=== PATIENT | female | born 1980 | race Caucasian/White ===

== ENCOUNTER 2020-10-29 09:05 | Emergency (ER) | payer MEDICARE, SELFPAY ==
[2020-10-29 09:16] VITALS: BP 149/83; PULSE 86; RESP 16; TEMP 36.5; O2SAT 99
--- NOTE | 2020-10-29 09:36 | ED.URI ---
HPI - URI/Sore Throat General Chief Complaint: Upper Respiratory Infection Stated Complaint: Coughing Time Seen by Provider: 10/29/20 09:36 Source: patient, RN notes reviewed and old records reviewed Mode of arrival: ambulatory Limitations: no limitations History of Present Illness HPI Narrative: 40 year old female who presents to [facility] care with complaints of 10 day history of productive cough of clear white mucous, and some rhinorrhea which is clear. Patient reports that she just completed a 10 day prescription of Augmentin for bronchitis but cough has lingered. Patient reports that she does have some sinus drainage and she has noted some wheezing at night, lungs are clear to auscultation at this time with no tachypnea or accessory muscle use.Patient is noted to have frequent cough with some clear expectoration of mucous, denies any shortness of breath at rest or with exertion. Patient reports that she has had COVID vaccinations. MD elicited complaint: cough and rhinorrhea Pertinent past history: other (just completed 10 days of Augmentin) Onset (ago): day(s) (10) Consistency: constant Severity: moderate Description of mucous: clear Able to tolerate fluids by mouth: Yes Exacerbating factors: nothing Relieving factors: nothing Associated symptoms: rhinorrhea and cough Treatments prior to arrival: antibiotics Related Data Home Medications Medication Instructions Recorded Confirmed alprazolam 1 mg PO DAILY 10/29/20 10/29/20 aripiprazole [Abilify] 30 mg PO DAILY 10/29/20 10/29/20 ferrous sulfate [Iron (ferrous mg 10/29/20 sulfate)] venlafaxine [Effexor XR] 150 mg PO DAILY 10/29/20 10/29/20 Allergies Allergy/AdvReac Type Severity Reaction Status Date / Time morphine AdvReac Severe Other Verified 08/31/18 15:30 codeine AdvReac Intermediate Other Verified 08/31/18 15:31 Review of Systems Review of Systems: Narrative: CONSTITUTIONAL: Denies fever, chills, or sweats. EYES: Denies visual changes, redness, or discharge. ENT: Clear rhinorrhea,no congestion, sore throat, or otalgia. CARDIOVASCULAR: Denies chest pain, palpitations, or edema. RESPIRATORY: Positive lingering cough denies any dyspnea. GASTROINTESTINAL: Denies abdominal pain, nausea, vomiting, or diarrhea. GENITOURINARY: Denies dysuria or hematuria. SKIN: Denies rash or itching. MUSCULOSKELETAL: Denies back pain, joint pain, or myalgia. NEUROLOGIC: Denies headache, numbness, or weakness. PSYCHIATRIC: Positive history of anxiety or depression. All systems reviewed & are unremarkable except as noted in HPI and below PMFSH Past Medical History Medical History (Updated 10/30/20 @ 16:40 by Indy Caldera NP) Anemia Anxiety and depression Celiac disease Insomnia Surgical History Surgical History (Updated 10/30/20 @ 16:35 by Indy Caldera NP) H/O gastric bypass History of abdominoplasty Hx of cholecystectomy Previous section Status post bilateral breast reduction Family History Family History (Updated 10/30/20 @ 16:36 by Indy Caldera NP) Other No significant family history Social History Social History (Updated 10/30/20 @ 16:36 by Indy Caldera NP) Smoking status: Former smoker Additional smoking assessment comments: quit age 20 Alcohol intake: current Alcohol use details: rare social Substance use: never Living arrangements: with family Gender identity (if verbalized by the patient): Female Comments At time of signature, agree with nursing past medical, surgical, social and family history. There is no relevant family history pertinent to the presenting complaint Exam Narrative: Exam Narrative: GENERAL: Well-appearing, well-nourished, and in no acute distress. HEAD: Normocephalic, atraumatic. EYES: PERRLA and EOMI. ENT: Nares lightly red with clear rhinorrhea no epistaxis. Mucous membranes moist.TM's normal with good light reflex, throat pink with no lesions or exudates or tonsil enlargement, gladys
== END 2020-10-29 10:00 | disposition home or self-care (01) ==
PROVIDERS: Emergency Provider Registered Nurse
DX: R05 Cough (principal); J02.9 Acute pharyngitis, unspecified; J06.9 Acute upper respiratory infection, unspecified; Z87.891 Personal history of nicotine dependence; D64.9 Anemia, unspecified; F41.9 Anxiety disorder, unspecified; F32.9 Major depressive disorder, single episode, unspecified; Z98.84 Bariatric surgery status; K90.0 Celiac disease
CPT/HCPCS: 99213; G0463

== ENCOUNTER 2022-03-16 13:29 | Emergency (ER) | payer MEDICARE, SELFPAY ==
[2022-03-16 13:42] VITALS: BP 142/107; PULSE 109; RESP 20; TEMP 36.9; O2SAT 98
--- NOTE | 2022-03-16 15:22 | ED.URI ---
HPI - URI/Sore Throat General Chief Complaint: Upper Respiratory Infection Stated Complaint: Body Ache/Headache/Congestion Time Seen by Provider: 03/16/22 15:22 Source: patient, RN notes reviewed and old records reviewed Mode of arrival: ambulatory Limitations: no limitations History of Present Illness HPI Narrative: 41 year old female who presents to [facility] care with complaints of body aches, headache, sinus congestion, cough for 1 week duration. Patient denies any fevers or sore throat or any shortness of breath. Pateient reports that she has been taking Tylenol and also Theraflu for her symptoms. Patient rates her body aches as 10/10. MD elicited complaint: cough, rhinorrhea, nasal congestion and other (body aches) Onset (ago): week(s) (1) Pain scale (0-10): 10 Treatments prior to arrival: acetaminophen and other (Theraflu) Related Data Home Medications Medication Instructions Recorded Confirmed alprazolam 1 mg tablet 1 mg PO DAILY 10/29/20 10/29/20 aripiprazole 30 mg tablet (Abilify) 30 mg PO DAILY 10/29/20 10/29/20 ferrous sulfate 325 mg (65 mg mg 10/29/20 iron) tablet (Iron (ferrous sulfate)) venlafaxine 150 mg 150 mg PO DAILY 10/29/20 10/29/20 capsule,extended release 24 hr (Effexor XR) divalproex 250 mg tablet,delayed mg PO 03/16/22 release (Depakote) Allergies Allergy/AdvReac Type Severity Reaction Status Date / Time morphine AdvReac Severe Other Verified 08/31/18 15:30 codeine AdvReac Intermediate Other Verified 08/31/18 15:31 Review of Systems Review of Systems: CONSTITUTIONAL: Reports malaise, no chills, sweats, or fever. EYES: Denies visual changes, redness, or discharge. ENT: Reports rhinorrhea, congestion, sinus pain,no otalgia no sore throat. CARDIOVASCULAR: Denies chest pain, palpitations, or edema. RESPIRATORY: Reports cough.? Denies dyspnea, reports some wheezing GASTROINTESTINAL: Denies abdominal pain, nausea, vomiting, diarrhea SKIN: Denies rash or itching. MUSCULOSKELETAL: Reports myalgia. NEUROLOGIC:Reports headache. All systems reviewed & are unremarkable except as noted in HPI and below PMFSH Past Medical History Medical History (Updated 03/17/22 @ 00:00 by Vanesa Johnson) Anemia Anxiety and depression Celiac disease Insomnia Surgical History Surgical History (Updated 10/30/20 @ 16:35 by Indy Caldera NP) H/O gastric bypass History of abdominoplasty Hx of cholecystectomy Previous section Status post bilateral breast reduction Family History Family History (Updated 10/30/20 @ 16:37 by Indy Caldera NP) Other No significant family history Social History Social History (Updated 10/30/20 @ 16:36 by Indy Caldera NP) Smoking status: Former smoker Additional smoking assessment comments: quit age 20 Alcohol intake: current Alcohol use details: rare social Substance use: never Gender identity (if verbalized by the patient): Female Comments At time of signature, agree with nursing past medical, surgical, social and family history. There is no relevant family history pertinent to the presenting complaint Exam Narrative: GENERAL: Well-appearing, well-nourished, and in no acute distress. HEAD: Normocephalic EYES: PERRLA, conjunctivae clear ENT: Nares clear, turbinates edematous and erythematous, clear discharge. Mucous membranes moist. TM pearly szymanski with dull light reflex bilaterally; no tragal tenderness. Oropharynx erythematous without lesions. Tonsils not enlarged and without exudate, no drooling, no hoarseness, no trismus, uvula midline.post nasal drainage NECK: Supple. No lymphadenopathy CHEST: Clear to auscultation, breath sounds equal. No wheezing, rhonchi, rales, or stridor. No respiratory distress, speaks in full sentences.cough loose and dry frequent, SAO2 98% on room air HEART: Regular rate and rhythm. No murmur heard. SKIN: Warm, dry, no rash. NEURO: Alert and oriented x3.
== END 2022-03-16 16:08 | disposition home or self-care (01) ==
PROVIDERS: Emergency Provider Registered Nurse; PCP Internal Medicine
DX: J06.9 Acute upper respiratory infection, unspecified (principal); R05.9 Cough, unspecified; K90.0 Celiac disease; Z98.84 Bariatric surgery status; F41.9 Anxiety disorder, unspecified; F32.A Depression, unspecified
CPT/HCPCS: 87804; 99213; G0463

== ENCOUNTER 2023-08-23 21:42 | Emergency (ER) | payer SELFPAY ==
[2023-08-23 21:43] VITALS: BP 139/95; PULSE 96; RESP 16; TEMP 36.2; O2SAT 99
--- NOTE | 2023-08-23 22:58 | PC.NURSE ---
1st call for triage - no answer
--- NOTE | 2023-08-23 23:26 | PC.NURSE ---
2nd call for triage, no answer.
== END 2023-08-24 00:19 | disposition left against medical advice (07) ==
LOC: ANHED 23:56
PROVIDERS: PCP Internal Medicine
DX: D64.9 Anemia, unspecified (principal)
CPT/HCPCS: 99199

== ENCOUNTER 2023-10-29 19:46 | Emergency (ER) | payer BC, MEDICARE, SELFPAY ==
[2023-10-29 19:49] VITALS: BP 148/76; PULSE 99; RESP 20; TEMP 36.4; O2SAT 100
--- NOTE | 2023-10-29 20:46 | ED.HA ---
HPI - Headache General Chief Complaint: Headache Stated Complaint: migraine Time Seen by Provider: 10/29/23 20:28 Source: patient Mode of arrival: ambulatory Limitations: no limitations History of Present Illness HPI Narrative: Patient presents with a headache which she states is mine pain. This started today. She has a history of recurrent headaches for which she sees a neurologist. She has been on Ubrelvy and Fioricet and has Devoprolex as a prophylactic agent but these do not seem to be working. Her headache is bilateral in nature primarily at her temples. This feels very similar to her normal headaches any allergy. No trauma or anticoagulation. Associated photophobia and phonophobia. She denies any fevers. No eye pain. No house members with similar symptoms. She is also concerned that her iron might be low as she feels like she is drunk and has felt this way previously she was anemic requiring blood transfusion. She states she has required several blood transfusions in the past. Related Data Home Medications Medication Instructions Recorded Confirmed alprazolam 1 mg tablet 1 mg PO DAILY 10/29/20 10/29/20 aripiprazole 30 mg tablet (Abilify) 30 mg PO DAILY 10/29/20 10/29/20 ferrous sulfate 325 mg (65 mg mg 10/29/20 iron) tablet (Iron (ferrous sulfate)) venlafaxine 150 mg 150 mg PO DAILY 10/29/20 10/29/20 capsule,extended release 24 hr (Effexor XR) divalproex 250 mg tablet,delayed mg PO 03/16/22 release (Depakote) Allergies Allergy/AdvReac Type Severity Reaction Status Date / Time morphine AdvReac Severe Other Verified 10/29/23 22:21 codeine AdvReac Intermediate Other Verified 10/29/23 22:21 [facility] Past Medical History Medical History (Updated 10/31/23 @ 17:46 by Tracey Cramer MD) Anemia Anxiety and depression Celiac disease History of blood transfusion Insomnia Recurrent headache Surgical History Surgical History (Updated 10/30/20 @ 16:35 by Indy Caldera NP) H/O gastric bypass History of abdominoplasty Hx of cholecystectomy Previous section Status post bilateral breast reduction Family History Family History (Updated 10/30/20 @ 16:37 by Indy Caldera NP) Other No significant family history Social History Social History Smoking status: Former smoker Additional smoking assessment comments: quit age 20 Alcohol intake: current Alcohol use details: rare social Substance use: never Living arrangements: with family Additional living arrangements comments: and daughter Gender identity (if verbalized by the patient): Female Exam Narrative: GENERAL: well-nourished, in mild acute distress; appears in pain. HEAD: Normocephalic, atraumatic. EYES: Non injected, non icteric. PERRL. No afferent pupil defect. Photophobia. ENT: Nares clear, no rhinorrhea or epistaxis. NECK: Supple. No meningismus. CHEST: Speaking in full sentences. No respiratory distress. HEART: Regular rate and rhythm. . ABDOMEN: Soft, nondistended. EXTREMITIES: Normal range of motion. No edema. SKIN: Warm, dry, no rash. NEURO: No focal deficits. Alert and oriented x3. Sensation intact to gross touch in bilateral upper and lower extremities, symmetric. Sensation intact across distribution of face x3. Normal facial symmetry with smile, closed eyes, and furrowed brow. Speaks clearly without aphasia or dysarthria. PSYCH: Congruent mood and affect. Course Vital Signs Vital signs: Vital Signs Temperature 97.5 F L 10/29/23 19:49 Pulse Rate 99 10/29/23 19:49 Respiratory Rate 20 10/29/23 19:49 Blood Pressure 148/76 H 10/29/23 19:49 Pulse Oximetry 100 10/29/23 19:49 Oxygen Delivery Room Air 10/29/23 19:49 Temperature 97.5 F L 10/29/23 19:49 Pulse Rate 94 10/29/23 22:54 Respiratory Rate 15 10/29/23 22:54 Blood Pressure 140/78 10/29/23 22:54 Pulse Oximetry
[2023-10-29] MEDS: SODIUM CHLORIDE 0.9% IV 1,000 ML 999 ML IV CONT (21:22)
[2023-10-29] MEDS: KETOROLAC 15 MG/ML VIAL (*BKC) IV PUSH (21:22)
[2023-10-29] MEDS: PROCHLORPERAZINE EDISYLATE 10 MG/2 ML VIAL IV PUSH (21:22)
[2023-10-29] MEDS: diphenhydrAMINE HCl INJ 50 MG/ML VIAL 25 MG IV PUSH (21:22)
[2023-10-29 21:41] LABS: Basophils Absolute Auto 0.1 K/mm3 (0.0-0.1); Basophils Percent Auto 0.9 % (0.2-1.2); Eosinophils Absolute Auto 0.2 K/mm3 (0-0.3); Eosinophils Percent Auto 2.2 % (0-4.4); Hematocrit 26.8 % (37.0-47.0); Hemoglobin 7.2 g/dL (12.0-15.0); Immature Granulocyte Absolute 0.03 K/mm3 (0.00-0.031); Immature Granulocyte Percent A 0.4 % (0-0.5); Immature Platelet Fraction Pct 6.7 % (0.9-11.2); Lymphocytes Absolute Auto 2.82 K/mm3 (0.9-3.2); Lymphocytes Percent Auto 36.3 % (18.3-44.2); Mean Corpuscular HGB Conc 26.9 g/dl (32-36); Mean Corpuscular Hemoglobin 17.9 pg (26-34); Mean Corpuscular Volume 66.7 fl (80-100); Mean Platelet Volume 11.6 fl (7.4-10.4); Monocytes Absolute Auto 0.4 K/mm3 (0.1-0.6); Monocytes Percent Auto 5.7 % (2.6-8.5); Neutrophils Absolute Auto 4.2 K/mm3 (1.3-6.7); Neutrophils Percent Auto 54.5 % (45.5-73.1); Platelet Count Result 449 k/mm3 (150-375); Red Blood Count 4.02 M/mm3 (4.2-5.4); Red Cell Distribution Width 21.7 % (11.5-14.5); White Blood Count 7.8 K/mm3 (4.5-10.0)
[2023-10-29 21:48] LABS: Anisocytosis 1+; Hypochromasia 1+; Microcytosis 2+ (NORMAL); Ovalocytes 1+; Platelet Estimate Increased (Adequate); Schistocytes None Seen
[2023-10-29 21:49] LABS: Alanine Aminotransferase 10 U/L (6-35); Albumin Level 4.4 g/dL (3.5-5.1); Alkaline Phosphatase 98 U/L (38-126); Anion Gap 10 mmol/L (4-12); Aspartate Amino Transferase 21 U/L (14-36); Bilirubin,Total 0.5 mg/dL (0.2-1.3); Blood Urea Nitrogen 10 mg/dL (7-17); Carbon Dioxide 22 mmol/L (22-30); Chloride 105 mmol/L (98-107); Estimated CRCL calculation 109 ml/min; Estimated Glomerular Filt Rate > 60; Glucose 98 mg/dL (65-110); Potassium 4.1 mmol/L (3.4-5.0); Sodium 137 mmol/L (137-145)
[2023-10-29] MEDS: dexAMETHasone SOD PHOS INJ 10 MG/ML 1 ML VIAL IV PUSH (22:45)
[2023-10-29 22:54] VITALS: BP 140/78; PULSE 94; RESP 15; O2SAT 99
== END 2023-10-29 22:56 | disposition home or self-care (01) ==
PROVIDERS: Emergency Provider Student in an Organized Health Care Education/Training Program; PCP Internal Medicine
DX: D50.9 Iron deficiency anemia, unspecified (principal); D75.839 Thrombocytosis, unspecified; R51.9 Headache, unspecified; Z87.891 Personal history of nicotine dependence
CPT/HCPCS: 36415; 80053; 85025; 85055; 86850; 86900; 86901; 96361; 96374; 96375; 99284; J0780; J1100; J1200; J1885; J7030

== ENCOUNTER 2023-11-08 12:26 | Emergency (ER) | payer BC, MEDICARE, SELFPAY ==
[2023-11-08 12:35] VITALS: BP 128/66; PULSE 99; RESP 16; TEMP 36.6; O2SAT 100
--- NOTE | 2023-11-08 13:28 | ED.GENADULT ---
HPI - General Adult General Chief complaint: Skin/Abscess/Foreign Body Stated complaint: Skin Problem/Itching Source: patient Mode of arrival: ambulatory Limitations: no limitations History of Present Illness HPI narrative: Patient presents for evaluation of generalized pruritus without rash since yesterday. She indicates she has the symptoms once per year and it is related to her anxiety. She denies any SI or HI. She states Spotivate has worked in the past. No new lotions, soaps or detergents. Related Data Home Medications Medication Instructions Recorded Confirmed alprazolam 1 mg tablet 1 mg PO DAILY 10/29/20 10/29/20 aripiprazole 30 mg tablet (Abilify) 30 mg PO DAILY 10/29/20 10/29/20 ferrous sulfate 325 mg (65 mg mg 10/29/20 iron) tablet (Iron (ferrous sulfate)) venlafaxine 150 mg 150 mg PO DAILY 10/29/20 10/29/20 capsule,extended release 24 hr (Effexor XR) divalproex 250 mg tablet,delayed mg PO 03/16/22 release (Depakote) atorvastatin 10 mg tablet mg 11/08/23 meloxicam 15 mg tablet mg 11/08/23 mirtazapine 15 mg tablet mg 11/08/23 Allergies Allergy/AdvReac Type Severity Reaction Status Date / Time morphine AdvReac Severe Other Verified 11/08/23 12:31 codeine AdvReac Intermediate Other Verified 11/08/23 12:31 Review of Systems Review of Systems: CONSTITUTIONAL: Denies fever, chills, or sweats. EYES: Denies visual changes, redness, or discharge. ENT: Denies rhinorrhea, congestion, sore throat, or otalgia. CARDIOVASCULAR: Denies chest pain, palpitations, or edema. RESPIRATORY: Denies cough or dyspnea. GASTROINTESTINAL: Denies abdominal pain, nausea, vomiting, or diarrhea. GENITOURINARY: Denies dysuria or hematuria. SKIN: Reports generalized pruritus without rash. MUSCULOSKELETAL: Denies back pain, joint pain, or myalgia. NEUROLOGIC: Denies headache, numbness, dizziness, or weakness. PSYCHIATRIC: Denies anxiety or depression. [facility] Past Medical History Medical History Anemia Anxiety and depression Celiac disease History of blood transfusion Insomnia Recurrent headache Surgical History Surgical History H/O gastric bypass History of abdominoplasty Hx of cholecystectomy Previous section Status post bilateral breast reduction Family History Family History Other No significant family history Social History Social History Smoking status: Former smoker Additional smoking assessment comments: quit age 20 Alcohol intake: current Alcohol use details: rare social Substance use: never Living arrangements: with family Additional living arrangements comments: and daughter Gender identity (if verbalized by the patient): Female Exam Narrative: GENERAL: Well-appearing, well-nourished, and in no acute distress. HEAD: Normocephalic, atraumatic. EYES: PERRLA and EOMI. ENT: Nares clear, no rhinorrhea or epistaxis. Mucous membranes moist. Oropharynx without tonsillar hypertrophy exudate or other lesions. Bilateral TMs pearly szymanski nonbulging NECK: Supple. No adenopathy or masses. No carotid bruits or JVD CHEST: Clear to auscultation. No respiratory distress. No wheezes rales or rhonchi HEART: Regular rate and rhythm. No murmur heard. Normal peripheral pulses. ABDOMEN: Soft, nontender, nondistended, normal active bowel sounds. EXTREMITIES: Normal range of motion. No edema. SKIN: Warm, dry, no rash. NEURO: No focal deficits. Alert and oriented x3. PSYCH: Normal mood and affect. Course Course Emergency Course: This is a 43-year-old female who presented for evaluation of pruritus without rash. Medrol Dosepak as worked in the past will provide her with a prescription for that. Will also give her some
== END 2023-11-08 13:18 | disposition home or self-care (01) ==
PROVIDERS: Emergency Provider Nurse Practitioner; PCP Internal Medicine
DX: L29.9 Pruritus, unspecified (principal); F41.9 Anxiety disorder, unspecified; Z87.891 Personal history of nicotine dependence; K90.0 Celiac disease; F32.A Depression, unspecified
CPT/HCPCS: 99213; G0463

== ENCOUNTER 2024-01-20 08:32 | Emergency (ER) | payer BC, MEDICARE, SELFPAY ==
[2024-01-20 08:37] VITALS: BP 140/75; PULSE 92; RESP 18; TEMP 36.8; O2SAT 100
--- NOTE | 2024-01-20 08:56 | ED.URI ---
HPI - URI/Sore Throat General Stated Complaint: Cough/Runny Nose/Headache Time Seen by Provider: 01/20/24 08:56 Source: patient Mode of arrival: ambulatory Limitations: no limitations History of Present Illness HPI Narrative: 43-year-old female presents with complaint cough, chest congestion, wheezing, fatigue, nasal congestion for 3 days. Afebrile. Taking [id number] cough and cold medication to treat symptoms. Denies shortness of breath. All systems reviewed and negative except as noted above. Related Data Home Medications Medication Instructions Recorded Confirmed alprazolam 1 mg tablet 1 mg PO DAILY 10/29/20 01/20/24 aripiprazole 30 mg tablet (Abilify) 30 mg PO DAILY 10/29/20 01/20/24 ferrous sulfate 325 mg (65 mg mg 10/29/20 iron) tablet (Iron (ferrous sulfate)) venlafaxine 150 mg 150 mg PO DAILY 10/29/20 01/20/24 capsule,extended release 24 hr (Effexor XR) divalproex 250 mg tablet,delayed mg PO 03/16/22 release (Depakote) atorvastatin 10 mg tablet mg 11/08/23 meloxicam 15 mg tablet mg 11/08/23 mirtazapine 15 mg tablet mg 11/08/23 Allergies Allergy/AdvReac Type Severity Reaction Status Date / Time morphine AdvReac Severe Other Verified 11/08/23 12:31 codeine AdvReac Intermediate Other Verified 11/08/23 12:31 Review of Systems Review of Systems: CONSTITUTIONAL: Denies fever, chills, or sweats. reports fatigue. EYES: Denies visual changes, redness, or discharge. ENT: Reports rhinorrhea, congestion. Denies sore throat, or otalgia. CARDIOVASCULAR: Denies chest pain, palpitations, or edema. RESPIRATORY: Reports cough. Denies dyspnea. GASTROINTESTINAL: Denies abdominal pain, nausea, vomiting, or diarrhea. GENITOURINARY: Denies dysuria or hematuria. SKIN: Denies rash or itching. MUSCULOSKELETAL: Denies back pain, joint pain, or myalgia. NEUROLOGIC: Denies headache, numbness, or weakness. PSYCHIATRIC: Denies anxiety or depression. All other systems reviewed are negative, except as documented in HPI. [facility] Past Medical History Medical History Anemia Anxiety and depression Celiac disease History of blood transfusion Insomnia Recurrent headache Surgical History Surgical History H/O gastric bypass History of abdominoplasty Hx of cholecystectomy Previous section Status post bilateral breast reduction Family History Family History Other No significant family history Social History Social History Smoking status: Former smoker Additional smoking assessment comments: quit age 20 Alcohol intake: current Alcohol use details: rare social Substance use: never Living arrangements: with family Additional living arrangements comments: and daughter Gender identity (if verbalized by the patient): Female Comments At time of signature, agree with nursing past medical, surgical, social and family history. There is no relevant family history pertinent to the presenting complaint. Exam Narrative: GENERAL: This is a well-nourished, well-developed patient, ill-appearing but in no acute distress HEAD: normocephalic, atraumatic. EYES: PERRL. Sclera clear/white. Vision is grossly intact. EARS: External ears normal, auditory canals clear and without drainage, TMs normal without perforation. Hearing grossly intact. NOSE: External nose normal with clear nasal drainage, mild congestion THROAT: Mucous membranes moist, posterior pharynx clear. NECK: Neck supple, non-tender without lymphadenopathy, masses or thyromegaly. CARDIOVASCULAR: Regular rate and rhythm without murmurs, gallops, or rubs. RESPIRATORY: Clear to auscultation. Breath sounds equal bilaterally. No wheezes, rales, or rhonchi. SKIN: warm, Dry, in
[2024-01-20 09:27] LABS: EDCOVIDSCREEN Negative (Negative); EDINFLUASCREEN Negative (Negative); EDINFLUBSCREEN Negative (Negative)
== END 2024-01-20 09:20 | disposition home or self-care (01) ==
PROVIDERS: Emergency Provider Nurse Practitioner Family; PCP Internal Medicine
DX: J06.9 Acute upper respiratory infection, unspecified (principal); R05.9 Cough, unspecified; Z20.822 Contact with and (suspected) exposure to COVID-19; Z87.891 Personal history of nicotine dependence; D64.9 Anemia, unspecified; F41.9 Anxiety disorder, unspecified; F32.A Depression, unspecified; K90.0 Celiac disease; Z98.84 Bariatric surgery status
CPT/HCPCS: 87426; 87804; 99212; G0463

== ENCOUNTER 2024-01-21 20:15 | Emergency (ER) | payer BC, MEDICARE, SELFPAY ==
[2024-01-21 20:29] VITALS: BP 133/75; PULSE 98; RESP 17; TEMP 36.4; O2SAT 98
== END 2024-01-21 22:57 | disposition left against medical advice (07) ==
LOC: ANHED 22:41
PROVIDERS: PCP Internal Medicine
DX: R10.33 Periumbilical pain (principal)
CPT/HCPCS: 99199

== ENCOUNTER 2024-02-20 04:27 | Observation (INO) | payer MEDICARE, SELFPAY ==
[2024-02-20] VITALS (7 sets, daily range): BP systolic 127–150; BP diastolic 62–82; PULSE 86–105; RESP 15–26; TEMP 36.1–36.9; O2SAT 98–100; BMI 38.7
[2024-02-20 04:46] LABS: Basophils Percent Auto 0.2 % (0.2-1.2); Eosinophils Percent Auto 0.1 % (0-4.4); Hematocrit 22.8 % (37.0-47.0); Immature Granulocyte Absolute 0.03 K/mm3 (0.00-0.031); Immature Granulocyte Percent A 0.3 % (0-0.5); Immature Platelet Fraction Pct 7.6 % (0.9-11.2); Lymphocytes Absolute Auto 1.94 K/mm3 (0.9-3.2); Lymphocytes Percent Auto 17.9 % (18.3-44.2); Mean Corpuscular HGB Conc 25.9 g/dl (32-36); Mean Corpuscular Volume 65.5 fl (80-100); Mean Platelet Volume 11.3 fl (7.4-10.4); Monocytes Absolute Auto 0.5 K/mm3 (0.1-0.6); Neutrophils Absolute Auto 8.3 K/mm3 (1.3-6.7); Neutrophils Percent Auto 76.5 % (45.5-73.1); Platelet Count Result 435 k/mm3 (150-375); Red Blood Count 3.48 M/mm3 (4.2-5.4); Red Cell Distribution Width 21.8 % (11.5-14.5); White Blood Count 10.9 K/mm3 (4.5-10.0)
[2024-02-20 04:55] LABS: Alanine Aminotransferase 16 U/L (6-35); Albumin Level 4.4 g/dL (3.5-5.1); Alkaline Phosphatase 82 U/L (38-126); Anion Gap 10 mmol/L (4-12); Aspartate Amino Transferase 26 U/L (14-36); Bilirubin,Total 0.5 mg/dL (0.2-1.3); Blood Urea Nitrogen 12 mg/dL (7-17); Calcium 9.1 mg/dL (8.4-10.2); Carbon Dioxide 20 mmol/L (22-30); Chloride 107 mmol/L (98-107); Estimated CRCL calculation 99 ml/min; Estimated Glomerular Filt Rate > 60; Glucose 165 mg/dL (65-110); Potassium 3.5 mmol/L (3.4-5.0); Sodium 137 mmol/L (137-145)
[2024-02-20 05:01] LABS: INR 1.1; Prothrombin Time 14.5 Seconds (11.1-14.7)
[2024-02-20 05:02] LABS: Partial Thromboplastin Time 24.9 Seconds (22.3-36.8)
[2024-02-20 05:10] LABS: Hemoglobin 5.9 g/dL (12.0-15.0)
[2024-02-20 05:11] LABS: Anisocytosis 2+; Hypochromasia 2+; Microcytosis 1+ (NORMAL); Platelet Estimate Increased (Adequate)
[2024-02-20 05:13] LABS: Ovalocytes 1+; Schistocytes None Seen
[2024-02-20] MEDS: BELLADONNA ALK/PHENOB ELIX 10 ML, MAG HYDROX/ALUMINUM HYD/SIMETH 30 ML, LIDOCAINE HCL 2... PO (05:32)
--- NOTE | 2024-02-20 05:57 | ED.GENADULT ---
HPI - General Adult General Chief complaint: Weakness Stated complaint: weakness, dizziness Time Seen by Provider: 02/20/24 05:20 History of Present Illness HPI narrative: patient 43-year-old female who presents emergency department chief complaint of weakness and anemia. Patient was seen in the emergency department yesterday and states that she is still weak and still feeling run down the patient was found have a hemoglobin of 5.5 yesterday plan was to admit the patient in transfuser but the patient had to deal with some family issues and signed out AMA the patient returns today to complete her treatment Related Data Home Medications Medication Instructions Recorded Confirmed alprazolam 1 mg tablet 1 mg PO DAILY 10/29/20 01/20/24 aripiprazole 30 mg tablet (Abilify) 30 mg PO DAILY 10/29/20 01/20/24 ferrous sulfate 325 mg (65 mg mg 10/29/20 iron) tablet (Iron (ferrous sulfate)) venlafaxine 150 mg 150 mg PO DAILY 10/29/20 01/20/24 capsule,extended release 24 hr (Effexor XR) divalproex 250 mg tablet,delayed mg PO 03/16/22 release (Depakote) atorvastatin 10 mg tablet mg 11/08/23 meloxicam 15 mg tablet mg 11/08/23 mirtazapine 15 mg tablet mg 11/08/23 Allergies Allergy/AdvReac Type Severity Reaction Status Date / Time morphine AdvReac Severe Other Verified 11/08/23 12:31 codeine AdvReac Intermediate Other Verified 11/08/23 12:31 Review of Systems Review of Systems: A 10 system review of systems was completed on the patient and is negative except for what is stated in the HPI. Nursing and ancillary documentation was reviewed. FORMERLY [facility], [facility] Past Medical History Medical History Anemia Anxiety and depression Celiac disease History of blood transfusion Insomnia Recurrent headache Surgical History Surgical History H/O gastric bypass History of abdominoplasty Hx of cholecystectomy Previous section Status post bilateral breast reduction Family History Family History Other No significant family history Social History Social History Smoking status: Former smoker Additional smoking assessment comments: quit age 20 Alcohol intake: current Alcohol use details: rare social Substance use: never Living arrangements: with family Additional living arrangements comments: and daughter Gender identity (if verbalized by the patient): Female Exam Narrative: GENERAL: Well-appearing, well-nourished, and in no acute distress. HEAD: Normocephalic, atraumatic. EYES: PERRLA and EOMI. ENT: Nares clear, no rhinorrhea or epistaxis. Mucous membranes moist. NECK: Supple. CHEST: Clear to auscultation. No respiratory distress. HEART: Regular rate and rhythm. No murmur heard. Normal peripheral pulses. ABDOMEN: Soft, nontender, nondistended, normal active bowel sounds. EXTREMITIES: Normal range of motion. No edema. SKIN: Warm, dry, no rash. NEURO: No focal deficits. Alert and oriented x3. PSYCH: Normal mood and affect. Course Vital Signs Vital signs: Vital Signs Temperature 36.9 C 02/20/24 04:36 Pulse Rate 105 H 02/20/24 04:36 Respiratory Rate 26 H 02/20/24 04:36 Blood Pressure 150/79 H 02/20/24 04:36 Pulse Oximetry 100 02/20/24 04:36 Temperature 36.9 C 02/20/24 04:36 Pulse Rate 105 H 02/20/24 04:36 Respiratory Rate 26 H 02/20/24 04:36 Blood Pressure 150/79 H 02/20/24 04:36 Pulse Oximetry 100 02/20/24 04:36 Medical Decision Making [facility] Narrative Medical decision making narrative: differential diagnosis includes anemia, GI bleed patient was guaiac-negative yesterday hemoglobin is 5.9 today was 5.5 yesterday. The case was discussed with the hospitalist plan will be to admit the patient for transfusion and further anemia workup Vital Signs Vital Signs: Vital Signs Temperature 36.9 C 02/20/24 04:36 Pulse Rate 105 H 02/20/24 04:36 Respiratory Rate 26 H 02/20/24 04:36 Blood Pressure 150/79 H 02/20/24 04:36 Pulse Oximetry 100 02/20/24 04:36 Temperature 36.9 C 02/20/24 04:36 Pulse Rate 105 H 02/20/24 04:36 Respiratory Rate 26 H 02/20/24 04:36 Blood Pressure 150/79 H 02/20/24 04:36 Pulse Oximetry 100 02/20/24 04:36 Lab Data 02/20/24 04:38 02/20/24 04:38 Labs: Lab Results 02/20/24 Range/Units 04:38 WBC 10.9 H (4.5-10.0) K/mm3 RBC 3.48 L (4.2-5.4) M/mm3 Hgb 5.9 L* (12.0-15.0) g/dL Hct 22.8 L (37.0-47.0) % MCV 65.5 L (80-100) fl MCH 17.0 L (26-34) pg MCHC 25.9 L (32-36) g/dl RDW 21.8 H (11.5-14.5) % Plt Count 435 H (150-375) k/mm3 MPV 11.3 H (7.4-10.4) fl Immature Gran % (Auto) 0.3 (0-0.5) % Neut % (Auto) 76.5 H (45.5-73.1) % Lymph % (Auto) 17.9 L (18.3-44.2) % [place] % (Auto) 5.0 (2.6-8.5) % Eos % (Auto) 0.1 (0-4.4) % Baso % (Auto) 0.2 (0.2-1.2) % Lymph # (Auto) 1.94 (0.9-3.2) K/mm3 [place] # (Auto) 0.5 (0.1-0.6) K/mm3 Eos # (Auto) 0.0 (0-0.3) K/mm3 Baso # (Auto) 0.0 (0.0-0.1) K/mm3 Abs Immat Gran (auto) 0.03 (0.00-0.031) K/mm3 Absolute Neuts (auto) 8.3 H (1.3-6.7) K/mm3 Absolute Nucleated RBC 0.000 (0.0-0.012) K/mm3 Nucleated RBC % 0.0 (0.0-0.2) % Platelet Estimate Increased (Adequate) % Immature Plt Fraction 7.6 (0.9-11.2) % Hypochromasia 2+ Anisocytosis 2+ Microcytosis 1+ (NORMAL) Ovalocytes 1+ Schistocytes None seen PT 14.5 (11.1-14.7) Seconds INR 1.1 APTT 24.9 (22.3-36.8) Seconds Sodium 137 (137-145) mmol/L Potassium 3.5 (3.4-5.0) mmol/L Chloride 107 (98-107) mmol/L Carbon Dioxide 20 L (22-30) mmol/L Anion Gap 10 (4-12) mmol/L BUN 12 (7-17) mg/dL Creatinine 0.80 (0.7-1.0) mg/dL Estim Creat Clear Calc 99 ml/min Estimated GFR > 60 (59 - ) Glucose 165 H (65-110) mg/dL Calcium 9.1 (8.4-10.2) mg/dL Total Bilirubin 0.5 (0.2-1.3) mg/dL AST 26 (14-36) U/L ALT 16 (6-35) U/L Alkaline Phosphatase 82 (38-126) U/L Total Protein 8.0 (6.3-8.2) g/dL Albumin 4.4 (3.5-5.1) g/dL Blood Type A Positive Antibody Screen Negative Discharge Plan Discharge Clinical Impression: Symptomatic anemia Patient Disposition: Still a Patient Condition: Stable Prescriptions: No Action atorvastatin 10 mg tablet meloxicam 15 mg tablet mirtazapine 15 mg tablet methylprednisolone [Medrol (Jim)] 4 mg tablets,dose pack See Rx Instructions .ROUTE .COMPLEX Qty: 21 0RF Rx Instructions: orally per package directions hydroxyzine pamoate [Vistaril] 25 mg capsule 25 - 50 mg PO Q6-8H Qty: 20 0RF alprazolam 1 mg Tablet 1 mg PO DAILY venlafaxine [Effexor XR] 150 mg Capsule,Extended Release 24hr 150 mg PO DAILY ferrous sulfate [Iron (ferrous sulfate)] 325 mg (65 mg iron) Tablet aripiprazole [Abilify] 30 mg Tablet 30 mg PO DAILY divalproex [Depakote] 250 mg Tablet,Delayed Release (Dr/Ec) PO albuterol sulfate 90 mcg/actuation HFA aerosol inhaler 2 puff inhalation QID PRN (Reason: shortness of breath or wheezing) Qty: 6.7 0RF Rx Instructions: what ever is covered by insurance Follow-up/Referrals: Derrick,Morales Cantu MD [Primary Care Provider] - Time of Disposition: 06:00
[2024-02-20 06:27] LABS: Hematocrit 20.6 % (37.0-47.0); Hemoglobin 5.4 g/dL (12.0-15.0)
[2024-02-20] MEDS: SODIUM CHLORIDE 0.9% IV 250 ML 30 ML IV CONT (07:42)
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
[2024-02-20] MEDS: FERROUS SULFATE 325 MG TABLET DR BY MOUTH (08:19)
[2024-02-20 08:46] LABS: Immature Reticulocyte Fraction 25.2 % (3.0-15.9); Reticulocyte Percent 2.41 % (0.7-4.3); Reticulocytes Absolute 0.08 10^6/uL (0.02-0.10)
[2024-02-20 08:49] LABS: Lactate Dehydrogenase 197 U/L (120-246)
[2024-02-20 09:01] LABS: Iron 17 ug/dL (37-170)
[2024-02-20 09:02] LABS: Transferrin 414 mg/dL (206-381)
[2024-02-20 09:10] LABS: Percent Iron Saturation 3 % (20-50)
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
--- NOTE | 2024-02-20 10:31 | ADMGEN ---
This patient, Linda Keita, was admitted to 2 Medical Room 242-. Patient/family oriented to hospital policies and general routines including ID bracelet, bed and alarms, visiting hours, pain management, procedures, bathroom and other care routines, personal items, smoking policy, room service/diet, and visiting hours. Information on how to activate the Rapid Response Team has been discussed. Patient/Family are encouraged to report perceived risks to care and to ask questions if they do not understand what they are told or what they should do.
[2024-02-22 17:04] LABS: Haptoglobin 223 mg/dL (43-212)
[2024-02-22 22:05] LABS: Thyroid Stimulating Hormone Reflex 0.834 uIU/mL (0.465-4.68)
[2024-02-22 23:36] LABS: Folic Acid 5.6 ng/mL (2.76->20)
[2024-02-23 05:58] LABS: Ferritin 4.09 ng/mL (6.24-137)
== END 2024-02-20 10:05 | disposition left against medical advice (07) ==
LOC: ANHED 06:08 → ANH2MED 06:50
PROVIDERS: Nurse Practitioner Acute Care; Admitting Provider Internal Medicine; Emergency Provider Emergency Medicine; PCP Internal Medicine; Visit Provider Internal Medicine
DX: D50.9 Iron deficiency anemia, unspecified (principal); F41.9 Anxiety disorder, unspecified; F32.A Depression, unspecified; K90.0 Celiac disease; G47.00 Insomnia, unspecified; F17.210 Nicotine dependence, cigarettes, uncomplicated; Z98.84 Bariatric surgery status; Z79.899 Other long term (current) drug therapy
CPT/HCPCS: 36415; 36430; 80053; 82607; 82728; 82746; 83010; 83540; 83550; 83615; 84443; 84466; 85014; 85018; 85025; 85046; 85055; 85610; 85730; 86850; 86900; 86901; 86923; 99285; A9270; G0378; J7050; P9016

== ENCOUNTER 2024-03-16 10:32 | Emergency (ER) | payer MEDICARE, SELFPAY ==
[2024-03-16 10:53] VITALS: BP 149/74; PULSE 100; RESP 16; TEMP 36.5; O2SAT 100
== END 2024-03-16 14:11 | disposition left against medical advice (07) ==
PROVIDERS: PCP Internal Medicine
DX: R53.1 Weakness (principal)
CPT/HCPCS: 99199

== ENCOUNTER 2024-10-14 05:32 | Emergency (ER) | payer MEDICARE, SELFPAY ==
[2024-10-14] VITALS (20 sets, daily range): BP systolic 110–139; BP diastolic 68–86; PULSE 76–104; RESP 16–38; TEMP 36.7; O2SAT 99–100
--- OUTSIDE RECORDS SUMMARY | 2024-10-14 05:34 | XMS_ITS | Encounter Summary ---
Author Organization [facility] Address [address] [place] [address] Phone Care Team Providers Care Supervisor Cell Efficiency Name Role Phone Morales Meza MD Primary Care Provider [phone] Valeria Ulloa ETHANOL QUALITY LEADER, ACCOUNTING FILE CLERK Unavailable [phone] Reason for Visit * Reason Comments Medication Refill Encounter Details Date Type Department Care Team (Late st Contact Info) Description 09/19/2023 Refill [facility] - Family Medicine [facility] [address] [place] [address] Morales Meza MD [address] [address] Medication Refill Social History Tobacco Use Types Packs/Day Years Used Date Smoking Tobacco: Former Cigarettes 2011 Smokeless Tobacco: Never Alcohol Use Standard Drinks/Week Comments Yes 0 (1 standard drink = 0.6 oz pur e alcohol) Very Rare [facility] Utilities Answer Date Recorded In the past 12 months has [employer], gas, oil, or water company threatened to shut off services in your home? No 08/14/2023 Social Connection and Isolation Panel Answer Date Recorded In a typical week, how many times do you talk on the phone with family, friends, or neighbors? Patient declined 08/14/2023 How often do you get togethe r with friends or relatives? Patient declined 08/14/2023 How often do you attend holiness or taoist serv ices? Patient declined 08/14/2023 Do you belong to any clubs o r organizations such as holiness groups, unions, fraternal or athletic groups, or school groups? Patient declined 08/14/2023 How often do you attend meet ings of the clubs or organizations you belong to? Patient declined 08/14/2023 Are you , , di vorced, , never , or living with a partner? Patient declined 08/14/2023 AUDIT-C Answer Date Recorded Q1: How often do you have a drink containing alcohol? Never 08/14/2023 Q2: How many drinks containi ng alcohol do you have on a typical day when you are drinking? Patient does not drink Q3: How often do you have si x or more drinks on one occasion? Never 08/14/2023 Overall Financial Resource Strain (CARDIA) Answe r Date Recorded How hard is it for you to pa y for the very basics like food, housing, medical care, and heating? Patient declined 08/14/2023 PHQ-2 Answer Date Recorded Total Score - Questions 1-9 11 04/2019 [facility] - Occupational Stress Questionnaire Answer Date Recorded Do you feel stress - tense, restless, nervous, or anxious, or unable to sleep at night because your mind is troubled all the time - these days? Rather much 08/14/2023 Exercise Vital Sign Answer Date Recorde d On average, how many days pe r week do you engage in moderate to strenuous exercise (like a brisk walk)? Patient declined On average, how many minutes do you engage in exercise at this level? Patient declined 08/14/2023 Hunger Vital Sign Answer Date Recorded Within the past 12 months, y ou worried that your food would run out before you got the money to buy more. Sometimes true Within the past 12 months, t he food you bought just didn't last and you didn't have money to get more. Sometimes true 01/2024 PRAPARE - Transportation Answer Date Re corded In the past 12 months, has l ack of transportation kept you from medical appointments or from getting medications? No 08/04 In the past 12 months, has l ack of transportation kept you from meetings, work, or from getting things needed for daily living? No 08/14/2023 Housing Stability Vital Sign Answer Ted e Recorded In the last 12 months, was t here a time when you were not able to pay the mortgage or rent on time? Yes 08/14/2023 In the last 12 months, how many places have you lived? 1 08/14/2023 In the last 12 months, was t here a time when you did not have a steady place to sleep or slept in a senior care (including now)? No 08/14/2023 Education Answer Date Recorded What is the highest level of school you have completed or the highest degree you have received? Associate degree: academic program 05/06/2021 Sexually Active Control Partners Comments Yes Comments No Sex and Gender Information Value Date Recorded Sex Assigned at Female 03/19/2024 12:44 AM [employer]ASS BEVELLER Legal Sex Female 3:50 AM CDT Gender Identity Female 03/19/2024 12:44 AM GLASS BEVELLER Sexual Orientation Not on file documented as of this encounter Miscellaneous Notes * Telephone Encounter - Linda Sanders RN - 09/20/2023 10:40 AM CDT Medication failed the protocol, provider to review and approve the medication order if appropriate. Requested Prescriptions Pending Prescriptions Disp Refills meloxicam (MOBIC) 15 MG Tablet [Pharmacy Med Name: MELOXICAM 15MG TABLETS] 30 Tablet 0 Sig: TAKE 1 TABLET BY MOUTH DAILY NSAIDs Protocol Failed - 09/19/2023 5:36 AM Failed - Visit with relevant provider in past 12 months or upcoming 90 days Recent Visits No visits were found meeting these conditions. Showing recent visits within past 365 days and meeting all other requirements Future Appointments Date Type Provider Dept 10/07/23 Appointment Morales Meza MD [facility] Showing future appointments within next 90 days and meeting all other requirements Failed - No matching NSAID med order in past 45 days Matching medication order placed on 08/21/2023 9:22 AM Order [id number]: meloxicam (MOBIC) 15 MG Tablet (For orders placed between 08/06/2023 10:40 AM and 09/20/2023 10:40 AM) Failed - HGB greater than 10 or HCT greater than 30 in past 12 months HEMOGLOBIN (HGB) Date Value Ref Range Status 08/23/2023 6.7 (LL) 12.0 - 15.8 g/dL Final HEMATOCRIT (HCT) Date Value Ref Range Status 08/23/2023 24.8 (L) 36.0 - 47.0 % Final Passed - Normal serum creatinine in past 12 months CREATININE, BLOOD Date Value Ref Range Status 08/23/2023 0.79 0.60 - 1.00 mg/dL Final Passed - No positive test in the past 12 months or most recent test was negative Passed - No active on record Passed - AST less than 55 or ALT less than 90 in past 12 months SGOT (AST) Date Value Ref Range Status 08/23/2023 23 5 - 34 U/L Final SGPT (ALT) Date Value Ref Range Status 08/23/2023 17 0 - 55 U/L Final documented in this encounter Plan of Treatment Upcoming Encounters Date Type Department Care Team (Late st Contact Info) Description 10/18/2024 1:30 PM CDT Clinical Support [facility] [address] [place] [address] Alycia Patel Joanne, [facility] [address] [place] [address] Discharge Disposition: Discharged to home or Selfcare 10/20/2024 1:30 PM CDT Clinical Support [facility] [address] [place] [address] 10/25/2024 1:30 PM CDT Clinical Support [facility] [address] [place] [address] 10/27/2024 1:30 PM CDT Clinical Support [facility] [address] [place] [address] 11/01/2024 1:30 PM CDT Clinical Support [facility] [address] [place] [address] 11/04/2024 4:00 PM CDT Office Visit [facility] [address] [place] [address] Valeria Ulloa APRN, ACCOUNTING FILE CLERK [address] [place] [address] 12/13/2024 1:30 PM CDT Lab [facility] [address] [place] [address] 12/20/2024 1:20 PM CDT Office Visit [facility] [address] [place] [address] Alycia Patel, [facility] [address] [place] [address] documented as of this encounter Visit Diagnoses Not on filedocumented in this encounter Additional Health Concerns Assessment Noted Time PHQ-9 Depression Total Score: 11 020 8:36 AM CDT documented as of this encounter Care Teams Supervisor Cell Efficiency Relationship Specialty Start Date End Date Morales Meza MD [address] [address] PCP - General Family Medicine 01/05/20 Valeria Ulloa APRN, ACCOUNTING FILE CLERK [address] [place] [address] Nurse Practitioner Advanced Practice Nurse 02/26/22 documented as of this encounter
--- OUTSIDE RECORDS SUMMARY | 2024-10-14 05:34 | XMS_ITS | Encounter Summary ---
Author Organization [facility] Address [address] [place] [address] Phone Care Team Providers Care Bacteriology Teacher Name Role Phone Morales Meza MD Primary Care Provider [phone] Valeria Ulloa MASONRY INSTRUCTOR, BOOM CRANE OPERATOR Unavailable [phone] Reason for Visit * Reason Comments Medication Refill Encounter Details Date Type Department Care Team (Late st Contact Info) Description 07/21/2023 Refill [facility] #2 [place] [address] Morales Meza MD #[address] [address] Medication Refill Social History Tobacco Use Types Packs/Day Years Used Date Smoking Tobacco: Former Cigarettes 1 10 2 2011 Smokeless Tobacco: Never Alcohol Use Standard Drinks/Week Comments Yes 0 (1 standard drink = 0.6 oz pur e alcohol) Very Rare PHQ-2 Answer Date Recorded Total Score - Questions 1-9 11 04/2019 Education Answer Date Recorded What is the highest level of school you have completed or the highest degree you have received? Associate degree: academic program 05/06/2021 Comments No Sex and Gender Information Value Date Recorded Sex Assigned at Female 03/19/2024 12:44 AM TAPPER HELPER Legal Sex Female 3:50 AM CDT Gender Identity Female 03/19/2024 12:44 AM TAPPER HELPER Sexual Orientation Not on file documented as of this encounter Miscellaneous Notes * Telephone Encounter - Rosemary Van RMA - 07/23/2023 1:06 PM CDT Lvm to schedule * Telephone Encounter - Lizz Miller RN - 07/21/2023 10:00 AM CDT Needs OV with PCP * Telephone Encounter - Lizz Miller RN - 07/21/2023 10:00 AM CDT Medication failed the protocol, provider to review and approve the medication order if appropriate. Requested Prescriptions Pending Prescriptions Disp Refills meloxicam (MOBIC) 15 MG Tablet [Pharmacy Med Name: MELOXICAM 15MG TABLETS] 30 Tablet 0 Sig: TAKE 1 TABLET BY MOUTH DAILY NSAIDs Protocol Failed - 07/21/2023 5:35 AM Failed - Normal serum creatinine in past 12 months CREATININE, BLOOD Date Value Ref Range Status 06/12/2022 0.74 0.60 - 1.10 mg/dL Final Failed - Visit with relevant provider in past 12 months or upcoming 90 days Recent Visits No visits were found meeting these conditions. Showing recent visits within past 365 days and meeting all other requirements Future Appointments No visits were found meeting these conditions. Showing future appointments within next 90 days and meeting all other requirements Failed - AST less than 55 or ALT less than 90 in past 12 months SGOT (AST) Date Value Ref Range Status 06/12/2022 19 <=32 U/L Final SGPT (ALT) Date Value Ref Range Status 06/12/2022 13 <=41 U/L Final Failed - HGB greater than 10 or HCT greater than 30 in past 12 months HEMOGLOBIN (HGB) Date Value Ref Range Status 06/12/2022 8.4 (L) 12.0 - 15.8 g/dL Final HEMATOCRIT (HCT) Date Value Ref Range Status 06/12/2022 29.9 (L) 36.0 - 47.0 % Final Passed - No positive test in the past 12 months or most recent test was negative Passed - No active on record Passed - No matching NSAID med order in past 45 days No matching medication orders between 06/06/2023 10:00 AM and 07/21/2023 10:00 AM documented in this encounter Plan of Treatment Upcoming Encounters Date Type Department Care Team (Late st Contact Info) Description 10/18/2024 1:30 PM CDT Clinical Support [facility] Oncology Services [address] [place] [address] Alycia Patel, VÍCTOR [address] [place] [address] Discharge Disposition: Discharged to home or Selfcare 10/20/2024 1:30 PM CDT Clinical Support [facility] Oncology Services [address] [place] [address] 10/25/2024 1:30 PM CDT Clinical Support [facility] Oncology Services [address] [place] [address] 10/27/2024 1:30 PM CDT Clinical Support [facility] Oncology Services [address] [place] [phone] 11/01/2024 1:30 PM CDT Clinical Support [facility] Oncology Services [address] [place] [phone] 11/04/2024 4:00 PM CDT Office Visit [facility] - Neurology [facility] #2 [place] [address] Valeria Ulloa, MASONRY INSTRUCTOR, BOOM CRANE OPERATOR [address] [place] [address] 12/13/2024 1:30 PM CDT [facility] [address] [place] [phone] 12/20/2024 1:20 PM CDT [facility] [address] [place] [phone] Alycia Patel Joanne, PAC [address] [place] [address] documented as of this encounter Visit Diagnoses Not on filedocumented in this encounter Additional Health Concerns Infection Onset Date Last Indicated Resolved Time COVID - 19 08/13/2023 08/13/2023 08/14/2023 12:0 4 AM CDT Assessment Noted Time PHQ-9 Depression Total Score: 11 020 8:36 AM CDT documented as of this encounter Care Teams Bacteriology Teacher Relationship Specialty Start Date End Date Morales Meza MD #[address] [address] PCP - General Family Medicine 01/05/20 Valeria Ulloa, MASONRY INSTRUCTOR, BOOM CRANE OPERATOR [address] [place] [address] Nurse Practitioner Advanced Practice Nurse 02/26/22 documented as of this encounter
--- OUTSIDE RECORDS SUMMARY | 2024-10-14 05:34 | XMS_ITS | Encounter Summary ---
Author Organization [facility] Address [address] [place] [address] Phone Care Team Providers Care Director Health Name Role Phone Morales Meza MD Primary Care Provider [phone] Valeria Ulloa AIR ANALYSIS ENGINEERING TECHNICIAN, BASIN TENDER Unavailable [phone] Reason for Visit * Reason Comments Medication Refill Encounter Details Date Type Department Care Team (Late st Contact Info) Description 04/22/2023 Refill [facility] - Family Medicine [facility] #2 [place] [id number] Jayson Mishra MD [address] [place] [address] Medication Refill Social History Tobacco Use Types [...] Sex Assigned at Female 03/19/2024 12:44 AM LUMBER SALES SUPERVISOR Legal Sex Female 3:50 AM CDT Gender Identity Female 03/19/2024 12:44 AM LUMBER SALES SUPERVISOR Sexual Orientation Not on file documented as of this encounter Miscellaneous Notes * Telephone Encounter - Dilma VanricARJUN albarran - 04/22/2023 3:18 PM LUMBER SALES SUPERVISOR Pt states she does not need medication and declined scheduling ER SALES SUPERVISOR * Telephone Encounter - Lizz Miller RN - 04/22/2023 8:32 AM CST Needs OV with PCP ER SALES SUPERVISOR * Telephone Encounter - Lizz Miller RN - 04/22/2023 8:32 AM CST Medication failed the protocol, provider to review and approve the medication order if appropriate. Requested Prescriptions Pending Prescriptions Disp Refills meloxicam (MOBIC) 15 MG Tablet [Pharmacy Med Name: MELOXICAM 15MG TABLETS] 90 Tablet 0 Sig: TAKE 1 TABLET BY MOUTH DAILY NSAIDs Protocol Failed - 04/22/2023 5:41 AM Failed - HGB greater than 10 or [...] 06/12/2022 0.74 0.60 - 1.10 mg/dL Final Passed - No positive test in the past 12 months or most recent test was negative Passed - Visit with relevant provider in past 12 months or upcoming 90 days Recent Visits Date Type Provider Dept 06/24/22 Office Visit Sol Matthews APRN, RADHA Antoine Showing recent visits within past 365 days and meeting all other requirements Future Appointments No visits were found meeting these conditions. Showing future appointments within next 90 days and meeting all other requirements Passed - No active on record Passed - No matching NSAID med order in past 45 days No matching medication orders between 03/08/2023 8:32 AM and 04/22/2023 8:32 AM Passed - AST less than 55 or ALT less than 90 in past 12 months SGOT (AST) Date Value Ref Range Status 06/12/2022 19 <=32 U/L Final SGPT (ALT) Date Value Ref Range Status 06/12/2022 13 <=41 U/L Final ER SALES SUPERVISOR documented in this encounter Plan of Treatment Upcoming Encounters Date Type Department Care Team (Late st Contact Info) Description 10/18/2024 1:30 PM CDT Clinical Support [facility] Oncology Services [address] [place] [address] Alycia Patel Joanne, [facility] [address] [place] [address] Discharge Disposition: Discharged to home or Selfcare 10/20/2024 1:30 PM CDT [facility] [address] [place] [address] 10/25/2024 1:30 PM CDT Clinical Support [facility] Oncology Services [address] [place] [phone] 10/27/2024 1:30 PM CDT Clinical Support [facility] Oncology Services [address] [place] [phone] 11/01/2024 1:30 PM CDT Clinical Support [facility] Oncology Services [address] [place] [phone] 11/04/2024 4:00 PM CDT Office Visit [facility] - Neurology [facility] [address] [place] [address] Valeria Ulloa APRN, BASIN TENDER [address] [place] [address] 12/13/2024 1:30 PM CDT Lab [facility] [address] [place] [address] 12/20/2024 1:20 PM CDT [facility] [address] [place] [address] Alycia Patel Joanne, [facility] [address] [place] [address] documented as of this encounter Visit Diagnoses Not on filedocumented in this encounter Additional Health Concerns Infection Onset Date Last Indicated Resolved Time COVID - 19 08/13/2023 08/13/2023 08/14/2023 12:0 4 AM CDT Assessment Noted Time PHQ-9 Depression Total Score: 11 020 8:36 AM CDT documented as of this encounter Care Teams Director Health Relationship Specialty Start Date End Date Morales Meza MD #[address] [address] PCP - General Family Medicine 01/05/20 Valeria Ulloa APRN, BASIN TENDER [address] [place] [address] Nurse Practitioner Advanced Practice Nurse 02/26/22 documented as of this encounter
--- OUTSIDE RECORDS SUMMARY | 2024-10-14 05:34 | XMS_ITS | Encounter Summary ---
Author Organization [facility] Address [address] [place] [address] Phone Care Team Providers Care Teleservices Representative Name Role Phone Morales Meza MD Primary Care Provider [phone] Valeria Ulloa ANCILLARY SERVICES MANAGER, CONTRACT IMPLEMENTATION ANALYST Unavailable [phone] Reason for Visit * Reason Comments Medication Refill Encounter Details Date Type Department Care Team (Late st Contact Info) Description 05/22/2023 Refill [facility] - Family Medicine [facility] #2 [place] [address] Morales Meza MD #[address] [address] Medication Refill Social History Tobacco Use Types [...] Sex Assigned at Female 03/19/2024 12:44 AM PIPE LINE WALKER Legal Sex Female 3:50 AM CDT Gender Identity Female 03/19/2024 12:44 AM PIPE LINE WALKER Sexual Orientation Not on file documented as of this encounter Miscellaneous Notes * Telephone Encounter - Rosemary Van RMA - 05/28/2023 3:33 PM PIPE LINE WALKER LVM to schedule LINE WALKER * Telephone Encounter - Lizz Miller RN - 05/22/2023 2:30 PM CST Needs OV with PCP LINE WALKER * Telephone Encounter - Lizz Miller RN - 05/22/2023 2:29 PM CST Medication failed the protocol, provider to review and approve the medication order if appropriate. Requested Prescriptions Pending Prescriptions Disp Refills metFORMIN (GLUCOPHAGE) 500 MG Tablet [Pharmacy Med Name: METFORMIN 500MG TABLETS] 60 Tablet 0 Sig: TAKE 1 TABLET BY MOUTH TWICE DAILY WITH MEALS Biguanides Protocol Failed - 05/22/2023 5:47 AM Failed - Visit with relevant provider in past 6 months or upcoming 90 days Recent Visits No visits were found meeting these conditions. Showing recent visits within past 182 days and meeting all other requirements Future Appointments No visits were found meeting these conditions. Showing future appointments within next 90 days and meeting all other requirements Failed - HgA1C on record in past 6 months No results found for: HGBA1C Failed - GFR on record in past 6 months GFR, EST. NONAFRICAN Date Value Ref Range Status 06/12/2022 >60 >=60 Final LINE WALKER documented in this encounter Plan of Treatment Upcoming Encounters Date Type Department Care Team (Late st Contact Info) Description 10/18/2024 1:30 PM CDT Clinical Support [facility] Oncology Services [address] [place] [address] Alycia Patel Joanne, PAC [address] [place] [address] Discharge Disposition: Discharged to home or Selfcare 10/20/2024 1:30 PM CDT Clinical Support [facility] Oncology Services [address] [place] [phone] 10/25/2024 1:30 PM CDT Clinical Support [facility] Oncology Services [address] [place] [phone] 10/27/2024 1:30 PM CDT Clinical Support [facility] Oncology Services [address] [place] [phone] 11/01/2024 1:30 PM CDT Clinical Support [facility] Oncology Services [address] [place] [phone] 11/04/2024 4:00 PM CDT Office Visit [facility] - Neurology [facility] [address] [place] [address] Valeria Ulloa, ANCILLARY SERVICES MANAGER, CONTRACT IMPLEMENTATION ANALYST [address] [place] [address] 12/13/2024 1:30 PM CDT Lab [facility] Oncology Services [address] [place] [address] 12/20/2024 1:20 PM CDT Office Visit [facility] Oncology Services [address] [place] [address] Alycia Patel PAC [address] [place] [address] documented as of this encounter Visit Diagnoses Not on filedocumented in this encounter Additional Health Concerns Infection Onset Date Last Indicated Resolved Time COVID - 19 08/13/2023 08/13/2023 08/14/2023 12:0 4 AM CDT Assessment Noted Time PHQ-9 Depression Total Score: 11 020 8:36 AM CDT documented as of this encounter Care Teams Teleservices Representative Relationship Specialty Start Date End Date Morales Meza MD #[address] [address] PCP - General Family Medicine 01/05/20 Valeria Ulloa APRN, CONTRACT IMPLEMENTATION ANALYST [address] [place] [address] Nurse Practitioner Advanced Practice Nurse 02/26/22 documented as of this encounter
--- OUTSIDE RECORDS SUMMARY | 2024-10-14 05:34 | XMS_ITS | Encounter Summary ---
Author Organization [facility] Address [address] [place] [address] Phone Care Team Providers Care Windows Server Architect Name Role Phone Morales Meza MD Primary Care Provider [phone] Valeria Ulloa DAY CAMP COUNSELOR, DIRECTOR SUPPLIER QUALITY Unavailable [phone] Reason for Visit * Reason Comments Medication Refill Encounter Details Date Type Department Care Team (Late st Contact Info) Description 06/21/2023 Refill [facility] - Family Medicine [facility] #2 [place] [address] Morales Meza MD #[address] [address] Medication Refill Social History Tobacco Use Types [...] Sex Assigned at Female 03/19/2024 12:44 AM CREATIVE STRATEGIST Legal Sex Female 3:50 AM CDT Gender Identity Female 03/19/2024 12:44 AM CREATIVE STRATEGIST Sexual Orientation Not on file documented as of this encounter Miscellaneous Notes * Telephone Encounter - Rosemary Van RMA - 06/24/2023 1:24 PM CDT Lvm to schedule * Telephone Encounter - Rosemary Van RMA - 06/23/2023 2:05 PM CDT LVM to return call * Telephone Encounter - Lizz Miller RN - 06/22/2023 8:59 AM CDT Needs OV with PCP * Telephone Encounter - Lizz Miller RN - 06/22/2023 8:59 AM CDT Medication failed the protocol, provider to review and approve the medication order if appropriate. Requested Prescriptions Pending Prescriptions Disp Refills metFORMIN (GLUCOPHAGE) 500 MG Tablet [Pharmacy Med Name: METFORMIN 500MG TABLETS] 60 Tablet 0 Sig: TAKE 1 TABLET BY MOUTH TWICE DAILY WITH MEALS Biguanides Protocol Failed - 06/21/2023 5:36 AM Failed - Visit with relevant [...] Ref Range Status 06/12/2022 >60 >=60 Final documented in this encounter Plan of Treatment Upcoming Encounters Date Type Department Care Team (Late st Contact Info) Description 10/18/2024 1:30 PM CDT [facility] [address] [place] [address] Alycia Patel September, PAC [address] [place] [address] Discharge Disposition: Discharged to home or Selfcare 10/20/2024 1:30 PM CDT [facility] [address] [place] [phone] 10/25/2024 1:30 PM CDT [facility] [address] [place] [phone] 10/27/2024 1:30 PM CDT Clinical Support [facility] Oncology Services [address] [place] [phone] 11/01/2024 1:30 PM CDT [facility] [address] [place] [phone] 11/04/2024 4:00 PM CDT Office Visit [facility] Neurology [facility] #2 [place] [address] Valeria Ulloa, DAY CAMP COUNSELOR, DIRECTOR SUPPLIER QUALITY [address] [place] [address] 12/13/2024 1:30 PM CDT Lab [facility] [address] [place] [phone] 12/20/2024 1:20 PM CDT [facility] [address] [place] [address] Alycia Patel Joanne, PAC [address] [place] [address] documented as of this encounter Visit Diagnoses Not on filedocumented in this encounter Additional Health Concerns Infection Onset Date Last Indicated Resolved Time COVID - 19 08/13/2023 08/13/2023 08/14/2023 12:0 4 AM CDT Assessment Noted Time PHQ-9 Depression Total Score: 11 020 8:36 AM CDT documented as of this encounter Care Teams Windows Server Architect Relationship Specialty Start Date End Date Morales Meza MD #2 [facility] [address] [place] [address] PCP - General Family Medicine 01/05/20 Valeria Ulloa, DAY CAMP COUNSELOR, DIRECTOR SUPPLIER QUALITY [address] [place] [address] Nurse Practitioner Advanced Practice Nurse 02/26/22 documented as of this encounter
--- OUTSIDE RECORDS SUMMARY | 2024-10-14 05:34 | XMS_ITS | Encounter Summary ---
Author Organization [facility] Address [address] [place] [address] Phone Care Team Providers Care Group Leader Semiconductor Testing Name Role Phone Morales Meza MD Primary Care Provider [phone] Valeria Ulloa MIXER OPERATOR, PAVING CREW FOREMAN Unavailable [phone] Reason for Visit * Reason Comments Medication Refill Encounter Details Date Type Department Care Team (Late st Contact Info) Description 04/22/2023 Refill [facility] Family [facility] #2 [place] [phone] Morales Meza MD #[address] [address] Medication Refill Social History Tobacco Use Types [...] Sex Assigned at Female 03/19/2024 12:44 AM PATHOLOGY SECRETARY/TRANSCRIPTIONIST Legal Sex Female 3:50 AM CDT Gender Identity Female 03/19/2024 12:44 AM PATHOLOGY SECRETARY/TRANSCRIPTIONIST Sexual Orientation Not on file documented as of this encounter Miscellaneous Notes * Telephone Encounter - Lizz Miller RN - 04/22/2023 8:33 AM CST Medication failed the protocol, provider to review and approve the medication order if appropriate. Requested Prescriptions Pending Prescriptions Disp Refills metFORMIN (GLUCOPHAGE) 500 MG Tablet [Pharmacy Med Name: METFORMIN 500MG TABLETS] 60 Tablet 0 Sig: TAKE 1 TABLET BY MOUTH TWICE DAILY WITH MEALS Biguanides Protocol Failed - 04/22/2023 5:41 AM Failed - Visit with relevant provider [...] Ref Range Status 06/12/2022 >60 >=60 Final OLOGY SECRETARY/TRANSCRIPTIONIST documented in this encounter Plan of Treatment Upcoming Encounters Date Type Department Care Team (Late st Contact Info) Description 10/18/2024 1:30 PM CDT Clinical Support [facility] Oncology Services [address] [place] [address] Alycia Patel [facility] [address] [place] [address] Discharge Disposition: Discharged to home or Selfcare 10/20/2024 1:30 PM CDT Clinical Support [facility] Oncology Services [address] [place] [address] 10/25/2024 1:30 PM CDT Clinical Support [facility] Oncology Services [address] [place] [address] 10/27/2024 1:30 PM CDT Clinical Support [facility] Oncology Services [address] [place] [address] 11/01/2024 1:30 PM CDT Clinical Support [facility] Oncology Services [address] [place] [address] 11/04/2024 4:00 PM CDT Office Visit [facility] #2 [place] [address] Valeria Ulloa APRN, PAVING CREW FOREMAN [address] [place] [address] 12/13/2024 1:30 PM CDT Lab [facility] Oncology Services [address] [place] [address] 12/20/2024 1:20 PM CDT Office Visit [facility] Oncology Services [address] [place] [address] Alycia Patel Joanne, [facility] [address] [place] [address] documented as of this encounter Visit Diagnoses Not on filedocumented in this encounter Additional Health Concerns Infection Onset Date Last Indicated Resolved Time COVID - 19 08/13/2023 08/13/2023 08/14/2023 12:0 4 AM CDT Assessment Noted Time PHQ-9 Depression Total Score: 11 020 8:36 AM CDT documented as of this encounter Care Teams Group Leader Semiconductor Testing Relationship Specialty Start Date End Date Morales Meza MD #[address] [address] PCP - General Family Medicine 01/05/20 Valeria Ulloa APRN, PAVING CREW FOREMAN [address] [place] [address] Nurse Practitioner Advanced Practice Nurse 02/26/22 documented as of this encounter
--- OUTSIDE RECORDS SUMMARY | 2024-10-14 05:34 | XMS_ITS | Encounter Summary ---
Author Organization [facility] Address [address] [place] [address] Phone Care Team Providers Care Business Proposal Rep Name Role Phone Morales Meza MD Primary Care Provider Valeria Ulloa APRN, OIL HEAT TECHNICIAN Unavailable [phone] Reason for Visit * Reason Comments Medication Refill Encounter Details Date Type Department Care Team (Late st Contact Info) Description 02/16/2024 Refill [facility] - Neurology - [place] [address] [place] [id number] Valeria Ulloa, ANIMAL HEALTH TECHNICIAN, OIL HEAT TECHNICIAN [address] [place] [address] Medication Refill Social History Tobacco Use Types Packs/Day Years Used Date Smoking Tobacco: Former Cigarettes 2011 Smokeless Tobacco: Never Alcohol Use Standard Drinks/Week Comments Yes 0 (1 standard drink = 0.6 oz pur e alcohol) Very Rare [facility] Utilities Answer Date Recorded In the past 12 months has [employer], gas, oil, or water company threatened to shut off services in your home? No 08/14/2023 Social Connection and Isolation Panel Answer Date Recorded In a typical week, how many times do you talk on the phone with family, friends, or neighbors? Patient declined 08/14/2023 How often do you get togethe r with friends or relatives? Patient declined 08/14/2023 How often do you attend baptism or buddhism serv ices? Patient declined 08/14/2023 Do you belong to any clubs o r organizations such as baptism groups, unions, fraternal or athletic groups, or [...] Total Score - Questions 1-9 11 04/2019 [facility] of Occupat ional Health - Occupational Stress [...] place to sleep or slept in a custodial (including now)? No 08/14/2023 Education Answer Date Recorded What is the highest level of school you have completed or the highest degree you have received? Associate degree: academic program 05/06/2021 Sexually Active Control Partners Comments Yes Comments No Sex and Gender Information Value Date Recorded Sex Assigned at Female 03/19/2024 12:44 AM SALES RECRUITMENT SPECIALIST Legal Sex Female 3:50 AM CDT Gender Identity Female 03/19/2024 12:44 AM SALES RECRUITMENT SPECIALIST Sexual Orientation Not on file documented as of this encounter Plan of Treatment Upcoming Encounters Date Type Department Care Team (Late st Contact Info) Description 10/18/2024 1:30 PM CDT Clinical Support [facility] Oncology Services [address] [place] [address] Alycia Patel Joanne, [facility] [address] [place] [address] Discharge Disposition: Discharged to home or Selfcare 10/20/2024 1:30 PM CDT [facility] [address] [place] [phone] 10/25/2024 1:30 PM CDT Clinical Support [facility] [address] [place] [phone] 10/27/2024 1:30 PM CDT Clinical Support [facility] [address] [place] [phone] 11/01/2024 1:30 PM CDT [facility] [address] [place] [address] 11/04/2024 4:00 PM CDT Office Visit [facility] [address] [place] [address] Valeria Ulloa APRN, OIL HEAT TECHNICIAN [address] [place] [address] 12/13/2024 1:30 PM CDT Lab [facility] [address] [place] [address] 12/20/2024 1:20 PM CDT Office Visit [facility] [address] [place] [address] Alycia Patel [facility] [address] [place] [address] documented as of this encounter Visit Diagnoses Diagnosis TIA (transient ischemic attack) Unspecified transient cerebral ischemia documented in this encounter Additional Health Concerns Assessment Noted Time PHQ-9 Depression Total Score: 11 020 8:36 AM CDT documented as of this encounter Care Teams Business Proposal Rep Relationship Specialty Start Date End Date Morales Meza MD [address] [address] PCP - General Family Medicine 01/05/20 Valeria Ulloa APRN, OIL HEAT TECHNICIAN [address] [place] [address] Nurse Practitioner Advanced Practice Nurse 02/26/22 documented as of this encounter
--- OUTSIDE RECORDS SUMMARY | 2024-10-14 05:34 | XMS_ITS | Encounter Summary ---
Author Organization [facility] Address [address] [place] [address] Phone Care Team Providers Care Supervisor Rod Placing Name Role Phone Morales Meza MD Primary Care Provider [phone] Valeria Ulloa PEDIATRIC CLINICAL NURSE SPECIALIST, ORNAMENTAL METAL WORKER Unavailable [phone] Reason for Visit * Reason Comments Medication Refill Encounter Details Date Type Department Care Team (Late st Contact Info) Description 01/17/2024 [facility]ill [facility] [address] [place] [address] Morales Meza MD #[address] [address] Medication Refill Social History Tobacco Use Types Packs/Day Years Used Date Smoking Tobacco: Former Cigarettes 2011 Smokeless Tobacco: Never Alcohol Use Standard Drinks/Week Comments Yes 0 (1 standard drink = 0.6 oz pur e alcohol) Very Rare [facility] Utilities Answer Date Recorded In the past 12 months has [employer], gas, oil, or water company threatened to shut off services in your home? No 08/14/2023 Social Connection and Isolation Panel Answer Date Recorded In a typical week, how many times do you talk on the phone with family, friends, or neighbors? Patient declined 08/14/2023 How often do you get togethe r with friends or relatives? Patient declined 08/14/2023 How often do you attend muslim or roman catholic serv ices? Patient declined 08/14/2023 Do you belong to any clubs o r organizations such as muslim groups, unions, fraternal or athletic groups, or [...] Total Score - Questions 1-9 11 04/2019 [facility] of Occupat ional Health - Occupational Stress [...] place to sleep or slept in a penitentiary (including now)? No 08/14/2023 Education Answer Date Recorded What is the highest level of school you have completed or the highest degree you have received? Associate degree: academic program 05/06/2021 Sexually Active Control Partners Comments Yes Comments No Sex and Gender Information Value Date Recorded Sex Assigned at Female 03/19/2024 12:44 AM SENIOR ENVIRONMENTAL SCIENTIST Legal Sex Female 3:50 AM CDT Gender Identity Female 03/19/2024 12:44 AM SENIOR ENVIRONMENTAL SCIENTIST Sexual Orientation Not on file documented as of this encounter Miscellaneous Notes * Telephone Encounter - Linda Sanders RN - 01/17/2024 3:09 PM CDT Patient said: Please disregard the refill request. I do not need it anymore nor an appt. documented in this encounter Plan of Treatment Upcoming Encounters Date Type Department Care Team (Late st Contact Info) Description 10/18/2024 1:30 PM CDT Clinical Support [facility] Oncology Services [address] [place] [address] Alycia Patel Joanne, PAC [address] [place] [address] Discharge Disposition: Discharged to home or Selfcare 10/20/2024 1:30 PM CDT Clinical Support [facility] [address] [place] [address] 10/25/2024 1:30 PM CDT Clinical Support [facility] [address] [place] [address] 10/27/2024 1:30 PM CDT Clinical Support [facility] Oncology Services [address] [place] [phone] 11/01/2024 1:30 PM CDT Clinical Support [facility] Oncology [facility] [address] [place] [phone] 11/04/2024 4:00 PM CDT Office Visit [facility] [address] [place] [address] Valeria Ulloa, PEDIATRIC CLINICAL NURSE SPECIALIST, [facility] [address] [place] [address] 12/13/2024 1:30 PM CDT Lab [facility]cology Services [address] [place] [phone] 12/20/2024 1:20 PM CDT Office Visit [facility]cology Services [address] [place] [address] Alycia Patel [facility] [address] [place] [address] documented as of this encounter Visit Diagnoses Not on filedocumented in this encounter Additional Health Concerns Assessment Noted Time PHQ-9 Depression Total Score: 11 020 8:36 AM CDT documented as of this encounter Care Teams Supervisor Rod Placing Relationship Specialty Start Date End Date Morales Meza MD #[address] [address] PCP - General Family Medicine 01/05/20 Valeria Ulloa APRN, ORNAMENTAL METAL WORKER [address] [place] [address] Nurse Practitioner Advanced Practice Nurse 02/26/22 documented as of this encounter
--- OUTSIDE RECORDS SUMMARY | 2024-10-14 05:35 | XMS_ITS | Encounter Summary ---
Author Organization [facility] Address [address] [place] [address] Phone Care Team Providers Care Denture Packer Name Role Phone Morales Meza MD Primary Care Provider [phone] Valeria Ulloa PLASTIC TILE SETTER, PARI MUTUEL CLERK Unavailable [phone] Reason for Visit * Reason Comments Medication Refill Encounter Details Date Type Department Care Team (Late st Contact Info) Description 03/23/2023 Refill [facility] [address] [place] [address] Morales Meza MD #[address] [address] Medication Refill Social History Tobacco Use Types [...] Sex Assigned at Female 03/19/2024 12:44 AM ADAPTIVE PHYSICAL EDUCATION SPECIALIST Legal Sex Female 3:50 AM CDT Gender Identity Female 03/19/2024 12:44 AM ADAPTIVE PHYSICAL EDUCATION SPECIALIST Sexual Orientation Not on file documented as of this encounter Miscellaneous Notes * Telephone Encounter - Rosemary Van RMA - 03/23/2023 3:25 PM ADAPTIVE PHYSICAL EDUCATION SPECIALIST LVM to schedule TIVE PHYSICAL EDUCATION SPECIALIST * Telephone Encounter - Lizz Miller RN - 03/23/2023 10:20 AM CST Needs OV with PCP TIVE PHYSICAL EDUCATION SPECIALIST * Telephone Encounter - Lizz Miller RN - 03/23/2023 10:19 AM CST Medication failed the protocol, provider to review and approve the medication order if appropriate. Requested Prescriptions Pending Prescriptions Disp Refills metFORMIN (GLUCOPHAGE) 500 MG Tablet [Pharmacy Med Name: METFORMIN 500MG TABLETS] 60 Tablet 0 Sig: TAKE 1 TABLET BY MOUTH TWICE DAILY WITH MEALS Biguanides Protocol Failed - 03/23/2023 5:41 AM Failed - Visit with relevant [...] Ref Range Status 06/12/2022 >60 >=60 Final TIVE PHYSICAL EDUCATION SPECIALIST documented in this encounter Plan of Treatment Upcoming Encounters Date Type Department Care Team (Late st Contact Info) Description 10/18/2024 1:30 PM CDT Clinical Support [facility] Oncology Services [address] [place] [address] Alycia Patel Joanne, PAC [address] [place] [address] Discharge Disposition: Discharged to home or Selfcare 10/20/2024 1:30 PM CDT Clinical Support [facility] Oncology Services [address] [place] [phone] 10/25/2024 1:30 PM CDT Clinical Support [facility] [address] [place] [phone] 10/27/2024 1:30 PM CDT Clinical Support [facility] [address] [place] [phone] 11/01/2024 1:30 PM CDT Clinical Support [facility] [address] [place] [phone] 11/04/2024 4:00 PM CDT Office Visit [facility] - Neurology [facility] [address] [place] [address] Valeria Ulloa, PLASTIC TILE SETTER, PARI MUTUEL CLERK [address] [place] [address] 12/13/2024 1:30 PM CDT Lab [facility] Services [address] [place] [address] 12/20/2024 1:20 PM CDT Office Visit [facility]cology Services [address] [place] [address] Alycia Patel PAC [address] [place] [address] documented as of this encounter Visit Diagnoses Not on filedocumented in this encounter Additional Health Concerns Infection Onset Date Last Indicated Resolved Time COVID - 19 08/13/2023 08/13/2023 08/14/2023 12:0 4 AM CDT Assessment Noted Time PHQ-9 Depression Total Score: 11 020 8:36 AM CDT documented as of this encounter Care Teams Denture Packer Relationship Specialty Start Date End Date Morales Meza MD #[address] [address] PCP - General Family Medicine 01/05/20 Valeria Ulloa APRN, PARI MUTUEL CLERK [address] [place] [address] Nurse Practitioner Advanced Practice Nurse 02/26/22 documented as of this encounter
--- OUTSIDE RECORDS SUMMARY | 2024-10-14 05:35 | XMS_ITS | Encounter Summary ---
Author Organization [facility] Address [address] [place] [address] Care Team Providers Care Supervisor Sandblaster Name Role Phone Unavailable Primary Care Provider Unavailabl e Encounter Details Date Type Department Care Team (Late st Contact Info) Description 04/30/2000 Outpatient Historical [facility] Internal Medicine [place] [address] [place] [address] Raf Pfeiffer MD [address] [place] [phone] Social History Tobacco Use Types Packs/Day Years Used Date Smoking Tobacco: Never Assessed Comments Unknown Sex and Gender Information Value Date Recorded Sex Assigned at Not on file Legal Sex Female 3:03 AM FLUID DESIGNER Gender Identity Not on file Sexual Orientation Not on file documented as of this encounter Plan of Treatment Not on file documented as of this encounter Visit Diagnoses Not on filedocumented in this encounter
--- OUTSIDE RECORDS SUMMARY | 2024-10-14 05:35 | XMS_ITS | Encounter Summary ---
Author Organization [facility] Address [address] [place] [address] Phone Care Team Providers Care Director Of Religious Activities Name Role Phone Morales Meza MD Primary Care Provider [phone] Valeria Ulloa MECHANIC SENIOR, ALARM TECHNICIAN Unavailable [phone] Reason for Visit * Reason Comments Follow-up Encounter Details Date Type Department Care Team (Late st Contact Info) Description 10/13/2024 2:00 PM CDT [facility] [address] [place] [phone] Alycia Patel Joanne, PAC [address] [place] [address] 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); B12 deficiency; History of Swetha-en-Y gastric bypass; Folic acid deficiency Discharge Disposition: Discharged to home or Selfcare Social History Tobacco Use Types Packs/Day Years Used Date Smoking Tobacco: Never Cigarettes 2011 Passive Smoke Exposure: Yes Smokeless Tobacco: Never Tobacco Cessation:Counseling Given: Not Answered Alcohol Use Standard Drinks/Week Comments Yes 1 (1 standard drink = 0.6 oz pure alcohol) Drink a wine cooler maybe once a month [facility] Utilities Answer Date Recorded In the past 12 months has [employer], gas, oil, or water company threatened to shut off services in your home? Yes 07/03/2024 Social Connection and Isolation Panel Answer Date Recorded In a typical week, how many times do you talk on the phone with family, friends, or neighbors? Twice a week 07/03/2024 How often do you get together with friends or re latives? Once a week 07/03/2024 How often do you attend jewish or temple serv ices? Never 07/03/2024 Do you belong to any clubs o r organizations such as jewish groups, unions, fraternal or athletic groups, or school groups? No 07/03/2024 How often do you attend meet ings of the clubs or organizations you belong to? Never 07/03/2024 Are you , , di vorced, , never , or living with a partner? 07/03/2024 AUDIT-C Answer Date Recorded Q1: How often do you have a drink containing alcohol? Never 07/03/2024 Q2: How many drinks containi ng alcohol do you have on a typical day when you are drinking? Patient does not drink Q3: How often do you have si x or more drinks on one occasion? Never 07/03/2024 Overall Financial Resource Strain (CARDIA) Answe r Date Recorded How hard is it for you to pa y for the very basics like food, housing, medical care, and heating? Somewhat hard 07/03/2024 PHQ-2 Answer Date Recorded Total Score - Questions 1-9 11 10/0 04/2019 [facility] Occupational Stress Questionnaire Answer Date Recorded Do you feel stress - tense, restless, nervous, or anxious, or unable to sleep at night because your mind is troubled all the time - these days? Very much 07/03/2024 Exercise Vital Sign Answer Date Recorde d On average, how many days pe r week do you engage in moderate to strenuous exercise (like a brisk walk)? 0 days 07/03/2024 On average, how many minutes do you engage in exercise at this level? 0 min 07/03/2024 Hunger Vital Sign Answer Date Recorded Within the past 12 months, y ou worried that your food would run out before you got the money to buy more. Often true Within the past 12 months, t he food you bought just didn't last and you didn't have money to get more. Sometimes true PRAPARE - Transportation Answer Date Re corded In the past 12 months, has l ack of transportation kept you from medical appointments or from getting medications? No 06/06 In the past 12 months, has l ack of transportation kept you from meetings, work, or from getting things needed for daily living? No 07/03/2024 Housing Stability Vital Sign Answer Ted e [...] place to sleep or slept in a prison (including now)? No 08/14/2023 Housing Stability Vital Sign Answer Ted e Recorded In the last 12 months, was t here a time when you were not able to pay the mortgage or rent on time? Yes 07/03/2024 In the past 12 months, how m any times have you moved where you were living? 0 07/03/2024 At any time in the past 12 m [facility], were you homeless or living in a prison (including now)? No 07/03/2024 Education Answer Date Recorded What is the highest level of school you have completed or the highest degree you have received? Associate degree: academic program 05/06/2021 Sexually Active Control Partners Comments Yes Other Male Comments No Sex and Gender Information Value Date Recorded Sex Assigned at Female 03/19/2024 12:44 AM ACCOUNTS PAYABLE ANALYST Legal Sex Female 3:50 AM CDT Gender Identity Female 03/19/2024 12:44 AM ACCOUNTS PAYABLE ANALYST Sexual Orientation Not on file documented as of this encounter Last Filed Vital Signs Vital Sign Reading Time Taken Comments Blood Pressure 108/76 10/13/2024 2:05 PM CDT Pulse 90 10/13/2024 2:05 PM CDT Temperature 36.7 C (98 F) 10/13/2024 2:05 PM CDT Respiratory Rate 18 10/13/2024 2:05 PM CDT Oxygen Saturation 98% 10/13/2024 2:05 PM CDT Inhaled Oxygen Concentration - - Weight 106.4 kg (234 lb 8 oz) 10/13/2024 2:05 PM CDT Height 167.6 cm (5' 6) 10/13/2024 2:05 PM CDT Body Mass Index 37.85 10/13/2024 2:05 PM CDT documented in this encounter Patient Instructions * Patient Instructions* Alycia Patel PAC - 10/13/2024 2:00 PM CDT Will proceed with Venofer, 200 mg x 5 infusions Begin B12 injection, 1000 mcg (1 mL) weekly x 4 weeks then every 2 weeks thereafter. Continue iron and vitamin-C rich diet- May begin vitamin to assist with folic acid supplementation or begin qybb-ajz-evsvxph folic acid, 400 mcg, 1 tablet daily Avoid foods/ beverages that interfere with iron absorption Use cast iron cookware if available Avoid ibuprofen/Aleve/naproxen-may use Tylenol or Tylenol arthritis as needed for pain. Obtain new labs 6 weeks after last infusion Follow-up office visit 1 week after labs are obtained. PLEASE READ: All patients are expected to arrive and check in with registration 15 minutes prior to all appointments. If you are required to have labs/ testing done PRIOR to follow up, please have testing completed nolater than 7 days prior to appointment. If you do not have testing completed prior to your scheduled follow-up appointment you will be asked to reschedule until testing completed Patients who arrive 15 minutes or more after their scheduled appointment time may be required to reschedule. To continue to provide excellent patient care, you may receive a survey regarding your visit today.To help us serve you better, please complete and return. These surveys are completely anonymous. If you have any concerns/ questions regarding today's visit, please call. If you experience any new or worsening symptoms, please call or go to the emergency department. * Attachments The following attachments cannot be sent through Care Everywhere. * Vitamin B12 Deficiency (Israeli) documented in this encounter Progress Notes * Alycia Patel PAC - 10/13/2024 2:00 PM CDT Outpatient Hem/Onc Progress Note Linda M Neela is a 44 y.o. female who presents for 3-month follow-up for iron deficiency anemia, B12 deficiency, history of Swetha-en-Y, review labs. Reports she saw the results of her testing on her MyChart and went to the Internet and is determined her results are consistent with multiple myeloma and is very anxious. Reports she has not been doing B12 injections as she was told she would onlyneed 6 injections to correct her B12. Is currently not taking iron supplement. She did receive Venofer 300 mg x 4 infusions. After the first infusion she reported significant swelling so saline was reduced to 150 mL. Reports did not have any swelling with remaining infusions. ALLERGIES: Allergies[1] MEDICATIONS: Current Medications[2] PMS/H: Past Medical History Positives Diagnosis Date ADHD Anemia Anxiety Arthritis Bipolar 1 disorder (HCC) Borderline personality disorder (HCC) History of Swetha-en-Y gastric bypass 2004 Insomnia Obesity OCD (obsessive compulsive disorder) PCOS (polycystic ovarian syndrome) PE (pre-eclampsia) PTSD (post-traumatic stress disorder) Pulmonary embolus in 2013 and 2014, no longer on anticoagulation Stroke (HCC) Tobacco abuse Past Surgical History[3] SOCIAL: Social History Socioeconomic History Marital status: Spouse name: Not on file Number of children: 8 Years of education: Not on file Highest education level: Associate degree: academic program Occupational History Not on file Tobacco Use Smoking status: Never Passive exposure: Yes Smokeless tobacco: Never Vaping Use Vaping status: Former Substance and Sexual Activity Alcohol use: Yes Alcohol/week: 0.6 oz Types: 1 Drinks containing 0.5 oz of alcohol per week Comment: Drink a wine cooler maybe once a month Drug use: Yes Frequency: 7.0 times per week Types: Benzodiazepines Comment: Prescribed xanax Sexual activity: Yes Partners: Male control/protection: Other Other Topics Concern Service No Blood Transfusions Yes Caffeine Concern No Occupational Exposure No Hobby Hazards No Sleep Concern Yes Stress Concern Yes Weight Concern No Special Diet No Back Care No Exercise No Bike Helmet No Seat Belt Yes Self-Exams Yes Social History Narrative Not on file Social Drivers of Health Financial Resource Needs: Medium Risk (07/03/2024) Overall Financial Resource Strain (CARDIA) Difficulty of Paying Living Expenses: Somewhat hard Food Insecurity Needs: Food Insecurity Present (07/03/2024) Hunger Vital Sign Worried About Running Out of Food in the Last Year: Often true Ran Out of Food in the Last Year: Sometimes true Transportation Needs: No Transportation Needs (07/03/2024) PRAPARE - Transportation Lack of Transportation (Medical): No Lack of Transportation (Non-Medical): No Physical Activity: Inactive (07/03/2024) Exercise Vital Sign Days of Exercise per Week: 0 days Minutes of Exercise per Session: 0 min Stress: Stress Concern Present (07/03/2024) [place] [facility] [employer] - Occupational Stress Questionnaire Feeling of Stress : Very much Social Integration: Moderately Isolated (07/03/2024) Social Connection and Isolation Panel Frequency of Communication with Friends and Family: Twice a week Frequency of Social Gatherings with Friends and Family: Once a week Attends Gnosticism Services: Never Active Member of Clubs or Organizations: No Attends Club or Organization Meetings: Never Marital Status: Personal Safety: Low Risk (10/13/2024) Personal Safety Feels Unsafe at Home or Work/School: no Feels Threatened by Someone: no Does Anyone Try to Keep You From Having Contact with Others or Doing Things Outside Your Home?: no Physical Signs of Abuse Present: no Housing Stability: High Risk (07/03/2024) Housing Stability Vital Sign Unable to Pay for Housing in the Last Year: Yes Number of Times Moved in the Last Year: 0 Homeless in the Last Year: No FAMILY HX: Family History Problem Relation Age of Onset Rheumatoid Arthritis Mother Heart Disease Father Heart Attack Father Heart Surgery Father No Known Problems Brother Chronic Obstructive Pulmonary Disease Maternal Grandmother Cancer Maternal Grandfather Congestive Heart Failure Paternal Grandmother Congestive Heart Failure Paternal Grandfather VITAL SIGNS: Vitals: 10/13/24 1405 BP: 108/76 BP Location: Right Arm BP Position: Sitting BP Cuff Size: Large Pulse: 90 Resp: 18 Temp: 98 ??F (36.7 ??C) TempSrc: Temporal SpO2: 98% Weight: 234 lb 8 oz (106.4 kg) Height: 5' 6 (1.676 m) GENERAL EXAM: GENERAL: Well developed, well nourished, in no acute distress. AAO x3. Cooperative. HEENT: Normocephalic. PERRLA. Nonicteric. NECK: Supple/ non tender/ full ROM LYMPH NODES: No adenopathy. CARDIOVASCULAR: RRR/ S1S2/ No m/g/c/r. PULMONARY: Respirations easy and regular. Breath sounds clear bilaterally. No rhonchi/ rales/ wheezes. MUSCULOSKELETAL: Normal gait and movement of extremities. SKIN: General-warm, pink and dry. No rashes/ lesions. PSYCHIATRIC: Euthymic. Affect congruent with mood. Normal thought process. DATA: Results for orders placed or performed in visit on 10/05/24 FOLIC ACID (FOLATE) Result Value Ref Range FOLATE 6.9 (L) 7.0 - 31.4 ng/mL IS THE PATIENT REQUIRED TO BE FASTING? No FERRITIN Result Value Ref Range FERRITIN 9 5 - 204 ng/mL CMP (COMPREHENSIVE METABOLIC PANEL) Result Value Ref Range SODIUM 139 136 - 145 mmol/L POTASSIUM 3.7 3.5 - 5.1 mmol/L CHLORIDE 108 (H) 98 - 107 mmol/L CO2, VENOUS 24 22 - 30 mmol/L ANION GAP 10.7 <18.0 mmol/L GLUCOSE 94 70 - 99 mg/dL BUN 11 5 - 18 mg/dL CREATININE, BLOOD 0.84 0.60 - 1.00 mg/dL BUN/CREATININE RATIO 13 12 - 20 ratio TOTAL PROTEIN 6.8 6.0 - 8.0 g/dL ALBUMIN 4.1 3.5 - 5.0 g/dL A/G RATIO 1.5 1.0 - 2.2 CALCIUM 8.9 8.7 - 10.5 mg/dL T BILI 0.2 0.2 - 1.2 mg/dL SGOT (AST) 19 <43 U/L SGPT (ALT) 11 <56 U/L ALKALINE PHOSPHATASE 69 40 - 150 U/L IS THE PATIENT REQUIRED TO BE FASTING? No GFR, ESTIMATED >60 >=60 GFR, EST. >60 >=60 GFR, EST. NONAFRICAN >60 >=60 VITAMIN B12 Result Value Ref Range VITAMIN B12 235 213 - 816 pg/mL RETICULOCYTE COUNT (RETIC) Result Value Ref Range RETICULOCYTES 0.9 0.5 - 2.0 % LACTATE DEHYDROGENASE (LD) Result Value Ref Range LDH 175 125 - 220 U/L FREE KAPPA & LAMBDA LIGHT CHAINS SERUM Result Value Ref Range Free Bear Dance Lt Chn 25.19 (H) 3.30 - 19.40 mg/L Free Lambda Lt Chn 15.52 5.71 - 26.30 mg/L free wai tomas ratio 1.62 0.26 - 1.65 IMMUNOFIXATION W/ ELECTROPHORESIS SERUM Result Value Ref Range TOTAL PROTEIN 6.5 6.0 - 8.0 g/dL % ALBUMIN 56.0 55.8 - 66.7 % ALBUMIN SERUM 3.6 2.5 - 5.4 g/dL % ALPHA 1 GLOBULIN 3.4 2.9 - 4.9 % ALPHA 1 0.2 0.2 - 0.4 g/dL % ALPHA 2 GLOBULIN 13.0 (H) 7.1 - 11.8 % ALPHA 2 0.8 0.5 - 1.0 g/dL % BETA 15.2 (H) 8.4 - 13.1 % BETA-GLOBULIN 1.0 0.5 - 1.1 g/dL % GAMMA GLOBULIN 12.4 11.1 - 18.8 % GAMMA 0.8 0.7 - 1.5 g/dL IMMUNOGLOBULIN G 761 552 - 1,631 mg/dL IMMUNOGLOBULIN A 185 65 - 421 mg/dL IMMUNOGLOBULIN M 64 33 - 293 mg/dL INTERPRETATION SERUM No abnormal protein band is detected by serum protein electrophoresis. Serum immunofixation electrophoresis is negative for monoclonal immunoglobulins. Reviewed by Chintan Leon, Ph.D. A/G RATIO, SERUM 1.3 IRON,TRANSFERN,CALC.TIBC,%SAT Result Value Ref Range IRON 20 (L) 25 - 156 mcg/dL TRANSFERRIN 315 180 - 382 mg/dL TIBC, CALCULATED 394 265 - 497 mcg/dL % SATURATION * 5 (L) 15 - 62 % CBC WITH AUTO DIFFERENTIAL Result Value Ref Range WBC 7.73 4.00 - 12.00 10(3)/mcL RBC 4.65 3.80 - 5.30 10(6)/mcL HEMOGLOBIN (HGB) 11.2 (L) 12.0 - 15.8 g/dL HEMATOCRIT (HCT) 36.9 36.0 - 47.0 % MCV 79.4 (L) 82.0 - 96.0 fL MCH 24.1 (L) 26.0 - 34.0 pg MCHC 30.4 (L) 31.0 - 36.0 g/dL PLATELET COUNT 273 140 - 440 10(3)/mcL RDW 21.4 (H) 11.8 - 15.5 % MPV 11.8 9.7 - 12.4 fL NEUTROPHILS 59.0 47.0 - 73.0 % LYMPHOCYTES 30.0 18.0 - 42.0 % MONOCYTES 5.8 4.0 - 12.0 % EOSINOPHILS 4.0 0.0 - 5.0 % BASOPHILS 0.9 0.0 - 1.0 % IMMATURE GRANULOCYTE 0.3 0.0 - 0.4 % ABSOLUTE NEUTROPHILS 4.56 1.60 - 7.70 10(3)/mcL ABSOLUTE LYMPHOCYTES 2.32 1.30 - 3.20 10(3)/mcL ABSOLUTE MONOCYTES 0.45 0.20 - 1.00 10(3)/mcL ABSOLUTE EOSINOPHIL 0.31 0.00 - 0.40 10(3)/mcL ABSOLUTE BASOPHILS 0.07 0.00 - 0.10 10(3)/mcL ABSOLUTE IMMATURE GRANULOCYTE 0.02 0.00 - 0.03 10 (3) mcL. NRBC PER 100 WBC 0 RESULTS ARE CONSISTENT WITH PERIPHERAL SMEAR REVIEW Yes RBC MORPHOLOGY CONSISTENT WITH INDICES Yes POIKILOCYTOSIS 1+ OVALOCYTES Present LARGE PLATELETS 1+ Assessment: Diagnoses and all orders for this visit: Iron 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 dietary iron intake - COMPLETE BLOOD COUNT (CBC) WITH DIFF; Future - FERRITIN; Future - IRON,TRANSFERN,CALC.TIBC,%SAT; Future B12 deficiency - cyanocobalamin (VITAMIN B-12) 1000 MCG/ML Solution; 1 ml weekly x 4 weeks then every 2 weeks Indications: Inadequate Vitamin B12 - Syringe/Needle, Disp, (SYRINGE 3CC/23GX1) 23G X 1 3 ML Misc; USE DIRECTED - VITAMIN B12; Future History of Swetha-en-Y gastric bypass Folic acid deficiency - FOLIC ACID (FOLATE); Future Plan: Reviewed and discussed above results. Advise that her labs are actually consistent more with malabsorption from her gastric bypass surgery resulting in iron and B12 deficiency. Her hemoglobin significantly improved after she received heriron infusions. At this time recommend repeating Venofer but will provide as 200 mL IV push to decrease saline content. Was cautioned that may have more headache with this administration and should maintain adequatehydration with at least 64 ounces of water a day before, day of and day after iron treatment. She was instructed to resume her B12 injection, 1000 mcg (1 mL) weekly x 4 weeks and then every 2 weeks thereafter until her follow-up visit. Was encouraged to begin folic acid, 400 mcg daily. States she will resume her vitamins which she had been taking prior. Avoid foods/ beverages that interfere with iron absorption Use cast iron cookware if available Avoid ibuprofen/Aleve/naproxen-may use Tylenol or Tylenol arthritis as needed for pain. Obtain new labs 6 weeks after last infusion Follow-up office visit 1 week after labs are obtained. Diagnoses and all orders for this visit: Iron 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 dietary iron intake - COMPLETE BLOOD COUNT (CBC) WITH DIFF; Future - FERRITIN; Future - IRON,TRANSFERN,CALC.TIBC,%SAT; Future B12 deficiency - cyanocobalamin (VITAMIN B-12) 1000 MCG/ML Solution; 1 ml weekly x 4 weeks then every 2 weeks Indications: Inadequate Vitamin B12 - Syringe/Needle, Disp, (SYRINGE 3CC/23GX1) 23G X 1 3 ML Misc; USE DIRECTED - VITAMIN B12; Future History of Swetha-en-Y gastric bypass Folic acid deficiency - FOLIC ACID (FOLATE); Future Return in about 2 months (around 12/14/2024) for Anemia, B12 deficiency, Folic acid deficiency, Iron-deficiency. The patient was given an opportunity to ask questions, and all questions answered to patient's satisfaction. Patient verbalizes understanding of the plan as outlined above. Patient Instructions Will proceed with Venofer, 200 mg x 5 infusions Begin B12 injection, 1000 mcg (1 mL) weekly x 4 weeks then every 2 weeks thereafter. Continue iron and vitamin-C rich diet- May begin vitamin to assist with folic acid supplementation or begin [id number]-ktc-efdlpvd folic acid, 400 mcg, 1 tablet daily Avoid foods/ beverages that interfere with iron absorption Use cast iron cookware if available Avoid ibuprofen/Aleve/naproxen-may use Tylenol or Tylenol arthritis as needed for pain. Obtain new labs 6 weeks after last infusion Follow-up office visit 1 week after labs are obtained. PLEASE READ: All patients are expected to arrive and check in with registration 15 minutes prior to all appointments. If you are required to have labs/ testing done PRIOR to follow up, please have testing completed nolater than 7 days prior to appointment. If you do not have testing completed prior to your scheduled follow-up appointment you will be asked to reschedule until testing completed Patients who arrive 15 minutes or more after their scheduled appointment time may be required to reschedule. To continue to provide excellent patient care, you may receive a survey regarding your visit today.To help us serve you better, please complete and return. These surveys are completely anonymous. If you have any concerns/ questions regarding today's visit, please call. If you experience any new or worsening symptoms, please call or go to the emergency department. [1] Allergies Allergen Reactions Codeine Hives, Itching and Other (see Comments) Fainting Morphine Hives, Itching and Other (see Comments) pass out Raspberry Diarrhea Miconazole Itching and Swelling [2] Current Outpatient Medications Medication Sig Dispense Refill albuterol 108 (90 Base) MCG/ACT Aerosol Solution take 2 Puffs by inhalation every 6 hours as neededfor Cough. 6.7 g 0 ALPRAZolam (XANAX) 1 MG Tablet Take 1 mg by mouth 4 times daily as needed. Aripiprazole (ABILIFY) 20 MG Tablet Take 30 mg by mouth. cyanocobalamin (VITAMIN B-12) 1000 MCG/ML Solution 1 ml weekly x 4 weeks then every 2 weeks Indications: Inadequate Vitamin B12 10 mL 1 divalproex (DEPAKOTE) 125 MG Tablet Delayed Response Take 1 Tablet by mouth in the morning and at bedtime. 270 Tablet 3 Syringe/Needle, Disp, (SYRINGE 3CC/23GX1) 23G X 1 3 ML Misc USE DIRECTED 100 Each 0 Venlafaxine HCl (EFFEXOR PO) Take 150 mg by mouth daily. No current facility-administered medications for this visit. [3] Past Surgical History: Procedure Laterality Date ABDOMINOPLASTY 2009 BREAST REDUCTION SURGERY SECTION 2006 SECTION 2008 SECTION 2019 COSMETIC SURGERY EXPLORATORY OF ABDOMEN GASTRIC BYPASS SURGERY 2004 LAP,CHOLECYSTECTOMY 2004 LAP,INGUINAL HERNIA REPR,INITIAL NO PREVIOUS SURGERY documented in this encounter Miscellaneous Notes * Interdisciplinary - Henna Peña MA - 10/13/2024 2:00 PM CDT Patient is here for a follow up visit. Reports she is still feeling fatigued even after iron infusions. Having episodes of dizziness, migraines, confusion, forgetfulness. Patients states she had seizure like activity about 2 days ago. Vitals taken. Medications reviewed. * Interdisciplinary - Henna Peña MA - 10/13/2024 2:00 PM CDT AVS printed. Patient will complete 5 venofer 200 IV P, will complete labs 6 weeks after the fifth infusion and have an office visit 1 week after the lab draw. Patient had no other questions or concerns. documented in this encounter Plan of Treatment Upcoming Encounters Date Type Department Care Team (Late st Contact Info) Description 10/18/2024 1:30 PM CDT Clinical Support [facility] Oncology Services [address] [place] [address] Alycia Patel Joanne, [facility] [address] [place] [address] Discharge Disposition: Discharged to home or Selfcare 10/20/2024 1:30 PM CDT Clinical Support [facility] Oncology Services [address] [place] [address] 10/25/2024 1:30 PM CDT Clinical Support [facility] Oncology Services [address] [place] [phone] 10/27/2024 1:30 PM CDT Clinical Support [facility] Oncology Services [address] [place] [address] 11/01/2024 1:30 PM CDT Clinical Support [facility] Oncology Services [address] [place] [phone] 11/04/2024 4:00 PM CDT Office Visit [facility] - Neurology [facility] [address] [place] [address] Valeria Ulloa APRN, ALARM TECHNICIAN [address] [place] [address] 12/13/2024 1:30 PM CD[facility] [address] [place] [address] 12/20/2024 1:20 PM CDT [facility] [address] [place] [phone] Alycia Patel Joanne, [facility] [address] [place] [address] Scheduled Orders Name Type Priority Associated Diagnoses Orde r Schedule COMPLETE BLOOD COUNT (CBC) WITH DIFF Lab Routine Iron 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 dietary iron intake Expected: 12/07/2024, Expires: 03/07/2025 VITAMIN B12 Lab Routine B12 deficiency Expected: 12/07/2024, Expires: 03/07/2025 FERRITIN Lab Routine Iron 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 dietary iron intake Expected: 12/07/2024, Expires: 03/07/2025 IRON,TRANSFERN,CALC.TIB C,%SAT Lab Routine Iron 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 dietary iron intake Expected: 12/07/2024, Expires: 03/07/2025 FOLIC ACID (FOLATE) Lab Routine Folic acid deficiency Expected: 12/07/2024, Expires: 03/07/2025 documented as of this encounter Visit Diagnoses Diagnosis Iron 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 dietary iron intake- Primary B12 deficiency Other B-complex deficiencies History of Swetha-en-Y gastric bypass Bariatric surgery status Folic acid deficiency Other B-complex deficiencies documented in this encounter Additional Health Concerns Assessment Noted Time PHQ-9 Depression Total Score: 11 020 8:36 AM CDT documented as of this encounter Care Teams Director Of Religious Activities Relationship Specialty Start Date End Date Morales Meza MD [address] [address] PCP - General Family Medicine 01/05/20 Valeria Ulloa APRN, ALARM TECHNICIAN [address] [place] [address] Nurse Practitioner Advanced Practice Nurse 02/26/22 documented as of this encounter
--- OUTSIDE RECORDS SUMMARY | 2024-10-14 05:35 | XMS_ITS | Encounter Summary ---
Author Organization [facility] Address [address] [place] [address] Care Team Providers Care Quoter Name Role Phone Unavailable Primary Care Provider Unavailabl e Encounter Details Date Type Department Care Team (Late st Contact Info) Description 01/07/[address] [facility] Internal Medicine [place] [address] [place] [address] Raf Pfeiffer MD [address] [place] [phone] Social History Tobacco Use Types Packs/Day Years Used Date Smoking Tobacco: Never Assessed Comments Unknown Sex and Gender Information Value Date Recorded Sex Assigned at Not on file Legal Sex Female 3:03 AM EMPLOYMENT SERVICE SPECIALIST Gender Identity Not on file Sexual Orientation Not on file documented as of this encounter Plan of Treatment Not on file documented as of this encounter Visit Diagnoses Not on filedocumented in this encounter
--- OUTSIDE RECORDS SUMMARY | 2024-10-14 05:35 | XMS_ITS | Referral Summary ---
Author Organization [facility] Address [address] [place] [address] Care Team Providers Care Press Helper Name Role Phone Jazmin Saab MD Unavailable [phone] Morales Meza MD Primary Care Provider [phone] Allergies Active Allergy Reactions Criticality Noted Date Comments Codeine Other (See comments),Syncope,Hiv es,Itching High 08/31/2018 Makes pt pass out Fainting Miconazole Itching,Swelling Medium 12/18/2019 Miconazole Kpvxecp-Jvrnep-Cuso Itching,Swelling Medium 12/18/2019 Morphine Other (See comments),Syncope,Hiv es,Itching High 08/31/2018 Makes pt pass out pass out Raspberry Diarrhea High 01/04/2020 Medications sertraline (ZOLOFT) 25 mg tablet Take 25 mg by mouth daily Active ALPRAZolam (XANAX) 1 mg tablet Take 1 mg by mouth 4 (four) times a day as needed for anxiety Active ARIPiprazole (ABILIFY) 20 mg tablet Take 30 mg by mouth 09/21/2019 Active benztropine (COGENTIN) 1 mg tablet TK 1 T PO TID 09/21/2019 Active prazosin (MINIPRESS) 2 mg capsule Take 4 mg by mouth daily Active atomoxetine (STRATTERA) 80 mg capsule Take 80 mg by mouth daily Active venlafaxine XR (EFFEXOR-XR) 150 mg 24 hr capsule Take 300 mg by mouth daily Active Active Problems Problem Noted Date Diagnosed Date Abnormal CT of the head 01/18/2022 Alcohol withdrawal 01/18/2022 Microcytic anemia 01/18/2022 Seizure-like activity 01/17/2022 Seizure 01/11/2022 Delivered by rosaive ry following previous delivery 08/08/2019 Overview (08/08/2019): Added automatically from request for surgery [id number] Hx of preeclampsia, prior pr egnancy, currently , second trimester 06/15/2019 Bariatric surgery status com plicating , third trimester 06/01/2019 Overview (06/07/2019): Patient has been counseled Limit weight gain during 11-20 pounds History of dumping but has tolerated oral GCT in the past, recommend 1 hour JOSE Monitor for nutritional deficiencies: Iron, B12, Folate Vit D, Calcium q trimester Monitor growth. Pulmonary embolism affecting in third trimester 06/01/2019 Overview (06/08/2019): - History of PE X 2 while on RAKESH. - Plan for Therapeutic anticoagulation, Lovenox 100 mg q 12 hr - Antifactor Xa should be check monthly to assure therapeutic levels 06/08/2019 [0.93] - Will discuss continued Lovenox vs transition to Heparin if PTL or if reaches 36 weeks. - Will need to discontinue anticoagulation 24 hours prior to delivery and resume 12 hours after if hemodynamically stable. She will need to continue therapy for at least 6 weeks . - Recommend serial growth ultrasounds, twice weekly testing at 32 weeks, Delivery at 39 weeks. History of 2 sections 06/01/2019 Overview (06/01/2019): After counseling patient desires ERCS with BTL Depression, Anxiety, Panic Attacks. 06/01/2019 Overview (06/01/2019): Patient is counseled and on no meds She was counseled on risk of med exposure and risk of untreated mood disorder. Previously on Lamictal, Effexor and Trazadone. She has been prescribed Xanax for Panic Attacks which she is also avoiding during . Monitor Mood closely. Maternal iron deficiency ane lynette affecting in third trimester, antepartum 06/01/2019 Overview (06/01/2019): Patient is on oral supplementation. If patient is unresponsive Iron transfusion is warranted. Will need ferritin with her Labs secondary to her history of Bariatric surgery and PAT. Attempt to keep hemoglobin at 10 as she desires ERCS. History of bariatric surgery 01/31/2019 Resolved Problems Problem Noted Date Diagnosed Date Resolved Date AMA (advanced maternal age) multigravida 35+, third trimester 06/01/2019 09/20/2019 Overview (06/01/2019): Patient had Low risk Penta screen. ? EIF on outside anatomy US, not noted today on 06/01/19 Increased risk for preeclampsia and GDM. Supervision of high-risk pre gnancy, unspecified trimester 01/31/2019 09/20/2019 Overview (06/08/2019): - Comanagement with Linda Milan. She will continue seeing Dr. Milan at regular intervals appropriate for gestational age. - Follow up: 3 weeks with growth/BPP [x] Co-management vs. [] Full MFM Care; Referring Provider: Linda Milan [phone] [x] Dating Criteria:LMP 11/10/18 DIANA 08/17/19. [x] Labs: Rh [A+], Ab [negative], Rubella [immune], HIV [non-reactive], HepBSAg [non-reactive], RPR [non-reactive], GC/CT [negative/negative] [x] Genetic Screenin04/07/19 Penta Screen: negative for open NTD, Down Syndrome and Trisomy 18. [x] CBC/Hgb 10.3/34.2/plt 298 [] Early 1hr GTT (if indicated) [x] UCx: 01/05/19 no growth [x] Pap: 01/05/19 NILM [] LD ASA (if indicated) starting at 12 weeks: [] EPDS [ ]; PNBHS referral (if indicated) 2nd Tri Labs: [] Anatomy ultrasound: [] CBC/1hr gtt at 24-28wks: [] Flu Shot (Sep-Mar): [] Tdap (27-36wks): [] Rhogam at 28 wks (if Rh neg): 3rd Tri Labs: [] CBC/HIV/RPR/T&S: [] GBS: [] GC/CT (if indicated): Counselling [] MOD: [] Place of delivery: [] MOC: [] Method of feeding: [] Senior Reservoir Engineer: [] PP Depression Discussed: Immunizations Immunization Administration Dates Next Due Tdap 06/15/2019 Social History Tobacco Use Types Packs/Day Years Used Date Smoking Tobacco: Former Cigarettes Q uit: 2007 Smokeless Tobacco: Never Alcohol Use Standard Drinks/Week Comments Not Currently 0 (1 standard drink = 0.6 oz pur e alcohol) PHQ-2 Answer Date Recorded PHQ-2 Total Score (If total score is 3 or more points, staff should administer the PHQ-9) 0 09/20/2019 [place] Depression Scale Answer Date Recorded [place] Depression Scale Total 0 09/20/2019 The thought of harming myself has occurred to me . Never 09/20/2019 Personal Safety Answer Date Recorded Have you ever been in or are you currently in a harmful physical or emotional relationship or is someone making you feel afraid or unsafe? Denies 08/26/2023 Comments Unknown Sex and Gender Information Value Date Recorded Sex Assigned at Not on file Legal Sex Female 4:02 PM CDT Gender Identity Not on file Sexual Orientation Not on file Last Filed Vital Signs Vital Sign Reading Time Taken Comments Blood Pressure 133/70 08/26/2023 10:59 PM CDT Pulse 93 08/26/2023 10:59 PM CDT Temperature 36.3 C (97.4 F) 08/26/2023 10:59 PM CDT Respiratory Rate 18 08/26/2023 10:59 PM CDT Oxygen Saturation 100% 08/26/2023 10:59 PM CDT Inhaled Oxygen Concentration - - Weight 108.9 kg (240 lb) 08/26/2023 10:59 PM CDT Height 167.6 cm (5' 6) 08/26/2023 10:59 PM CDT Body Mass Index 38.74 08/26/2023 10:59 PM CDT Plan of Treatment Not on file Procedures Procedure Name Priority Date/Time Associated Diagnosis Comments HEPATITIS C ANTIBODY Routine 01/05/2019 from Last 3 Months or Most Recently Relevant to Health Maintenance Results * Hepatitis C antibody (01/05/2019) SCRIBED HCV ab non reactive Blood specimen (specimen) Jazmin Saab MD LAB MICROBIOLOGY - GENE RAL ORDERABLES Final Result from Last 3 Months or Most Recently Relevant to Health Maintenance Insurance [facility]IC[facility] PPO Member Subscriber Plan / Payer (Ef fective 2018-Present) Name:NeelaJamieie Michelle Relation to Subscriber:Self Name:Neela Linda Michelle Payer ID:[id number] (NAIC) Type:MEDICARE RISK OTHER Address: [address] [employer] CHOICE MEDICARE PPO IDPA [employer] CHOICE MEDICARE PPO IDPA [facility] MEDICARE ADVANTAGE [facility] MEDICARE Address: [address] [address] Advance Directives For more information, please contact: [phone] * Full Code (Latest Code Status on File) Date Activated Date Inactivated Comments 01/17/2022 10:16 AM 01/18/2022 11:08 AM * Full Code Date Activated Date Inactivated Comments 08/15/2019 2:14 PM 08/17/2019 2:39 PM * Full Code Date Activated Date Inactivated Comments 08/15/2019 10:51 AM 08/15/2019 2:14 PM Full CPR in case of cardiopulmonary arrest * Full Code Date Activated Date Inactivated Comments 07/06/2019 4:13 AM 07/07/2019 7:10 PM Full CPR in ca se of cardiopulmonary arrest * Full Code Date Activated Date Inactivated Comments 06/29/2019 3:20 PM 07/02/2019 1:41 PM Full CPR in case of cardiopulmonary arrest Care Teams Press Helper Relationship Specialty Start Date End Date Morales Meza MD [address] [address] PCP - General Family Medicine 06/17/21 Jazmin Saab MD [address] [place] [address] Referring Physician Obstetrics and Gynecology 01/10/19
--- OUTSIDE RECORDS SUMMARY | 2024-10-14 05:35 | XMS_ITS | Encounter Summary ---
Author Organization [facility] Address [address] [place] [address] Phone Care Team Providers Care Dragline Oiler Name Role Phone Morales Meza MD Primary Care Provider Valeria Ulloa [employer]ILLERY, ENVIRONMENTAL PROGRAMS MANAGER Unavailable [phone] Reason for Visit * Reason Comments Medication Refill Encounter Details Date Type Department Care Team (Late st Contact Info) Description 08/20/2023 Refill [facility] - Family Medicine [facility] [address] [place] [address] Morales Meza MD [address] [address] Medication Refill Social History Tobacco Use Types Packs/Day Years Used Date Smoking Tobacco: Former Cigarettes 2011 Smokeless Tobacco: Never Alcohol Use Standard Drinks/Week Comments Yes 0 (1 standard drink = 0.6 oz pur e alcohol) Very Rare [facility] Utilities Answer Date Recorded In the past 12 months has [employer], gas, oil, or water company threatened to shut off services in your home? No 08/14/2023 Social Connection and Isolation Panel Answer Date Recorded In a typical week, how many times do you talk on the phone with family, friends, or neighbors? Patient declined 08/14/2023 How often do you get togethe r with friends or relatives? Patient declined 08/14/2023 How often do you attend faith or sabianism serv ices? Patient declined 08/14/2023 Do you belong to any clubs o r organizations such as faith groups, unions, fraternal or athletic groups, or [...] Total Score - Questions 1-9 11 04/2019 [facility] of Occupat ional Health - Occupational Stress [...] place to sleep or slept in a retirement (including now)? No 08/14/2023 Education Answer Date Recorded What is the highest level of school you have completed or the highest degree you have received? Associate degree: academic program 05/06/2021 Sexually Active Control Partners Comments Yes Comments No Sex and Gender Information Value Date Recorded Sex Assigned at Female 03/19/2024 12:44 AM ADVERTISING CONSULTANT Legal Sex Female 3:50 AM CDT Gender Identity Female 03/19/2024 12:44 AM ADVERTISING CONSULTANT Sexual Orientation Not on file documented as of this encounter Miscellaneous Notes * Telephone Encounter - Kimberley Rubio MA - 08/24/2023 11:04 AM CDT L MOM to CB * Telephone Encounter - Lizz Miller RN - 08/21/2023 9:17 AM CDT Needs OV with PCP * Telephone Encounter - Lizz Miller RN - 08/21/2023 9:17 AM CDT Medication failed the protocol, provider to review and approve the medication order if appropriate. Requested Prescriptions Pending Prescriptions Disp Refills meloxicam (MOBIC) 15 MG Tablet [Pharmacy Med Name: MELOXICAM 15MG TABLETS] 30 Tablet 0 Sig: TAKE 1 TABLET BY MOUTH DAILY NSAIDs Protocol Failed - 08/20/2023 5:35 AM Failed - Visit with relevant provider [...] 45 days Matching medication order placed on 07/30/2023 10:14 AM Order [id number]: ketorolac (TORADOL) injection 30 mg (For orders placed between 07/07/2023 9:17 AM and 08/21/2023 9:17 AM) Failed - HGB greater than 10 or HCT greater than 30 in past 12 months HEMOGLOBIN (HGB) Date Value Ref Range Status 08/13/2023 5.2 (LL) 12.0 - 15.8 g/dL Final HEMATOCRIT (HCT) Date Value Ref Range Status 08/13/2023 19.7 (L) 36.0 - 47.0 % Final Passed - Normal serum creatinine in past 12 months CREATININE, BLOOD Date Value Ref Range Status 08/13/2023 0.70 0.60 - 1.00 mg/dL Final Passed - No positive test in the past 12 months or most recent test was negative Passed - No active on record Passed - AST less than 55 or ALT less than 90 in past 12 months SGOT (AST) Date Value Ref Range Status 08/13/2023 17 5 - 34 U/L Final SGPT (ALT) Date Value Ref Range Status 08/13/2023 12 0 - 55 U/L Final documented in this encounter Plan of Treatment Upcoming Encounters Date Type Department Care Team (Late st Contact Info) Description 10/18/2024 1:30 PM CDT Clinical Support [facility] [address] [place] [address] Alycia Patel PAC [address] [place] [address] Discharge Disposition: Discharged to home or Selfcare 10/20/2024 1:30 PM CDT Clinical Support [facility] [address] [place] [address] 10/25/2024 1:30 PM CDT Clinical Support [facility] [address] [place] [address] 10/27/2024 1:30 PM CDT Clinical Support [facility] [address] [place] [address] 11/01/2024 1:30 PM CDT Clinical Support [facility] [address] [place] [address] 11/04/2024 4:00 PM CDT Office Visit [facility] [address] [place] [address] Valeria Ulloa APRN, ENVIRONMENTAL PROGRAMS MANAGER [address] [place] [address] 12/13/2024 1:30 PM CDT Lab [facility] [address] [place] [address] 12/20/2024 1:20 PM CDT Office Visit [facility] [address] [place] [address] Alycia Patel, [facility] [address] [place] [address] documented as of this encounter Visit Diagnoses Not on filedocumented in this encounter Additional Health Concerns Assessment Noted Time PHQ-9 Depression Total Score: 11 020 8:36 AM CDT documented as of this encounter Care Teams Dragline Oiler Relationship Specialty Start Date End Date Morales Meza MD [address] [address] PCP - General Family Medicine 01/05/20 Valeria Ulloa APRN, ENVIRONMENTAL PROGRAMS MANAGER [address] [place] [address] Nurse Practitioner Advanced Practice Nurse 02/26/22 documented as of this encounter
--- OUTSIDE RECORDS SUMMARY | 2024-10-14 05:35 | XMS_ITS | Encounter Summary ---
Author Organization [employer] Care Team Providers Care Coding Director Name Role Phone Morales Meza MD Primary Care Provider [phone] Valeria Ulloa APRN, NEGATIVE TURNER Unavailable [phone] Encounter Details Date Type Department Care Team (Latest Contact Info) Description 10/13/2024 Travel Social History Tobacco Use Types Packs/Day Years Used Date Smoking Tobacco: Never Cigarettes 2011 Passive Smoke Exposure: Yes Smokeless Tobacco: Never Alcohol Use Standard Drinks/Week Comments Yes 1 (1 standard drink = 0.6 oz pure alcohol) Drink a wine cooler maybe once a month [facility] Utilities Answer Date Recorded In the past 12 months has [employer], gas, oil, or water [employer] threatened to shut off services in your home? Yes 07/03/2024 Social Connection and Isolation Panel Answer Date Recorded In a typical week, how many times do you talk on the phone with family, friends, or neighbors? Twice a week 07/03/2024 How often do you get together with friends or re latives? Once a week 07/03/2024 How often do you attend zoroastrianism or hindu serv ices? Never 07/03/2024 Do you belong to any clubs o r organizations such as zoroastrianism groups, unions, fraternal or athletic groups, or [...] Total Score - Questions 1-9 11 04/2019 [facility] of Occupat ional Health - Occupational [...] place to sleep or slept in a correction (including now)? No 08/14/2023 Housing Stability Vital Sign Answer Ted e Recorded In the last 12 months, was t here a time when you were not able to pay the mortgage or rent on time? Yes 07/03/2024 In the past 12 months, how m any times have you moved where you were living? 0 07/03/2024 At any time in the past 12 m ont, were you homeless or living in a correction (including now)? No 07/03/2024 Education Answer Date Recorded What is the highest level of school you have completed or the highest degree you have received? Associate degree: academic program 05/06/2021 Sexually Active Control Partners Comments Yes Other Male Comments No Sex and Gender Information Value Date Recorded Sex Assigned at Female 03/19/2024 12:44 AM PHP WORDPRESS DEVELOPER Legal Sex Female 3:50 AM CDT Gender Identity Female 03/19/2024 12:44 AM PHP WORDPRESS DEVELOPER Sexual Orientation Not on file documented as of this encounter Plan of Treatment Upcoming Encounters Date Type Department Care Team (Late st Contact Info) Description 10/18/2024 1:30 PM CDT Clinical [facility] [address] [place] [address] Alycia Patel PAC [address] [place] [address] Discharge Disposition: Discharged to home or Selfcare 10/20/2024 1:30 PM CDT Clinical Support [facility] [address] [place] [address] 10/25/2024 1:30 PM CDT Clinical Support [facility] [address] [place] [address] 10/27/2024 1:30 PM CDT Clinical Support [facility] [address] [place] [address] 11/01/2024 1:30 PM CDT Clinical Support [facility] [address] [place] [address] 11/04/2024 4:00 PM CDT Office Visit [facility] [address] [place] [address] Valeria Ulloa APRN, NEGATIVE TURNER [address] [place] [address] 12/13/2024 1:30 PM CDT Lab [facility] [address] [place] [address] 12/20/2024 1:20 PM CDT Office Visit [facility] [address] [place] [address] Alycia Patel, [facility] [address] [place] [address] documented as of this encounter Visit Diagnoses Not on filedocumented in this encounter Additional Health Concerns Assessment Noted Time PHQ-9 Depression Total Score: 11 020 8:36 AM CDT documented as of this encounter Care Teams Coding Director Relationship Specialty Start Date End Date Morales Meza MD [address] [address] PCP - General Family Medicine 01/05/20 Valeria Ulloa APRN, NEGATIVE TURNER [address] [place] [address] Nurse Practitioner Advanced Practice Nurse 02/26/22 documented as of this encounter
--- OUTSIDE RECORDS SUMMARY | 2024-10-14 05:35 | XMS_ITS | Encounter Summary ---
Author Organization [employer] Address [address] [place] [address] Care Team Providers Care Bail Attacher Name Role Phone Unavailable Primary Care Provider Unavailabl e Encounter Details Date Type Department Care Team (Late st Contact Info) Description 02/26/2000 Outpatient Historical [facility], Authorized P NO ADDRESS ON FILE Unspecified sinusitis (chronic) (Primary Dx) Social History Tobacco Use Types Packs/Day Years Used Date Smoking Tobacco: Never Assessed Comments Unknown Sex and Gender Information Value Date Recorded Sex Assigned at Not on file Legal Sex Female 3:03 AM WARP KNITTER Gender Identity Not on file Sexual Orientation Not on file documented as of this encounter Plan of Treatment Not on file documented as of this encounter Visit Diagnoses Diagnosis Unspecified sinusitis (chronic)- Primary documented in this encounter
--- OUTSIDE RECORDS SUMMARY | 2024-10-14 05:35 | XMS_ITS | Encounter Summary ---
Author Organization [facility] Address [address] [place] [address] Care Team Providers Care Manufacturing Design Engineer Name Role Phone Unavailable Primary Care Provider Unavailabl e Encounter Details Date Type Department Care Team (Late st Contact Info) Description 04/17/2000 Outpatient Historical [facility] Internal Medicine [place] [address] [place] [address] Raf Pfeiffer MD [address] [place] [phone] Social History Tobacco Use Types Packs/Day Years Used Date Smoking Tobacco: Never Assessed Comments Unknown Sex and Gender Information Value Date Recorded Sex Assigned at Not on file Legal Sex Female 3:03 AM HUMAN RESOURCE MANAGER Gender Identity Not on file Sexual Orientation Not on file documented as of this encounter Plan of Treatment Not on file documented as of this encounter Visit Diagnoses Not on filedocumented in this encounter
--- OUTSIDE RECORDS SUMMARY | 2024-10-14 05:35 | XMS_ITS | Encounter Summary ---
Author Organization [facility] Address [address] [place] [address] Care Team Providers Care Collections Director Name Role Phone Unavailable Primary Care Provider Unavailabl e Encounter Details Date Type Department Care Team (Late st Contact Info) Description 05/28/2000 Outpatient Historical [facility] Internal Medicine [place] [address] [place] [address] Raf Pfeiffer MD [address] [place] [phone] Social History Tobacco Use Types Packs/Day Years Used Date Smoking Tobacco: Never Assessed Comments Unknown Sex and Gender Information Value Date Recorded Sex Assigned at Not on file Legal Sex Female 3:03 AM RELATIONS DIRECTOR Gender Identity Not on file Sexual Orientation Not on file documented as of this encounter Plan of Treatment Not on file documented as of this encounter Visit Diagnoses Not on filedocumented in this encounter
--- OUTSIDE RECORDS SUMMARY | 2024-10-14 05:35 | XMS_ITS | Clinical Summary ---
Author Organization [facility] Address [address] [place] [address] Care Team Providers Care Receptionist Telephone Operator Name Role Phone Jazmin Saab MD Unavailable [phone] Morales Meza MD Primary Care Provider [phone] Allergies Active Allergy Reactions Criticality Noted Date Comments Codeine Other (See comments),Syncope,Hiv es,Itching High 08/31/2018 Makes pt pass out Fainting Miconazole Itching,Swelling Medium 12/18/2019 Miconazole Hfiaftm-Hbmehg-Jrdo Itching,Swelling Medium 12/18/2019 Morphine Other (See comments),Syncope,Hiv [...] (08/08/2019): Added automatically from request for surgery [id number] Hx of preeclampsia, prior pr egnancy, currently [...] Full MFM Care; Referring Provider: Linda Milan [phone] [x] Dating Criteria:LMP 11/10/18 DIANA 08/17/19. [x] [...] [] MOC: [] Method of feeding: [] Assistant Golf Professional: [] PP Depression Discussed: Immunizations Immunization Administration Dates Next Due Tdap 06/15/2019 Surgical History Surgery Date Site/Laterality Comments GASTRIC BYPASS 04/06/2004 - 04/05/2005 Swetha en Y REDUCTION MAMMAPLASTY 04/06/2009 - 04/05/2010 CHOLECYSTECTOMY SECTION 2006, 2008 x2 ABDOMINOPLASTY 04/06/2009 - 04/05/2010 Anam Randolph CHOLECYSTECTOMY 04/06/2004 - 04/05/2005 BARIATRIC SURGERY Medical History Medical History Date Comments Anemia Pulmonary emboli (HCC) 2013, 2014 while on RAKESH Mental disorder anxiety and depr ession depression History of transfusion Family History Medical History Relation Name Comments Diabetes Father Hyperlipidemia Father Hypertension Father Diabetes Mother Relation Name Status Comments Father Mother Social History Tobacco Use Types Packs/Day Years Used Date Smoking Tobacco: Former Cigarettes Q uit: 2007 Smokeless Tobacco: Never Alcohol Use Standard Drinks/Week Comments Not Currently 0 (1 standard drink = 0.6 oz pur e alcohol) PHQ-2 Answer Date Recorded PHQ-2 Total Score (If total score is 3 or more points, staff should administer the PHQ-9) 0 09/20/2019 [place] Depression Scale Answer Date Recorded [place] Depression Scale Total 0 09/20/2019 The thought [...] on file Sexual Orientation Not on file Obstetrics History Para Term AB IAB SAB Ectopic Multiple Livin g Live Births 4 3 3 0 3 3 Date Outcome GA Total Labor Labor/2nd/3rd Weight Sex Type Anes PTL Heena A1 A5 Name Clin 7 Term 38w 0d 3.232 kg (7 lb 2 oz) M CS-Un spec Epidur al Y Livin g 9 Term 38w 0d 2.835 kg (6 lb 4 oz) F CS-Un spec Combin ed Spinal /Epidu ral Livin g 2019 Term 38w 5d 0h 01m 0h 01m 2.915 kg (6 lb 6.8 oz) F CS-LT ranv Spinal Y Livin g 8 9 DU VIJI,G IRLST Linda James MD Complications:None Delivery Location:This Facil ity ([facility] L [facility] D PROCEDURE) Last Filed Vital Signs Vital Sign Reading [...] 08/26/2023 10:59 PM CDT Plan of Treatment Health Maintenance Due Date Last Done Comments Cervical Cancer Screening 1980 Hepatitis B Screening 1998 Regular Well Visit/Exam 18-64 1998 Varicella Vaccines (1 of 2 - 13+ 2-dose series) 04/04/2014 Depression Screening 09/19/2020 09/20/2019, 08/08/2019, 07/22/2019 Breast Cancer Screening-Mammogram 09/24/2023 09/23/2022, 09/23/2022 Influenza Vaccine (#1) 2024 1, 01/05/2020, 03/07/2014, Additional history exists DTaP/Tdap/Td Vaccine (2 - Td or Tdap) 06/14/2029 06/15/2019 Hepatitis C Screening Completed 01/05/2019 HPV Vaccines Aged Out No longer eligi ble based on patient's age to complete this topic Pneumococcal vaccine <65 Aged Out No longer eligible based on patient's age to complete this topic Procedures Procedure Name Priority Date/Time Associated Diagnosis Comments HEPATITIS C ANTIBODY Routine 01/05/2019 from Last 3 Months or Most Recently Relevant to Health Maintenance Results * Hepatitis C antibody (01/05/2019) SCRIBED HCV ab non reactive Blood specimen (specimen) Jazmin Saab MD LAB MICROBIOLOGY - GENE RAL ORDERABLES Final Result from Last 3 Months or Most Recently Relevant to Health Maintenance Insurance [email or web address] MEDICARE PPO IDPA [email or web address] MEDICARE PPO IDPA [employer] CHOICE MEDICARE PPO IDPA [facility] MEDICARE ADVANTAGE Advance Directives For more information, please contact: [phone] * Full Code (Latest Code Status on [...] in case of cardiopulmonary arrest Care Teams Receptionist Telephone Operator Relationship Specialty Start Date End Date Morales Meza MD [address] [address] PCP - General Family Medicine 06/17/21 Jazmin Saab MD [address] [place] [address] Referring Physician Obstetrics and Gynecology 01/10/19
--- OUTSIDE RECORDS SUMMARY | 2024-10-14 05:35 | XMS_ITS | Encounter Summary ---
Author Organization [facility] Address [address] [place] [address] Care Team Providers Care Air Intercept Controller Supervisor Name Role Phone No, Physician Primary Care Provider [phone] Jazmin Saab MD Unavailable [phone] Og Sumner MD Primary Care Provider + Morales Meza MD Primary Care Provider [phone] Encounter Details Date Type Department Care Team (Late st Contact Info) Description 09/15/2019 Telephone [facility] [address] [place] [id number] Valeria Ortiz, RT Social History Tobacco Use Types Packs/Day Years Used Date Smoking Tobacco: Former Cigarettes Q uit: 2008 Smokeless Tobacco: Never Alcohol Use Standard Drinks/Week Comments Not Currently 0 (1 standard drink = 0.6 oz pur e alcohol) PHQ-2 Answer Date Recorded PHQ-2 Score 0 09/08/2019 Comments No Sex and Gender Information Value [...] Infection Onset Date Last Indicated Resolved Time COVID: Suspected 10/17/2020 10/17/2020 10/31/2020 3:05 AM CDT Exposure, COVID-19 Comment:Added automatically based on COVID19 lab answers indicating exposure risk 02/06/2021 02/06/2021 02/21/2021 3:[address] COVID: Suspected 02/06/2021 02/06/2021 02/06/2021 6:17 AM CDT documented as of this encounter Care Teams Air Intercept Controller Supervisor Relationship Specialty Start Date End Date No, Physician PCP - General 08/31/18 05/08/20 Og Sumner MD [address] [place] [address] PCP - General 02/21/21 06/16/21 Morales Meza MD [address] [address] PCP - General Family Medicine 06/17/21 Jazmin Saab MD [address] [place] [address] Referring Physician Obstetrics and Gynecology 01/10/19 documented as of this encounter
--- OUTSIDE RECORDS SUMMARY | 2024-10-14 05:35 | XMS_ITS | Encounter Summary ---
Author Organization [facility] Address [address] [place] [address] Phone Care Team Providers Care Field Care Coordinator Name Role Phone Morales Meza MD Primary Care Provider [phone] Valeria Ulloa SIGN LANGUAGE TRANSLATOR, SAP DATA ANALYST Unavailable [phone] Encounter Details Date Type Department Care Team (Late st Contact Info) Description 10/06/2024 Results Follow-Up [facility] On[facility] [address] [place] [phone] Alycia Patel Joanne, PAC [address] [place] [address] FOLIC ACID (FOLATE), FERRITIN, CMP (COMPREHENSIVE METABOLIC PANEL), Additional followed-up results: 7 Social History Tobacco Use Types Packs/Day Years Used Date Smoking Tobacco: Never Cigarettes 2011 Passive Smoke Exposure: Yes Smokeless Tobacco: Never Alcohol Use Standard Drinks/Week Comments Yes 1 (1 standard drink = 0.6 oz pure alcohol) Drink a wine cooler maybe once a month [facility] Utilities Answer Date Recorded In the past 12 months has [employer], gas, oil, or water [employer] threatened to shut off services in your home? Yes 07/03/2024 Social Connection and Isolation Panel Answer Date Recorded In a typical week, how many times do you talk on the phone with family, friends, or neighbors? Twice a week 07/03/2024 How often do you get together with friends or re latives? Once a week 07/03/2024 How often do you attend protestant or hinduism serv ices? Never 07/03/2024 Do you belong to any clubs o r organizations such as protestant groups, unions, fraternal or athletic groups, or [...] 1-9 11 10/0 04/2019 [facility] Occupat ional Health - Occupational Stress [...] place to sleep or slept in a mcfp (including now)? No 08/14/2023 Housing Stability Vital Sign Answer Ted e Recorded In the last 12 months, was t here a time when you were not able to pay the mortgage or rent on time? Yes 07/03/2024 In the past 12 months, how m any times have you moved where you were living? 0 07/03/2024 At any time in the past 12 m [facility], were you homeless or living in a mcfp (including now)? No 07/03/2024 Education Answer Date Recorded What is the highest level of school you have completed or the highest degree you have received? Associate degree: academic program 05/06/2021 Sexually Active Control Partners Comments Yes Other Male Comments No Sex and Gender Information Value Date Recorded Sex Assigned at Female 03/19/2024 12:44 AM PRINT SHOP CHIEF CLERK Legal Sex Female 3:50 AM CDT Gender Identity Female 03/19/2024 12:44 AM PRINT SHOP CHIEF CLERK Sexual Orientation Not on file documented as of this encounter Plan of Treatment Upcoming Encounters Date Type Department Care Team (Late st Contact Info) Description 10/18/2024 1:30 PM CDT Clinical Support [facility] [address] [place] [address] Alycia Patel Joanne, PAC [address] [place] [address] Discharge Disposition: Discharged to home or Selfcare 10/20/2024 1:30 PM CDT Clinical Support [facility] [address] [place] [address] 10/25/2024 1:30 PM CDT Clinical Support [facility] [address] [place] [address] 10/27/2024 1:30 PM CDT Clinical Support [facility] [address] [place] [address] 11/01/2024 1:30 PM CDT [facility] [address] [place] [phone] 11/04/2024 4:00 PM CDT Office Visit [facility] [address] [place] [address] Valeria Ulloa, SIGN LANGUAGE TRANSLATOR, SAP DATA ANALYST [address] [place] [address] 12/13/2024 1:30 PM CDT Lab [facility] [address] [place] [address] 12/20/2024 1:20 PM CDT Office Visit [facility] [address] [place] [address] Alycia Patel, [facility] [address] [place] [address] documented as of this encounter Visit Diagnoses Not on filedocumented in this encounter Additional Health Concerns Assessment Noted Time PHQ-9 Depression Total Score: 11 020 8:36 AM CDT documented as of this encounter Care Teams Field Care Coordinator Relationship Specialty Start Date End Date Morales Meza MD [address] [address] PCP - General Family Medicine 01/05/20 Valeria Ulloa APRN, SAP DATA ANALYST [address] [place] [address] Nurse Practitioner Advanced Practice Nurse 02/26/22 documented as of this encounter
--- OUTSIDE RECORDS SUMMARY | 2024-10-14 05:35 | XMS_ITS | Encounter Summary ---
Author Organization [facility] Address [address] [place] [address] Care Team Providers Care Costume Mistress Name Role Phone Unavailable Primary Care Provider Unavailabl e Encounter Details Date Type Department Care Team (Late st Contact Info) Description 12/20/2002 Outpatient [facility] [address] [place] [address]. [place] [address] Social History Tobacco Use Types Packs/Day Years Used Date Smoking Tobacco: Never Assessed Comments Unknown Sex and Gender Information Value Date Recorded Sex Assigned at Not on file Legal Sex Female 3:03 AM SQL SSIS DEVELOPER Gender Identity Not on file Sexual Orientation Not on file documented as of this encounter Plan of Treatment Not on file documented as of this encounter Visit Diagnoses Not on filedocumented in this encounter
--- OUTSIDE RECORDS SUMMARY | 2024-10-14 05:35 | XMS_ITS | Encounter Summary ---
Author Organization [facility] Address [address] [place] [address] Care Team Providers Care Interviewing Clerk Name Role Phone Unavailable Primary Care Provider Unavailabl e Encounter Details Date Type Department Care Team (Late st Contact Info) Description 12/06/[address] [facility] [address] [place] [address]. [place], [place] [id number] Sea Don MD Social History Tobacco Use Types Packs/Day Years Used Date Smoking Tobacco: Never Assessed Comments Unknown Sex and Gender Information Value Date Recorded Sex Assigned at Not on file Legal Sex Female 3:03 AM RELIGIOUS STUDIES PROFESSOR Gender Identity Not on file Sexual Orientation Not on file documented as of this encounter Plan of Treatment Not on file documented as of this encounter Visit Diagnoses Not on filedocumented in this encounter
--- OUTSIDE RECORDS SUMMARY | 2024-10-14 05:35 | XMS_ITS | Clinical Summary ---
Author Organization [facility] Address [address] [place] [address] Phone Care Team Providers Care Curtain Feller Blindstitch Name Role Phone Morales Meza MD Primary Care Provider [phone] Valeria Ulloa APRN, POSTAL MAIL CARRIER Unavailable [phone] Allergies Active Allergy Reactions Criticality Noted Date Comments Codeine Hives,Itching,Other (see Comments) High 0 09/30/2018 Fainting Miconazole Itching,Swelling Medium 12/18/2019 Morphine Hives,Itching,Other (see Comments) High 0 09/30/2018 pass out Raspberry Diarrhea High 01/04/2020 Medications ALPRAZolam (XANAX) 1 MG Tablet Take 1 mg by mouth 4 times daily as needed. Active Venlafaxine HCl (EFFEXOR PO) Take 150 mg by mouth daily. Active divalproex (DEPAKOTE) 125 MG Tablet Delayed ResponseIndica tions:Episodic migraine Take 1 Tablet by mouth in the morning and at bedtime. 270 Tablet 3 2 Active albuterol 108 (90 Base) MCG/ACT Aerosol Solution take 2 Puffs by inhalation every 6 hours as needed for Cough. 6.7 g 3 Active Aripiprazole (ABILIFY) 20 MG Tablet Take 30 mg by mouth. 0 Active cyanocobalamin (VITAMIN B-12) 1000 MCG/ML SolutionIndica tions:Vitamin B12 Deficiency 1 ml weekly x 4 weeks then every 2 weeks Indications: Inadequate Vitamin B12 10 mL 1 5 Active Syringe/Needle , Disp, (SYRINGE 3CC/23GX1) 23G X 1 3 ML MiscIndication s:B12 deficiency USE DIRECTED 100 Each 5 Active ergocalciferol (VITAMIN D) 75828 UNIT Capsule Take 1 Capsule by mouth every 7 days for 12 doses. 4 Capsule 2 5 09/22/19 25 Syringe/Needle , Disp, (SYRINGE 3CC/23GX1) 23G X 1 3 ML MiscIndication s:B12 deficiency USE DIRECTED 100 Each 5 10/14/19 25 Discontinu ed(Reorder ) cyanocobalamin (VITAMIN B-12) 1000 MCG/ML Solution 1,000 mcg once. 5 10/14/19 25 Discontinu ed(Reorder ) Active Problems Problem Noted Date Diagnosed Date Folic acid deficiency 10/13/2024 Iron deficiency anemia secon enoch to inadequate dietary iron intake 07/15/2024 B12 deficiency 07/15/2024 Anemia 08/14/2023 PCOS (polycystic ovarian syndrome) 08/14/2023 OCD (obsessive compulsive disorder) 08/14/2023 PTSD (post-traumatic stress disorder) 08/14/2023 Insomnia 08/14/2023 Borderline personality disorder 08/14/2023 Anxiety 08/14/2023 ADHD 08/14/2023 PE (pre-eclampsia) 08/14/2023 Pulmonary embolus 08/14/2023 Overview (08/14/2023): in 2013 and 2014, no longer on anticoagulation Tobacco abuse 08/14/2023 Obesity 08/14/2023 Bipolar 1 disorder 05/06/2021 History of Swetha-en-Y gastric bypass 04/06/2004 Encounters Date Type Department Care Team Description 10/13/2024 2:00 PM CDT Office Visit [facility] On[facility] Services [address] [place] [address] Alycia Patel September, 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); B12 deficiency; History of Swetha-en-Y gastric bypass; Folic acid deficiency Discharge Disposition: Discharged to home or Selfcare 10/13/2024 Travel 10/06/2024 Results Follow-Up [facility] Oncology Services [address] [place] [address] Alycia Patel, PAC FOLIC ACID (FOLATE), FERRITIN, CMP (COMPREHENSIVE METABOLIC PANEL), Additional followed-up results: 7 10/05/2024 2:30 PM CDT Lab [facility] [address] [place] [address] Song Craft MD Norris, Arlene June, PAC Iron 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 dietary iron intake; B12 deficiency Discharge Disposition: Discharged to home or Selfcare 10/05/2024 Travel 09/14/2024 Telephone [facility] Neurology [facility] [address] [place] [address] Valeria Ulloa, CARPENTRY FOREMAN, POSTAL MAIL CARRIER 08/04/2024 1:30 PM CDT Clinical Support [facility] Oncology Services [address] [place] [address] Alycia Patel, PAC 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) Discharge Disposition: Discharged to home or Selfcare 08/04/2024 Travel 08/02/2024 Travel 08/01/2024 1:30 PM CDT Clinical Support [facility] Oncology Services [address] [place] [address] Alycia Patel, PAC 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) Discharge Disposition: Discharged to home or Selfcare 08/01/2024 Travel 07/30/2024 Travel 07/29/2024 1:30 PM CDT Clinical Support [facility] Oncology Services [address] [place] [address] Alycia Patel, PAC 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) Discharge Disposition: Discharged to home or Selfcare 07/29/2024 Travel 07/28/2024 Travel 07/28/2024 Telephone [facility] [address] [place] [address] PatelTerryAlycia Joanne, PAC 07/25/2024 1:30 PM CDT Clinical Support [facility] Oncology Services [address] [place] [address] PatelTerryAlycia September, PAC 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) Discharge Disposition: Discharged to home or Selfcare 07/25/2024 Travel 07/24/2024 Travel 07/15/2024 1:40 PM CDT Initial Consult [facility] Oncology Services [address] [place] [address] Patel, Alycia Joanne, PAC 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); B12 deficiency; History of Swetha-en-Y gastric bypass Discharge Disposition: Discharged to home or Selfcare 07/15/2024 Travel from Last 3 Months Immunizations Immunization Administration Dates Next Due Influenza Vaccine, Quadrivalent, PF 01/24/2021,1 TDAP Vaccine 06/15/2019 Family History Medical History Relation Name Comments No Known Problems Brother Heart Attack Father Alec Heart Disease Father Alec Heart Surgery Father Alec Cancer Maternal Grandfather Stephen Chronic Obstructive Pulmonary Disease Maternal Grandmo ther Rheumatoid Arthritis Mother Jazz Congestive Heart Failure Paternal Grandfather Kaiser Congestive Heart Failure Paternal Grandmother Elizabet Relation Name Status Comments Brother Alive Father Alec Maternal Grandfather Stephen Maternal Grandmother Mother Jazz Alive Paternal Grandfather Kaiser Alive Paternal Grandmother Elizabet Social History Tobacco Use Types Packs/Day Years Used Date Smoking Tobacco: Never Cigarettes 2011 Passive Smoke Exposure: Yes Smokeless Tobacco: Never Tobacco Cessation:Counseling Given: Not Answered Alcohol Use Standard Drinks/Week Comments Yes 1 (1 standard drink = 0.6 oz pure alcohol) Drink a wine cooler maybe once a month [facility] Utilities Answer Date Recorded In the past 12 months has th e [employer], gas, oil, or water [employer] threatened to shut off services in your home? Yes 07/03/2024 Social Connection and Isolation Panel Answer Date Recorded In a typical week, how many times do you talk on the phone with family, friends, or neighbors? Twice a week 07/03/2024 How often do you get together with friends or re latives? Once a week 07/03/2024 How often do you attend christian or islam serv ices? Never 07/03/2024 Do you belong to any clubs o r organizations such as christian groups, unions, fraternal or athletic groups, or [...] Score - Questions 1-9 11 10/0 04/2019 [facility] - Occupational [...] place to sleep or slept in a jail (including now)? No 08/14/2023 Housing Stability Vital Sign Answer Ted e Recorded In the last 12 months, was t here a time when you were not able to pay the mortgage or rent on time? Yes 07/03/2024 In the past 12 months, how m any times have you moved where you were living? 0 07/03/2024 At any time in the past 12 m onths, were you homeless or living in a jail (including now)? No 07/03/2024 Education Answer Date Recorded What is the highest level of school you have completed or the highest degree you have received? Associate degree: academic program 05/06/2021 Sexually Active Control Partners Comments Yes Other Male Comments No Sex and Gender Information Value Date Recorded Sex Assigned at Female 03/19/2024 12:44 AM JOURNEYMAN OPERATOR ASSISTANT Legal Sex Female 3:50 AM CDT Gender Identity Female 03/19/2024 12:44 AM JOURNEYMAN OPERATOR ASSISTANT Sexual Orientation Not on file Last Filed [...] Mass Index 37.85 10/13/2024 2:05 PM CDT Plan of Treatment Upcoming Encounters Date Type Department Care Team (Late st Contact Info) Description 10/18/2024 1:30 PM CDT [facility] [address] [place] [address] Alycia Patel, [facility] [address] [place] [address] Discharge Disposition: Discharged to home or Selfcare 10/20/2024 1:30 PM CDT [facility] [address] [place] [phone] 10/25/2024 1:30 PM CDT Clinical Support [facility] Oncology Services [address] [place] [phone] 10/27/2024 1:30 PM CDT Clinical Support [facility] Oncology Services [address] [place] [phone] 11/01/2024 1:30 PM CDT Clinical Support [facility] Oncology Services [address] [place] [phone] 11/04/2024 4:00 PM CDT Office Visit [facility] - Neurology [facility] [address] [place] [address] Valeria Ulloa, CARPENTRY FOREMAN, POSTAL MAIL CARRIER [address] [place] [address] 12/13/2024 1:30 PM CDT [facility] [address] [place] [phone] 12/20/2024 1:20 PM CDT [facility] [address] [place] [phone] Patel Alycia Joanne, PAC [address] [place] [address] Health Maintenance Due Date Last Done Comments Hepatitis C Virus (HCV) Screening 1980 Human Papillomavirus (HPV) Immunization (1 - 3-dose series) 1995 Hepatitis B Immunization (1 of 3 - 19+ 3-dose series) 1999 Pap Smear 2001 Cervical Cancer Screening (CCS) 2010 HPV/Cotest 2010 Mammogram 09/24/2023 09/23/2022 SARS-COV-2 Immunization ( season) 2023 02/11/2021, 07/26/2020, 07/03/2020 Influenza Immunization (#1) 12/05/202401/05, 01/05/2020 Td Immunization Every 10 Yea rs (Adults With 1 Tdap) 06/14/2029 06/15/2019 Respiratory Syncytial Virus (RSV) Immunization (Adult) (1 - 1-dose 75+ series) 2055 DTaP/Tdap/Td Immunization Discontinued 06/15/2019 Discussion re Starting/Frequency of Mammograms Completed 09/23/2022 Meningococcal Immunization (ACWY) Aged Out No longer eligible based on patient's age to complete this topic Pneumococcal Immunization Combined Aged Out No longer eligible based on patient's age to complete this topic Rotavirus Immunization Aged Out No lo nger eligible based on patient's age to complete this topic Procedures Procedure Name Priority Date/Time Associated Diagnosis Comments CBC WITH AUTO DIFFERENTIAL Routine 10/05/2024 2:22 PM CDT Iron 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 dietary iron intake IRON,TRANSFERN,CALC.TIB C,%SAT Routine 10/05/2024 2:22 PM CDT Iron 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 dietary iron intake IMMUNOFIXATION W/ ELECTROPHORESIS SERUM Routine 10/05/2024 2:22 PM CDT Iron 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 dietary iron intake FREE KAPPA & LAMBDA LIGHT CHAINS SERUM Routine 10/05/2024 2:22 PM CDT Iron 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 dietary iron intake LACTATE DEHYDROGENASE (LD) Routine 10/05/2024 2:22 PM CDT Iron 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 dietary iron intake RETICULOCYTE COUNT (RETIC) Routine 10/05/2024 2:22 PM CDT Iron 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 dietary iron intake VITAMIN B12 Routine 10/05/2024 2:22 PM CDT Iron 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 dietary iron intake B12 deficiency COMPLETE BLOOD COUNT (CBC) WITH DIFF Routine 10/05/2024 2:22 PM CDT Iron 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 dietary iron intake CMP (COMPREHENSIVE METABOLIC PANEL) Routine 10/05/2024 2:22 PM CDT Iron 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 dietary iron intake FERRITIN Routine 10/05/2024 2:22 PM CDT Iron 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 dietary iron intake FOLIC ACID (FOLATE) Routine 10/05/2024 2 :22 PM CDT Iron 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 dietary iron intake SUSHIL SCREENING BILATERAL DIGITAL W CAD W TIANA Routine 09/23/2022 12:59 PM CDT Screening mammogram for breast cancer from Last 3 Months or Most Recently Relevant to Health Maintenance Results * (ABNORMAL) IRON,TRANSFERN,CALC.TIBC,%SAT (10/05/2024 2:22 PM CDT) IRON 20(L) 25 - 156 mcg/dL 10/05/2024 3:03 PM CDT [facility] TRANSFERRIN 315 180 - 382 mg/dL 10/05/2024 3:03 PM CDT [facility] TIBC, CALCULATED 394 265 - 497 mcg/dL 10/05/2024 3:03 PM CDT [facility] % SATURATION * 5(L) 15 - 62 % 10/05/2024 3:03 PM CDT [facility] Blood Venipuncture / Unknown 10/05/2024 2:22 PM CDT 10/05/2024 2:22 PM CDT Alycia Patel PAC CHEMISTRY ORDERABLES Anais blanco Result [facility] [address] [place] [address] * (ABNORMAL) CBC WITH AUTO DIFFERENTIAL (10/05/2024 2:22 PM CDT) WBC 7.73 4.00 - 12.00 10(3)/mcL 10/05/2024 3:55 PM CDT [facility] RBC 4.65 3.80 - 5.30 10(6)/mcL 10/05/2024 3:55 PM CDT [facility] HEMOGLOBIN (HGB) 11.2(L) 12.0 - 15.8 g/dL 10/05/2024 3:55 PM CDT [facility] HEMATOCRIT (HCT) 36.9 36.0 - 47.0 % 10/05/2024 3:55 PM CDT [facility] MCV 79.4(L) 82.0 - 96.0 fL 10/05/2024 3:55 PM CDT [facility] MCH 24.1(L) 26.0 - 34.0 pg 10/05/2024 3:55 PM CDT [facility] MCHC 30.4(L) 31.0 - 36.0 g/dL 10/05/2024 3:55 PM CDT [facility] PLATELET COUNT 273 140 - 440 10(3)/[facility] 10/05/2024 3:55 PM CDT [facility] RDW 21.4(H) 11.8 - 15.5 % 10/05/2024 3:55 PM CDT [facility] MPV 11.8 9.7 - 12.4 fL 10/05/2024 3:55 PM CDT [facility] NEUTROPHILS 59.0 47.0 - 73.0 % 10/05/2024 3:55 PM CDT [facility] LYMPHOCYTES 30.0 18.0 - 42.0 % 10/05/2024 3:55 PM CDT [facility] MONOCYTES 5.8 4.0 - 12.0 % 10/05/2024 3:55 PM CDT [facility] EOSINOPHILS 4.0 0.0 - 5.0 % 10/05/2024 3:55 PM CDT [facility] BASOPHILS 0.9 0.0 - 1.0 % 10/05/2024 3:55 PM CDT [facility] IMMATURE GRANULOCYTE 0.3 0.0 - 0.4 % 10/05/2024 3:55 PM CDT [facility] Comment:Immature Granulocyte s includes Metamyelocytes, Myelocytes, and Promyelocytes. ABSOLUTE NEUTROPHILS 4.56 1.60 - 7.70 10(3)/[facility] 10/05/2024 3:55 PM CDT [facility] ABSOLUTE LYMPHOCYTES 2.32 1.30 - 3.20 10(3)/[facility] 10/05/2024 3:55 PM CDT [facility] ABSOLUTE MONOCYTES 0.45 0.20 - 1.00 10(3)/[facility] 10/05/2024 3:55 PM CDT [facility] ABSOLUTE EOSINOPHIL 0.31 0.00 - 0.40 10(3)/[facility] 10/05/2024 3:55 PM CDT [facility] ABSOLUTE BASOPHILS 0.07 0.00 - 0.10 10(3)/[facility] 10/05/2024 3:55 PM CDT [facility] ABSOLUTE IMMATURE GRANULOCYTE 0.02 0.00 - 0.03 10 (3) mcL. 10/05/2024 3:55 PM CDT [facility] NRBC PER 100 WBC 0 10/06/19 3:55 PM CDT [facility] RESULTS ARE CONSISTENT WITH PERIPHERAL SMEAR REVIEW Yes 10/05/2024 3:55 PM CDT [facility] RBC MORPHOLOGY CONSISTENT WITH INDICES Yes 10/05/2024 3:55 PM CDT [facility] POIKILOCYTOSIS 1+ 10/05/2024 3:55 PM CDT [facility] OVALOCYTES Present 10/05/2024 3:55 PM CDT [facility] LARGE PLATELETS 1+ 3:55 PM CDT [facility] Blood Venipuncture / Unknown 10/05/2024 2:22 PM CDT 10/05/2024 2:22 PM CDT Narrative [facility] - 10/05/2024 3:55 PM CDT Anisocytosis Microcytosis Hypochromia us Alycia Patel PAC HEMATOLOGY ORDERABLES Fin al Result [facility] [address] [place] [address] * (ABNORMAL) FREE KAPPA & LAMBDA LIGHT CHAINS SERUM (10/05/2024 2:22 PM CDT) Free [place] Lt Chn 25.19(H) 3.30 - 19.40 mg/L 10/06/2024 10:05 AM CDT [facility] Free Lambda Lt Chn 15.52 5.71 - 26.30 mg/L 10/06/2024 10:05 AM CDT [facility] free wai tomas ratio 1.62 0.26 - 1.65 10/06/2024 10:05 AM CDT [facility] Blood Venipuncture / Unknown 10/05/2024 2:22 PM CDT 10/05/2024 2:22 PM CDT [facility] PAC CHEMISTRY ORDERABLES Anais l Result [facility] [address] [place] [address], [place] * VITAMIN B12 (10/05/2024 2:22 PM CDT) VITAMIN B12 235 213 - 816 pg/mL 10/05/2024 3:33 PM CDT [facility] Blood Venipuncture / Unknown 10/05/2024 2:22 PM CDT 10/05/2024 2:22 PM CDT [facility] PAC CHEMISTRY ORDERABLES Anais l Result Performing Organization Address City/[facility]/ZIP Co de Phone Number [facility] [address] [place] [address] * RETICULOCYTE COUNT (RETIC) (10/05/2024 2:22 PM CDT) RETICULOCYTES 0.9 0.5 - 2.0 % 10/05/2024 2:43 PM CDT [facility] Blood Venipuncture / Unknown 10/05/2024 2:22 PM CDT 10/05/2024 2:22 PM CDT [facility] PAC HEMATOLOGY ORDERABLES Fin al Result [facility] [address] [place] [address] * LACTATE DEHYDROGENASE (LD) (10/05/2024 2:22 PM CDT) LDH 175 125 - 220 U/L 10/05/2024 3:03 PM CDT [facility] Blood Venipuncture / Unknown 10/05/2024 2:22 PM CDT 10/05/2024 2:22 PM CDT Alycia Patel PAC CHEMISTRY ORDERABLES Anais l Result [facility] [address] [facility] [place] [address] * (ABNORMAL) IMMUNOFIXATION W/ ELECTROPHORESIS SERUM (10/05/2024 2:22 PM CDT) TOTAL PROTEIN 6.5 6.0 - 8.0 g/dL 10/10/2024 1:05 PM CDT [facility] % ALBUMIN 56.0 55.8 - 66.7 % 10/10/2024 1:05 PM CDT [facility] ALBUMIN SERUM 3.6 2.5 - 5.4 g/dL 10/10/2024 1:05 PM CDT [facility] % ALPHA 1 GLOBULIN 3.4 2.9 - 4.9 % 10/10/2024 1:05 PM CDT [facility] ALPHA 1 0.2 0.2 - 0.4 g/dL 10/10/2024 1:05 PM CDT [facility] % ALPHA 2 GLOBULIN 13.0(H) 7.1 - 11.8 % 10/10/2024 1:05 PM CDT [facility] ALPHA 2 0.8 0.5 - 1.0 g/dL 10/10/2024 1:05 PM CDT [facility] % BETA 15.2(H) 8.4 - 13.1 % 10/10/2024 1:05 PM CDT [facility] BETA-GLOBULIN 1.0 0.5 - 1.1 g/dL 10/10/2024 1:05 PM CDT [facility] % GAMMA GLOBULIN 12.4 11.1 - 18.8 % 10/10/2024 1:05 PM CDT [facility] GAMMA 0.8 0.7 - 1.5 g/dL 10/10/2024 1:05 PM CDT [facility] IMMUNOGLOBULIN G 761 552 - 1,631 mg/dL 10/10/2024 1:05 PM CDT [facility] IMMUNOGLOBULIN A 185 65 - 421 mg/dL 10/10/2024 1:05 PM CDT [facility] IMMUNOGLOBULIN M 64 33 - 293 mg/dL 10/10/2024 1:05 PM CDT [facility] INTERPRETATION SERUM No abnormal protein band is detected by serum protein electrophoresis. Serum immunofixation electrophoresis is negative for monoclonal immunoglobulins. Reviewed by Cihntan Leon, Ph.D. 10/10/2024 1:05 PM CDT [facility] A/G RATIO, SERUM 1.3 10/11/19 1:05 PM CDT [facility] Blood Venipuncture / Unknown 10/05/2024 2:22 PM CDT 10/05/2024 2:22 PM CDT Narrative [facility] - 10/10/2024 1:05 PM CDT Reviewed by Alfa Milan M.D. [facility] PAC CHEMISTRY ORDERABLES Anais l Result Performing Organization Address City/[facility]/ZIP Co de Phone Number [facility] [address] [place] [address], * (ABNORMAL) FOLIC ACID (FOLATE) (10/05/2024 2:22 PM CDT) FOLATE 6.9(L) 7.0 - 31.4 ng/mL 10/05/2024 3:33 PM CDT [facility] IS THE PATIENT REQUIRED TO BE FASTING? No 10/05/2024 3:33 PM CDT [facility] Blood Venipuncture / Unknown 10/05/2024 2:22 PM CDT 10/05/2024 2:22 PM CDT [facility] Patel PAC CHEMISTRY ORDERABLES Anais l Result [facility] [address] [place] [address] * FERRITIN (10/05/2024 2:22 PM CDT) Pathologist [facility] FERRITIN 9 5 - 204 ng/mL 10/05/2024 3:20 PM CDT [facility] Blood Venipuncture / Unknown 10/05/2024 2:22 PM CDT 10/05/2024 2:22 PM CDT Alycia Patel PAC CHEMISTRY ORDERABLES Anais l Result [facility] [address] [place] [address] * (ABNORMAL) CMP (COMPREHENSIVE METABOLIC PANEL) (10/05/2024 2:22 PM CDT) Pathologist [facility] SODIUM 139 136 - 145 mmol/L 10/05/2024 3:03 PM CDT [facility] POTASSIUM 3.7 3.5 - 5.1 mmol/L 10/05/2024 3:03 PM CDT [facility] CHLORIDE 108(H) 98 - 107 mmol/L 10/05/2024 3:03 PM CDT [facility] CO2, VENOUS 24 22 - 30 mmol/L 10/05/2024 3:03 PM CDT [facility] ANION GAP 10.7 <18.0 mmol/L 10/05/2024 3:03 PM CDT [facility] GLUCOSE 94 70 - 99 mg/dL 10/05/2024 3:03 PM CDT [facility] BUN 11 5 - 18 mg/dL 10/05/2024 3:03 PM CDT [facility] CREATININE, BLOOD 0.84 0.60 - 1.00 mg/dL 10/05/2024 3:03 PM CDT [facility] BUN/CREATININE RATIO 13 12 - 20 ratio 10/05/2024 3:03 PM CDT [facility] TOTAL PROTEIN 6.8 6.0 - 8.0 g/dL 10/05/2024 3:03 PM CDT [facility] ALBUMIN 4.1 3.5 - 5.0 g/dL 10/05/2024 3:03 PM CDT [facility] A/G RATIO 1.5 1.0 - 2.2 10/05/2024 3:03 PM CDT [facility] CALCIUM 8.9 8.7 - 10.5 mg/dL 10/05/2024 3:03 PM CDT [facility] T BILI 0.2 0.2 - 1.2 mg/dL 10/05/2024 3:03 PM CDT [facility] SGOT (AST) 19 <43 U/L 10/05/2024 3:03 PM CDT [facility] SGPT (ALT) 11 <56 U/L 10/05/2024 3:03 PM CDT [facility] ALKALINE PHOSPHATASE 69 40 - 150 U/L 10/05/2024 3:03 PM CDT [facility] IS THE PATIENT REQUIRED TO BE FASTING? No 10/05/2024 3:03 PM CDT [facility] GFR, ESTIMATED >60 >=60 10/05/2024 3:03 PM CDT [facility] Comment: Creatinine Clearance is the preferred criteria for selecting drug dose adjustments in renally impaired patients. The GFR is provided as additional pertinent clinical information. GFR is reported in mL/min/1.73 sq m. Calculation based on the Chronic Kidney Disease Epidemiology Collaboration (CKD- EPI) equation refit without adjustment for race. GFR, EST. >60 >=60 025 3:03 PM CDT [facility] GFR, EST. NONAFRICAN >60 >=60 10/05/2024 3:03 PM CDT [facility] Blood Venipuncture / Unknown 10/05/2024 2:22 PM CDT 10/05/2024 2:22 PM CDT Alycia Patel PAC CHEMISTRY ORDERABLES Anais l Result [facility] [address] [place] [address] * SUSHIL SCREENING BILATERAL DIGITAL W CAD W TIANA (09/23/2022 12:59 PM CDT) Anatomical Region Laterality Modality breast Bilateral Mammography 09/23/2022 12:5 6 PM CDT Narrative 09/24/2022 12:21 PM CDT - SUSHIL SCREENING BILATERAL DIGITAL W CAD W TIANA BILATERAL DIGITAL SCREENING MAMMOGRAM 3D/2D WITH CAD WITH MEDIOLATERAL OBLIQUE CRANIOCAUDAL: 09/23/2022 The study was acquired using digital technology and interpreted from soft copy. Current study was also evaluated with ICAD version 7.2. 2D digital mammographic views, as well as 3D digital tomosynthesis were performed in the CC and MLO projections. CLINICAL: New baseline. Patient has no complaints. History bilateral breast reduction. No personal history of cancer. No family history of breast cancer. COMPARISONS: No prior exams were available for comparison. BREAST TISSUE:The tissue of both breasts is predominantly fatty. FINDINGS: No significant masses, calcifications, or other findings are seen in either breast. IMPRESSION: BI-RAD 1 NEGATIVE There is no mammographic evidence of malignancy. A 1 year screening mammogram is recommended. A letter will be sent to the patient with these results. The patient will be entered into a reminder system with a target due date of 1 year for her next screening exam. Electronically signed by: Shy bah/dayan:09/23/2022 23:06:31 Credit Collections Analyst(s): RT Jessica(R)(M), [facility] sent: Normal Exam Reading location: [facility] BI-RADS: 1 Negative Procedure Note Shy Smalls MD - 09/24/2022 - SUSHIL SCREENING BILATERAL DIGITAL W CAD W TIANA BILATERAL DIGITAL SCREENING MAMMOGRAM 3D/2D WITH CAD WITH MEDIOLATERAL OBLIQUE CRANIOCAUDAL: 09/23/2022 The study was acquired using digital technology and interpreted from soft copy. Current study was also evaluated with ICAD version 7.2. 2D digital mammographic views, as well as 3D digital tomosynthesis were performed in the CC and MLO projections. CLINICAL: New baseline. Patient has no complaints. History bilateral breast reduction. No personal history of cancer. No family history of breast cancer. COMPARISONS: No prior exams were available for comparison. BREAST TISSUE:The tissue of both breasts is predominantly fatty. FINDINGS: No significant masses, calcifications, or other findings are seen in either breast. IMPRESSION: BI-RAD 1 NEGATIVE There is no mammographic evidence of malignancy. A 1 year screening mammogram is recommended. A letter will be sent to the patient with these results. The patient will be entered into a reminder system with a target due date of 1 year for her next screening exam. Electronically signed by: Shy bah/dayan:09/23/2022 23:06:31 Credit Collections Analyst(s): RT Jessica(Airam)(M), [facility] letter sent: Normal Exam Reading location: [facility] BI-RADS: 1 Negative Sol Matthews APRN, RADHA IMG MAMMO ORDERABLES Final Result from Last 3 Months or Most Recently Relevant to Health Maintenance Insurance MEDICARE [facility] Advance Directives * Full Code (Latest Code Status on File) Date Activated Date Inactivated Comments 08/14/2023 1:39 AM 08/14/2023 7:22 AM CPR-Full Ty atment: FULL ARREST: Attempt Resuscitation/CPR wit intubation and mechanical ventilation. PRE-ARREST: Use entire range of life support measures to stabilize the patient. Care Teams Curtain Feller Blindstitch Relationship Specialty Start Date End Date Morales Meza MD [address] [address] PCP - General Family Medicine 01/05/20 Valeria Ulloa APRN, POSTAL MAIL CARRIER [address] [place] [address] Nurse Practitioner Advanced Practice Nurse 02/26/22
--- OUTSIDE RECORDS SUMMARY | 2024-10-14 05:35 | XMS_ITS | Encounter Summary ---
Author Organization [facility] Address [address] [place] [address] Phone Care Team Providers Care Room Service Attendant Name Role Phone Morales Meza MD Primary Care Provider [phone] Valeria Ulloa ASSET SPECIALIST, [employer] Unavailable [phone] Reason for Visit * Reason Onset Date Comments Fatigue 06/12/2022 Rapid Heart Rate 06/12/2022 Chest Pain 06/12/2022 Dizziness 06/12/2022 Encounter Details Date Type Department Care Team (Late st Contact Info) Description 06/12/2022 Nurse Triage [facility] [address] [place] [address] Morales Meza MD [address] [address] Fatigue; Rapid Heart Rate; Chest Pain; Dizziness Social History Tobacco Use Types Packs/Day Years Used Date Smoking Tobacco: Former Cigarettes 1 10 2 - 2011 Smokeless Tobacco: Never Alcohol Use Standard Drinks/Week Comments Yes 0 (1 standard drink = 0.6 oz pur e alcohol) Very Rare PHQ-2 Answer Date Recorded Total Score - Questions 1-9 11 1004/2019 Education Answer Date Recorded What is the highest level of school you have completed or the highest degree you have received? Associate degree: academic program 05/06/2021 Comments No Sex and Gender Information Value Date Recorded Sex Assigned at Female 03/19/2024 12:44 AM SDET Legal Sex Female 3:50 AM CDT Gender Identity Female 03/19/2024 12:44 AM SDET Sexual Orientation Not on file COVID-19 Exposure Response Date Recorded In the last 10 days, have yo u been in contact with someone who was confirmed or suspected to have Coronavirus/COVID-19? No / Unsure 06/12/2022 3:13 PM SDET documented as of this encounter Miscellaneous Notes * Telephone Encounter - Tali Mendoza RN - 06/12/2022 2:23 PM CST EMS dispatched as of 1422. * Telephone Encounter - Gail Burris RN - 06/12/2022 2:02 PM CST SITUATION: Fatigue with dizziness, palpitations, and chest pain. BACKGROUND: Patient calling reports she has AfIB Since 12/2021. Patient Active Problem List Diagnosis ??? Bipolar 1 disorder (HCC) ASSESSMENT: Symptom Description / Location: Patient reports following symptoms started in 12/2021 :Fatigue, dizziness, heart racing with chores and at rest, intermittent short of breath, palpitations. Reports Feel like something sitting on chest since 12/2021 and similar to muscle spasms. Reports occasional short of breath but not right now. Reports she just want to sleep all the time. Reports heart palpatation feels like a flutter and has to lightly hit chest to stop the flutter. Reports last ate at 1330- ham sandwich Reports she drinks two cups of coffee everyday and doesn't effect her. Pain (0-10): 5/10 - chest pain Temp: denies Treatment / Response: aspirin everyday. Reports all morning medication taken. LMP / / : 05/22/22 RECOMMENDATION: See care advice and disposition for Guideline First positive answer recorded, all responses to prior questions were negative. If symptoms increase, change or if new symptoms develop, call your HCP or call back. Recommendations were based on caller information and is not a diagnosis. Verified and reviewed all triage information with caller. Reason for Disposition ??? Shock suspected (e.g., cold/pale/clammy skin, too weak to stand, low BP, rapid pulse) Protocols used: CHEST PAIN-A-OH Patient is agreeable to calling 911 NOW. [facility] dispatched at 1423. EMS arrived at 1429. documented in this encounter Plan of Treatment Upcoming Encounters Date Type Department Care Team (Late st Contact Info) Description 10/18/2024 1:30 PM CDT Clinical Support [facility] Oncology Services [address] [place] [address] Alycia Patel Joanne, [facility] [address] [place] [address] Discharge Disposition: Discharged to home or Selfcare 10/20/2024 1:30 PM CDT Clinical Support [facility] [address] [place] [address] 10/25/2024 1:30 PM CDT Clinical Support [facility] [address] [place] [address] 10/27/2024 1:30 PM CDT Clinical Support [facility] [address] [place] [address] 11/01/2024 1:30 PM CDT Clinical Support [facility] [address] [place] [address] 11/04/2024 4:00 PM CDT Office Visit [facility] - Neurology [facility] #[address] [place] [address] Valeria Ulloa APRN, [employer] [address] [place] [address] 12/13/2024 1:30 PM CDT [facility] [address] [place] [phone] 12/20/2024 1:20 PM CDT [facility] [address] [place] [phone] Alycia Patel Joanne, PAC [address] [place] [address] documented as of this encounter Visit Diagnoses Not on filedocumented in this encounter Additional Health Concerns Infection Onset Date Last Indicated Resolved Time COVID - 19 01/09/2023 01/09/2023 01/19/2023 12:1 6 AM CDT COVID - 19 02/10/2023 02/10/2023 02/20/2023 12:1 6 AM SDET COVID - 08/13/2023 08/13/2023 08/14/2023 12:0 4 AM CDT Assessment Noted Time PHQ-9 Depression Total Score: 11 020 8:36 AM CDT documented as of this encounter Care Teams Room Service Attendant Relationship Specialty Start Date End Date Morales Meza MD [address] [address] PCP - General Family Medicine 01/05/20 Valeria Ulloa APRN, [employer] [facility] [address] [place] [address] Nurse Practitioner Advanced Practice Nurse 02/26/22 documented as of this encounter
--- OUTSIDE RECORDS SUMMARY | 2024-10-14 05:35 | XMS_ITS | Clinical Summary ---
Author Organization [facility] Address [address] [place] [address] Care Team Providers Care Coal Cutting Machine Operator Name Role Phone Unavailable Primary Care Provider Unavailabl e Allergies Active Allergy Reactions Criticality Noted Date Comments Codeine Hives,Itching,Other (See Comments),Syncope High 08/31/2018 Fainting Makes pt pass out Fainting Miconazole Itching,Swelling Medium 12/18/2019 Morphine Hives,Itching,Other (See Comments),Syncope High 08/31/2018 pass out Makes pt pass out pass out Raspberry Diarrhea High 01/04/2020 Medications ALPRAZolam (XANAX) 1 mg tablet TAKE 1 TABLET BY MOUTH TWICE DAILY NEEDED AND 2 TABLETS AT BEDTIME Active ARIPiprazole (ABILIFY) 30 mg tablet Take 30 mg by mouth daily. Active atorvastatin (LIPITOR) 10 mg tablet Take 10 mg by mouth daily. Active divalproex (DEPAKOTE) 125 mg Tablet, Delayed Release (E.C.) TAKE 1 TABLET BY MOUTH IN THE MORNING AND 1 TABLET AT BEDTIME Active Caplyta 10.5 mg Capsule 10/15/2022 Active metFORMIN (GLUCOPHAGE) 500 mg tablet Take 500 mg by mouth 2 times daily with meals. Active sertraline (ZOLOFT) 25 mg tablet Take 25 mg by mouth daily. Active venlafaxine (EFFEXOR XR) 150 mg Extended Release 24 hour capsule Take 300 mg by mouth daily. Active Active Problems No known active problems Social History Tobacco Use Types Packs/Day Years Used Date Smoking Tobacco: Former Cigarettes Comments No Sex and Gender Information Value Date Recorded Sex Assigned at Not on file Legal Sex Female 3:03 AM PLOW SHAKER Gender Identity Not on file Sexual Orientation Not on file Last Filed Vital Signs Vital Sign Reading Time Taken Comments Blood Pressure 138/86 10/27/2022 10:05 AM CDT Pulse 101 10/27/2022 10:05 AM CDT Temperature - - Respiratory Rate - - Oxygen Saturation 99% 10/27/2022 10: 05 AM CDT Inhaled Oxygen Concentration - - Weight 109.7 kg (241 lb 12.8 oz) 2022 10:05 AM CDT Height 167.6 cm (5' 6) 10/27/2022 10:0 5 AM CDT Body Mass Index 39.03 10/27/2022 10:05 AM CDT Plan of Treatment Health Maintenance Due Date Last Done Comments HEPATITIS B VACCINES (1 of 3 - 19+ 3-dose series) 1999 HPV/Cotest (21-29) 2001 CERVICAL CANCER SCREENING 2010 HPV/Cotest (30-65) 2010 PAP SMEAR 2010 BREAST CANCER SCREENING 09/24/2023 09/24/19 23, 09/23/2022 INFLUENZA VACCINE (#1) 2024 1, 01/05/2020 DTAP/TDAP/TD VACCINES (2 - Td or Tdap) 06/14/2029 06/15/2019 HPV VACCINES Aged Out No longer eligi ble based on patient's age to complete this topic Insurance [id number] [id number]
--- NOTE | 2024-10-14 06:16 | ECG_ITS ---
Test Date: 2024-10-14 07:11:51 Measurements Intervals [place] Rate: 79 P: 43 ND: 185 QRS: 2 QRSD: 109 T: 31 QT: 376 QTc: 432 Interpretive Statements SINUS RHYTHM LOW QRS VOLTAGE IN PRECORDIAL LEADS [QRS DEFLECTION < 1.0 mV IN CHEST LEADS] POSSIBLE RIGHT VENTRICULAR CONDUCTION DELAY [RSR (QR) IN V1/V2] No previous ECG available for comparison Electronically Signed On 10-14-2024 07:14:09 CDT by Adia Ortega M.D.
[2024-10-14 06:44] LABS: Hematocrit 35.3 % (37.0-47.0); Hemoglobin 10.5 g/dL (12.0-15.0); Immature Granulocyte Percent A 0.4 % (0-0.5); Immature Platelet Fraction Pct 9.9 % (0.9-11.2); Lymphocytes Absolute Auto 3.13 K/mm3 (0.9-3.2); Mean Corpuscular HGB Conc 29.7 g/dl (32-36); Mean Corpuscular Hemoglobin 23.8 pg (26-34); Mean Corpuscular Volume 80.0 fl (80-100); Nucleated Red Blood Cells Absolute Auto 0.000 K/mm3 (0.0-0.012); Nucleated Red Blood Cells Perc 0.0 % (0.0-0.2); Platelet Count Result 234 k/mm3 (150-375); Red Blood Count 4.41 M/mm3 (4.2-5.4); White Blood Count 8.0 K/mm3 (4.5-10.0)
[2024-10-14 07:01] LABS: SPREG INTERNAL CONTROL Positive; Serum Qual hCG Negative
[2024-10-14 07:02] LABS: Alanine Aminotransferase 12 U/L (6-35); Albumin Level 3.8 g/dL (3.5-5.1); Alkaline Phosphatase 62 U/L (38-126); Anion Gap 7 mmol/L (4-12); Aspartate Amino Transferase 22 U/L (14-36); Bilirubin,Total 0.2 mg/dL (0.2-1.3); Blood Urea Nitrogen 14 mg/dL (7-17); Calcium 8.7 mg/dL (8.4-10.2); Carbon Dioxide 23 mmol/L (22-30); Chloride 107 mmol/L (98-107); Creatine Kinase 93 U/L (30-135); Estimated CRCL calculation 97 ml/min; Estimated Glomerular Filt Rate > 60; Glucose 93 mg/dL (65-110); Lipase 89 U/L (23-300); Magnesium 2.2 mg/dL (1.6-2.3); Potassium 3.7 mmol/L (3.4-5.0); Sodium 137 mmol/L (137-145); Total Protein 6.5 g/dL (6.3-8.2)
[2024-10-14 07:08] LABS: Anisocytosis 1+; Hypochromasia 1+
[2024-10-14 07:09] LABS: Schistocytes None Seen; Target Cells 1+
--- OUTSIDE RECORDS SUMMARY | 2024-10-14 07:20 | XMS_ITS | Encounter Summary ---
Author Organization [employer] Address [address] [place] [address] Care Team Providers Care Biodiesel Product Development Manager Name Role Phone Unavailable Primary Care Provider Unavailabl e Encounter Details Date Type Department Care Team (Late st Contact Info) Description 12/06/2002 Outpatient [facility] [address] [place] [address]. [place], [place] [id number] Sea Don MD Social History Tobacco Use Types Packs/Day Years Used Date Smoking Tobacco: Never Assessed Comments Unknown Sex and Gender Information Value Date Recorded Sex Assigned at Not on file Legal Sex Female 3:03 AM TOBACCO STRIPPING MACHINE OPERATOR Gender Identity Not on file Sexual Orientation Not on file documented as of this encounter Plan of Treatment Not on file documented as of this encounter Visit Diagnoses Not on filedocumented in this encounter
--- OUTSIDE RECORDS SUMMARY | 2024-10-14 07:20 | XMS_ITS | Encounter Summary ---
Author Organization [facility] Address [address] [place] [address] Phone Care Team Providers Care Hog Counter Name Role Phone Morales Meza MD Primary Care Provider [phone] Valeria Ulloa BOOM MAN, NEUROLOGY SPECIALIST Unavailable [phone] Reason for Visit * Reason Comments Medication Refill Encounter Details Date Type Department Care Team (Late st Contact Info) Description 08/20/2023 Refill [facility] - Family [facility] [address] [place] [address] Morales Meza MD [address] [address] Medication Refill Social History Tobacco Use Types Packs/Day Years Used Date Smoking Tobacco: Former Cigarettes 2011 Smokeless Tobacco: Never Alcohol Use Standard Drinks/Week Comments Yes 0 (1 standard drink = 0.6 oz pur e alcohol) Very Rare [facility] Utilities Answer Date Recorded In the past 12 months has [employer], gas, oil, or water company threatened to shut off services in your home? No 08/14/2023 Social Connection and Isolation Panel Answer Date Recorded In a typical week, how many times do you talk on the phone with family, friends, or neighbors? Patient declined 08/14/2023 How often do you get togethe r with friends or relatives? Patient declined 08/14/2023 How often do you attend scientologist or methodist serv ices? Patient declined 08/14/2023 Do you belong to any clubs o r organizations such as scientologist groups, unions, fraternal or athletic groups, or [...] Total Score - Questions 1-9 11 04/2019 [facility] - Occupational Stress [...] Sex Assigned at Female 03/19/2024 12:44 AM DEPUTY INSURANCE COMMISSIONER Legal Sex Female 3:50 AM CDT Gender Identity Female 03/19/2024 12:44 AM DEPUTY INSURANCE COMMISSIONER Sexual Orientation Not on file documented as [...] order placed on 07/30/2023 10:14 AM Order [id number]: ketorolac (TORADOL) injection 30 mg (For orders [...] Description 10/18/2024 1:30 PM CDT Clinical Support [facility] Oncology Services [address] [place] [address] Alycia Patel PAC [address] [place] [address] Discharge Disposition: Discharged to home or Selfcare 10/20/2024 1:30 PM CDT Clinical Support [facility] [address] [place] [address] 10/25/2024 1:30 PM CDT Clinical Support [facility] [address] [place] [address] 10/27/2024 1:30 PM CDT Clinical Support [facility] [address] [place] [phone] 11/01/2024 1:30 PM CDT Clinical Support [facility] On[facility] [address] [place] [address] 11/04/2024 4:00 PM CDT Office Visit [facility] [address] [place] [address] Valeria Ulloa APRN, NEUROLOGY SPECIALIST [address] [place] [address] 12/13/2024 1:30 PM CDT Lab [facility] [address] [place] [address] 12/20/2024 1:20 PM CDT Office Visit [facility] [address] [place] [address] Alycia Patel, [facility] [address] [place] [address] documented as of this encounter Visit Diagnoses Not on filedocumented in this encounter Additional Health Concerns Assessment Noted Time PHQ-9 Depression Total Score: 11 020 8:36 AM CDT documented as of this encounter Care Teams Hog Counter Relationship Specialty Start Date End Date Morales Meza MD #[address] [address] PCP - General Family Medicine 01/05/20 Valeria Ulloa APRN, NEUROLOGY SPECIALIST [address] [place] [address] Nurse Practitioner Advanced Practice Nurse 02/26/22 documented as of this encounter
--- OUTSIDE RECORDS SUMMARY | 2024-10-14 07:20 | XMS_ITS | Referral Summary ---
Author Organization [facility] Address [address] [place] [address] Care Team Providers Care Network Security Administrator Name Role Phone Jazmin Saab MD Unavailable Morales Meza MD Primary Care Provider [phone] Allergies Active Allergy Reactions Criticality Noted Date Comments Codeine Other (See comments),Syncope,Hiv es,Itching High 08/31/2018 Makes pt pass out Fainting Miconazole Itching,Swelling Medium 12/18/2019 Miconazole Fkzhzrc-Mxigvf-Mtbv Itching,Swelling Medium 12/18/2019 Morphine Other (See comments),Syncope,Hiv [...] (08/08/2019): Added automatically from request for surgery [id number] Hx of preeclampsia, prior pr egnancy, currently [...] Full MFM Care; Referring Provider: Linda Milan [phone] [x] Dating Criteria:LMP 11/10/18 DIANA 08/17/19. [x] [...] [] MOC: [] Method of feeding: [] Fur Cutting Machine Operator: [] PP Depression Discussed: Immunizations Immunization Administration [...] staff should administer the PHQ-9) 0 09/20/2019 [place] Depression Scale Answer Date Recorded [place] Depression Scale Total 0 09/20/2019 The thought [...] Most Recently Relevant to Health Maintenance Insurance [facility] MEDIC[facility] PPO Member Subscriber Plan / Payer (Ef fective 2018-Present) Name:NeelaJamieie Michelle Relation to Subscriber:Self Name:Neela Linda Michelle Payer ID:[id number] (NAIC) Type:MEDICARE RISK OTHER Address: [address] [employer] MEDICARE PPO IDPA [employer] MEDICARE PPO IDPA [facility] MEDICARE [facility] Address: [address] [address] Advance Directives For more information, please contact: [phone] * Full Code (Latest Code Status on [...] in case of cardiopulmonary arrest Care Teams Network Security Administrator Relationship Specialty Start Date End Date Morales Meza MD [address] [address] PCP - General Family Medicine 06/17/21 Jazmin Saab MD [address] [place] [address] Referring Physician Obstetrics and Gynecology 01/10/19
--- OUTSIDE RECORDS SUMMARY | 2024-10-14 07:20 | XMS_ITS | Encounter Summary ---
Author Organization [facility] Address [address] [place] [address] Phone Care Team Providers Care Independent Agent Music Education Name Role Phone Morales Meza MD Primary Care Provider [phone] Valeria Ulloa BRUSH STAINER, ZIPPER TRIMMER Unavailable [phone] Reason for Visit * Reason Comments Medication Refill Encounter Details Date Type Department Care Team (Late st Contact Info) Description 09/19/2023 Refill [facility] - Family Medicine [facility] [address] [place] [address] Morales Meza MD #[address] [address] Medication Refill Social History Tobacco Use Types Packs/Day Years Used Date Smoking Tobacco: Former Cigarettes 2011 Smokeless Tobacco: Never Alcohol Use Standard Drinks/Week Comments Yes 0 (1 standard drink = 0.6 oz pur e alcohol) Very Rare [facility] Utilities Answer Date Recorded In the past 12 months has [employer], gas, oil, or water company threatened to shut off services in your home? No 08/14/2023 Social Connection and Isolation Panel Answer Date Recorded In a typical week, how many times do you talk on the phone with family, friends, or neighbors? Patient declined 08/14/2023 How often do you get togethe r with friends or relatives? Patient declined 08/14/2023 How often do you attend anabaptism or jain serv ices? Patient declined 08/14/2023 Do you belong to any clubs o r organizations such as anabaptism groups, unions, fraternal or athletic groups, or [...] Total Score - Questions 1-9 11 04/2019 [facility] Health - Occupational [...] Sex Assigned at Female 03/19/2024 12:44 AM STUCCO APPLICATOR Legal Sex Female 3:50 AM CDT Gender Identity Female 03/19/2024 12:44 AM STUCCO APPLICATOR Sexual Orientation Not on file documented as [...] Provider Dept 10/07/23 Appointment Morales Meza MD [facility] Showing future appointments within next 90 days and meeting all other requirements Failed - No matching NSAID med order in past 45 days Matching medication order placed on 08/21/2023 9:22 AM Order [id number]: meloxicam (MOBIC) 15 MG Tablet (For orders [...] 1:30 PM CDT Clinical Support [facility] Oncology Services [address] [place] [address] Alycia Patel Joanne, [facility] [address] [place] [address] Discharge Disposition: Discharged to home or Selfcare 10/20/2024 1:30 PM CDT Clinical Support [facility] [address] [place] [address] 10/25/2024 1:30 PM CDT Clinical Support [facility] [address] [place] [address] 10/27/2024 1:30 PM CDT Clinical Support [facility] [address] [place] [address] 11/01/2024 1:30 PM CDT [facility] [address] [place] [address] 11/04/2024 4:00 PM CDT Office Visit [facility] Neurology [facility] [address] [place] [address] Valeria Ulloa APRN, ZIPPER TRIMMER [address] [place] [address] 12/13/2024 1:30 PM CDT Lab [facility] Oncology Services [address] [place] [address] 12/20/2024 1:20 PM CDT Office Visit [facility] Oncology [facility] [address] [place] [address] Alycia Patel, [facility] [address] [place] [address] documented as of this encounter Visit Diagnoses Not on filedocumented in this encounter Additional Health Concerns Assessment Noted Time PHQ-9 Depression Total Score: 11 020 8:36 AM CDT documented as of this encounter Care Teams Independent Agent Music Education Relationship Specialty Start Date End Date Morales Meza MD #[address] [address] PCP - General Family Medicine 01/05/20 Valeria Ulloa APRN, ZIPPER TRIMMER [address] [place] [address] Nurse Practitioner Advanced Practice Nurse 02/26/22 documented as of this encounter
--- OUTSIDE RECORDS SUMMARY | 2024-10-14 07:20 | XMS_ITS | Clinical Summary ---
Author Organization [facility] Address [address] [place] [address] Phone Care Team Providers Care Mail Rider Name Role Phone Morales Meza MD Primary Care Provider [phone] Valeria Ulloa APRN, SR. 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); B12 deficiency; History of Swetha-en-Y gastric bypass; Folic acid deficiency Discharge Disposition: Discharged to home or Selfcare 10/13/2024 Travel 10/06/2024 Results Follow-Up [facility] Oncology Services [address] [place] [address] Alycia Patel, PAC FOLIC ACID (FOLATE), FERRITIN, CMP (COMPREHENSIVE METABOLIC PANEL), Additional followed-up results: 7 10/05/2024 2:30 PM CDT Lab [facility] [address] [place] [address] Song Craft MD Norris, Arlene June, PAC Iron 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 dietary iron intake; B12 deficiency Discharge Disposition: Discharged to home or Selfcare 10/05/2024 Travel 09/14/2024 Telephone [facility] Neurology [facility] [address] [place] [address] Valeria Ulloa, FIELD CASHIER, SR. SOCIAL MEDIA & MOBILE MANAGER 08/04/2024 1:30 PM CDT Clinical Support [facility] Oncology Services [address] [place] [address] Alycia Patel, PAC 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) Discharge Disposition: Discharged to home or Selfcare 08/04/2024 Travel 08/02/2024 Travel 08/01/2024 1:30 PM CDT Clinical Support [facility] Oncology Services [address] [place] [address] Alycia Patel, PAC 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) Discharge Disposition: Discharged to home or Selfcare 08/01/2024 Travel 07/30/2024 Travel 07/29/2024 1:30 PM CDT Clinical Support [facility] On[facility] Services [address] [place] [address] Alycia Patel, PAC 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) Discharge Disposition: Discharged to home or Selfcare 07/29/2024 Travel 07/28/2024 Travel 07/28/2024 Telephone [facility] [address] [place] [address] PatelTerryAlycia Joanne, PAC 07/25/2024 1:30 PM CDT Clinical Support [facility] Oncology Services [address] [place] [address] PatelTerryAlycia September, PAC 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) Discharge Disposition: Discharged to home or Selfcare 07/25/2024 Travel 07/24/2024 Travel 07/15/2024 1:40 PM CDT Initial Consult [facility] Oncology Services [address] [place] [address] Patel, Alycia Joanne, PAC Iron deficiency anemia [...] wine cooler maybe once a month [facility] Utilities Answer Date Recorded In the past 12 months has th e [employer], gas, oil, or water [employer] threatened to shut off services in your home? Yes 07/03/2024 Social Connection and Isolation Panel Answer Date Recorded In a typical week, how many times do you talk on the phone with family, friends, or neighbors? Twice a week 07/03/2024 How often do you get together with friends or re latives? Once a week 07/03/2024 How often do you attend rastafarian or congregational serv ices? Never 07/03/2024 Do you belong to any clubs o r organizations such as rastafarian groups, unions, fraternal or athletic groups, or [...] Score - Questions 1-9 11 10/0 04/2019 [facility] - [...] place to sleep or slept in a mcc (including now)? No 08/14/2023 Housing Stability Vital [...] were you homeless or living in a mcc (including now)? No 07/03/2024 Education Answer Date Recorded What is the highest level of school you have completed or the highest degree you have received? Associate degree: academic program 05/06/2021 Sexually Active Control Partners Comments Yes Other Male Comments No Sex and Gender Information Value Date Recorded Sex Assigned at Female 03/19/2024 12:44 AM PUMP TECHNICIAN Legal Sex Female 3:50 AM CDT Gender Identity Female 03/19/2024 12:44 AM PUMP TECHNICIAN Sexual Orientation Not on file Last Filed [...] Description 10/18/2024 1:30 PM CDT Clinical Support [facility] [address] [place] [address] Alycia Patel, [facility] [address] [place] [address] Discharge Disposition: Discharged to home or Selfcare 10/20/2024 1:30 PM CDT Clinical Support [facility] [address] [place] [phone] 10/25/2024 1:30 PM CDT Clinical Support [facility] Oncology Services [address] [place] [phone] 10/27/2024 1:30 PM CDT Clinical Support [facility] Oncology Services [address] [place] [phone] 11/01/2024 1:30 PM CDT Clinical Support [facility] Oncology Services [address] [place] [phone] 11/04/2024 4:00 PM CDT Office Visit [facility] - Neurology [facility] [address] [place] [address] Valeria Ulloa, FIELD CASHIER, SR. SOCIAL MEDIA & MOBILE MANAGER [address] [place] [address] 12/13/2024 1:30 PM CDT Lab [facility] [address] [place] [phone] 12/20/2024 1:20 PM CDT [facility] [address] [place] [phone] Patel Alycia Joanne, PAC [address] [place] [address] Health Maintenance Due Date Last Done Comments [...] - 156 mcg/dL 10/05/2024 3:03 PM CDT [facility] TRANSFERRIN 315 180 - 382 mg/dL 10/05/2024 3:03 PM CDT [facility] TIBC, CALCULATED 394 265 - 497 mcg/dL 10/05/2024 3:03 PM CDT [facility] % SATURATION * 5(L) 15 - 62 % 10/05/2024 3:03 PM CDT [facility] Blood Venipuncture / Unknown 10/05/2024 2:22 PM CDT 10/05/2024 2:22 PM CDT Alycia Patel PAC CHEMISTRY ORDERABLES Anais blanco Result [facility] [address] [place] [address] * (ABNORMAL) CBC WITH AUTO DIFFERENTIAL (10/05/2024 2:22 PM CDT) WBC 7.73 4.00 - 12.00 10(3)/mcL 10/05/2024 3:55 PM CDT [facility] RBC 4.65 3.80 - 5.30 10(6)/mcL 10/05/2024 3:55 PM CDT [facility] HEMOGLOBIN (HGB) 11.2(L) 12.0 - 15.8 g/dL 10/05/2024 3:55 PM CDT [facility] HEMATOCRIT (HCT) 36.9 36.0 - 47.0 % 10/05/2024 3:55 PM CDT [facility] MCV 79.4(L) 82.0 - 96.0 fL 10/05/2024 3:55 PM CDT [facility] MCH 24.1(L) 26.0 - 34.0 pg 10/05/2024 3:55 PM CDT [facility] MCHC 30.4(L) 31.0 - 36.0 g/dL 10/05/2024 3:55 PM CDT [facility] PLATELET COUNT 273 140 - 440 10(3)/[facility] 10/05/2024 3:55 PM CDT [facility] RDW 21.4(H) 11.8 - 15.5 % 10/05/2024 3:55 PM CDT [facility] MPV 11.8 9.7 - 12.4 fL 10/05/2024 3:55 PM CDT [facility] NEUTROPHILS 59.0 47.0 - 73.0 % 10/05/2024 3:55 PM CDT [facility] LYMPHOCYTES 30.0 18.0 - 42.0 % 10/05/2024 3:55 PM CDT [facility] MONOCYTES 5.8 4.0 - 12.0 % 10/05/2024 3:55 PM CDT [facility] EOSINOPHILS 4.0 0.0 - 5.0 % 10/05/2024 3:55 PM CDT [facility] BASOPHILS 0.9 0.0 - 1.0 % 10/05/2024 3:55 PM CDT [facility] IMMATURE GRANULOCYTE 0.3 0.0 - 0.4 % 10/05/2024 3:55 PM CDT [facility] Comment:Immature Granulocyte s includes Metamyelocytes, Myelocytes, and Promyelocytes. ABSOLUTE NEUTROPHILS 4.56 1.60 - 7.70 10(3)/[facility] 10/05/2024 3:55 PM CDT [facility] ABSOLUTE LYMPHOCYTES 2.32 1.30 - 3.20 10(3)/[facility] 10/05/2024 3:55 PM CDT [facility] ABSOLUTE MONOCYTES 0.45 0.20 - 1.00 10(3)/[facility] 10/05/2024 3:55 PM CDT [facility] ABSOLUTE EOSINOPHIL 0.31 0.00 - 0.40 10(3)/[facility] 10/05/2024 3:55 PM CDT [facility] ABSOLUTE BASOPHILS 0.07 0.00 - 0.10 10(3)/[facility] 10/05/2024 3:[address] [facility] ABSOLUTE IMMATURE GRANULOCYTE 0.02 0.00 - 0.03 10 (3) mcL. 10/05/2024 3:[address] [facility] NRBC PER 100 WBC 0 10/06/19 3:[address] [facility] RESULTS ARE CONSISTENT WITH PERIPHERAL SMEAR REVIEW Yes 10/05/2024 3:55 PM [address] [facility] RBC MORPHOLOGY CONSISTENT WITH INDICES Yes 10/05/2024 3:55 PM [address] [facility] POIKILOCYTOSIS 1+ 10/05/2024 3:55 PM [address] [facility] OVALOCYTES Present 10/05/2024 3:55 PM [address] [facility] LARGE PLATELETS 1+ 3:55 PM CDT [facility] Blood Venipuncture / Unknown 10/05/2024 2:22 PM CDT 10/05/2024 2:22 PM CDT Narrative [facility] - 10/05/2024 3:55 PM CDT Anisocytosis Microcytosis Hypochromia us Alycia Patel PAC HEMATOLOGY ORDERABLES Fin al Result [facility] [address] [place] [address] * (ABNORMAL) FREE KAPPA & LAMBDA LIGHT CHAINS SERUM (10/05/2024 2:22 PM CDT) Free [place] Lt Chn 25.19(H) 3.30 - 19.40 mg/L 10/06/2024 10:05 AM CDT [facility] Free Lambda Lt Chn 15.52 5.71 - 26.30 mg/L 10/06/2024 10:05 AM CDT [facility] free wai tomas ratio 1.62 0.26 - 1.65 10/06/2024 10:05 AM CDT [facility] Blood Venipuncture / Unknown 10/05/2024 2:22 PM CDT 10/05/2024 2:22 PM CDT [facility] PAC CHEMISTRY ORDERABLES Anais l Result [facility] [address] [place] [address], [place] * VITAMIN B12 (10/05/2024 2:22 PM CDT) VITAMIN B12 235 213 - 816 pg/mL 10/05/2024 3:33 PM CDT [facility] Blood Venipuncture / Unknown 10/05/2024 2:22 PM CDT 10/05/2024 2:22 PM CDT [facility] PAC CHEMISTRY ORDERABLES Anais l Result Performing Organization Address City/[facility]/ZIP Co de Phone Number [facility] [address] [place] [address] * RETICULOCYTE COUNT (RETIC) (10/05/2024 2:22 PM CDT) RETICULOCYTES 0.9 0.5 - 2.0 % 10/05/2024 2:43 PM CDT [facility] Blood Venipuncture / Unknown 10/05/2024 2:22 PM CDT 10/05/2024 2:22 PM CDT [facility] PAC HEMATOLOGY ORDERABLES Fin al Result [facility] [address] [place] [address] * LACTATE DEHYDROGENASE (LD) (10/05/2024 2:22 PM CDT) LDH 175 125 - 220 U/L 10/05/2024 3:03 PM CDT [facility] Blood Venipuncture / Unknown 10/05/2024 2:22 PM CDT 10/05/2024 2:22 PM CDT Alycia Patel PAC CHEMISTRY ORDERABLES Anais l Result [facility] [address] [facility] [place] [address] * (ABNORMAL) IMMUNOFIXATION W/ ELECTROPHORESIS SERUM (10/05/2024 2:22 PM CDT) TOTAL PROTEIN 6.5 6.0 - 8.0 g/dL 10/10/2024 1:05 PM CDT [facility] % ALBUMIN 56.0 55.8 - 66.7 % 10/10/2024 1:05 PM CDT [facility] ALBUMIN SERUM 3.6 2.5 - 5.4 g/dL 10/10/2024 1:05 PM CDT [facility] % ALPHA 1 GLOBULIN 3.4 2.9 - 4.9 % 10/10/2024 1:05 PM CDT [facility] ALPHA 1 0.2 0.2 - 0.4 g/dL 10/10/2024 1:05 PM CDT [facility] % ALPHA 2 GLOBULIN 13.0(H) 7.1 - 11.8 % 10/10/2024 1:05 PM CDT [facility] ALPHA 2 0.8 0.5 - 1.0 g/dL 10/10/2024 1:05 PM CDT [facility] % BETA 15.2(H) 8.4 - 13.1 % 10/10/2024 1:05 PM CDT [facility] BETA-GLOBULIN 1.0 0.5 - 1.1 g/dL 10/10/2024 1:05 PM CDT [facility] % GAMMA GLOBULIN 12.4 11.1 - 18.8 % 10/10/2024 1:05 PM CDT [facility] GAMMA 0.8 0.7 - 1.5 g/dL 10/10/2024 1:05 PM CDT [facility] IMMUNOGLOBULIN G 761 552 - 1,631 mg/dL 10/10/2024 1:05 PM CDT [facility] IMMUNOGLOBULIN A 185 65 - 421 mg/dL 10/10/2024 1:05 PM CDT [facility] IMMUNOGLOBULIN M 64 33 - 293 mg/dL 10/10/2024 1:05 PM CDT [facility] INTERPRETATION SERUM No abnormal protein band is detected by serum protein electrophoresis. Serum immunofixation electrophoresis is negative for monoclonal immunoglobulins. Reviewed by Chintan Leon, Ph.D. 10/10/2024 1:05 PM CDT [facility] A/G RATIO, SERUM 1.3 10/11/19 1:05 PM CDT [facility] Blood Venipuncture / Unknown 10/05/2024 2:22 PM CDT 10/05/2024 2:22 PM CDT Narrative [facility] - 10/10/2024 1:05 PM CDT Reviewed by Alfa Milan M.D. [facility] PAC CHEMISTRY ORDERABLES Anais l Result Performing Organization Address City/[facility]/ZIP Co de Phone Number [facility] [address] [place] [address], * (ABNORMAL) FOLIC ACID (FOLATE) (10/05/2024 2:22 PM CDT) FOLATE 6.9(L) 7.0 - 31.4 ng/mL 10/05/2024 3:33 PM CDT [facility] IS THE PATIENT REQUIRED TO BE FASTING? No 10/05/2024 3:33 PM CDT [facility] Blood Venipuncture / Unknown 10/05/2024 2:22 PM CDT 10/05/2024 2:22 PM CDT [facility] Patel PAC CHEMISTRY ORDERABLES Anais l Result [facility] [address] [place] [address] * FERRITIN (10/05/2024 2:22 PM CDT) Pathologist [facility] FERRITIN 9 5 - 204 ng/mL 10/05/2024 3:20 PM CDT [facility] Blood Venipuncture / Unknown 10/05/2024 2:22 PM CDT 10/05/2024 2:22 PM CDT Alycia Patel PAC CHEMISTRY ORDERABLES Anais l Result [facility] [address] [place] [address] * (ABNORMAL) CMP (COMPREHENSIVE METABOLIC PANEL) (10/05/2024 2:22 PM CDT) Pathologist [facility] SODIUM 139 136 - 145 mmol/L 10/05/2024 3:03 PM CDT [facility] POTASSIUM 3.7 3.5 - 5.1 mmol/L 10/05/2024 3:03 PM CDT [facility] CHLORIDE 108(H) 98 - 107 mmol/L 10/05/2024 3:03 PM CDT [facility] CO2, VENOUS 24 22 - 30 mmol/L 10/05/2024 3:03 PM CDT [facility] ANION GAP 10.7 <18.0 mmol/L 10/05/2024 3:03 PM CDT [facility] GLUCOSE 94 70 - 99 mg/dL 10/05/2024 3:03 PM CDT [facility] BUN 11 5 - 18 mg/dL 10/05/2024 3:03 PM CDT [facility] CREATININE, BLOOD 0.84 0.60 - 1.00 mg/dL 10/05/2024 3:03 PM CDT [facility] BUN/CREATININE RATIO 13 12 - 20 ratio 10/05/2024 3:03 PM CDT [facility] TOTAL PROTEIN 6.8 6.0 - 8.0 g/dL 10/05/2024 3:03 PM CDT [facility] ALBUMIN 4.1 3.5 - 5.0 g/dL 10/05/2024 3:03 PM CDT [facility] A/G RATIO 1.5 1.0 - 2.2 10/05/2024 3:03 PM CDT [facility] CALCIUM 8.9 8.7 - 10.5 mg/dL 10/05/2024 3:03 PM CDT [facility] T BILI 0.2 0.2 - 1.2 mg/dL 10/05/2024 3:03 PM CDT [facility] SGOT (AST) 19 <43 U/L 10/05/2024 3:03 PM CDT [facility] SGPT (ALT) 11 <56 U/L 10/05/2024 3:03 PM CDT [facility] ALKALINE PHOSPHATASE 69 40 - 150 U/L 10/05/2024 3:03 PM CDT [facility] IS THE PATIENT REQUIRED TO BE FASTING? No 10/05/2024 3:03 PM CDT [facility] GFR, ESTIMATED >60 >=60 10/05/2024 3:03 PM CDT [facility] Comment: Creatinine Clearance is the preferred criteria for selecting drug dose adjustments in renally impaired patients. The GFR is provided as additional pertinent clinical information. GFR is reported in mL/min/1.73 sq m. Calculation based on the Chronic Kidney Disease Epidemiology Collaboration (CKD- EPI) equation refit without adjustment for race. GFR, EST. >60 >=60 025 3:03 PM CDT [facility] GFR, EST. NONAFRICAN >60 >=60 10/05/2024 3:03 PM CDT [facility] Blood Venipuncture / Unknown 10/05/2024 2:22 PM CDT 10/05/2024 2:22 PM CDT Alycia Patel PAC CHEMISTRY ORDERABLES Anais l Result [facility] [address] [place] [address] * SUSHIL SCREENING BILATERAL DIGITAL W CAD [...] exam. Electronically signed by: Shy bah/dayan:09/23/2022 23:06:31 Archives Specialist(s): RT Jessica(R)(M), [facility] letter sent: Normal Exam Reading location: [facility] [...] exam. Electronically signed by: Shy bah/dayan:09/23/2022 23:06:31 Archives Specialist(s): RT Jessica(Airam)(M), [facility] letter sent: Normal Exam Reading location: [facility] BI-RADS: 1 Negative Sol Matthews APRN, RADHA IMG MAMMO ORDERABLES Final Result from Last 3 Months or Most Recently Relevant to Health Maintenance Insurance MEDICARE C [facility] Advance Directives * Full Code (Latest Code Status on File) Date Activated Date Inactivated Comments 08/14/2023 1:39 AM 08/14/2023 7:22 AM CPR-Full Ty atment: FULL ARREST: Attempt Resuscitation/CPR wit intubation and mechanical ventilation. PRE-ARREST: Use entire range of life support measures to stabilize the patient. Care Teams Mail Rider Relationship Specialty Start Date End Date Morales Meza MD [address] [address] PCP - General Family Medicine 01/05/20 Valeria Ulloa APRN, SR. SOCIAL MEDIA & MOBILE MANAGER [address] [place] [address] Nurse Practitioner Advanced Practice Nurse 02/26/22
--- OUTSIDE RECORDS SUMMARY | 2024-10-14 07:20 | XMS_ITS | Encounter Summary ---
Author Organization [facility] Address [address] [place] [address] Care Team Providers Care Tallier Name Role Phone Unavailable Primary Care Provider Unavailabl e Encounter Details Date Type Department Care Team (Late st Contact Info) Description 04/30/2000 Outpatient Historical [facility] Internal Medicine [place] [address] [place] [address] Raf Pfeiffer MD [address] [place] [phone] Social History Tobacco Use Types Packs/Day Years Used Date Smoking Tobacco: Never Assessed Comments Unknown Sex and Gender Information Value Date Recorded Sex Assigned at Not on file Legal Sex Female 3:03 AM BLUEPRINT PROCESSOR Gender Identity Not on file Sexual Orientation Not on file documented as of this encounter Plan of Treatment Not on file documented as of this encounter Visit Diagnoses Not on filedocumented in this encounter
--- OUTSIDE RECORDS SUMMARY | 2024-10-14 07:20 | XMS_ITS | Encounter Summary ---
Author Organization [facility] Address [address] [place] [address] Phone Care Team Providers Care Neighborhood Coordinator Name Role Phone Morales Meza MD Primary Care Provider [phone] Valeria Ulloa AREA CAPTAIN, LABORATORY SPECIALIST Unavailable [phone] Reason for Visit * Reason Onset Date Comments Fatigue 06/12/2022 Rapid Heart Rate 06/12/2022 Chest Pain 06/12/2022 Dizziness 06/12/2022 Encounter Details Date Type Department Care Team (Late st Contact Info) Description 06/12/2022 Nurse Triage [facility] [address] [place] [address] Morales Meza MD [address] [address] Fatigue; Rapid Heart Rate; Chest [...] Sex Assigned at Female 03/19/2024 12:44 AM CUT OFF SAWYER Legal Sex Female 3:50 AM CDT Gender Identity Female 03/19/2024 12:44 AM CUT OFF SAWYER Sexual Orientation Not on file COVID-19 Exposure Response Date Recorded In the last 10 days, have yo u been in contact with someone who was confirmed or suspected to have Coronavirus/COVID-19? No / Unsure 06/12/2022 3:13 PM CUT OFF SAWYER documented as of this encounter Miscellaneous Notes * Telephone Encounter - Tali Mendoza RN - 06/12/2022 2:23 PM CST EMS dispatched as of 1422. OFF SAWYER * Telephone Encounter - Gail Burris RN [...] dispatched at 1423. EMS arrived at 1429. OFF SAWYER documented in this encounter Plan of Treatment Upcoming Encounters Date Type Department Care Team (Late st Contact Info) Description 10/18/2024 1:30 PM CDT Clinical Support [facility] Oncology Services [address] [place] [address] Alycia Patel Joanne, [facility] [address] [place] [address] Discharge Disposition: Discharged to home or Selfcare 10/20/2024 1:30 PM CDT Clinical Support [facility] Oncology Services [address] [place] [address] 10/25/2024 1:30 PM CDT Clinical Support [facility] Oncology Services [address] [place] [address] 10/27/2024 1:30 PM CDT Clinical Support [facility] Oncology Services [address] [place] [phone] 11/01/2024 1:30 PM CDT Clinical Support [facility] Oncology Services [address] [place] [phone] 11/04/2024 4:00 PM CDT Office Visit [facility] - Neurology [facility] [address] [place] [address] Valeria Ulloa APRN, LABORATORY SPECIALIST [address] [place] [address] 12/13/2024 1:30 PM CDT [facility] [place] [facility] [address] [place] [phone] 12/20/2024 1:20 PM CDT [facility] [address] [place] [phone] Alycia Patel Joanne, PAC [address] [place] [address] documented as of this encounter Visit Diagnoses Not on filedocumented in this encounter Additional Health Concerns Infection Onset Date Last Indicated Resolved Time COVID - 19 01/09/2023 01/09/2023 01/19/2023 12:1 6 AM CDT COVID - 19 02/10/2023 02/10/2023 02/20/2023 12:1 6 AM CUT OFF SAWYER COVID - 08/13/2023 08/13/2023 08/14/2023 12:0 4 AM CDT Assessment Noted Time PHQ-9 Depression Total Score: 11 020 8:36 AM CDT documented as of this encounter Care Teams Neighborhood Coordinator Relationship Specialty Start Date End Date Morales Meza MD [address] [address] PCP - General Family Medicine 01/05/20 Valeria Ulloa APRN, LABORATORY SPECIALIST [address] [place] [address] Nurse Practitioner Advanced Practice Nurse 02/26/22 documented as of this encounter
--- OUTSIDE RECORDS SUMMARY | 2024-10-14 07:20 | XMS_ITS | Encounter Summary ---
Author Organization [employer] Address [address] [place] [address] Care Team Providers Care Remediation Project Engineer Name Role Phone Unavailable Primary Care Provider Unavailabl e Encounter Details Date Type Department Care Team (Late st Contact Info) Description 12/20/2002 Outpatient [facility] [address] [place] [address]. [place] [address] Social History Tobacco Use Types Packs/Day Years Used Date Smoking Tobacco: Never Assessed Comments Unknown Sex and Gender Information Value Date Recorded Sex Assigned at Not on file Legal Sex Female 3:03 AM BRIM STRETCHER Gender Identity Not on file Sexual Orientation Not on file documented as of this encounter Plan of Treatment Not on file documented as of this encounter Visit Diagnoses Not on filedocumented in this encounter
--- OUTSIDE RECORDS SUMMARY | 2024-10-14 07:20 | XMS_ITS | Encounter Summary ---
Author Organization [facility] Address [address] [place] [address] Phone Care Team Providers Care Furniture Duster Name Role Phone Morales Meza MD Primary Care Provider [phone] Valeria Ulloa APRN, ESCALATOR ATTENDANT Unavailable [phone] Reason for Visit * Reason Comments Medication Refill Encounter Details Date Type Department Care Team (Late st Contact Info) Description 02/16/2024 Refill [facility] - Neurology - [place] #2 [place] [id number] Valeria Ulloa, ACTION FINISHER, ESCALATOR ATTENDANT #2 [place] [address] Medication Refill Social History Tobacco Use Types Packs/Day Years Used Date Smoking Tobacco: Former Cigarettes 2011 Smokeless Tobacco: Never Alcohol Use Standard Drinks/Week Comments Yes 0 (1 standard drink = 0.6 oz pur e alcohol) Very Rare [facility] Utilities Answer Date Recorded In the past 12 months has [employer], gas, oil, or water company threatened to shut off services in your home? No 08/14/2023 Social Connection and Isolation Panel Answer Date Recorded In a typical week, how many times do you talk on the phone with family, friends, or neighbors? Patient declined 08/14/2023 How often do you get togethe r with friends or relatives? Patient declined 08/14/2023 How often do you attend jehovah's witness or zoroastrianism serv ices? Patient declined 08/14/2023 Do you belong to any clubs o r organizations such as jehovah's witness groups, unions, fraternal or athletic groups, or [...] Total Score - Questions 1-9 11 04/2019 [facility] - Occupational [...] place to sleep or slept in a care home (including now)? No 08/14/2023 Education Answer Date Recorded What is the highest level of school you have completed or the highest degree you have received? Associate degree: academic program 05/06/2021 Sexually Active Control Partners Comments Yes Comments No Sex and Gender Information Value Date Recorded Sex Assigned at Female 03/19/2024 12:44 AM MEDICAL OFFICE TECHNOLOGIST Legal Sex Female 3:50 AM CDT Gender Identity Female 03/19/2024 12:44 AM MEDICAL OFFICE TECHNOLOGIST Sexual Orientation Not on file documented as of this encounter Plan of Treatment Upcoming Encounters Date Type Department Care Team (Late st Contact Info) Description 10/18/2024 1:30 PM CDT Clinical Support [facility] Oncology Services [address] [place] [address] Alycia Patel Joanne, [facility] [address] [place] [address] Discharge Disposition: Discharged to home or Selfcare 10/20/2024 1:30 PM CDT Clinical Support [facility] [address] [place] [phone] 10/25/2024 1:30 PM CDT Clinical Support [facility] Oncology Services [address] [place] [address] 10/27/2024 1:30 PM CDT Clinical Support [facility] Oncology Services [address] [place] [address] 11/01/2024 1:30 PM CDT Clinical Support [facility] [address] [place] [address] 11/04/2024 4:00 PM CDT Office Visit [facility] #2 [place] [address] Valeria Ulloa APRN, ESCALATOR ATTENDANT #2 [place] [address] 12/13/2024 1:30 PM CDT Lab [facility] Oncology Services [address] [place] [address] 12/20/2024 1:20 PM CDT Office Visit [facility] Oncology Services [address] [place] [address] Alycia Patel [facility] [address] [place] [address] documented as of this encounter Visit Diagnoses Diagnosis TIA (transient ischemic attack) Unspecified transient cerebral ischemia documented in this encounter Additional Health Concerns Assessment Noted Time PHQ-9 Depression Total Score: 11 020 8:36 AM CDT documented as of this encounter Care Teams Furniture Duster Relationship Specialty Start Date End Date Morales Meza MD #[address] [address] PCP - General Family Medicine 01/05/20 Valeria Ulloa APRN, ESCALATOR ATTENDANT #2 [place] [address] Nurse Practitioner Advanced Practice Nurse 02/26/22 documented as of this encounter
--- OUTSIDE RECORDS SUMMARY | 2024-10-14 07:20 | XMS_ITS | Encounter Summary ---
Author Organization [facility] Address [address] [place] [address] Phone Care Team Providers Care Safety Manager Name Role Phone Morales Meza MD Primary Care Provider [phone] Valeria Ulloa TEACHER PUBLIC HEALTH, FOILING MACHINE OPERATOR Unavailable [phone] Reason for Visit * Reason Comments Medication Refill Encounter Details Date Type Department Care Team (Late st Contact Info) Description 04/22/2023 Refill [facility] #2 [place] [id number] Morales Meza MD #[address] [address] Medication Refill Social History Tobacco Use Types [...] Sex Assigned at Female 03/19/2024 12:44 AM WOOL SCOURER Legal Sex Female 3:50 AM CDT Gender Identity Female 03/19/2024 12:44 AM WOOL SCOURER Sexual Orientation Not on file documented as [...] Ref Range Status 06/12/2022 >60 >=60 Final SCOURER documented in this encounter Plan of Treatment Upcoming Encounters Date Type Department Care Team (Late st Contact Info) Description 10/18/2024 1:30 PM CDT Clinical Support [facility] Oncology Services [address] [place] [address] Alycia Patel [facility] [address] [place] [address] Discharge Disposition: Discharged to home or Selfcare 10/20/2024 1:30 PM CDT Clinical Support [facility] Oncology Services 0 [place] [address] 10/25/2024 1:30 PM CDT Clinical Support [facility] Oncology Services [address] [place] [address] 10/27/2024 1:30 PM CDT Clinical Support [facility] Oncology Services [address] [place] [address] 11/01/2024 1:30 PM CDT Clinical Support [facility] Oncology Services [address] [place] [address] 11/04/2024 4:00 PM CDT Office Visit [facility] #2 [place] [address] Valeria Ulloa APRN, FOILING MACHINE OPERATOR #2 [place] [address] 12/13/2024 1:30 PM CDT Lab [facility] Oncology Services [address] [place] [address] 12/20/2024 1:20 PM CDT Office Visit [facility] Oncology Services [address] [place] [address] Alycia Patel Joanne, [facility] [address] [place] [address] documented as of this encounter Visit Diagnoses Not on filedocumented in this encounter Additional Health Concerns Infection Onset Date Last Indicated Resolved Time COVID - 19 08/13/2023 08/13/2023 08/14/2023 12:0 4 AM CDT Assessment Noted Time PHQ-9 Depression Total Score: 11 020 8:36 AM CDT documented as of this encounter Care Teams Safety Manager Relationship Specialty Start Date End Date Morales Meza MD #[address] [address] PCP - General Family Medicine 01/05/20 Valeria Ulloa APRN, FOILING MACHINE OPERATOR #2 [place] [address] Nurse Practitioner Advanced Practice Nurse 02/26/22 documented as of this encounter
--- OUTSIDE RECORDS SUMMARY | 2024-10-14 07:20 | XMS_ITS | Encounter Summary ---
Author Organization [facility] Address [address] [place] [address] Care Team Providers Care Flue Cleaner Name Role Phone Unavailable Primary Care Provider Unavailabl e Encounter Details Date Type Department Care Team (Late st Contact Info) Description 05/28/2000 Outpatient Historical [facility] Internal Medicine [place] [address] [place] [address] Raf Pfeiffer MD [address] [place] [phone] Social History Tobacco Use Types Packs/Day Years Used Date Smoking Tobacco: Never Assessed Comments Unknown Sex and Gender Information Value Date Recorded Sex Assigned at Not on file Legal Sex Female 3:03 AM TAX STAFF ACCOUNTANT Gender Identity Not on file Sexual Orientation Not on file documented as of this encounter Plan of Treatment Not on file documented as of this encounter Visit Diagnoses Not on filedocumented in this encounter
--- OUTSIDE RECORDS SUMMARY | 2024-10-14 07:20 | XMS_ITS | Encounter Summary ---
Author Organization [employer] Address [address] [place] [address] Care Team Providers Care Movie Projectionist Name Role Phone Unavailable Primary Care Provider [...] on file Legal Sex Female 3:03 AM STITCHING MACHINE SETTER Gender Identity Not on file Sexual Orientation Not on file documented as of this encounter Plan of Treatment Not on file documented as of this encounter Visit Diagnoses Diagnosis Unspecified sinusitis (chronic)- Primary documented in this encounter
--- OUTSIDE RECORDS SUMMARY | 2024-10-14 07:20 | XMS_ITS | Encounter Summary ---
Author Organization [facility] Address [address] [place] [address] Phone Care Team Providers Care Vice President Business & Corporate Development Name Role Phone Morales Meza MD Primary Care Provider [phone] Valeria Ulloa BACTERIOLOGY PROFESSOR, COLLABORATIVE PHYSICIAN Unavailable [phone] Reason for Visit * Reason Comments Medication Refill Encounter Details Date Type Department Care Team (Late st Contact Info) Description 06/21/2023 Refill [facility] [address] [place] [address] Morales Meza MD #[address] [address] Medication Refill Social History Tobacco Use Types [...] Sex Assigned at Female 03/19/2024 12:44 AM HYDRAULIC GOVERNOR ASSEMBLER Legal Sex Female 3:50 AM CDT Gender Identity Female 03/19/2024 12:44 AM HYDRAULIC GOVERNOR ASSEMBLER Sexual Orientation Not on file documented as [...] Description 10/18/2024 1:30 PM CDT [facility] [address] [place] [address] Alycia Patel September, PAC [address] [place] [address] Discharge Disposition: Discharged to home or Selfcare 10/20/2024 1:30 PM CDT Clinical [facility] [address] [place] [address] 10/25/2024 1:30 PM CDT Clinical [facility] [address] [place] [address] 10/27/2024 1:30 PM CDT Clinical Support [facility] Oncology Services [address] [place] [address] 11/01/2024 1:30 PM CDT Clinical [facility] [address] [place] [address] 11/04/2024 4:00 PM CDT Office Visit [facility] [address] [place] [address] Valeria Ulloa, BACTERIOLOGY PROFESSOR, COLLABORATIVE PHYSICIAN #[address] [place] [address] 12/13/2024 1:30 PM CDT Lab [facility] [address] [place] [address] 12/20/2024 1:20 PM CDT [facility] 0 [place] [address] Alycia Patel Joanne, PAC [address] [place] [address] documented as of this encounter Visit Diagnoses Not on filedocumented in this encounter Additional Health Concerns Infection Onset Date Last Indicated Resolved Time COVID - 19 08/13/2023 08/13/2023 08/14/2023 12:0 4 AM CDT Assessment Noted Time PHQ-9 Depression Total Score: 11 020 8:36 AM CDT documented as of this encounter Care Teams Vice President Business & Corporate Development Relationship Specialty Start Date End Date Morales Meza MD #2 [facility] [address] [place] [address] PCP - General Family Medicine 01/05/20 Valeria Ulloa, BACTERIOLOGY PROFESSOR, COLLABORATIVE PHYSICIAN #[address] [place] [address] Nurse Practitioner Advanced Practice Nurse 02/26/22 documented as of this encounter
--- OUTSIDE RECORDS SUMMARY | 2024-10-14 07:20 | XMS_ITS | Encounter Summary ---
Author Organization [facility] Address [address] [place] [address] Phone Care Team Providers Care Access Registrar Name Role Phone Morales Meza MD Primary Care Provider [phone] Valeria Ulloa TEACHER PHYSICALLY IMPAIRED, STAFFING OPERATIONS MANAGER Unavailable [phone] Reason for Visit * Reason Comments Medication Refill Encounter Details Date Type Department Care Team (Late st Contact Info) Description 07/21/2023 Refill [facility] Medicine [facility] #2 [place] [address] Morales Meza MD #[address] [address] Medication Refill Social History Tobacco Use Types [...] Sex Assigned at Female 03/19/2024 12:44 AM PRESS DEPARTMENT MANAGER Legal Sex Female 3:50 AM CDT Gender Identity Female 03/19/2024 12:44 AM PRESS DEPARTMENT MANAGER Sexual Orientation Not on file documented as [...] Description 10/18/2024 1:30 PM CDT Clinical Support [facility] Oncology Services [address] [place] [address] Alycia Patel, VÍCTOR [address] [place] [address] Discharge Disposition: Discharged to home or Selfcare 10/20/2024 1:30 PM CDT Clinical Support [facility] Oncology Services [address] [place] [address] 10/25/2024 1:30 PM CDT Clinical Support [facility] Oncology Services [address] [place] [address] 10/27/2024 1:30 PM CDT Clinical Support [facility] Oncology Services [address] [place] [address] 11/01/2024 1:30 PM CDT Clinical Support [facility] Oncology Services [address] [place] [address] 11/04/2024 4:00 PM CDT Office Visit [facility] - Neurology [facility] #2 [place] [address] Valeria Ulloa, TEACHER PHYSICALLY IMPAIRED, STAFFING OPERATIONS MANAGER #2 [place] [address] 12/13/2024 1:30 PM CDT Lab [facility] [address] [place] [phone] 12/20/2024 1:20 PM CDT [facility] [address] [place] [address] Alycia Patel Joanne, PAC [address] [place] [address] documented as of this encounter Visit Diagnoses Not on filedocumented in this encounter Additional Health Concerns Infection Onset Date Last Indicated Resolved Time COVID - 19 08/13/2023 08/13/2023 08/14/2023 12:0 4 AM CDT Assessment Noted Time PHQ-9 Depression Total Score: 11 020 8:36 AM CDT documented as of this encounter Care Teams Access Registrar Relationship Specialty Start Date End Date Morales Meza MD #[address] [address] PCP - General Family Medicine 01/05/20 Valeria Ulloa, TEACHER PHYSICALLY IMPAIRED, STAFFING OPERATIONS MANAGER #[address] [place] [address] Nurse Practitioner Advanced Practice Nurse 02/26/22 documented as of this encounter
--- OUTSIDE RECORDS SUMMARY | 2024-10-14 07:20 | XMS_ITS | Clinical Summary ---
Author Organization [facility] Address [address] [place] [address] Care Team Providers Care Shop Laborer Name Role Phone Unavailable Primary Care Provider [...] on file Legal Sex Female 3:03 AM DOGGY DAYCARE ACTIVITIES DIRECTOR Gender Identity Not on file Sexual [...] patient's age to complete this topic Insurance [id number] CHOICE [id number]
--- OUTSIDE RECORDS SUMMARY | 2024-10-14 07:20 | XMS_ITS | Encounter Summary ---
Author Organization [facility] Address [address] [place] [address] Phone Care Team Providers Care Manufacturing Finance Manager Name Role Phone Morales Meza MD Primary Care Provider [phone] Valeria Ulloa SUPERVISOR LABORATORY ANIMAL FACILITY, TEST CARRIER Unavailable [phone] Reason for Visit * Reason Comments Medication Refill Encounter Details Date Type Department Care Team (Late st Contact Info) Description 05/22/2023 Refill [facility] #2 [place] [address] Morales Meza MD #[address] [address] Medication Refill Social History Tobacco Use Types [...] Sex Assigned at Female 03/19/2024 12:44 AM CREW MEMBER Legal Sex Female 3:50 AM CDT Gender Identity Female 03/19/2024 12:44 AM CREW MEMBER Sexual Orientation Not on file documented as of this encounter Miscellaneous Notes * Telephone Encounter - Rosemary Van RMA - 05/28/2023 3:33 PM CREW MEMBER LVM to schedule MEMBER * Telephone Encounter - Lizz Miller RN - 05/22/2023 2:30 PM CST Needs OV with PCP MEMBER * Telephone Encounter - Lizz Miller RN [...] Ref Range Status 06/12/2022 >60 >=60 Final MEMBER documented in this encounter Plan of Treatment Upcoming Encounters Date Type Department Care Team (Late st Contact Info) Description 10/18/2024 1:30 PM CDT Clinical Support [facility] Oncology Services [address] [place] [address] Alycia Patel Joanne, PAC [address] [place] [address] Discharge Disposition: Discharged to home or Selfcare 10/20/2024 1:30 PM CDT Clinical Support [facility] Oncology Services [address] [place] [address] 10/25/2024 1:30 PM CDT Clinical Support [facility] Oncology Services [address] [place] [address] 10/27/2024 1:30 PM CDT Clinical Support [facility] Oncology Services [address] [place] [address] 11/01/2024 1:30 PM CDT Clinical Support [facility] Oncology Services [address] [place] [address] 11/04/2024 4:00 PM CDT Office Visit [facility] - Neurology [facility] #2 [place] [address] Valeria Ulloa, SUPERVISOR LABORATORY ANIMAL FACILITY, TEST CARRIER #2 [place] [address] 12/13/2024 1:30 PM CDT Lab [facility] Oncology Services [address] [place] [address] 12/20/2024 1:20 PM CDT Office Visit [facility] Oncology Services [address] [place] [address] Alycia Patel PAC [address] [place] [address] documented as of this encounter Visit Diagnoses Not on filedocumented in this encounter Additional Health Concerns Infection Onset Date Last Indicated Resolved Time COVID - 19 08/13/2023 08/13/2023 08/14/2023 12:0 4 AM CDT Assessment Noted Time PHQ-9 Depression Total Score: 11 020 8:36 AM CDT documented as of this encounter Care Teams Manufacturing Finance Manager Relationship Specialty Start Date End Date Morales Meza MD #[address] [address] PCP - General Family Medicine 01/05/20 Valeria Ulloa APRN, TEST CARRIER #2 [place] [address] Nurse Practitioner Advanced Practice Nurse 02/26/22 documented as of this encounter
--- OUTSIDE RECORDS SUMMARY | 2024-10-14 07:20 | XMS_ITS | Encounter Summary ---
Author Organization [facility] Address [address] [place] [address] Phone Care Team Providers Care Quality Assurance Lead Name Role Phone Morales Meza MD Primary Care Provider [phone] Valeria Ulloa SENIOR STEREO COMPILER TEAM LEAD, FILM LABORATORY TECHNICIAN Unavailable [phone] Reason for Visit * Reason Comments Medication Refill Encounter Details Date Type Department Care Team (Late st Contact Info) Description 01/17/2024 Refill [facility] #2 [place] [address] Morales Meza MD #[address] [address] Medication Refill Social History Tobacco Use Types Packs/Day Years Used Date Smoking Tobacco: Former Cigarettes 2011 Smokeless Tobacco: Never Alcohol Use Standard Drinks/Week Comments Yes 0 (1 standard drink = 0.6 oz pur e alcohol) Very Rare [facility] Utilities Answer Date Recorded In the past 12 months has [employer], gas, oil, or water company threatened to shut off services in your home? No 08/14/2023 Social Connection and Isolation Panel Answer Date Recorded In a typical week, how many times do you talk on the phone with family, friends, or neighbors? Patient declined 08/14/2023 How often do you get togethe r with friends or relatives? Patient declined 08/14/2023 How often do you attend bahai or rastafari serv ices? Patient declined 08/14/2023 Do you belong to any clubs o r organizations such as bahai groups, unions, fraternal or athletic groups, or [...] Total Score - Questions 1-9 11 04/2019 [facility] - [...] in a mcfp (including now)? No 08/14/2023 Education Answer Date Recorded What is the highest level of school you have completed or the highest degree you have received? Associate degree: academic program 05/06/2021 Sexually Active Control Partners Comments Yes Comments No Sex and Gender Information Value Date Recorded Sex Assigned at Female 03/19/2024 12:44 AM FOOT PRESS OPERATOR Legal Sex Female 3:50 AM CDT Gender Identity Female 03/19/2024 12:44 AM FOOT PRESS OPERATOR Sexual Orientation Not on file documented as [...] Description 10/18/2024 1:30 PM CDT Clinical Support [facility] Oncology Services [address] [place] [address] Alycia Patel Joanne, PAC [address] [place] [address] Discharge Disposition: Discharged to home or Selfcare 10/20/2024 1:30 PM CDT Clinical Support [facility] Oncology Services [address] [place] [address] 10/25/2024 1:30 PM CDT Clinical Support [facility] Oncology Services [address] [place] [address] 10/27/2024 1:30 PM CDT Clinical Support [facility] Oncology Services [address] [place] [address] 11/01/2024 1:30 PM CDT Clinical Support [facility] Oncology Services [address] [place] [phone] 11/04/2024 4:00 PM CDT Office Visit [facility] #2 [place] [address] Valeria Ulloa, SENIOR STEREO COMPILER TEAM LEAD, [facility] #2 [place] [address] 12/13/2024 1:30 PM CDT Lab [facility] Oncology Services [address] [place] [address] 12/20/2024 1:20 PM CDT Office Visit [facility] Oncology Services [address] [place] [address] Alycia Patel [facility] [address] [place] [address] documented as of this encounter Visit Diagnoses Not on filedocumented in this encounter Additional Health Concerns Assessment Noted Time PHQ-9 Depression Total Score: 11 020 8:36 AM CDT documented as of this encounter Care Teams Quality Assurance Lead Relationship Specialty Start Date End Date Morales Meza MD #[address] [address] PCP - General Family Medicine 01/05/20 Valeria Ulloa APRN, FILM LABORATORY TECHNICIAN #2 [place] [address] Nurse Practitioner Advanced Practice Nurse 02/26/22 documented as of this encounter
--- OUTSIDE RECORDS SUMMARY | 2024-10-14 07:20 | XMS_ITS | Encounter Summary ---
Author Organization [facility] Address [address] [facility] [place] [address] Phone Care Team Providers Care Electrical Checkout Mechanic Name Role Phone Morales Meza MD Primary Care Provider [phone] Valeria Ulloa DISTILLATION OPERATOR HELPER, SENIOR TECHNICAL SUPPORT ENGINEER Unavailable [phone] Encounter Details Date Type Department Care Team (Late st Contact Info) Description 10/06/2024 Results Follow-Up [facility] Oncology Services [address] [place] [phone] Alycia Patel Joanne, PAC [address] [place] [address] FOLIC ACID (FOLATE), FERRITIN, CMP (COMPREHENSIVE METABOLIC PANEL), Additional followed-up results: 7 Social History Tobacco Use Types Packs/Day Years Used Date Smoking Tobacco: Never Cigarettes 2011 Passive Smoke Exposure: Yes Smokeless Tobacco: Never Alcohol Use Standard Drinks/Week Comments Yes 1 (1 standard drink = 0.6 oz pure alcohol) Drink a wine cooler maybe once a month [facility] Utilities Answer Date Recorded In the past 12 months has [employer], gas, oil, or water [employer] threatened to shut off services in your home? Yes 07/03/2024 Social Connection and Isolation Panel Answer Date Recorded In a typical week, how many times do you talk on the phone with family, friends, or neighbors? Twice a week 07/03/2024 How often do you get together with friends or re latives? Once a week 07/03/2024 How often do you attend faith or spiritism serv ices? Never 07/03/2024 Do you belong [...] Score - Questions 1-9 11 10/0 04/2019 [facility] Occupat ional Health - [...] place to sleep or slept in a assisted (including now)? No 08/14/2023 Housing Stability Vital Sign Answer Ted e Recorded In the last 12 months, was t here a time when you were not able to pay the mortgage or rent on time? Yes 07/03/2024 In the past 12 months, how m any times have you moved where you were living? 0 07/03/2024 At any time in the past 12 m [facility], were you homeless or living in a assisted (including now)? No 07/03/2024 Education Answer Date Recorded What is the highest level of school you have completed or the highest degree you have received? Associate degree: academic program 05/06/2021 Sexually Active Control Partners Comments Yes Other Male Comments No Sex and Gender Information Value Date Recorded Sex Assigned at Female 03/19/2024 12:44 AM TORPEDO SHOOTER Legal Sex Female 3:50 AM CDT Gender Identity Female 03/19/2024 12:44 AM TORPEDO SHOOTER Sexual Orientation Not on file documented as of this encounter Plan of Treatment Upcoming Encounters Date Type Department Care Team (Late st Contact Info) Description 10/18/2024 1:30 PM CDT Clinical Support [facility] Oncology Services [address] [place] [address] Alycia Patel Joanne, PAC [address] [place] [address] Discharge Disposition: Discharged to home or Selfcare 10/20/2024 1:30 PM CDT Clinical Support [facility] Oncology Services [address] [place] [address] 10/25/2024 1:30 PM CDT Clinical Support [facility] Oncology Services [address] [place] [address] 10/27/2024 1:30 PM CDT Clinical Support [facility] Oncology Services [address] [place] [address] 11/01/2024 1:30 PM CDT Clinical Support [facility] Services [address] [place] [address] 11/04/2024 4:00 PM CDT Office Visit [facility] Neurology [facility] [address] [place] [address] Valeria Ulloa, DISTILLATION OPERATOR HELPER, SENIOR TECHNICAL SUPPORT ENGINEER [address] [place] [address] 12/13/2024 1:30 PM CDT Lab [facility] Oncology Services [address] [place] [address] 12/20/2024 1:20 PM CDT Office Visit [facility] Oncology Services [address] [place] [address] Alycia Patel, [facility] [address] [place] [address] documented as of this encounter Visit Diagnoses Not on filedocumented in this encounter Additional Health Concerns Assessment Noted Time PHQ-9 Depression Total Score: 11 020 8:36 AM CDT documented as of this encounter Care Teams Electrical Checkout Mechanic Relationship Specialty Start Date End Date Morales Meza MD #[address] [address] PCP - General Family Medicine 01/05/20 Valeria Ulloa APRN, SENIOR TECHNICAL SUPPORT ENGINEER [address] [place] [address] Nurse Practitioner Advanced Practice Nurse 02/26/22 documented as of this encounter
--- OUTSIDE RECORDS SUMMARY | 2024-10-14 07:20 | XMS_ITS | Encounter Summary ---
Author Organization [facility] Address [address] [place] [address] Care Team Providers Care Screw Remover Name Role Phone Unavailable Primary Care Provider Unavailabl e Encounter Details Date Type Department Care Team (Late st Contact Info) Description 01/07/2000 Outpatient Historical [facility] Internal Medicine [place] [address] [place] [address] Raf Pfeiffer MD [address] [place] [phone] Social History Tobacco Use Types Packs/Day Years Used Date Smoking Tobacco: Never Assessed Comments Unknown Sex and Gender Information Value Date Recorded Sex Assigned at Not on file Legal Sex Female 3:03 AM MEDIA TRAFFIC MANAGER Gender Identity Not on file Sexual Orientation Not on file documented as of this encounter Plan of Treatment Not on file documented as of this encounter Visit Diagnoses Not on filedocumented in this encounter
--- OUTSIDE RECORDS SUMMARY | 2024-10-14 07:20 | XMS_ITS | Encounter Summary ---
Author Organization [facility] Address [address] [place] [address] Care Team Providers Care Sidewalk Inspector Name Role Phone Unavailable Primary Care Provider Unavailabl e Encounter Details Date Type Department Care Team (Late st Contact Info) Description 04/17/2000 Outpatient Historical [facility] Internal Medicine [address] [address] [place] [address] Raf Pfeiffer MD [address] [place] [phone] Social History Tobacco Use Types Packs/Day Years Used Date Smoking Tobacco: Never Assessed Comments Unknown Sex and Gender Information Value Date Recorded Sex Assigned at Not on file Legal Sex Female 3:03 AM SERVICE RESTORER EMERGENCY Gender Identity Not on file Sexual Orientation Not on file documented as of this encounter Plan of Treatment Not on file documented as of this encounter Visit Diagnoses Not on filedocumented in this encounter
--- OUTSIDE RECORDS SUMMARY | 2024-10-14 07:20 | XMS_ITS | Encounter Summary ---
Author Organization [facility] Address [address] [place] [address] Phone Care Team Providers Care Laundry Machine Mechanic Name Role Phone Morales Meza MD Primary Care Provider [phone] Valeria Ulloa ENGINEERING SCIENTIST, PASSPORT SUPPORT ASSOCIATE Unavailable [phone] Reason for Visit * Reason Comments Medication Refill Encounter Details Date Type Department Care Team (Late st Contact Info) Description 03/23/2023 Refill [facility] [address] [place] [address] Morales Meza MD [address] [address] Medication Refill Social History Tobacco Use Types [...] Sex Assigned at Female 03/19/2024 12:44 AM SLABBING MACHINE OPERATOR Legal Sex Female 3:50 AM CDT Gender Identity Female 03/19/2024 12:44 AM SLABBING MACHINE OPERATOR Sexual Orientation Not on file documented as of this encounter Miscellaneous Notes * Telephone Encounter - Rosemary Van RMA - 03/23/2023 3:25 PM SLABBING MACHINE OPERATOR LVM to schedule BING MACHINE OPERATOR * Telephone Encounter - Lizz Miller RN - 03/23/2023 10:20 AM CST Needs OV with PCP BING MACHINE OPERATOR * Telephone Encounter - Lizz Miller RN [...] Ref Range Status 06/12/2022 >60 >=60 Final BING MACHINE OPERATOR documented in this encounter Plan of Treatment Upcoming Encounters Date Type Department Care Team (Late st Contact Info) Description 10/18/2024 1:30 PM CDT Clinical Support [facility] Oncology Services [address] [place] [address] Alycia Patel Joanne, PAC [address] [place] [address] Discharge Disposition: Discharged to home or Selfcare 10/20/2024 1:30 PM CDT Clinical Support [facility] Oncology Services [address] [place] [address] 10/25/2024 1:30 PM CDT Clinical Support [facility] Oncology Services [address] [place] [address] 10/27/2024 1:30 PM CDT Clinical Support [facility] Oncology Services [address] [place] [address] 11/01/2024 1:30 PM CDT Clinical Support [facility] Oncology Services [address] [place] [address] 11/04/2024 4:00 PM CDT Office Visit [facility] Medical [facility] - Neurology [facility] [address] [place] [address] Valeria Ulloa, ENGINEERING SCIENTIST, PASSPORT SUPPORT ASSOCIATE [address] [place] [address] 12/13/2024 1:30 PM CDT Lab [facility] Oncology Services [address] [place] [address] 12/20/2024 1:20 PM CDT Office Visit [facility] Oncology Services [address] [place] [address] Alycia Patel PAC [address] [place] [address] documented as of this encounter Visit Diagnoses Not on filedocumented in this encounter Additional Health Concerns Infection Onset Date Last Indicated Resolved Time COVID - 19 08/13/2023 08/13/2023 08/14/2023 12:0 4 AM CDT Assessment Noted Time PHQ-9 Depression Total Score: 11 020 8:36 AM CDT documented as of this encounter Care Teams Laundry Machine Mechanic Relationship Specialty Start Date End Date Morales Meza MD #[address] [address] PCP - General Family Medicine 01/05/20 Valeria Ulloa APRN, PASSPORT SUPPORT ASSOCIATE [address] [place] [address] Nurse Practitioner Advanced Practice Nurse 02/26/22 documented as of this encounter
--- OUTSIDE RECORDS SUMMARY | 2024-10-14 07:20 | XMS_ITS | Encounter Summary ---
Author Organization [facility] Address [address] [place] [address] Care Team Providers Care Plow Mechanic Name Role Phone No, Physician Primary Care Provider [phone] Jazmin Saab MD Unavailable [phone] Og Sumner MD Primary Care Provider + Morales Meza MD Primary Care Provider [phone] Encounter Details Date Type Department Care Team (Late st Contact Info) Description 09/15/2019 Telephone [facility] [address] [place] [address] Valeria Ortiz, RT Social History Tobacco Use [...] documented as of this encounter Care Teams Plow Mechanic Relationship Specialty Start Date End Date No, Physician PCP - General 08/31/18 05/08/20 Og Sumner MD [address] [place] [address] PCP - General 02/21/21 06/16/21 Morales Meza MD [address] [address] PCP - General Family Medicine 06/17/21 Jazmin Saab MD [address] [place] [address] Referring Physician Obstetrics and Gynecology 01/10/19 documented as of this encounter
--- OUTSIDE RECORDS SUMMARY | 2024-10-14 07:20 | XMS_ITS | Encounter Summary ---
Author Organization [employer] Care Team Providers Care Digester Cook Name Role Phone Morales Meza MD Primary Care Provider [phone] Valeria Ulloa APRN, IDENTIFICATION AND RECORDS COMMANDER Unavailable [phone] Encounter Details Date Type Department Care Team (Latest Contact Info) Description 10/13/2024 Travel Social History Tobacco Use Types Packs/Day Years Used Date Smoking Tobacco: Never Cigarettes 2011 Passive Smoke Exposure: Yes Smokeless Tobacco: Never Alcohol Use Standard Drinks/Week Comments Yes 1 (1 standard drink = 0.6 oz pure alcohol) Drink a wine cooler maybe once a month [facility] Utilities Answer Date Recorded In the past 12 months has [employer], gas, oil, or water [employer] threatened to shut off services in your home? Yes 07/03/2024 Social Connection and Isolation Panel Answer Date Recorded In a typical week, how many times do you talk on the phone with family, friends, or neighbors? Twice a week 07/03/2024 How often do you get together with friends or re latives? Once a week 07/03/2024 How often do you attend christian or buddhism serv ices? Never 07/03/2024 Do you belong [...] Total Score - Questions 1-9 11 04/2019 [facility] of Occupat ional Health - Occupational [...] Sex Assigned at Female 03/19/2024 12:44 AM HOSPITAL CHIEF FINANCIAL OFFICER Legal Sex Female 3:50 AM CDT Gender Identity Female 03/19/2024 12:44 AM HOSPITAL CHIEF FINANCIAL OFFICER Sexual Orientation Not on file documented as of this encounter Plan of Treatment Upcoming Encounters Date Type Department Care Team (Late st Contact Info) Description 10/18/2024 1:30 PM CDT [facility] [address] [place] [address] Alycia Patel PAC [address] [place] [address] Discharge Disposition: Discharged to home or Selfcare 10/20/2024 1:30 PM CDT [facility] Services [address] [place] [address] 10/25/2024 1:30 PM CDT Clinical Support [facility] Oncology Services [address] [place] [address] 10/27/2024 1:30 PM CDT Clinical Support [facility] Oncology Services [address] [place] [address] 11/01/2024 1:30 PM CDT [facility] [address] [place] [address] 11/04/2024 4:00 PM CDT Office Visit [facility] [address] [place] [address] Valeria Ulloa APRN, IDENTIFICATION AND RECORDS COMMANDER [address] [place] [address] 12/13/2024 1:30 PM CDT Lab [facility] Oncology Services [address] [place] [address] 12/20/2024 1:20 PM CDT Office Visit [facility] Oncology Services [address] [place] [address] Alycia Patel, [facility] [address] [place] [address] documented as of this encounter Visit Diagnoses Not on filedocumented in this encounter Additional Health Concerns Assessment Noted Time PHQ-9 Depression Total Score: 11 020 8:36 AM CDT documented as of this encounter Care Teams Digester Cook Relationship Specialty Start Date End Date Morales Meza MD #[address] [address] PCP - General Family Medicine 01/05/20 Valeria Ulloa APRN, IDENTIFICATION AND RECORDS COMMANDER [address] [place] [address] Nurse Practitioner Advanced Practice Nurse 02/26/22 documented as of this encounter
--- OUTSIDE RECORDS SUMMARY | 2024-10-14 07:20 | XMS_ITS | Encounter Summary ---
Author Organization [facility] Address [address] [place] [address] Phone Care Team Providers Care French Drawer Name Role Phone Morales Meza MD Primary Care Provider [phone] Valeria Ulloa DIRECTOR OF CHANNEL MARKETING, MECHANICAL SPECIALIST Unavailable [phone] Reason for Visit * Reason Comments Medication Refill Encounter Details Date Type Department Care Team (Late st Contact Info) Description 04/22/2023 Refill [facility] Family [facility] #[address] [place] [id number] Jayson Mishra MD [address] [place] [address] Medication Refill Social History Tobacco Use Types [...] Sex Assigned at Female 03/19/2024 12:44 AM RECYCLER Legal Sex Female 3:50 AM CDT Gender Identity Female 03/19/2024 12:44 AM RECYCLER Sexual Orientation Not on file documented as of this encounter Miscellaneous Notes * Telephone Encounter - Dilma VanricARJUN albarran - 04/22/2023 3:18 PM RECYCLER Pt states she does not need medication and declined scheduling CLER * Telephone Encounter - Lizz Miller RN - 04/22/2023 8:32 AM CST Needs OV with PCP CLER * Telephone Encounter - Lizz Miller RN [...] Range Status 06/12/2022 13 <=41 U/L Final CLER documented in this encounter Plan of Treatment Upcoming Encounters Date Type Department Care Team (Late st Contact Info) Description 10/18/2024 1:30 PM CDT Clinical Support [facility] Oncology Services [address] [place] [address] Alycia Patel Joanne, [facility] [address] [place] [address] Discharge Disposition: Discharged to home or Selfcare 10/20/2024 1:30 PM CDT [facility] [address] [place] [address] 10/25/2024 1:30 PM CDT Clinical Support [facility] Oncology Services [address] [place] [address] 10/27/2024 1:30 PM CDT Clinical Support [facility] Oncology Services [address] [place] [address] 11/01/2024 1:30 PM CDT Clinical Support [facility] Oncology Services [address] [place] [address] 11/04/2024 4:00 PM CDT Office Visit [facility] - Neurology [facility] [address] [place] [address] Valeria Ulloa APRN, MECHANICAL SPECIALIST [address] [place] [address] 12/13/2024 1:30 PM CDT [facility] [address] [place] [address] 12/20/2024 1:20 PM CDT [facility] [address] [place] [address] Alycia Patel Joanne, [facility] [address] [place] [address] documented as of this encounter Visit Diagnoses Not on filedocumented in this encounter Additional Health Concerns Infection Onset Date Last Indicated Resolved Time COVID - 19 08/13/2023 08/13/2023 08/14/2023 12:0 4 AM CDT Assessment Noted Time PHQ-9 Depression Total Score: 11 020 8:36 AM CDT documented as of this encounter Care Teams French Drawer Relationship Specialty Start Date End Date Morales Meza MD #[address] [address] PCP - General Family Medicine 01/05/20 Valeria Ulloa APRN, MECHANICAL SPECIALIST [address] [place] [address] Nurse Practitioner Advanced Practice Nurse 02/26/22 documented as of this encounter
--- OUTSIDE RECORDS SUMMARY | 2024-10-14 07:20 | XMS_ITS | Encounter Summary ---
Author Organization [facility] Address [address] [facility] [place] [address] Phone Care Team Providers Care Account Strategist Name Role Phone Morales Meza MD Primary Care Provider [phone] Valeria Ulloa INSPECTOR HAIRSPRING TRUING, SINGLE PASS SOIL STABILIZER OPERATOR Unavailable [phone] Reason for Visit * Reason Comments Follow-up Encounter Details Date Type Department Care Team (Late st Contact Info) Description 10/13/2024 2:00 PM CDT [facility] [address] [place] [phone] Alycia Patel Joanne, PAC [address] [place] [address] Iron 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 dietary [...] a wine cooler maybe once a month [facility] Utilities Answer Date Recorded In the past 12 months has [employer], gas, oil, or water company threatened to [...] week 07/03/2024 How often do you attend sabianism or restorationism serv ices? Never 07/03/2024 Do you belong to any clubs o r organizations such as sabianism groups, unions, fraternal or athletic groups, or [...] Score - Questions 1-9 11 10/0 04/2019 [facility]ational Stress Questionnaire Answer Date [...] in a retirement (including now)? No 08/14/2023 Housing Stability Vital Sign Answer Ted e Recorded In the last 12 months, was t here a time when you were not able to pay the mortgage or rent on time? Yes 07/03/2024 In the past 12 months, how m any times have you moved where you were living? 0 07/03/2024 At any time in the past [address] [facility], were you homeless or living in a retirement (including now)? No 07/03/2024 Education Answer Date Recorded What is the highest level of school you have completed or the highest degree you have received? Associate degree: academic program 05/06/2021 Sexually Active Control Partners Comments Yes Other Male Comments No Sex and Gender Information Value Date Recorded Sex Assigned at Female 03/19/2024 12:44 AM BUILDING ANALYST/SUPERVISOR Legal Sex Female 3:50 AM CDT Gender Identity Female 03/19/2024 12:44 AM BUILDING ANALYST/SUPERVISOR Sexual Orientation Not on file documented as [...] assist with folic acid supplementation or begin zzxx-jud-jvehlub folic acid, 400 mcg, 1 tablet daily [...] through Care Everywhere. * Vitamin B12 Deficiency (Eritrean) documented in this encounter Progress Notes * [...] 0 min Stress: Stress Concern Present (07/03/2024) [facility] - Occupational Stress Questionnaire Feeling of Stress : Very much Social Integration: Moderately Isolated (07/03/2024) Social Connection and Isolation Panel Frequency of Communication with Friends and Family: Twice a week Frequency of Social Gatherings with Friends and Family: Once a week Attends Christianity Services: Never Active Member of Clubs or [...] CHAINS SERUM Result Value Ref Range Free [employer] 25.19 (H) 3.30 - 19.40 [...] assist with folic acid supplementation or begin axja-moi-zlyphhk folic acid, 400 mcg, 1 tablet daily [...] Description 10/18/2024 1:30 PM CDT Clinical Support [facility] Oncology Services [address] [place] [address] Alycia Patel Joanne, [facility] [address] [place] [address] Discharge Disposition: Discharged to home or Selfcare 10/20/2024 1:30 PM CDT Clinical Support [facility] Oncology Services [address] [place] [address] 10/25/2024 1:30 PM CDT Clinical Support [facility] Oncology Services [address] [place] [phone] 10/27/2024 1:30 PM CDT Clinical Support [facility] Oncology Services [address] [place] [address] 11/01/2024 1:30 PM CDT Clinical Support [facility] Oncology Services [address] [place] [phone] 11/04/2024 4:00 PM CDT Office Visit [facility] Medical [facility] - Neurology [facility] [address] [place] [address] Valeria Ulloa APRN, SINGLE PASS SOIL STABILIZER OPERATOR [address] [place] [address] 12/13/2024 1:30 PM CD[facility] [address] [place] [address] 12/20/2024 1:20 PM CDT [facility] [address] [place] [address] Alycia Patel Joanne, [facility] [address] [place] [address] Scheduled Orders Name Type Priority Associated Diagnoses [...] documented as of this encounter Care Teams Account Strategist Relationship Specialty Start Date End Date Morales Meza MD #[address] [address] PCP - General Family Medicine 01/05/20 Valeria Ulloa APRN, SINGLE PASS SOIL STABILIZER OPERATOR [address] [place] [address] Nurse Practitioner Advanced Practice Nurse 02/26/22 documented as of this encounter
--- OUTSIDE RECORDS SUMMARY | 2024-10-14 07:20 | XMS_ITS | Clinical Summary ---
Author Organization [facility] Address [address] [place] [address] Care Team Providers Care Manager Biologics Name Role Phone Jazmin Saab MD Unavailable [phone] Morales Meza MD Primary Care Provider [phone] Allergies Active Allergy Reactions Criticality Noted Date Comments Codeine Other (See comments),Syncope,Hiv es,Itching High 08/31/2018 Makes pt pass out Fainting Miconazole Itching,Swelling Medium 12/18/2019 Miconazole Lefglck-Pachpv-Lold Itching,Swelling Medium 12/18/2019 Morphine Other (See comments),Syncope,Hiv [...] (08/08/2019): Added automatically from request for surgery [id number] Hx of preeclampsia, prior pr egnancy, currently [...] Full MFM Care; Referring Provider: Linda Milan [phone] [x] Dating Criteria:LMP 11/10/18 DIANA 08/17/19. [x] [...] [] MOC: [] Method of feeding: [] Systems Integration Manager: [] PP Depression Discussed: Immunizations Immunization Administration [...] staff should administer the PHQ-9) 0 09/20/2019 [place] Depression Scale Answer Date Recorded [place] Depression Scale Total 0 09/20/2019 The thought [...] Most Recently Relevant to Health Maintenance Insurance Utility Funding MEDICARE PPO IDPA Utility Funding MEDICARE PPO IDPA HUMANA CHOICE MEDICARE PPO IDPA [facility] ADVANTAGE Advance Directives For more information, please contact: [phone] * Full Code (Latest Code Status on [...] in case of cardiopulmonary arrest Care Teams Manager Biologics Relationship Specialty Start Date End Date Morales Meza MD [address] [address] PCP - General Family Medicine 06/17/21 Jazmin Saab MD [address] [place] [address] Referring Physician Obstetrics and Gynecology 01/10/19
[2024-10-14 07:30] LABS: Add Urine Microscopic? YES; Appearance Urine Clear (Clear); Glucose Urine UA Negative (Negative); Leukocyte Esterase Ur 2+ LEU/UL (Negative); Need Manual Microscopic Reviewed; Nitrate Urine Negative (Negative); Non Pathogenic Casts 0-2; Specific Grav Ur 1.016 (1.001-1.035)
[2024-10-14 07:33] LABS: Cannabinoid Screen Urine Positive (Negative)
[2024-10-14] MEDS: levETIRAcetam 1000MG/NACL100ML 1,000 MG/100 ML BAG 400 MG IVPB (07:57)
--- NOTE | 2024-10-14 08:24 | ED.SEIZURE ---
HPI - Seizure General Chief Complaint: Seizure Stated Complaint: seziure Time Seen by Provider: 10/14/24 07:03 History of Present Illness HPI Narrative: Patient is a 44-year-old female who presents to the ER with reports of seizure. She reports she has been having them intermittently for 4 years. She recently told her PCP and is scheduled to follow-up with a neurologist in [place] on November 04. Patient does not know the name of the physician. Reports she came in today because she had 2 episodes which is atypical. She reports she begins to have loss of hearing and then loses consciousness. She always urinates on herself. No provoking factors that she can identify. Related Data Home Medications ?Medication ?Instructions ?Recorded ?Confirmed ?Last Taken ?Type alprazolam 1 mg tablet 1 mg PO DAILY 10/29/20 02/20/24 02/20/24 History aripiprazole 30 mg tablet (Abilify) 30 mg PO DAILY 10/29/20 02/20/24 02/20/24 History ferrous sulfate 325 mg (65 mg 325 mg PO DAILY 10/29/20 02/20/24 02/20/24 History iron) tablet (Iron (ferrous sulfate)) venlafaxine 150 mg 150 mg PO DAILY 10/29/20 02/20/24 02/20/24 History capsule,extended release 24 hr (Effexor XR) divalproex 250 mg tablet,delayed 250 mg PO DAILY 03/16/22 02/20/24 02/20/24 History release (Depakote) atorvastatin 10 mg tablet 10 mg PO DAILY 11/08/23 02/20/24 02/20/24 History Aspir-81 81 mg PO DAILY 02/20/24 02/20/24 02/20/24 History Quviviq 25 mg PO DAILY 02/20/24 02/20/24 02/19/24 History Allergies Allergy/AdvReac Type Severity Reaction Status Date / Time miconazole (From Monistat 3) AdvReac Severe Swelling Verified 10/14/24 05:42 morphine AdvReac Severe Other Verified 10/14/24 05:42 skin cleanser combination AdvReac Severe Swelling Verified 10/14/24 05:42 no.17 (From Monistat 3) codeine AdvReac Intermediate Other Verified 10/14/24 05:42 Review of Systems Constitutional: Constitutional: Reports no additional constitutional complaints ENT: Reports system reviewed and no additional complaints, except as documented Cardiovascular: Cardiovascular: Reports no additional cardiovascular complaints Gastrointestinal: Gastrointestinal: Reports no additional gastrointestinal complaints Genitourinary: Genitourinary: Reports no additional female genitourinary complaints Neurologic: Reports system reviewed and no additional complaints, except as documented PMFSH Past Medical History Medical History Anemia Anxiety and depression Celiac disease History of blood transfusion Insomnia Recurrent headache Surgical History Surgical History H/O gastric bypass History of abdominoplasty Hx of cholecystectomy Previous section Status post bilateral breast reduction Family History Family History Other No significant family history Social History Social History Smoking packs per day: 0.25 Smoking cigarettes per day: 5.0 Years smoked: 5 Smoking pack-years: 1.25 Smoking status: Current every day smoker Tobacco type: cigarettes Second hand tobacco smoke exposure: No Additional smoking assessment comments: quit age 20 Alcohol intake: current Drinks per week: 1 Alcohol use details: rare social Substance use: never Substance use type: does not use Do You Feel Safe in your Home?: Yes Lack of Transportation: No Lack of Food: Never True Current Housing: I Have Housing Concerned About Future Housing: No Difficulty Paying Gas/Electric Bills: No Difficulty Paying for Meds: No Currently Unemployed: No Education: Associate Degree Difficulty w/ Childcare or Family Care: No Living arrangements: with family Additional living arrangements comments: and daughter Gender identity (if verbalized by the patient): Female Spiritual care concerns: No Exam Narrative: GENERAL: Well-appearing, well-nourished, and in no acute distress. HEAD: Normocephalic, atraumatic. EYES: PERRL and EOMI. ENT: Mucous membranes moist. No evidence of tongue biting CHEST: Clear to auscultation. No respiratory distress. HEART: Regular rate and rhythm. Normal peripheral pulses. ABDOMEN: Soft, nontender, nondistended. EXTREMITIES: Normal range of motion. No edema. SKIN: Warm, dry, no rash. NEURO: Alert and oriented x3. PSYCH: Normal mood and affect. Course Course Emergency Course: Given the recurrent nature patient seizures she has been given Keppra 1 g. She will be started on 500 mg twice a day outpatient. She can follow up with her neurologist in 3 weeks as previously scheduled. Patient does not think her seizures are associated with withdrawal from benzodiazepines. Vital Signs Vital signs: Vital Signs Temperature 98.1 F 10/14/24 05:37 Pulse Rate 85 10/14/24 05:37 Respiratory Rate 17 10/14/24 05:37 Blood Pressure 134/73 10/14/24 05:37 Pulse Oximetry 100 10/14/24 05:37 Oxygen Delivery Room Air 10/14/24 05:37 Temperature 98.1 F 10/14/24 05:37 Pulse Rate 76 10/14/24 09:30 Respiratory Rate 23 H 10/14/24 09:30 Blood Pressure 121/80 10/14/24 09:17 Pulse Oximetry 100 10/14/24 09:30 Oxygen Delivery Room Air 10/14/24 05:41 MDM - Seizure Lab Data 10/14/24 06:35 10/14/24 06:35 Labs: Lab Results 10/14/24 10/14/24 Range/Units 06:35 06:59 WBC 8.0 (4.5-10.0) K/mm3 RBC 4.41 (4.2-5.4) M/mm3 Hgb 10.5 L D (12.0-15.0) g/dL Hct 35.3 L (37.0-47.0) % MCV 80.0 (80-100) fl MCH 23.8 L (26-34) pg MCHC 29.7 L (32-36) g/dl RDW 20.1 H (11.5-14.5) % Plt Count 234 (150-375) k/mm3 MPV TNP Immature Gran % (Auto) 0.4 (0-0.5) % Neut % (Auto) 46.8 (45.5-73.1) % Lymph % (Auto) 39.3 (18.3-44.2) % Montgomery % (Auto) 7.0 (2.6-8.5) % Eos % (Auto) 5.5 H (0-4.4) % Baso % (Auto) 1.0 (0.2-1.2) % Lymph # (Auto) 3.13 (0.9-3.2) K/mm3 Montgomery # (Auto) 0.6 (0.1-0.6) K/mm3 Eos # (Auto) 0.4 H (0-0.3) K/mm3 Baso # (Auto) 0.1 (0.0-0.1) K/mm3 Abs Immat Gran (auto) 0.03 (0.00-0.031) K/mm3 Absolute Neuts (auto) 3.7 (1.3-6.7) K/mm3 Absolute Nucleated RBC 0.000 (0.0-0.012) K/mm3 Band Neutrophils % Not Reportable Nucleated RBC % 0.0 (0.0-0.2) % Platelet Estimate Adequate (Adequate) % Immature Plt Fraction 9.9 (0.9-11.2) % Hypochromasia 1+ Anisocytosis 1+ Target Cells 1+ Schistocytes None seen Sodium 137 (137-145) mmol/L Potassium 3.7 (3.4-5.0) mmol/L Chloride 107 (98-107) mmol/L Carbon Dioxide 23 (22-30) mmol/L Anion Gap 7 (4-12) mmol/L BUN 14 (7-17) mg/dL Creatinine 0.79 (0.7-1.0) mg/dL Estim Creat Clear Calc 97 ml/min Estimated GFR > 60 (59 - ) Glucose 93 (65-110) mg/dL Calcium 8.7 (8.4-10.2) mg/dL Magnesium 2.2 (1.6-2.3) mg/dL Total Bilirubin 0.2 (0.2-1.3) mg/dL AST 22 (14-36) U/L ALT 12 (6-35) U/L Alkaline Phosphatase 62 (38-126) U/L Total Creatine Kinase 93 (30-135) U/L Total Protein 6.5 (6.3-8.2) g/dL Albumin 3.8 (3.5-5.1) g/dL Lipase 89 (23-300) U/L Serum HCG, Qual Negative Urine Color Yellow (Yellow) Urine Appearance Clear (Clear) Urine pH 7.0 (5.0-9.0) Ur Specific Gardner 1.016 (1.001-1.035) Urine Protein Negative (Negative) mg/dL Urine Glucose (UA) Negative (Negative) mg/dL Urine Ketones Negative (Negative) mg/dL Ur Blood (Man) Negative (Negative) Urine Nitrate Negative (Negative) Urine Bilirubin Negative (Negative) Urine Urobilinogen 1.0 (<2.0) mg/dL Add Ur Microanalysis Reviewed Leukocyte Esterase Rfl 2+ H (Negative) NIURKA/UL Urine RBC 0-2 (0-2) /hpf Urine WBC 0-5 (0-3) /hpf Ur Squamous Epith Cells Occasional (Few) /hpf Urine Bacteria 1+ H /hpf Urine Casts 0-2 Urine Opiates Screen Negative (Negative) Urine Methadone Screen Negative (Negative) Ur Barbiturates Screen Negative (Negative) Ur Phencyclidine Scrn Negative (Negative) Ur Amphetamine Screen Negative (Negative) U Benzodiazepines Scrn Positive A (Negative) Urine Cocaine Screen Negative (Negative) U Cannabinoids Screen Positive A (Negative) ECG Data EKG #1: ECG completion date: 10/14/24 ECG completion time: 07:11 EKG Interpretation: normal rate (79), sinus rhythm, normal QRS, normal QT and NL axis Discharge Plan Discharge Clinical Impression: Seizure Patient Disposition: Home Condition: Stable Instructions: New-Onset Seizure in Adults (ED) Additional Instructions: Follow-up with your neurologist. Take the Keppra that was prescribed twice a day. You are not to operate a motor vehicle or any heavy machinery until your 6 months seizure-free and cleared by a neurologist. Patient Language: Wallisian Prescriptions: New levetiracetam [Keppra] 500 mg tablet 500 mg PO BID Qty: 60 0RF No Action atorvastatin 10 mg tablet 10 mg PO DAILY alprazolam 1 mg Tablet 1 mg PO DAILY venlafaxine [Effexor XR] 150 mg Capsule,Extended Release 24hr 150 mg PO DAILY ferrous sulfate [Iron (ferrous sulfate)] 325 mg (65 mg iron) Tablet 325 mg PO DAILY aripiprazole [Abilify] 30 mg Tablet 30 mg PO DAILY divalproex [Depakote] 250 mg Tablet,Delayed Release (Dr/Ec) 250 mg PO DAILY albuterol sulfate 90 mcg/actuation HFA aerosol inhaler 2 puff inhalation QID PRN (Reason: shortness of breath or wheezing) Qty: 6.7 0RF Rx Instructions: what ever is covered by insurance Quviviq 25 mg PO DAILY Aspir-81 81 mg PO DAILY Follow-up/Referrals: Derrick,Morales Cantu MD [Primary Care Provider] - 1 Week
== END 2024-10-14 11:19 | disposition home or self-care (01) ==
PROVIDERS: Emergency Medicine; Emergency Provider Emergency Medicine; PCP Internal Medicine
DX: G40.909 Epilepsy, unspecified, not intractable, without status epilepticus (principal); K90.0 Celiac disease; F32.A Depression, unspecified; F41.9 Anxiety disorder, unspecified; Z98.84 Bariatric surgery status; Z87.891 Personal history of nicotine dependence; Z86.2 Personal history of diseases of the blood and blood-forming organs and certain disorders involving the immune mechanism; Z90.49 Acquired absence of other specified parts of digestive tract; Z79.899 Other long term (current) drug therapy; Z79.82 Long term (current) use of aspirin; R94.31 Abnormal electrocardiogram [ECG] [EKG]
CPT/HCPCS: 36415; 80053; 80307; 81001; 82550; 83690; 83735; 84703; 85025; 85055; 93005; 96365; 99284; J1953

== ENCOUNTER 2024-11-12 03:57 | Emergency (ER) | payer MEDICARE, SELFPAY ==
[2024-11-12] VITALS (24 sets, daily range): BP systolic 104–125; BP diastolic 64–73; PULSE 68–95; RESP 17–31; TEMP 36.4; O2SAT 96–100
--- NOTE | ~2024-11-12 | CT_ITS ---
EXAMINATION: CT brain wo con DATE: 11/12/2024 04:52 INDICATION: Seizure TECHNIQUE: Computed tomography (CT) of the head was performed without intravenous contrast. Sagittal and coronal reconstructions were performed. The mA was adjusted according to patient size. Iterative reconstruction technique was employed. The dose-length product was 605.33 mGy-cm. COMPARISON: None FINDINGS: No acute intracranial hemorrhage, acute infarction or abnormal extra axial fluid collection. Ventricl es are normal and symmetric. No mass/mass effect. The orbits, paranasal sinuses and mastoid air cells are normal. IMPRESSION: 1. Normal head CT. Reviewed, dictated and finalized at location A. IMPRESSION: 1. Normal head CT.
--- OUTSIDE RECORDS SUMMARY | 2024-11-12 03:58 | XMS_ITS | Encounter Summary ---
Author Organization [facility] Address [address] [place] [address] Phone Care Team Providers Care Set Up Mechanic Stamping Machines Name Role Phone Morales Meza MD Primary Care Provider [phone] Valeria Ulloa INTERNET DEVELOPER, CLIENT SERVICE ASSOCIATE Unavailable [phone] Reason for Visit * Reason Comments Medication Refill Encounter Details Date Type Department Care Team (Late st Contact Info) Description 04/22/2023 Refill [facility] - Family Medicine [facility] [address] [place] [id number] Morales Meza MD #[address] [address] Medication Refill Social History Tobacco Use Types [...] Sex Assigned at Female 03/19/2024 12:44 AM SUPERVISOR FINE GRADING Legal Sex Female 3:50 AM CDT Gender Identity Female 03/19/2024 12:44 AM SUPERVISOR FINE GRADING Sexual Orientation Not on file documented as [...] Ref Range Status 06/12/2022 >60 >=60 Final RVISOR FINE GRADING documented in this encounter Plan of Treatment Upcoming Encounters Date Type Department Care Team (Late st Contact Info) Description 11/15/2024 2:00 PM CDT Clinical Support [facility] Oncology Services [address] [place] [address] Alycia Patel Joanne, PAC [address] [place] [address] Discharge Disposition: Discharged to home or Selfcare 11/17/2024 2:00 PM CDT Clinical Support [facility] Oncology Services [address] [place] [address] Alycia Patel Joanne, PAC [address] [place] [address] Discharge Disposition: Discharged to home or Selfcare 11/22/2024 2:00 PM CDT Clinical Support [facility] Oncology Services [address] [place] [address] PatelTerryAlyciaseptember, PAC [address] [place] [address] Discharge Disposition: Discharged to home or Selfcare 11/24/2024 2:00 PM CDT Clinical Support [facility] [address] [place] [address] PatelTerryAlycia June, PAC [address] [place] [address] Discharge Disposition: Discharged to home or Selfcare 12/13/2024 3:00 PM CDT Office Visit [facility] - Neurology [facility] [address] [place] [address] Valeria Ulloa APRN, CLIENT SERVICE ASSOCIATE [address] [place] [address] 01/10/2025 2:20 PM CDT Lab [facility] [address] [place] [address] PatelTerryAlycia June, PAC [address] [place] [address] Discharge Disposition: Discharged to home or Selfcare 01/17/2025 2:00 PM CDT Office Visit [facility] Oncology Services [address] [place] [address] PatelRboynseptember, PAC [address] [place] [address] Discharge Disposition: Discharged to home or Selfcare documented as of this encounter Visit Diagnoses Not on filedocumented in this encounter Additional Health Concerns Infection Onset Date Last Indicated Resolved Time COVID - 19 08/13/2023 08/13/2023 08/14/2023 12:0 4 AM CDT Assessment Noted Time PHQ-9 Depression Total Score: 11 020 8:36 AM CDT documented as of this encounter Care Teams Set Up Mechanic Stamping Machines Relationship Specialty Start Date End Date Morales Meza MD [facility] [facility] [facility] [address] [address] PCP - General Family Medicine 01/05/20 Valeria Ulloa APRN, CLIENT SERVICE ASSOCIATE [address] [facility] [place] [address] Nurse Practitioner Advanced Practice Nurse 02/26/22 documented as of this encounter
--- OUTSIDE RECORDS SUMMARY | 2024-11-12 03:58 | XMS_ITS | Encounter Summary ---
Author Organization [facility] Address [address] [place] [address] Phone Care Team Providers Care Grey Roll Man Name Role Phone Morales Meza MD Primary Care Provider [phone] Valeria Ulloa APRN, EMPLOYEE RELATIONS ASSISTANT Unavailable [phone] Reason for Visit * Reason Comments Medication Refill Encounter Details Date Type Department Care Team (Late st Contact Info) Description 02/16/2024 Refill [facility] - [facility]rology - [place] [address] [place] [id number] Valeria Ulloa, NURSE MANAGER, EMPLOYEE RELATIONS ASSISTANT [address] [place] [address] Medication Refill Social History Tobacco Use Types Packs/Day Years Used Date Smoking Tobacco: Former Cigarettes 2011 Smokeless Tobacco: Never Alcohol Use Standard Drinks/Week Comments Yes 0 (1 standard drink = 0.6 oz pur e alcohol) Very Rare [facility] Utilities Answer Date Recorded In the past 12 months has [employer], gas, oil, or water company threatened to shut off services in your home? No 08/14/2023 Social Connection and Isolation Panel Answer Date Recorded In a typical week, how many times do you talk on the phone with family, friends, or neighbors? Patient declined 08/14/2023 How often do you get togethe r with friends or relatives? Patient declined 08/14/2023 How often do you attend latter day or anglican serv ices? Patient declined 08/14/2023 Do you belong to any clubs o r organizations such as latter day groups, unions, fraternal or athletic groups, or [...] Total Score - Questions 1-9 11 04/2019 [facility] - [...] place to sleep or slept in a halfway (including now)? No 08/14/2023 Education Answer Date Recorded What is the highest level of school you have completed or the highest degree you have received? Associate degree: academic program 05/06/2021 Sexually Active [employer] Comments Yes Comments No Sex and Gender Information Value Date Recorded Sex Assigned at Female 03/19/2024 12:44 AM RN RESIDENTIAL Legal Sex Female 3:50 AM CDT Gender Identity Female 03/19/2024 12:44 AM RN RESIDENTIAL Sexual Orientation Not on file documented as of this encounter Plan of Treatment Upcoming Encounters Date Type Department Care Team (Late st Contact Info) Description 11/15/2024 2:00 PM CDT Clinical Support [facility] Oncology Services [address] [place] [address] Alycia Patel September, PAC [address] [place] [address] Discharge Disposition: Discharged to home or Selfcare 11/17/2024 2:00 PM CDT Clinical Support [facility] Oncology Services [address] [place] [address] Alycia Patel September, PAC [address] [place] [address] Discharge Disposition: Discharged to home or Selfcare 11/22/2024 2:00 PM CDT Clinical Support [facility] Oncology Services [address] [place] [address] September, PAC [address] [place] [address] Discharge Disposition: Discharged to home or Selfcare 11/24/2024 2:00 PM CDT Clinical Support [facility] Oncology Services [address] [place] [address] Patelseptember, PAC [address] [place] [address] Discharge Disposition: Discharged to home or Selfcare 12/13/2024 3:00 PM CDT Office Visit [facility] - Neurology [facility] [address] [place] [address] Valeria Ulloa APRN, EMPLOYEE RELATIONS ASSISTANT [address] [place] [address] 01/10/2025 2:[address] [facility] Oncology Services [address] [place] [address] PatelTerryAlyciaseptember, PAC [address] [place] [address] Discharge Disposition: Discharged to home or Selfcare 01/17/2025 2:00 PM CDT Office Visit [facility] Oncology Services [address] [place] [address] PatelTerryAlyciaseptember, PAC [address] [place] [address] Discharge Disposition: Discharged to home or Selfcare documented as of this encounter Visit Diagnoses Diagnosis TIA (transient ischemic attack) Unspecified transient cerebral ischemia documented in this encounter Additional Health Concerns Assessment Noted Time PHQ-9 Depression Total Score: 11 020 8:36 AM CDT documented as of this encounter Care Teams Grey Roll Man Relationship Specialty Start Date End Date Morales Meza MD [address] [address] PCP - General Family Medicine 01/05/20 Valeria Ulloa APRN, EMPLOYEE RELATIONS ASSISTANT #[address] [facility] [place] [address] Nurse Practitioner Advanced Practice Nurse 02/26/22 documented as of this encounter
--- OUTSIDE RECORDS SUMMARY | 2024-11-12 03:58 | XMS_ITS | Encounter Summary ---
Author Organization [facility] Address [address] [place] [address] Phone Care Team Providers Care Visual Basic Developer Name Role Phone Morales Meza MD Primary Care Provider [phone] Valeria Ulloa EMULSION COATER, SHANK PAPERER Unavailable [phone] Reason for Visit * Reason Comments Medication Refill Encounter Details Date Type Department Care Team (Late st Contact Info) Description 05/22/2023 Refill [facility] - Family Medicine [facility] [address] [place] [id number] Morales Meza MD #[address] [address] Medication Refill Social History Tobacco Use Types [...] Sex Assigned at Female 03/19/2024 12:44 AM DIRECTOR OF BILLING Legal Sex Female 3:50 AM CDT Gender Identity Female 03/19/2024 12:44 AM DIRECTOR OF BILLING Sexual Orientation Not on file documented as of this encounter Miscellaneous Notes * Telephone Encounter - Rosemary Van RMA - 05/28/2023 3:33 PM DIRECTOR OF BILLING LVM to schedule CTOR OF BILLING * Telephone Encounter - Lizz Miller RN - 05/22/2023 2:30 PM CST Needs OV with PCP CTOR OF BILLING * Telephone Encounter - Lizz Miller RN [...] Ref Range Status 06/12/2022 >60 >=60 Final CTOR OF BILLING documented in this encounter Plan of Treatment Upcoming Encounters Date Type Department Care Team (Late st Contact Info) Description 11/15/2024 2:00 PM CDT Clinical Support [facility] Oncology Services [address] [place] [address] Alycia Patel Joanne, PAC [address] [place] [address] Discharge Disposition: Discharged to home or Selfcare 11/17/2024 2:00 PM CDT Clinical Support [facility] Oncology Services [address] [place] [address] PatelRobynseptember, PAC [address] [place] [address] Discharge Disposition: Discharged to home or Selfcare 11/22/2024 2:00 PM CDT Clinical Support [facility] Oncology Services [address] [place] [address] PatelAlycia June, PAC [address] [place] [address] Discharge Disposition: Discharged to home or Selfcare 11/24/2024 2:00 PM CDT Clinical Support [facility] Oncology Services [address] [place] [address] [facility] Alycia June, PAC [address] [place] [address] Discharge Disposition: Discharged to home or Selfcare 12/13/2024 3:00 PM CDT Office Visit [facility] - Neurology [facility] [address] [place] [address] Valeria Ulloa, EMULSION COATER, SHANK PAPERER [address] [place] [address] 01/10/2025 2:20 PM CD[address] Lab [facility] Oncology Services [address] [place] [address] Patel Alycia June, PAC [address] [place] [address] Discharge Disposition: Discharged to home or Selfcare 01/17/2025 2:00 PM CDT Office Visit [facility] On[facility] Services [address] [place] [address] Alycia Patel Joanne, PAC [address] [place] [address] Discharge Disposition: Discharged to home or Selfcare documented as of this encounter Visit Diagnoses Not on filedocumented in this encounter Additional Health Concerns Infection Onset Date Last Indicated Resolved Time COVID - 19 08/13/2023 08/13/2023 08/14/2023 12:0 4 AM CDT Assessment Noted Time PHQ-9 Depression Total Score: 11 020 8:36 AM CDT documented as of this encounter Care Teams Visual Basic Developer Relationship Specialty Start Date End Date Morales Meza MD #[address] [address] PCP - General Family Medicine 01/05/20 Valeria Ulloa, EMULSION COATER, SHANK PAPERER [address] [place] [address] Nurse Practitioner Advanced Practice Nurse 02/26/22 documented as of this encounter
--- OUTSIDE RECORDS SUMMARY | 2024-11-12 03:58 | XMS_ITS | Encounter Summary ---
Author Organization [facility] Address [address] [place] [address] Phone Care Team Providers Care Public Health Director Name Role Phone Morales Meza MD Primary Care Provider Valeria Ulloa PROCESS SPECIALIST, NUTRITION PROGRAM INSTRUCTOR Unavailable [phone] Reason for Visit * Reason Comments Medication Refill Encounter Details Date Type Department Care Team (Late st Contact Info) Description 04/22/2023 Refill [facility] #2 [place] [id number] Jayson Mishra MD #1 [place] [address] Medication Refill Social History Tobacco Use Types [...] Sex Assigned at Female 03/19/2024 12:44 AM LABORER VEGETABLE FARM Legal Sex Female 3:50 AM CDT Gender Identity Female 03/19/2024 12:44 AM LABORER VEGETABLE FARM Sexual Orientation Not on file documented as of this encounter Miscellaneous Notes * Telephone Encounter - Dilma VanricARJUN albarran - 04/22/2023 3:18 PM LABORER VEGETABLE FARM Pt states she does not need medication and declined scheduling RER VEGETABLE FARM * Telephone Encounter - Lizz Miller RN - 04/22/2023 8:32 AM CST Needs OV with PCP RER VEGETABLE FARM * Telephone Encounter - Lizz Miller RN [...] Range Status 06/12/2022 13 <=41 U/L Final RER VEGETABLE [employer]ARM documented in this encounter Plan of Treatment Upcoming Encounters Date Type Department Care Team (Late st Contact Info) Description 11/15/2024 2:00 PM CDT Clinical Support [facility] Oncology Services [address] [facility] [place] [address] Alycia Patel September, PAC [address] [facility] [place] [address] Discharge Disposition: Discharged to home or Selfcare 11/17/2024 2:00 PM CDT Clinical Support [facility] [address] [facility] [place] [address] Alycia Patel September, PAC [address] [facility] [place] [place] [address] Discharge Disposition: Discharged to home or Selfcare 11/22/2024 2:00 PM CDT Clinical Support [facility] [address] [facility] [place] [address] Alycia Patel September, PAC [address] [facility] [place] [address] Discharge Disposition: Discharged to home or Selfcare 11/24/2024 2:00 PM CDT Clinical Support [facility] [address] [facility] [place] [address] Alycia Patel September, PAC [address] [facility] [place] [address] Discharge Disposition: Discharged to home or Selfcare 12/13/2024 3:00 PM CDT Office Visit [facility] #2 [place] [address] Valeria Ulloa APRN, NUTRITION PROGRAM INSTRUCTOR [address] [place] [address] 01/10/2025 2:20 PM CDT Lab [facility] [address] [place] [address] Alycia Patel September, PAC [address] [place] [address] Discharge Disposition: Discharged to home or Selfcare 01/17/2025 2:00 PM CDT Office [facility] [address] [place] [address] PatelAlycia September, PAC [address] [place] [address] Discharge Disposition: Discharged to home or Selfcare documented as of this encounter Visit Diagnoses Not on filedocumented in this encounter Additional Health Concerns Infection Onset Date Last Indicated Resolved Time COVID - 19 08/13/2023 08/13/2023 08/14/2023 12:0 4 AM CDT Assessment Noted Time PHQ-9 Depression Total Score: 11 020 8:36 AM CDT documented as of this encounter Care Teams Public Health Director Relationship Specialty Start Date End Date Morales Meza MD #[address] [address] PCP - General Family Medicine 01/05/20 Valeria Ulloa PROCESS SPECIALIST, NUTRITION PROGRAM INSTRUCTOR [address] [place] [address] Nurse Practitioner Advanced Practice Nurse 02/26/22 documented as of this encounter
--- OUTSIDE RECORDS SUMMARY | 2024-11-12 03:58 | XMS_ITS | Encounter Summary ---
Author Organization [facility] Address [address] [place] [address] Phone Care Team Providers Care Trust Evaluation Supervisor Name Role Phone Morales Meza MD Primary Care Provider [phone] Valeria Ulloa ORGAN ASSEMBLER, PIPELINE OPERATOR Unavailable [phone] Reason for Visit * Reason Comments Medication Refill Encounter Details Date Type Department Care Team (Late st Contact Info) Description 07/21/2023 Refill [facility] #2 [place] [id number] Morales Meza MD #[address] [address] Medication Refill Social History Tobacco Use Types [...] Sex Assigned at Female 03/19/2024 12:44 AM UNION CARPENTER Legal Sex Female 3:50 AM CDT Gender Identity Female 03/19/2024 12:44 AM UNION CARPENTER Sexual Orientation Not on file documented as [...] PM CDT Clinical Support [facility] Oncology Services [address] [place] [address] Alycia Patel September, PAC [address] [place] [address] Discharge Disposition: Discharged to home or Selfcare 11/17/2024 2:00 PM CDT Clinical Support [facility] Oncology Services [address] [place] [address] Alycia Patel September, PAC [address] [place] [address] Discharge Disposition: Discharged to home or Selfcare 11/22/2024 2:00 PM CDT Clinical Support [facility]cology [facility] [address] [place] [address] Alycia Patel September, PAC [address] [place] [address] Discharge Disposition: Discharged to home or Selfcare 11/24/2024 2:00 PM CDT Clinical Support [facility] Oncology Services [address] [place] [address] Alycia Patel Joanne, PAC 0 [place] [address] Discharge Disposition: Discharged to home or Selfcare 12/13/2024 3:00 PM CDT Office Visit [facility] - Neurology [facility] #2 [place] [address] Valeria Ulloa, TATI, PIPELINE OPERATOR [address] [place] [address] 01/10/2025 2:20 PM CDT Lab [facility] [address] [place] [address] Alycia Patel September, PAC 0 [place] [address] Discharge Disposition: Discharged to home or Selfcare 01/17/2025 2:00 PM CDT Office Visit [facility]cology Services [address] [place] [address] PatelAlycia Joanne, PAC 0 [place] [address] Discharge Disposition: Discharged to home or Selfcare documented as of this encounter Visit Diagnoses Not on filedocumented in this encounter Additional Health Concerns Infection Onset Date Last Indicated Resolved Time COVID - 19 08/13/2023 08/13/2023 08/14/2023 12:0 4 AM CDT Assessment Noted Time PHQ-9 Depression Total Score: 11 020 8:36 AM CDT documented as of this encounter Care Teams Trust Evaluation Supervisor Relationship Specialty Start Date End Date Morales Meza MD #[address] [address] PCP - General Family Medicine 01/05/20 Valeria Ulloa, TATI, PIPELINE OPERATOR [address] [place] [address] Nurse Practitioner Advanced Practice Nurse 02/26/22 documented as of this encounter
--- OUTSIDE RECORDS SUMMARY | 2024-11-12 03:58 | XMS_ITS | Encounter Summary ---
Author Organization [facility] Address [address] [place] [address] Phone Care Team Providers Care Cooking Chef Name Role Phone Morales Meza MD Primary Care Provider [phone] Valeria Ulloa DIRECTOR NURSES' REGISTRY, PLANT NURSERY WORKER Unavailable [phone] Reason for Visit * Reason Comments Medication Refill Encounter Details Date Type Department Care Team (Late st Contact Info) Description 06/21/2023 Refill [facility] #2 [place] [address] Morales Meza MD #[address] [address] Medication Refill Social History Tobacco Use Types [...] Sex Assigned at Female 03/19/2024 12:44 AM MARKETING INSTRUCTOR Legal Sex Female 3:50 AM CDT Gender Identity Female 03/19/2024 12:44 AM MARKETING INSTRUCTOR Sexual Orientation Not on file documented as [...] Description 11/15/2024 2:00 PM CDT Clinical Support [facility] Oncology Services [address] [place] [address] Patel, Alycia September, PAC [address] [place] [address] Discharge Disposition: Discharged to home or Selfcare 11/17/2024 2:00 PM CDT Clinical Support [facility] Oncology Services [address] [place] [address] PatelAlycia June, PAC [address] [place] [address] Discharge Disposition: Discharged to home or Selfcare 11/22/2024 2:00 PM CDT Clinical Support [facility] Oncology Services 0 [place] [address] PatelRobynseptember, PAC [address] [place] [address] Discharge Disposition: Discharged to home or Selfcare 11/24/2024 2:00 PM CDT Clinical Support [facility] Oncology Services 0 [place] [address] Patel Alycia June, PAC [address] [place] [address] Discharge Disposition: Discharged to home or Selfcare 12/13/2024 3:00 PM CDT Office Visit [facility] - Neurology - [place] [address] [place] [address] Valeria Ulloa APRN, PLANT NURSERY WORKER #2 [place] [address] 01/10/2025 2:20 PM CDT Lab [facility] [address] [place] [address] Alycia Patel September, PAC [address] [place] [address] Discharge Disposition: Discharged to home or Selfcare 01/17/2025 2:00 PM CDT Office Visit [facility] Oncology Services [address] [place] [address] PatelAlycia September, PAC [address] [place] [address] Discharge Disposition: Discharged to home or Selfcare documented as of this encounter Visit Diagnoses Not on filedocumented in this encounter Additional Health Concerns Infection Onset Date Last Indicated Resolved Time COVID - 19 08/13/2023 08/13/2023 08/14/2023 12:0 4 AM CDT Assessment Noted Time PHQ-9 Depression Total Score: 11 020 8:36 AM CDT documented as of this encounter Care Teams Cooking Chef Relationship Specialty Start Date End Date Morales Meza MD [facility] [address] [address] PCP - General Family Medicine 01/05/20 Valeria Ulloa APRN, PLANT NURSERY WORKER [address] [place] [address] Nurse Practitioner Advanced Practice Nurse 02/26/22 documented as of this encounter
--- OUTSIDE RECORDS SUMMARY | 2024-11-12 03:59 | XMS_ITS | Encounter Summary ---
Author Organization [facility] Address [address] [place] [address] Care Team Providers Care Vocational Auto Body Instructor Name Role Phone Unavailable Primary Care Provider Unavailabl e Encounter Details Date Type Department Care Team (Late st Contact Info) Description 04/30/2000 Outpatient Historical [facility] Internal Medicine [place] [address] [place] [address] Raf Pfeiffer MD [address] [place] [phone] Social History Tobacco Use Types Packs/Day Years Used Date Smoking Tobacco: Never Assessed Comments Unknown Sex and Gender Information Value Date Recorded Sex Assigned at Not on file Legal Sex Female 3:03 AM CAMP DIRECTOR Gender Identity Not on file Sexual Orientation Not on file documented as of this encounter Plan of Treatment Not on file documented as of this encounter Visit Diagnoses Not on filedocumented in this encounter
--- OUTSIDE RECORDS SUMMARY | 2024-11-12 03:59 | XMS_ITS | Encounter Summary ---
Author Organization [facility] Address [address] [place] [address] Phone Care Team Providers Care School Services Officer Name Role Phone Morales Meza MD Primary Care Provider [phone] Valeria Ulloa MULTIMEDIA PRODUCTION ASSISTANT, OPERATING SYSTEMS SPECIALIST Unavailable [phone] Reason for Visit * Reason Comments Medication Refill Encounter Details Date Type Department Care Team (Late st Contact Info) Description 08/20/2023 Refill [facility] #2 [place] [address] Morales Meza MD #[address] [address] Medication Refill Social History Tobacco Use Types Packs/Day Years Used Date Smoking Tobacco: Former Cigarettes 2011 Smokeless Tobacco: Never Alcohol Use Standard Drinks/Week Comments Yes 0 (1 standard drink = 0.6 oz pur e alcohol) Very Rare [facility] Utilities Answer Date Recorded In the past 12 months has [employer], gas, oil, or water company threatened to shut off services in your home? No 08/14/2023 Social Connection and Isolation Panel Answer Date Recorded In a typical week, how many times do you talk on the phone with family, friends, or neighbors? Patient declined 08/14/2023 How often do you get togethe r with friends or relatives? Patient declined 08/14/2023 How often do you attend samaritan or worship serv ices? Patient declined 08/14/2023 Do you belong to any clubs o r organizations such as samaritan groups, unions, fraternal or athletic groups, or [...] Total Score - Questions 1-9 11 04/2019 [facility] - [...] place to sleep or slept in a skilled nursing (including now)? No 08/14/2023 Education Answer Date Recorded What is the highest level of school you have completed or the highest degree you have received? Associate degree: academic program 05/06/2021 Sexually Active Control Partners Comments Yes Comments No Sex and Gender Information Value Date Recorded Sex Assigned at Female 03/19/2024 12:44 AM DATA CONTROL CLERK SUPERVISOR Legal Sex Female 3:50 AM CDT Gender Identity Female 03/19/2024 12:44 AM DATA CONTROL CLERK SUPERVISOR Sexual Orientation Not on file documented [...] order placed on 07/30/2023 10:14 AM Order [id number]: ketorolac (TORADOL) injection 30 mg (For orders [...] Description 11/15/2024 2:00 PM CDT Clinical Support [facility] Oncology Services [address] [place] [address] Alycia Patel PAC [address] [place] [address] Discharge Disposition: Discharged to home or Selfcare 11/17/2024 2:00 PM CDT Clinical Support [facility] Oncology Services [address] [place] [address] PatelAlycia ramirez September, PAC [address] [place] [address] Discharge Disposition: Discharged to home or Selfcare 11/22/2024 2:00 PM CDT [facility] [address] [place] [address] PatelRobynseptember, PAC [address] [place] [address] Discharge Disposition: Discharged to home or Selfcare 11/24/2024 2:00 PM CDT Clinical Support [facility] Oncology Services [address] [place] [address] PatelAlycia September, PAC [address] [place] [address] Discharge Disposition: Discharged to home or Selfcare 12/13/2024 3:00 PM CDT Office Visit [facility] - Neurology [facility] #2 [place] [address] Valeria Ulloa APRN, OPERATING SYSTEMS SPECIALIST [address] [place] [address] 01/10/2025 2:20 PM CDT [facility] 0 [place] [address] Patel Alycia June, PAC [address] [place] [address] Discharge Disposition: Discharged to home or Selfcare 01/17/2025 2:00 PM CDT [facility] [address] [place] [address] Robyn Patele Joanne, PAC [address] [place] [address] Discharge Disposition: Discharged to home or Selfcare documented as of this encounter Visit Diagnoses Not on filedocumented in this encounter Additional Health Concerns Assessment Noted Time PHQ-9 Depression Total Score: 11 020 8:36 AM CDT documented as of this encounter Care Teams School Services Officer Relationship Specialty Start Date End Date Morales Meza MD #[address] [address] PCP - General Family Medicine 01/05/20 Valeria Ulloa APRN, OPERATING SYSTEMS SPECIALIST [address] [place] [address] Nurse Practitioner Advanced Practice Nurse 02/26/22 documented as of this encounter
--- OUTSIDE RECORDS SUMMARY | 2024-11-12 03:59 | XMS_ITS | Encounter Summary ---
Author Organization [facility] Address [address] [place] [address] Care Team Providers Care Urology Nurse Name Role Phone Unavailable Primary Care Provider Unavailabl e Encounter Details Date Type Department Care Team (Late st Contact Info) Description 04/17/2000 Outpatient Historical [facility] Internal Medicine [place] [address] [place] [address] Raf Pfeiffer MD [address] [place] [phone] Social History Tobacco Use Types Packs/Day Years Used Date Smoking Tobacco: Never Assessed Comments Unknown Sex and Gender Information Value Date Recorded Sex Assigned at Not on file Legal Sex Female 3:03 AM FREIGHT LOADER Gender Identity Not on file Sexual Orientation Not on file documented as of this encounter Plan of Treatment Not on file documented as of this encounter Visit Diagnoses Not on filedocumented in this encounter
--- OUTSIDE RECORDS SUMMARY | 2024-11-12 03:59 | XMS_ITS | Clinical Summary ---
Author Organization [facility] Address [address] [place] [address] Care Team Providers Care Research Quality Assurance Analyst Name Role Phone Jazmin Saab MD Unavailable [phone] Morales Meza MD Primary Care Provider [phone] Allergies Active Allergy Reactions Criticality Noted Date Comments Codeine Other (See comments),Syncope,Hiv es,Itching High 08/31/2018 Makes pt pass out Fainting Miconazole Itching,Swelling Medium 12/18/2019 Miconazole Jggvxqz-Lxpcuk-Phcj Itching,Swelling Medium 12/18/2019 Morphine Other (See comments),Syncope,Hiv [...] (08/08/2019): Added automatically from request for surgery [id number] Hx of preeclampsia, prior pr egnancy, currently [...] Full MFM Care; Referring Provider: Linda Milan [phone] [x] Dating Criteria:LMP 11/10/18 DIANA 08/17/19. [x] [...] [] MOC: [] Method of feeding: [] Dumping Machine Operator: [] PP Depression Discussed: Immunizations [...] staff should administer the PHQ-9) 0 09/20/2019 Geismar Depression Scale Answer Date Recorded Geismar Depression Scale Total 0 09/20/2019 The thought [...] Screening 1998 Regular Well Visit/Exam 18-64 1998 HPV Vaccines (1 - 3-dose SCDM series) 2007 Varicella Vaccines (1 of 2 - 13+ 2-dose series) 04/04/2014 Depression Screening 09/19/2020 09/20/2019, 08/08/2019, 07/22/2019 Breast Cancer Screening-Mammogram 09/24/2023 09/23/2022, 09/23/2022 Influenza Vaccine (#1) 2024 1, 01/05/2020, 03/07/2014, Additional history exists DTaP/Tdap/Td Vaccine (2 - Td or Tdap) 06/14/2029 06/15/2019 Hepatitis C Screening Completed 01/05/2019 Pneumococcal vaccine <65 Aged Out No longer [...] Most Recently Relevant to Health Maintenance Insurance Offer[employer] MEDICARE PPO IDDE Offer[employer] MEDICARE PPO [address] IDPA HUMANA CHOICE MEDICARE PPO IDPA [facility] MEDICARE ADVANTAGE [facility] MEDICARE Address: [address] [address] [place] [address] Advance Directives For more information, please contact: [phone] * Full Code (Latest Code Status on [...] in case of cardiopulmonary arrest Care Teams Research Quality Assurance Analyst Relationship Specialty Start Date End Date Morales Meza MD [address] [address] PCP - General Family Medicine 06/17/21 Jazmin Saab MD [address] [place] [address] Referring Physician Obstetrics and Gynecology 01/10/19
--- OUTSIDE RECORDS SUMMARY | 2024-11-12 03:59 | XMS_ITS | Clinical Summary ---
Author Organization [facility] Address [address] [place] [address] Phone Care Team Providers Care Winterizer Name Role Phone Morales Meza MD Primary Care Provider [phone] Valeria Ulloa APRN, OPTICAL ELEMENT COATER Unavailable [phone] Allergies Active Allergy Reactions Criticality Noted Date [...] Active divalproex (DEPAKOTE) 125 MG Tablet Delayed ResponseIndicat ions:Episodic migraine Take 1 Tablet by mouth in the morning and at bedtime. 270 Tablet 3 2 Active albuterol 108 (90 Base) MCG/ACT Aerosol Solution take 2 Puffs by inhalation every 6 hours as needed for Cough. 6.7 g 3 Active Aripiprazole (ABILIFY) 20 MG Tablet Take 30 mg by mouth. 0 Active cyanocobalamin (VITAMIN B-12) 1000 MCG/ML SolutionIndicat ions:Vitamin B12 Deficiency 1 ml weekly x 4 weeks then every 2 weeks Indications: Inadequate Vitamin B12 10 mL 1 5 Active Syringe/Needle, Disp, (SYRINGE 3CC/23GX1) 23G X 1 3 ML MiscIndications :B12 deficiency USE DIRECTED 100 Each 5 Active Active Problems Problem Noted Date Diagnosed Date Folic acid deficiency 10/13/2024 Iron deficiency anemia ivana tarangoy to inadequate dietary iron intake 07/15/2024 B12 [...] Encounters Date Type Department Care Team Description 10/21/2024 Telephone [facility] [address] [place] [address] Valeria Ulloa APRN, OPTICAL ELEMENT COATER 10/19/2024 Telephone [facility] Neu[facility] [address] [place] [address] Valeria Ulloa ELECTRIC MOTOR ASSEMBLER AND TESTER, OPTICAL ELEMENT COATER 10/18/2024 1:30 PM CDT Clinical Support [facility] Oncology Services [address] [place] [address] Alycia Patel September, 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) Discharge Disposition: Discharged to home or Selfcare 10/18/2024 Travel 10/13/2024 2:00 PM CDT Office Visit [facility] [place] [address] [place] [phone] Alycia Patel Joanne, PAC 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); B12 deficiency; History of Swetha-en-Y gastric bypass; Folic acid deficiency Discharge Disposition: Discharged to home or Selfcare 10/13/2024 Travel 10/06/2024 Results Follow-Up [facility] [address] [place] [phone] Alycia Patel Joanne, PAC FOLIC ACID (FOLATE), FERRITIN, CMP (COMPREHENSIVE METABOLIC PANEL), Additional followed-up results: 7 10/05/2024 2:30 PM CDT Lab [facility] [address] [place] [phone] Song Craft MD Norris, Arlene Joanne, PAC Iron 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 dietary iron intake; B12 deficiency Discharge Disposition: Discharged to home or Selfcare 10/05/2024 Travel 09/14/[address] [facility] - Neurology [facility] [address] [place] [address] Valeria Ulloa APRN, OPTICAL ELEMENT COATER from Last 3 Months Immunizations Immunization Administration [...] a wine cooler maybe once a month [facility] Utilities Answer Date Recorded In the past 12 months has th e electric, gas, oil, or water company threatened to [...] week 07/03/2024 How often do you attend latter-day or amish serv ices? Never 07/03/2024 Do you belong to any clubs o r organizations such as latter-day groups, unions, fraternal or athletic groups, or [...] Score - Questions 1-9 11 10/0 04/2019 [facility] [place] of Occupat ional Health - Occupational Stress [...] place to sleep or slept in a fpc (including now)? No 08/14/2023 Housing Stability Vital [...] were you homeless or living in a fpc (including now)? No 07/03/2024 Education Answer Date Recorded What is the highest level of school you have completed or the highest degree you have received? Associate degree: academic program 05/06/2021 Sexually Active Control Partners Comments Yes Other Male Comments No Sex and Gender Information Value Date Recorded Sex Assigned at Female 03/19/2024 12:44 AM VARNISHER APPRENTICE Legal Sex Female 3:50 AM CDT Gender Identity Female 03/19/2024 12:44 AM VARNISHER APPRENTICE Sexual Orientation Not on file Last Filed Vital Signs Vital Sign Reading Time Taken Comments Blood Pressure 115/75 10/18/2024 1:22 PM CDT Pulse 101 10/18/2024 1:22 PM CDT Temperature 36.4 C (97.5 F) 10/18/2024 1:22 PM CDT Respiratory Rate 16 10/18/2024 1:22 PM CDT Oxygen Saturation 98% 10/18/2024 1:22 PM CDT Inhaled Oxygen Concentration - - Weight 106.4 kg (234 lb 8 oz) 10/13/2024 2:05 PM CDT Height 167.6 cm (5' 6) 10/13/2024 2:05 PM CDT Body Mass Index 37.85 10/13/2024 2:05 PM CDT Plan of Treatment Upcoming Encounters Date Type Department Care Team (Late st Contact Info) Description 11/15/2024 2:00 PM CDT Clinical Support [facility] Oncology Services [address] [place] [address] Alycia Patel September, PAC [address] [place] [address] Discharge Disposition: Discharged to home or Selfcare 11/17/2024 2:00 PM CDT Clinical Support [facility] [address] [place] [address] Alycia Patel September, PAC [address] [place] [address] Discharge Disposition: Discharged to home or Selfcare 11/22/2024 2:00 PM CDT Clinical Support [facility] On[facility] [address] [place] [address] Alycia Patel September, PAC [address] [place] [address] Discharge Disposition: Discharged to home or Selfcare 11/24/2024 2:00 PM CDT Clinical Support [facility] Services [address] [place] [address] Alycia Patel September, PAC [address] [place] [address] Discharge Disposition: Discharged to home or Selfcare 12/13/2024 3:00 PM CDT [facility] - [facility] [address] [place] [address] Valeria Ulloa APRN, OPTICAL ELEMENT COATER [address] [place] [address] 01/10/2025 2:20 PM CDT Lab [facility] [address] [place] [address] Alycia Patel Joanne, PAC [address] [place] [address] Discharge Disposition: Discharged to home or Selfcare 01/17/2025 2:00 PM CDT [facility] [address] [place] [address] Alycia Patel Joanne, PAC [address] [place] [address] Discharge Disposition: Discharged to home or Selfcare Health Maintenance Due Date Last Done Comments Hepatitis C Virus (HCV) Screening 1980 Hepatitis B Immunization (1 of 3 - 19+ 3-dose series) 1999 Pap Smear 2001 Human Papillomavirus (HPV) Immunization (1 - 3-dose SCDM series) 2007 Cervical Cancer Screening (CCS) 2010 HPV/Cotest 2010 [...] * (ABNORMAL) IRON,TRANSFERN,CALC.TIBC,%SAT (10/05/2024 2:22 PM CDT) Pathologist [facility] IRON 20(L) 25 - 156 mcg/dL 10/05/2024 3:03 PM CDT [facility] TRANSFERRIN 315 180 - 382 mg/dL 10/05/2024 3:03 PM CDT [facility] TIBC, CALCULATED 394 265 - 497 mcg/dL 10/05/2024 3:03 PM CDT [facility] % SATURATION * 5(L) 15 - 62 % 10/05/2024 3:03 PM CDT [facility] Blood Venipuncture / Unknown 10/05/2024 2:22 PM CDT 10/05/2024 2:22 PM CDT Alycia Patel PAC CHEMISTRY ORDERABLES Anais l Result [facility] [address] [place] [address] * (ABNORMAL) CBC WITH AUTO DIFFERENTIAL (10/05/2024 2:22 PM CDT) Pathologist [facility] WBC 7.73 4.00 - 12.00 10(3)/mcL 10/05/2024 3:55 PM CDT [facility] RBC 4.65 3.80 - 5.30 10(6)/mcL 10/05/2024 3:55 PM CDT [facility] HEMOGLOBIN (HGB) 11.2(L) 12.0 - 15.8 g/dL 10/05/2024 3:55 PM CDT [facility] HEMATOCRIT (HCT) 36.9 36.0 - 47.0 % 10/05/2024 3:55 PM CDT [facility] MCV 79.4(L) 82.0 - 96.0 fL 10/05/2024 3:55 PM CDT [facility] MCH 24.1(L) 26.0 - 34.0 pg 10/05/2024 3:55 PM CDT [facility] MCHC 30.4(L) 31.0 - 36.0 g/dL 10/05/2024 3:55 PM CDT [facility] PLATELET COUNT 273 140 - 440 10(3)/mcL 10/05/2024 3:55 PM CDT [facility] RDW 21.4(H) 11.8 - 15.5 % 10/05/2024 3:55 PM CDT [facility] MPV 11.8 9.7 - 12.4 fL 10/05/2024 3:55 PM CDT [facility] NEUTROPHILS 59.0 47.0 - 73.0 % 10/05/2024 3:55 PM CDT [facility] LYMPHOCYTES 30.0 18.0 - 42.0 % 10/05/2024 3:55 PM CDT [facility] MONOCYTES 5.8 4.0 - 12.0 % 10/05/2024 3:55 PM CDT [facility] EOSINOPHILS 4.0 0.0 - 5.0 % 10/05/2024 3:55 PM CDT [facility] BASOPHILS 0.9 0.0 - 1.0 % 10/05/2024 3:55 PM CDT [facility] IMMATURE GRANULOCYTE 0.3 0.0 - 0.4 % 10/05/2024 3:55 PM CDT [facility] Comment:Immature Granulocyte s includes Metamyelocytes, Myelocytes, and Promyelocytes. ABSOLUTE NEUTROPHILS 4.56 1.60 - 7.70 10(3)/[facility] 10/05/2024 3:55 PM CDT [facility] ABSOLUTE LYMPHOCYTES 2.32 1.30 - 3.20 10(3)/[facility] 10/05/2024 3:55 PM CDT [facility] ABSOLUTE MONOCYTES 0.45 0.20 - 1.00 10(3)/[facility] 10/05/2024 3:55 PM CDT [facility] ABSOLUTE EOSINOPHIL 0.31 0.00 - 0.40 10(3)/[facility] 10/05/2024 3:55 PM CDT [facility] ABSOLUTE BASOPHILS 0.07 0.00 - 0.10 10(3)/[facility] 10/05/2024 3:55 PM CDT [facility] ABSOLUTE IMMATURE GRANULOCYTE 0.02 0.00 - 0.03 10 (3) [facility]. 10/05/2024 3:55 PM CDT [facility] NRBC PER 100 WBC 0 10/06/19 3:55 PM CDT [facility] RESULTS ARE CONSISTENT WITH PERIPHERAL SMEAR REVIEW Yes 10/05/2024 3:55 PM CDT [facility] RBC MORPHOLOGY CONSISTENT WITH INDICES Yes 10/05/2024 3:55 PM CDT [facility] POIKILOCYTOSIS 1+ 10/05/2024 3:55 PM CDT [facility] OVALOCYTES Present 10/05/2024 3:55 PM CDT [facility] LARGE PLATELETS 1+ 3:55 PM CDT [facility] Blood Venipuncture / Unknown 10/05/2024 2:22 PM CDT 10/05/2024 2:22 PM CDT Narrative [facility] - 10/05/2024 3:55 PM CDT Anisocytosis Microcytosis Hypochromia us Alycia Patel PAC HEMATOLOGY ORDERABLES Fin al Result [facility] [address] [place] [address] * (ABNORMAL) FREE KAPPA & LAMBDA LIGHT CHAINS SERUM (10/05/2024 2:22 PM CDT) Free Stoddard Lt Chn 25.19(H) 3.30 - 19.40 mg/L 10/06/2024 10:05 AM CDT [facility] Free Lambda Lt Chn 15.52 5.71 - 26.30 mg/L 10/06/2024 10:05 AM CDT [facility] free wai tomas ratio 1.62 0.26 - 1.65 10/06/2024 10:05 AM CDT [facility] Blood Venipuncture / Unknown 10/05/2024 2:22 PM CDT 10/05/2024 2:22 PM CDT [facility] PAC CHEMISTRY ORDERABLES Anais l Result [facility] [address] [place] [address], [place] * VITAMIN B12 (10/05/2024 2:22 PM CDT) Pathologist [facility] VITAMIN B12 235 213 - 816 pg/mL 10/05/2024 3:33 PM CDT [facility] Blood Venipuncture / Unknown 10/05/2024 2:22 PM CDT 10/05/2024 2:22 PM CDT Alycia Joanne Kihon PAC CHEMISTRY ORDERABLES Anais l Result [facility] [address] [place] [address] * RETICULOCYTE COUNT (RETIC) (10/05/2024 2:22 PM CDT) RETICULOCYTES 0.9 0.5 - 2.0 % 10/05/2024 2:43 PM CDT [facility] Blood Venipuncture / Unknown 10/05/2024 2:22 PM CDT 10/05/2024 2:22 PM CDT [facility] HEMATOLOGY ORDERABLES Fin al Result [facility] [address] [place] [address] * LACTATE DEHYDROGENASE (LD) (10/05/2024 2:22 PM CDT) Pathologist [facility] LDH 175 125 - 220 U/L 10/05/2024 3:03 PM CDT [facility] Blood Venipuncture / Unknown 10/05/2024 2:22 PM CDT 10/05/2024 2:22 PM CDT [facility] CHEMISTRY ORDERABLES Anais l Result Performing Organization Address City/[facility]/ZIP Co de Phone Number [facility] [address] [place] [address] * (ABNORMAL) IMMUNOFIXATION W/ ELECTROPHORESIS SERUM (10/05/2024 2:22 PM CDT) Pathologist [facility] TOTAL PROTEIN 6.5 6.0 - 8.0 g/dL 10/10/2024 1:05 PM CDT [facility] % ALBUMIN 56.0 55.8 - 66.7 % 10/10/2024 1:05 PM CDT [facility] ALBUMIN SERUM 3.6 2.5 - 5.4 g/dL 10/10/2024 1:05 PM CDT [facility] % ALPHA 1 GLOBULIN 3.4 2.9 - 4.9 % 10/10/2024 1:05 PM CDT [facility] ALPHA 1 0.2 0.2 - 0.4 g/dL 10/10/2024 1:05 PM CDT [facility] % ALPHA 2 GLOBULIN 13.0(H) 7.1 - 11.8 % 10/10/2024 1:05 PM CDT [facility] ALPHA 2 0.8 0.5 - 1.0 g/dL 10/10/2024 1:05 PM CDT [facility] % BETA 15.2(H) 8.4 - 13.1 % 10/10/2024 1:05 PM CDT [facility] BETA-GLOBULIN 1.0 0.5 - 1.1 g/dL 10/10/2024 1:05 PM CDT [facility] % GAMMA GLOBULIN 12.4 11.1 - 18.8 % 10/10/2024 1:05 PM CDT [facility] GAMMA 0.8 0.7 - 1.5 g/dL 10/10/2024 1:05 PM CDT [facility] IMMUNOGLOBULIN G 761 552 - 1,631 mg/dL 10/10/2024 1:05 PM CDT [facility] IMMUNOGLOBULIN A 185 65 - 421 mg/dL 10/10/2024 1:05 PM CDT [facility] IMMUNOGLOBULIN M 64 33 - 293 mg/dL 10/10/2024 1:05 PM CDT [facility] INTERPRETATION SERUM No abnormal protein band is detected by serum protein electrophoresis. Serum immunofixation electrophoresis is negative for monoclonal immunoglobulins. Reviewed by Chintan Leon, Ph.D. 10/10/2024 1:05 PM CDT [facility] A/G RATIO, SERUM 1.3 10/11/19 25 1:05 PM CDT [facility] Blood Venipuncture / Unknown 10/05/2024 2:22 PM CDT 10/05/2024 2:22 PM CDT Narrative [facility] - 10/10/2024 1:05 PM CDT Reviewed by Alfa Milan M.D. us Alycia Joanne Patel PAC CHEMISTRY ORDERABLES Anais l Result [facility] [address] [place] [address] [address], [place] * (ABNORMAL) FOLIC ACID (FOLATE) (10/05/2024 2:22 PM CDT) Pathologist [facility] FOLATE 6.9(L) 7.0 - 31.4 ng/mL 10/05/2024 3:33 PM CDT [facility] IS THE PATIENT REQUIRED TO BE FASTING? No 10/05/2024 3:33 PM CDT [facility] Blood Venipuncture / Unknown 10/05/2024 2:22 PM CDT 10/05/2024 2:22 PM CDT [facility] PAC CHEMISTRY ORDERABLES Anais l Result Performing Organization Address City/[facility]/ZIP Co de Phone Number [facility] [address] [place] [address] * FERRITIN (10/05/2024 2:22 PM CDT) Pathologist [facility] FERRITIN 9 5 - 204 ng/mL 10/05/2024 3:20 PM CDT [facility] Blood Venipuncture / Unknown 10/05/2024 2:22 PM CDT 10/05/2024 2:22 PM CDT [facility] PAC CHEMISTRY ORDERABLES Anais l Result [facility] [address] [place] [address] * (ABNORMAL) CMP (COMPREHENSIVE METABOLIC PANEL) (10/05/2024 2:22 PM CDT) Pathologist [facility] SODIUM 139 136 - 145 mmol/L 10/05/2024 3:03 PM CDT [facility] POTASSIUM 3.7 3.5 - 5.1 mmol/L 10/05/2024 3:03 PM CDT [facility] CHLORIDE 108(H) 98 - 107 mmol/L 10/05/2024 3:03 PM CDT [facility] CO2, VENOUS 24 22 - 30 mmol/L 10/05/2024 3:03 PM CDT [facility] ANION GAP 10.7 <18.0 mmol/L 10/05/2024 3:03 PM CDT [facility] GLUCOSE 94 70 - 99 mg/dL 10/05/2024 3:03 PM CDT [facility] BUN 11 5 - 18 mg/dL 10/05/2024 3:03 PM CDT [facility] CREATININE, BLOOD 0.84 0.60 - 1.00 mg/dL 10/05/2024 3:03 PM CDT [facility] BUN/CREATININE RATIO 13 12 - 20 ratio 10/05/2024 3:03 PM CDT [facility] TOTAL PROTEIN 6.8 6.0 - 8.0 g/dL 10/05/2024 3:03 PM CDT [facility] ALBUMIN 4.1 3.5 - 5.0 g/dL 10/05/2024 3:03 PM CDT [facility] A/G RATIO 1.5 1.0 - 2.2 10/05/2024 3:03 PM CDT [facility] CALCIUM 8.9 8.7 - 10.5 mg/dL 10/05/2024 3:03 PM CDT [facility] T BILI 0.2 0.2 - 1.2 mg/dL 10/05/2024 3:03 PM CDT [facility] SGOT (AST) 19 <43 U/L 10/05/2024 3:03 PM CDT [facility] SGPT (ALT) 11 <56 U/L 10/05/2024 3:03 PM CDT [facility] ALKALINE PHOSPHATASE 69 40 - 150 U/L 10/05/2024 3:03 PM CDT [facility] IS THE PATIENT REQUIRED TO BE FASTING? No 10/05/2024 3:03 PM CDT [facility] GFR, ESTIMATED >60 >=60 10/05/2024 3:03 PM CDT [facility] Comment: Creatinine Clearance is the preferred criteria for selecting drug dose adjustments in renally impaired patients. The GFR is provided as additional pertinent clinical information. GFR is reported in mL/min/1.73 sq m. Calculation based on the Chronic Kidney Disease Epidemiology Collaboration (CKD- EPI) equation refit without adjustment for race. GFR, EST. >60 >=60 025 3:03 PM CDT [facility] GFR, EST. NONAFRICAN >60 >=60 10/05/2024 3:03 PM CDT [facility] Blood Venipuncture / Unknown 10/05/2024 2:22 PM CDT 10/05/2024 2:22 PM CDT us Alycia Patel PAC CHEMISTRY ORDERABLES Anais l Result [facility] [address] [place] [address] * SUSHIL SCREENING BILATERAL DIGITAL W CAD [...] exam. Electronically signed by: Shy bah/dayan:09/23/2022 23:06:31 Cryolite Recovery Operator(s): RT Jessica(R)(M), [facility] letter sent: Normal Exam Reading location: [facility] BI-RADS: 1 Negative Procedure Note Shy Smalls MD - 09/24/2022 - SUSHIL SCREENING BILATERAL DIGITAL W CAD W TIANA BILATERAL DIGITAL SCREENING MAMMOGRAM 3D/2D WITH CAD WITH MEDIOLATERAL OBLIQUE CRANIOCAUDAL: 09/23/2022 The study was acquired using digital technology and interpreted from soft copy. Current study was also evaluated with OrangeSoda[employer] version 7.2. 2D digital mammographic views, as [...] exam. Electronically signed by: Shy bah/dayan:09/23/2022 23:06:31 Cryolite Recovery Operator(s): RT Jessica(R)(M), [facility] letter sent: Normal Exam Reading location: [facility] BI-RADS: 1 Negative Sol Matthews APRN, [facility] IMG MAMMO ORDERABLES Final Result from Last 3 Months or Most Recently Relevant to Health Maintenance Insurance MEDICARE C [facility] Advance Directives * Full Code (Latest Code Status on File) Date Activated Date Inactivated Comments 08/14/2023 1:39 AM 08/14/2023 7:22 AM CPR-Full Ty atment: FULL ARREST: Attempt Resuscitation/CPR wit intubation and mechanical ventilation. PRE-ARREST: Use entire range of life support measures to stabilize the patient. Care Teams Winterizer Relationship Specialty Start Date End Date Morales Meza MD [address] [address] PCP - General Family Medicine 01/05/20 Valeria Ulloa, ELECTRIC MOTOR ASSEMBLER AND TESTER, OPTICAL ELEMENT COATER [address] [place] [address] Nurse Practitioner Advanced Practice Nurse 02/26/22
--- OUTSIDE RECORDS SUMMARY | 2024-11-12 03:59 | XMS_ITS | Clinical Summary ---
Author Organization [facility] Address [address] [place] [address] Care Team Providers Care Internal Combustion Engine Assembler Name Role Phone Unavailable Primary Care Provider [...] on file Legal Sex Female 3:03 AM PERSONNEL ASSISTANT Gender Identity Not on file Sexual Orientation [...] Health Maintenance Due Date Last Done Comments HPV VACCINES (1 - 3-dose series) 1995 HEPATITIS B VACCINES (1 of 3 - 19+ 3-dose series) 1999 HPV/Cotest (21-29) 2001 CERVICAL CANCER SCREENING 2010 HPV/Cotest (30-65) 2010 PAP SMEAR 2010 BREAST CANCER SCREENING 09/24/2023 09/23/2022, 09/23 INFLUENZA VACCINE (#1) 2024 01/24/2021, 2019 DTAP/TDAP/TD VACCINES (2 - Td or Tdap) 06/14/2029 Insurance [facility] CHOICE [id number]
--- OUTSIDE RECORDS SUMMARY | 2024-11-12 03:59 | XMS_ITS | Encounter Summary ---
Author Organization [facility] Address [address] [place] [address] Phone Care Team Providers Care Honey Blender Name Role Phone Morales eMza MD Primary Care Provider [phone] Valeria Ulloa SYSTEM TECHNOLOGIST, PEOPLESOFT BUSINESS ANALYST Unavailable [phone] Encounter Details Date Type Department Care Team (Late st Contact Info) Description 10/06/2024 Results Follow-Up [facility] Oncology Services [address] [place] [phone] Alycia Patel Joanne, PAC [address] [place] [address] FOLIC ACID (FOLATE), FERRITIN, CMP (COMPREHENSIVE METABOLIC PANEL), Additional followed-up results: 7 Social History Tobacco Use Types Packs/Day Years Used Date Smoking Tobacco: Never Cigarettes 2011 Passive Smoke Exposure: Yes Smokeless Tobacco: Never Alcohol Use Standard Drinks/Week Comments Yes 1 (1 standard drink = 0.6 oz pure alcohol) Drink a wine cooler maybe once a month [facility] Utilities Answer Date Recorded In the past 12 months has [employer], gas, oil, or water [employer] threatened to shut off services in your home? Yes 07/03/2024 Social Connection and Isolation Panel Answer Date Recorded In a typical week, how many times do you talk on the phone with family, friends, or neighbors? Twice a week 07/03/2024 How often do you get together with friends or re latives? Once a week 07/03/2024 How often do you attend rastafarian or buddhist serv ices? Never 07/03/2024 Do you belong [...] Score - Questions 1-9 11 10/0 04/2019 [facility] of Occupat ional Health - Occupational [...] any time in the past 12 [facility], were you homeless or living in a fpc (including now)? No 07/03/2024 Education Answer Date Recorded What is the highest level of school you have completed or the highest degree you have received? Associate degree: academic program 05/06/2021 Sexually Active Control Partners Comments Yes Other Male Comments No Sex and Gender Information Value Date Recorded Sex Assigned at Female 03/19/2024 12:44 AM SECURITIES SETTLEMENT PROCESSOR Legal Sex Female 3:50 AM CDT Gender Identity Female 03/19/2024 12:44 AM SECURITIES SETTLEMENT PROCESSOR Sexual Orientation Not on file documented as of this encounter Plan of Treatment Upcoming Encounters Date Type Department Care Team (Late st Contact Info) Description 11/15/2024 2:00 PM CDT Clinical Support [facility] Oncology Services [address] [place] [address] Alycia Patel Joanne, PAC [address] [place] [address] Discharge Disposition: Discharged to home or Selfcare 11/17/2024 2:00 PM CDT Clinical Support [facility] Oncology Services [address] [place] [address] Alycia Patel September, PAC [address] [place] [address] Discharge Disposition: Discharged to home or Selfcare 11/22/2024 2:00 PM CDT [facility] [address] [place] [address] Alycia Patel September, PAC [address] [place] [address] Discharge Disposition: Discharged to home or Selfcare 11/24/2024 2:00 PM CDT Clinical Support [facility] Oncology Services [address] [place] [address] Alycia Patel September, PAC [address] [place] [address] Discharge Disposition: Discharged to home or Selfcare 12/13/2024 3:00 PM CDT Office Visit [facility] Neurology [facility] [address] [place] [address] Valeria Ulloa, SYSTEM TECHNOLOGIST, PEOPLESOFT BUSINESS ANALYST [address] [place] [address] 01/10/2025 2:20 PM CDT Lab [facility] [address] [place] [address] Alycia Patel September, PAC [address] [place] [address] Discharge Disposition: Discharged to home or Selfcare 01/17/2025 2:00 PM CDT [facility] [address] [place] [address] Alycia Patel Joanne, PAC [address] [place] [address] Discharge Disposition: Discharged to home or Selfcare documented as of this encounter Visit Diagnoses Not on filedocumented in this encounter Additional Health Concerns Assessment Noted Time PHQ-9 Depression Total Score: 11 020 8:36 AM CDT documented as of this encounter Care Teams Honey Blender Relationship Specialty Start Date End Date Morales Meza MD [address] [address] PCP - General Family Medicine 01/05/20 Valreia Ulloa, SYSTEM TECHNOLOGIST, PEOPLESOFT BUSINESS ANALYST [address] [place] [address] Nurse Practitioner Advanced Practice Nurse 02/26/22 documented as of this encounter
--- OUTSIDE RECORDS SUMMARY | 2024-11-12 03:59 | XMS_ITS | Encounter Summary ---
Author Organization [facility] Address [address] [place] [place] [address] Phone Care Team Providers Care Quality Assurance Assistant Name Role Phone Morales Meza MD Primary Care Provider [phone] Valeria Ulloa REGIONAL TRAINER, GAME OPERATOR Unavailable [phone] Reason for Visit * Reason Onset Date Comments Fatigue 06/12/2022 Rapid Heart Rate 06/12/2022 Chest Pain 06/12/2022 Dizziness 06/12/2022 Encounter Details Date Type Department Care Team (Late st Contact Info) Description 06/12/2022 Nurse Triage [facility] [address] [place] [address] Morales Meza MD [address] [address] Fatigue; Rapid Heart Rate; Chest Pain; Dizziness Social History Tobacco Use Types Packs/Day Years Used Date Smoking Tobacco: Former Cigarettes 1 10 2 - 2011 Smokeless Tobacco: Never Alcohol Use Standard Drinks/Week Comments Yes 0 (1 standard drink = 0.6 oz pur e alcohol) Very Rare PHQ-2 Answer Date Recorded Total Score - Questions 1-9 11 10/0 04/2019 Education Answer Date Recorded What is the highest level of school you have completed or the highest degree you have received? Associate degree: academic program 05/06/2021 Comments No Sex and Gender Information Value Date Recorded Sex Assigned at Female 03/19/2024 12:44 AM FABRIC WORKER LEADER Legal Sex Female 3:50 AM CDT Gender Identity Female 03/19/2024 12:44 AM FABRIC WORKER LEADER Sexual Orientation Not on file COVID-19 Exposure Response Date Recorded In the last 10 days, have yo u been in contact with someone who was confirmed or suspected to have Coronavirus/COVID-19? No / Unsure 06/12/2022 3:13 PM FABRIC WORKER LEADER documented as of this encounter Miscellaneous Notes * Telephone Encounter - Tali Mendoza RN - 06/12/2022 2:23 PM CST EMS dispatched as of 1422. IC WORKER LEADER * Telephone Encounter - Gail Burris RN [...] dispatched at 1423. EMS arrived at 1429. IC WORKER LEADER documented in this encounter Plan of Treatment Upcoming Encounters Date Type Department Care Team (Late st Contact Info) Description 11/15/2024 2:00 PM CDT Clinical Support [facility] Oncology Services [address] [facility] [place] [address] Alycia Patel September, PAC [address] [facility] [place] [address] Discharge Disposition: Discharged to home or Selfcare 11/17/2024 2:00 PM CDT Clinical Support [facility] Oncology Services [address] [facility] [place] [address] Alycia Patel September, PAC [address] [facility] [place] [address] Discharge Disposition: Discharged to home or Selfcare 11/22/2024 2:00 PM CDT Clinical Support [facility] Oncology Services [address] [facility] [place] [address] Alycia Patel September, PAC [address] [facility] [place] [address] Discharge Disposition: Discharged to home or Selfcare 11/24/2024 2:00 PM CDT Clinical Support [facility] Oncology Services [address] [facility] [place] [address] Alycia Patel September, PAC [address] [facility] [place] [address] Discharge Disposition: Discharged to home or Selfcare 12/13/2024 3:00 PM CDT Office Visit [facility] Medical [facility] - Neurology [facility] [address] [place] [address] Valeria Ulloa, REGIONAL TRAINER, GAME OPERATOR [address] [place] [address] 01/10/2025 2:20 PM CDT [facility] [address] [place] [address] Alycia Patel Joanne, PAC [address] [place] [address] Discharge Disposition: Discharged to home or Selfcare 01/17/2025 2:00 PM CDT Office Visit [facility] Oncology Services [address] [place] [address] PatelAlycia ramirez Joanne, PAC [address] [place] [address] Discharge Disposition: Discharged to home or Selfcare documented as of this encounter Visit Diagnoses Not on filedocumented in this encounter Additional Health Concerns Infection Onset Date Last Indicated Resolved Time COVID - 19 01/09/2023 01/09/2023 01/19/2023 12:1 6 AM CDT COVID - 19 02/10/2023 02/10/2023 02/20/2023 12:1 6 AM FABRIC WORKER LEADER COVID - 19 08/13/2023 08/13/2023 08/14/2023 12:0 4 AM CDT Assessment Noted Time PHQ-9 Depression Total Score: 11 020 8:36 AM CDT documented as of this encounter Care Teams Quality Assurance Assistant Relationship Specialty Start Date End Date Morales Meza MD [address] [address] PCP - General Family Medicine 01/05/20 Valeria Ulloa APRN, GAME OPERATOR [address] [place] [address] Nurse Practitioner Advanced Practice Nurse 02/26/22 documented as of this encounter
--- OUTSIDE RECORDS SUMMARY | 2024-11-12 03:59 | XMS_ITS | Encounter Summary ---
Author Organization [facility] Address [address] [place] [address] Phone Care Team Providers Care Managed Care Specialist Name Role Phone Morales Meza MD Primary Care Provider Valeria Ulloa CARE COORDINATION MANAGER, LAST MODEL MAKER Unavailable [phone] Reason for Visit * Reason Comments Medication Refill Encounter Details Date Type Department Care Team (Late st Contact Info) Description 03/23/2023 Refill [facility] [address]2 [place] [address] Morales Meza MD #[address] [address] Medication Refill Social History Tobacco Use Types [...] Sex Assigned at Female 03/19/2024 12:44 AM FINANCIAL AGENT Legal Sex Female 3:50 AM CDT Gender Identity Female 03/19/2024 12:44 AM FINANCIAL AGENT Sexual Orientation Not on file documented as of this encounter Miscellaneous Notes * Telephone Encounter - Rosemary Van RMA - 03/23/2023 3:25 PM FINANCIAL AGENT LVM to schedule NCIAL AGENT * Telephone Encounter - Lizz Miller RN - 03/23/2023 10:20 AM CST Needs OV with PCP NCIAL AGENT * Telephone Encounter - Lizz Miller RN [...] Ref Range Status 06/12/2022 >60 >=60 Final NCIAL AGENT documented in this encounter Plan of Treatment Upcoming Encounters Date Type Department Care Team (Late st Contact Info) Description 11/15/2024 2:00 PM CDT Clinical Support [facility] Oncology Services [address] [place] [address] Alycia Patel Joanne, PAC [address] [place] [address] Discharge Disposition: Discharged to home or Selfcare 11/17/2024 2:00 PM CDT Clinical Support [facility] Oncology Services [address] [place] [address] PatelRobynseptember, PAC [address] [place] [address] Discharge Disposition: Discharged to home or Selfcare 11/22/2024 2:00 PM CDT Clinical Support [facility] Oncology Services [address] [place] [address] PatelAlycia June, PAC [address] [place] [address] Discharge Disposition: Discharged to home or Selfcare 11/24/2024 2:00 PM CDT Clinical Support [facility] Oncology Services [address] [place] [address] [facility] Alycia June, PAC [address] [place] [address] Discharge Disposition: Discharged to home or Selfcare 12/13/2024 3:00 PM CDT Office Visit [facility] Medical [facility] - Neurology [facility] [address] [place] [address] Valeria Ulloa, CARE COORDINATION MANAGER, LAST MODEL MAKER [address] [place] [address] 01/10/2025 2:20 PM CDT Lab [facility] Oncology Services [address] [place] [address] Patel Alycia June, PAC [address] [place] [address] Discharge Disposition: Discharged to home or Selfcare 01/17/2025 2:00 PM CDT [facility] [address] [place] [address] Alycia Patel Joanne, PAC [address] [place] [address] Discharge Disposition: Discharged to home or Selfcare documented as of this encounter Visit Diagnoses Not on filedocumented in this encounter Additional Health Concerns Infection Onset Date Last Indicated Resolved Time COVID - 19 08/13/2023 08/13/2023 08/14/2023 12:0 4 AM CDT Assessment Noted Time PHQ-9 Depression Total Score: 11 020 8:36 AM CDT documented as of this encounter Care Teams Managed Care Specialist Relationship Specialty Start Date End Date Morales Meza MD #[address] [address] PCP - General Family Medicine 01/05/20 Valeria Ulloa, CARE COORDINATION MANAGER, LAST MODEL MAKER [address] [place] [address] Nurse Practitioner Advanced Practice Nurse 02/26/22 documented as of this encounter
--- OUTSIDE RECORDS SUMMARY | 2024-11-12 03:59 | XMS_ITS | Encounter Summary ---
Author Organization [employer] Address [address] [place] [address] Care Team Providers Care Electronic Integrated Systems Mechanic Name Role Phone Unavailable Primary Care Provider Unavailabl e Encounter Details Date Type Department Care Team (Late st Contact Info) Description 12/06/2002 Outpatient [facility] [address] [place] [address]. [place], [place] [id number] Sea Don MD Social History Tobacco Use Types Packs/Day Years Used Date Smoking Tobacco: Never Assessed Comments Unknown Sex and Gender Information Value Date Recorded Sex Assigned at Not on file Legal Sex Female 3:03 AM PULPWOOD CONTRACTOR Gender Identity Not on file Sexual Orientation Not on file documented as of this encounter Plan of Treatment Not on file documented as of this encounter Visit Diagnoses Not on filedocumented in this encounter
--- OUTSIDE RECORDS SUMMARY | 2024-11-12 03:59 | XMS_ITS | Encounter Summary ---
Author Organization [facility] Address [address] [place] [address] Phone Care Team Providers Care Waste Picker Name Role Phone Morales Meza MD Primary Care Provider [phone] Valeria Ulloa INTERNET SECURITY SPECIALIST, WRAPPING CHECKER Unavailable [phone] Reason for Visit * Reason Comments Medication Refill Encounter Details Date Type Department Care Team (Late st Contact Info) Description 09/19/2023 Refill [facility] #[address] [place] [address] Morales Meza MD #[address] [address] Medication Refill Social History Tobacco Use Types Packs/Day Years Used Date Smoking Tobacco: Former Cigarettes 2011 Smokeless Tobacco: Never Alcohol Use Standard Drinks/Week Comments Yes 0 (1 standard drink = 0.6 oz pur e alcohol) Very Rare [facility] Utilities Answer Date Recorded In the past 12 months has [employer], gas, oil, or water company threatened [...] declined 08/14/2023 How often do you attend moravian or gnosticist serv ices? Patient declined 08/14/2023 Do you belong to any clubs o r organizations such as moravian groups, unions, fraternal or athletic groups, or [...] Total Score - Questions 1-9 11 04/2019 [facility] [...] Sex Assigned at Female 03/19/2024 12:44 AM AUDITOR APPRAISER Legal Sex Female 3:50 AM CDT Gender Identity Female 03/19/2024 12:44 AM AUDITOR APPRAISER Sexual Orientation Not on file documented as [...] Provider Dept 10/07/23 Appointment Morales Meza MD [facility] Arash Showing future appointments within next 90 days and meeting all other requirements Failed - No matching NSAID med order in past 45 days Matching medication order placed on 08/21/2023 9:22 AM Order [id number]: meloxicam (MOBIC) 15 MG Tablet (For orders [...] Description 11/15/2024 2:00 PM CDT Clinical Support [facility] Oncology Services [address] [place] [address] Alycia Patel September, PAC [address] [place] [address] Discharge Disposition: Discharged to home or Selfcare 11/17/2024 2:00 PM CDT Clinical Support [facility] Oncology Services [address] [facility] [place] [address] Alycia Patel September, PAC [address] [place] [address] Discharge Disposition: Discharged to home or Selfcare 11/22/2024 2:00 PM CDT Clinical Support [facility] Oncology Services [address] [facility] [place] [address] Alycia Patel September, PAC [address] [place] [address] Discharge Disposition: Discharged to home or Selfcare 11/24/2024 2:00 PM CDT Clinical Support [facility] Oncology Services [address] [place] [address] PatelRobyn ramirezseptember, PAC [address] [place] [address] Discharge Disposition: Discharged to home or Selfcare 12/13/2024 3:00 PM CDT Office Visit [facility] Medical [facility] - Neurology [facility] #[address] [place] [address] Valeria Ulloa APRN, WRAPPING CHECKER [address] [place] [address] 01/10/2025 2:20 PM CDT [facility] [address] [place] [address] PatelAlycia September, PAC [address] [place] [address] Discharge Disposition: Discharged to home or Selfcare 01/17/2025 2:00 PM CDT Office Visit [facility] Oncology Services [address] [place] [address] PatelAlycia September, PAC [address] [place] [address] Discharge Disposition: Discharged to home or Selfcare documented as of this encounter Visit Diagnoses Not on filedocumented in this encounter Additional Health Concerns Assessment Noted Time PHQ-9 Depression Total Score: 11 020 8:36 AM CDT documented as of this encounter Care Teams Waste Picker Relationship Specialty Start Date End Date Morales Meza MD #[address] [address] PCP - General Family Medicine 01/05/20 Valeria Ulloa, INTERNET SECURITY SPECIALIST, WRAPPING CHECKER [address] [place] [address] Nurse Practitioner Advanced Practice Nurse 02/26/22 documented as of this encounter
--- OUTSIDE RECORDS SUMMARY | 2024-11-12 03:59 | XMS_ITS | Encounter Summary ---
Author Organization [facility] Address [address] [place] [address] Phone Care Team Providers Care Frame Straightener Name Role Phone Moralse Meza MD Primary Care Provider [phone] Valeria Ulloa STAFF TOXICOLOGIST, DONKEY DOCTOR Unavailable [phone] Reason for Visit * Reason Comments Medication Refill Encounter Details Date Type Department Care Team (Late st Contact Info) Description 01/17/2024 Refill [facility] #2 [place] [address] Morales Meza MD #[address] [address] Medication Refill Social History Tobacco Use Types Packs/Day Years Used Date Smoking Tobacco: Former Cigarettes 2011 Smokeless Tobacco: Never Alcohol Use Standard Drinks/Week Comments Yes 0 (1 standard drink = 0.6 oz pur e alcohol) Very Rare [facility] Utilities Answer Date Recorded In the past 12 months has [employer], gas, oil, or water company threatened to [...] How often do you attend anabaptism or quaker serv ices? Patient declined 08/14/2023 Do you [...] Assigned at Female 03/19/2024 12:44 AM RN STAFFING Legal Sex Female 3:50 AM CDT Gender Identity Female 03/19/2024 12:44 AM RN STAFFING Sexual Orientation Not on file documented as [...] Description 11/15/2024 2:00 PM CDT Clinical Support [facility] Oncology Services [address] [place] [address] Alycia Patel Joanne, PAC [address] [place] [address] Discharge Disposition: Discharged to home or Selfcare 11/17/2024 2:00 PM CDT Clinical Support [facility] Oncology Services [address] [place] [address] Alycia Patel Joanne, PAC [address] [place] [address] Discharge Disposition: Discharged to home or Selfcare 11/22/2024 2:00 PM CDT [facility] [address] [facility] [place] [address] Patel Alycia June, PAC [address] [place] [address] Discharge Disposition: Discharged to home or Selfcare 11/24/2024 2:00 PM CDT Clinical Support [facility] Oncology Services [address] [facility] [place] [address] PatelAlycia September, PAC [address] [place] [address] Discharge Disposition: Discharged to home or Selfcare 12/13/2024 3:00 PM CDT Office Visit [facility] - Neurology [facility] #2 [place] [address] Valeria Ulloa APRN, DONKEY DOCTOR [address] [place] [address] 01/10/2025 2:20 PM CDT Lab [facility] [address] [facility] [place] [place] [address] Patel Alycia June, PAC [address] [place] [address] Discharge Disposition: Discharged to home or Selfcare 01/17/2025 2:00 PM CDT [facility] [address] [facility] [place] [place] [address] PatelRobynseptember, PAC [address] [place] [address] Discharge Disposition: Discharged to home or Selfcare documented as of this encounter Visit Diagnoses Not on filedocumented in this encounter Additional Health Concerns Assessment Noted Time PHQ-9 Depression Total Score: 11 020 8:36 AM CDT documented as of this encounter Care Teams Frame Straightener Relationship Specialty Start Date End Date Morales Meza MD #[address] [address] PCP - General Family Medicine 01/05/20 Valeria Ulloa APRN, DONKEY DOCTOR [address] [place] [address] Nurse Practitioner Advanced Practice Nurse 02/26/22 documented as of this encounter
--- OUTSIDE RECORDS SUMMARY | 2024-11-12 03:59 | XMS_ITS | Encounter Summary ---
Author Organization [facility] Address [address] [place] [address] Care Team Providers Care Sprinkler Truck Driver Name Role Phone Unavailable Primary Care Provider Unavailabl e Encounter Details Date Type Department Care Team (Late st Contact Info) Description 05/28/2000 Outpatient Historical [facility] Internal Medicine [place] [address] [place] [address] Raf Pfeiffer MD [address] [place] [phone] Social History Tobacco Use Types Packs/Day Years Used Date Smoking Tobacco: Never Assessed Comments Unknown Sex and Gender Information Value Date Recorded Sex Assigned at Not on file Legal Sex Female 3:03 AM PLATE WORKER HELPER Gender Identity Not on file Sexual Orientation Not on file documented as of this encounter Plan of Treatment Not on file documented as of this encounter Visit Diagnoses Not on filedocumented in this encounter
--- OUTSIDE RECORDS SUMMARY | 2024-11-12 03:59 | XMS_ITS | Encounter Summary ---
Author Organization [facility] Address [address] [place] [address] Care Team Providers Care It Investment/Portfolio Manager Name Role Phone No, Physician Primary Care Provider [phone] Jazmin Saab MD Unavailable [phone] Og Sumner MD Primary Care Provider + Morales Meza MD Primary Care Provider [phone] Encounter Details Date Type Department Care Team (Late st Contact Info) Description 09/15/2019 Telephone [facility] [address] [place] [address] Valeria Ortiz, RT Social History Tobacco Use [...] documented as of this encounter Care Teams It Investment/Portfolio Manager Relationship Specialty Start Date End Date No, Physician PCP - General 08/31/18 05/08/20 Og Sumner MD [address] [place] [address] PCP - General 02/21/21 06/16/21 Morales Meza MD [address] [address] PCP - General Family Medicine 06/17/21 Jazmin Saab MD [address] [place] [address] Referring Physician Obstetrics and Gynecology 01/10/19 documented as of this encounter
--- OUTSIDE RECORDS SUMMARY | 2024-11-12 03:59 | XMS_ITS | Encounter Summary ---
Author Organization [facility] Address [address] [place] [address] Care Team Providers Care Pyridine Recovery Operator Name Role Phone Unavailable Primary Care Provider Unavailabl e Encounter Details Date Type Department Care Team (Late st Contact Info) Description 01/07/2000 Outpatient Historical [facility] Internal Medicine [place] [address] [place] [address] Raf Pfeiffer MD [address] [place] [phone] Social History Tobacco Use Types Packs/Day Years Used Date Smoking Tobacco: Never Assessed Comments Unknown Sex and Gender Information Value Date Recorded Sex Assigned at Not on file Legal Sex Female 3:03 AM PULL OVER MACHINE OPERATOR Gender Identity Not on file Sexual Orientation Not on file documented as of this encounter Plan of Treatment Not on file documented as of this encounter Visit Diagnoses Not on filedocumented in this encounter
--- OUTSIDE RECORDS SUMMARY | 2024-11-12 03:59 | XMS_ITS | Encounter Summary ---
Author Organization [employer] Address [address] [place] [address] Care Team Providers Care Obstetrics Gynecology Md Name Role Phone Unavailable Primary Care Provider Unavailabl e Encounter Details Date Type Department Care Team (Late st Contact Info) Description 12/20/2002 Outpatient [facility] [address] [place] [address]. [place] [address] Social History Tobacco Use Types Packs/Day Years Used Date Smoking Tobacco: Never Assessed Comments Unknown Sex and Gender Information Value Date Recorded Sex Assigned at Not on file Legal Sex Female 3:03 AM RN ELIGIBILITY Gender Identity Not on file Sexual Orientation Not on file documented as of this encounter Plan of Treatment Not on file documented as of this encounter Visit Diagnoses Not on filedocumented in this encounter
--- OUTSIDE RECORDS SUMMARY | 2024-11-12 03:59 | XMS_ITS | Encounter Summary ---
Author Organization [employer] Address [address] [place] [address] Care Team Providers Care Clinical Trial Assistant Name Role Phone Unavailable Primary Care Provider Unavailabl e Encounter Details Date Type Department Care Team (Late st Contact Info) Description 02/26/2000 Emergency [facility] [place], Authorized P NO ADDRESS ON FILE Unspecified sinusitis (chronic) (Primary Dx) Social History Tobacco Use Types Packs/Day Years Used Date Smoking Tobacco: Never Assessed Comments Unknown Sex and Gender Information Value Date Recorded Sex Assigned at Not on file Legal Sex Female 3:03 AM SPINNING FRAME TENDER Gender Identity Not on file Sexual Orientation Not on file documented as of this encounter Plan of Treatment Not on file documented as of this encounter Visit Diagnoses Diagnosis Unspecified sinusitis (chronic)- Primary documented in this encounter
--- NOTE | 2024-11-12 04:14 | ECG_ITS ---
Test Date: 2024-11-12 04:19:01 Measurements Intervals Tripp Rate: 90 P: 0 LA: 178 QRS: -2 QRSD: 100 T: 41 QT: 359 QTc: 441 Interpretive Statements SINUS RHYTHM INCOMPLETE RIGHT BUNDLE BRANCH BLOCK BORDERLINE R WAVE PROGRESSION, ANTERIOR LEADS BORDERLINE ECG BASELINE ARTIFACT- I, II, AVR, AVL, AVF Compared to ECG 10/14/2024 07:11:51 No significant changes Electronically Signed On 11-12-2024 07:41:42 CDT by Rodrigo Blanchard D.O.
--- NOTE | 2024-11-12 04:17 | PC.NURSE ---
Seizure pads placed on bed.
--- NOTE | 2024-11-12 04:40 | ED_ITS ---
HPI - Seizure General Chief Complaint: Seizure Stated Complaint: seizure Time Seen by Provider: 11/12/24 04:01 History of Present Illness HPI Narrative: 44-year-old female presenting to the emergency department after potential seizure activity at home. Patient is currently on Keppra 500 mg b.i.d. for seizures but has not been able to establish with a neurologist as of yet. According to last physicians documentation in October she has an upcoming appointment and early November but states that this is now in early December. Patient states that while she was walking to the bathroom she felt an aura where she had some ringing in her years so she laid on the ground so she did not fall or injury herself and then proceeded to potentially have a seizure. She states she did not lose consciousness and was aware of the convulsions but states that is how her seizures have normally presented. Denies any traumatic injuries or headache. No tongue biting or bleeding. Abdominal pain, chest pain, shortness a breath or neurological issues such as weakness or fatigue, sensory deficits or facial asymmetry. She is otherwise in her normal state of health and has been controlled on her Keppra. No recent health concerns otherwise and she has not had any illness or sick symptoms recently. Related Data Home Medications ?Medication ?Instructions ?Recorded ?Confirmed ?Last Taken ?Type alprazolam 1 mg tablet 1 mg PO DAILY 10/29/20 02/20/24 02/20/24 History aripiprazole 30 mg tablet (Abilify) 30 mg PO DAILY 10/29/20 02/20/24 02/20/24 History ferrous sulfate 325 mg (65 mg 325 mg PO DAILY 10/29/20 02/20/24 02/20/24 History iron) tablet (Iron (ferrous sulfate)) venlafaxine 150 mg 150 mg PO DAILY 10/29/20 02/20/24 02/20/24 History capsule,extended release 24 hr (Effexor XR) divalproex 250 mg tablet,delayed 250 mg PO DAILY 03/16/22 02/20/24 02/20/24 History release (Depakote) alprazolam 1 mg tablet See Rx Instructions .Route 05/29/22 05/29/22 Unknown History .COMPLEX PRN Anxiety aripiprazole 30 mg tablet 30 mg PO DAILY 05/29/22 05/29/22 Unknown History atomoxetine 80 mg capsule 80 mg PO DAILY 05/29/22 05/29/22 Unknown History atorvastatin 10 mg tablet 10 mg PO DAILY 05/29/22 05/29/22 Unknown History divalproex 125 mg tablet,delayed See Rx Instructions .Route 05/29/22 05/29/22 Unknown History release .COMPLEX PRN Headache meloxicam 15 mg tablet 15 mg PO DAILY 05/29/22 05/29/22 Unknown History prazosin 2 mg capsule 4 mg PO DAILY 05/29/22 05/29/22 Unknown History propranolol 10 mg tablet 10 mg PO TID 05/29/22 05/29/22 Unknown History trazodone 150 mg tablet See Rx Instructions .Route .COMPLEX 05/29/22 05/29/22 Unknown History ubrogepant 50 mg tablet (Ubrelvy) See Rx Instructions .Route 05/29/22 05/29/22 Unknown History .COMPLEX PRN Headache venlafaxine 150 mg 300 mg PO DAILY 05/29/22 05/29/22 Unknown History capsule,extended release 24 hr atorvastatin 10 mg tablet 10 mg PO DAILY 11/08/23 02/20/24 02/20/24 History Aspir-81 81 mg PO DAILY 02/20/24 02/20/24 02/20/24 History Quviviq 25 mg PO DAILY 02/20/24 02/20/24 02/19/24 History Allergies Allergy/AdvReac Type Severity Reaction Status Date / Time miconazole (From Monistat 3) AdvReac Severe Swelling Verified 10/24/24 13:10 morphine AdvReac Severe Other Verified 10/24/24 13:10 skin cleanser combination AdvReac Severe Swelling Verified 10/24/24 13:10 no.17 (From Monistat 3) codeine AdvReac Intermediate Other Verified 10/24/24 13:10 Review of Systems 2 Review of Systems: As reviewed above [facility] Past Medical History Medical History Recurrent headache History of blood transfusion Insomnia Anxiety and depression Anemia Celiac disease Surgical History Surgical History Previous section Hx of cholecystectomy Status post bilateral breast reduction History of abdominoplasty H/O gastric bypass Family History Family History Other No significant family history Social History Social History Smoking packs per day: 0.25 Smoking cigarettes per day: 5.0 Years smoked: 5 Smoking pack-years: 1.25 Smoking status: Current every day smoker Tobacco type: cigarettes Second hand tobacco smoke exposure: No Additional smoking assessment comments: quit age 20 Alcohol intake: current Drinks per week: 1 Alcohol use details: rare social Substance use: never Substance use type: does not use Do You Feel Safe in your Home?: Yes Lack of Transportation: No Lack of Food: Never True Current Housing: I Have Housing Concerned About Future Housing: No Difficulty Paying Gas/Electric Bills: No Difficulty Paying for Meds: No Currently Unemployed: No Education: Associate Degree Difficulty w/ Childcare or Family Care: No Living arrangements: with family Additional living arrangements comments: and daughter Gender identity (if verbalized by the patient): Female Spiritual care concerns: No Exam 2 Narrative: GENERAL: [Well-appearing, well-nourished, and in no acute distress.] HEAD: [Normocephalic, atraumatic.] EYES: [PERRLA and EOMI.] ENT: Nares clear, no rhinorrhea or epistaxis. Mucous membranes moist. NECK: Supple. CHEST: [Clear to auscultation. No respiratory distress.] HEART: [Regular rate and rhythm]. No murmur heard. [Normal peripheral pulses.] ABDOMEN: [Soft, nondistended], [nontender], [No rigidity or guarding] EXTREMITIES: Normal range of motion. [No edema.] SKIN: Warm, dry, no rash. NEURO: [No focal deficits]. Alert and oriented [x3.] PSYCH: [Normal mood and affect.] Course Vital Signs Vital signs: Vital Signs Oxygen Delivery Room Air 11/12/24 04:00 Temperature 36.4 C L 11/12/24 04:10 Pulse Rate 70 11/12/24 06:31 Respiratory Rate 20 11/12/24 06:31 Blood Pressure 121/67 11/12/24 06:31 Pulse Oximetry 99 11/12/24 06:31 Oxygen Delivery Room Air 11/12/24 04:00 MDM - Seizure MDM Narrative Medical decision making narrative: 44-year-old female presenting to the emergency department after potential seizure activity at home. Patient is currently on Keppra 500 mg b.i.d. for seizures but has not been able to establish with a neurologist as of yet. According to last physicians documentation in October she has an upcoming appointment and early November but states that this is now in early December. Patient states that while she was walking to the bathroom she felt an aura where she had some ringing in her years so she laid on the ground so she did not fall or injury herself and then proceeded to potentially have a seizure. She states she did not lose consciousness and was aware of the convulsions but states that is how her seizures have normally presented. Denies any traumatic injuries or headache. No tongue biting or bleeding. Abdominal pain, chest pain, shortness a breath or neurological issues such as weakness or fatigue, sensory deficits or facial asymmetry. She is otherwise in her normal state of health and has been controlled on her Keppra. No recent health concerns otherwise and she has not had any illness or sick symptoms recently. Patient has unremarkable vital signs here with no tachycardia, fever, hypoxia or blood pressure concerns. She has an unremarkable neurological assessment and does not appear postictal. She states her drove her to the hospital after the event happened at home. Her description of the episode does not quite sound like epilepsy or a seizure she did not lose consciousness and states she was aware that she was convulsing. Potentially psychogenic nonepileptic seizures versus epilepsy versus presyncope and postural dizziness given the event happened in the middle night while she went and got up to go to the bathroom. A broad workup was initiated including electrolyte panel, CT of the head to rule out intracranial pathology such as hemorrhage or less likely stroke/masses. Urinalysis and test obtain. Drug screen alcohol level ordered. She was given fluids and placed on venue coordinator, seizure precautions placed and she was re-evaluated. Laboratory studies are reassuring without any leukocytosis or anemia. Normal platelet count. Coagulation panel is normal. Electrolytes normal. Kidney function and hepatic function is normal. Normal glucose. Urine shows signs of urinary tract infection. Negative test. Drug screen positive for cannabinoids and benzos, negative alcohol level. CT is normal without any acute findings. Discussed patient's workup and results here in the emergency department. She was been observed for several hours without any recurrence of seizure or seizure-like activity and is comfortable with the plan for discharge home with maintaining her Keppra dose and starting her on Keflex for the UTI. She will follow-up with Neurology on outpatient basis and given return precautions. Medical Records Attestation: I reviewed the patient's medical records. Lab Data Attestation: I reviewed the patient's lab results. 11/12/24 04:31 11/12/24 04:31 Labs: Lab Results 11/12/24 11/12/24 11/12/24 Range/Units 04:31 04:51 04:58 WBC 8.3 (4.5-10.0) K/mm3 RBC 4.45 (4.2-5.4) M/mm3 Hgb 11.0 L (12.0-15.0) g/dL Hct 35.6 L (37.0-47.0) % MCV 80.0 (80-100) fl MCH 24.7 L (26-34) pg MCHC 30.9 L (32-36) g/dl RDW 17.4 H (11.5-14.5) % Plt Count 208 (150-375) k/mm3 MPV 11.6 H (7.4-10.4) fl Immature Gran % (Auto) 0.4 (0-0.5) % Neut % (Auto) 55.1 (45.5-73.1) % Lymph % (Auto) 30.0 (18.3-44.2) % [place] % (Auto) 9.0 H (2.6-8.5) % Eos % (Auto) 4.7 H (0-4.4) % Baso % (Auto) 0.8 (0.2-1.2) % Lymph # (Auto) 2.48 (0.9-3.2) K/mm3 [place] # (Auto) 0.7 H (0.1-0.6) K/mm3 Eos # (Auto) 0.4 H (0-0.3) K/mm3 Baso # (Auto) 0.1 (0.0-0.1) K/mm3 Abs Immat Gran (auto) 0.03 (0.00-0.031) K/mm3 Absolute Neuts (auto) 4.6 (1.3-6.7) K/mm3 Absolute Nucleated RBC 0.000 (0.0-0.012) K/mm3 Nucleated RBC % 0.0 (0.0-0.2) % % Immature Plt Fraction 10.1 (0.9-11.2) % PT 13.1 (11.1-14.7) Seconds INR 1.0 APTT 27.4 (22.3-36.8) Seconds Sodium 134 L (137-145) mmol/L Potassium 3.7 (3.4-5.0) mmol/L Chloride 107 (98-107) mmol/L Carbon Dioxide 22 (22-30) mmol/L Anion Gap 5 (4-12) mmol/L BUN 15 (7-17) mg/dL Creatinine 0.77 (0.7-1.0) mg/dL Estim Creat Clear Calc 98 ml/min Estimated GFR > 60 (59 - ) Glucose 82 (65-110) mg/dL Calcium 8.7 (8.4-10.2) mg/dL Total Bilirubin 0.2 (0.2-1.3) mg/dL AST 19 (14-36) U/L ALT 11 (6-35) U/L Alkaline Phosphatase 59 (38-126) U/L Total Protein 6.3 (6.3-8.2) g/dL Albumin 3.8 (3.5-5.1) g/dL Urine Color Yellow (Yellow) Urine Appearance Cloudy H (Clear) Urine pH 5.5 (5.0-9.0) Ur Specific [place] 1.015 (1.001-1.035) Urine Protein Negative (Negative) mg/dL Urine Glucose (UA) Trace H (Negative) mg/dL Urine Ketones Negative (Negative) mg/dL Ur Blood (Man) Negative (Negative) Urine Nitrate Negative (Negative) Urine Bilirubin Negative (Negative) Urine Urobilinogen 1.0 (<2.0) mg/dL Leukocyte Esterase Rfl 2+ H (Negative) NIURKA/UL Urine RBC 0-2 (0-2) /hpf Urine WBC 21-50 H (0-3) /hpf Ur Squamous Epith Cells Moderate (Few) /hpf Urine Bacteria Rare /hpf Urine Casts 0-2 POC Urine HCG, Qual Negative (Negative) Urine Opiates Screen Negative (Negative) Urine Methadone Screen Negative (Negative) Ur Barbiturates Screen Negative (Negative) Ur Phencyclidine Scrn Negative (Negative) Ur Amphetamine Screen Negative (Negative) U Benzodiazepines Scrn Positive A (Negative) Urine Cocaine Screen Negative (Negative) U Cannabinoids Screen Positive A (Negative) Ethyl Alcohol < 10 (<10) mg/dL Imaging Data Attestation: I personally reviewed and interpreted this imaging study as follows: My impression: Impressions Head CT 11/12/24 06:32 IMPRESSION: 1. Normal head CT. Discharge Plan Discharge Clinical Impression: Seizure-like activity, Urinary tract infection Patient Disposition: Home Condition: Stable Instructions: Antibiotic Form, Urinary Tract Infection in Women (DC) Additional Instructions: You do have evidence of urinary tract infection which your body is currently dealing with and can lower threshold for convulsions and seizure-like activity. Maintain your current Keppra dose and see your neurologist. We will prescribe you Keflex for the next several days to treat the infection. Return with any emergent concerns. Refrain from driving or operating a motor vehicle until cleared by Neurology or 6 months seizure-free. Patient Language: Cameroonian Prescriptions: New cephalexin 500 mg capsule 500 mg PO Q12H 5 Days Qty: 10 0RF No Action atorvastatin 10 mg tablet 10 mg PO DAILY alprazolam 1 mg tablet See Rx Instructions .ROUTE .COMPLEX PRN (Reason: Anxiety) Rx Instructions: as prescribed meloxicam 15 mg tablet 15 mg PO DAILY venlafaxine 150 mg capsule,extended release 24hr 300 mg PO DAILY propranolol 10 mg tablet 10 mg PO TID trazodone 150 mg tablet See Rx Instructions .ROUTE .COMPLEX Rx Instructions: as prescribed at bedtime divalproex 125 mg tablet,delayed release (DR/EC) See Rx Instructions .ROUTE .COMPLEX PRN (Reason: Headache) Rx Instructions: as prescribed prazosin 2 mg capsule 4 mg PO DAILY aripiprazole 30 mg tablet 30 mg PO DAILY atomoxetine 80 mg capsule 80 mg PO DAILY Ubrelvy 50 mg tablet See Rx Instructions .ROUTE .COMPLEX PRN (Reason: Headache) Rx Instructions: as prescribed hydroxyzine HCl 25 mg tablet 25 mg PO QID PRN (Reason: itching) Qty: 20 0RF atorvastatin 10 mg tablet 10 mg PO DAILY alprazolam 1 mg Tablet 1 mg PO DAILY venlafaxine [Effexor XR] 150 mg Capsule,Extended Release 24hr 150 mg PO DAILY ferrous sulfate [Iron (ferrous sulfate)] 325 mg (65 mg iron) Tablet 325 mg PO DAILY aripiprazole [Abilify] 30 mg Tablet 30 mg PO DAILY divalproex [Depakote] 250 mg Tablet,Delayed Release (Dr/Ec) 250 mg PO DAILY albuterol sulfate 90 mcg/actuation HFA aerosol inhaler 2 puff inhalation QID PRN (Reason: shortness of breath or wheezing) Qty: 6.7 0RF Rx Instructions: what ever is covered by insurance Quviviq 25 mg PO DAILY Aspir-81 81 mg PO DAILY levetiracetam [Keppra] 500 mg tablet 500 mg PO BID Qty: 60 0RF Follow-up/Referrals: Derrick,Morales Cantu MD [Primary Care Provider] - Time of Disposition: 06:40
[2024-11-12 04:41] LABS: Hematocrit 35.6 % (37.0-47.0); Hemoglobin 11.0 g/dL (12.0-15.0); Immature Granulocyte Percent A 0.4 % (0-0.5); Immature Platelet Fraction Pct 10.1 % (0.9-11.2); Lymphocytes Absolute Auto 2.48 K/mm3 (0.9-3.2); Mean Corpuscular HGB Conc 30.9 g/dl (32-36); Mean Corpuscular Hemoglobin 24.7 pg (26-34); Mean Corpuscular Volume 80.0 fl (80-100); Nucleated Red Blood Cells Absolute Auto 0.000 K/mm3 (0.0-0.012); Nucleated Red Blood Cells Perc 0.0 % (0.0-0.2); Platelet Count Result 208 k/mm3 (150-375); Red Blood Count 4.45 M/mm3 (4.2-5.4); White Blood Count 8.3 K/mm3 (4.5-10.0)
[2024-11-12 04:54] LABS: Alanine Aminotransferase 11 U/L (6-35); Albumin Level 3.8 g/dL (3.5-5.1); Alkaline Phosphatase 59 U/L (38-126); Anion Gap 5 mmol/L (4-12); Aspartate Amino Transferase 19 U/L (14-36); Bilirubin,Total 0.2 mg/dL (0.2-1.3); Blood Urea Nitrogen 15 mg/dL (7-17); Calcium 8.7 mg/dL (8.4-10.2); Carbon Dioxide 22 mmol/L (22-30); Chloride 107 mmol/L (98-107); Estimated CRCL calculation 98 ml/min; Estimated Glomerular Filt Rate > 60; Glucose 82 mg/dL (65-110); INR 1.0; Potassium 3.7 mmol/L (3.4-5.0); Prothrombin Time 13.1 Seconds (11.1-14.7); Sodium 134 mmol/L (137-145); Total Protein 6.3 g/dL (6.3-8.2)
[2024-11-12 04:55] LABS: Partial Thromboplastin Time 27.4 Seconds (22.3-36.8)
[2024-11-12 04:59] LABS: BEDSIDEPREGUCG Negative (Negative)
[2024-11-12 05:04] LABS: Add Urine Microscopic? YES; Appearance Urine Cloudy (Clear); Glucose Urine UA Trace mg/dL (Negative); Leukocyte Esterase Ur 2+ LEU/UL (Negative); Nitrate Urine Negative (Negative); Non Pathogenic Casts 0-2; Specific Grav Ur 1.015 (1.001-1.035)
[2024-11-12] MEDS: LACTATED RINGERS 1,000 ML 999 ML IV CONT (05:05)
[2024-11-12 05:42] LABS: Cannabinoid Screen Urine Positive (Negative)
[2024-11-12] MEDS: CEPHALEXIN 500 MG CAPSULE PO (06:40)
== END 2024-11-12 06:49 | disposition home or self-care (01) ==
PROVIDERS: Emergency Provider Student in an Organized Health Care Education/Training Program; PCP Internal Medicine
DX: R56.9 Unspecified convulsions (principal); N39.0 Urinary tract infection, site not specified; F17.210 Nicotine dependence, cigarettes, uncomplicated; Z79.899 Other long term (current) drug therapy
CPT/HCPCS: 36415; 70450; 80053; 80307; 81001; 81025; 82077; 85025; 85055; 85610; 85730; 93005; 96360; 99284; A9270; J7120

== ENCOUNTER 2024-11-16 22:38 | Emergency (ER) | payer MEDICARE, SELFPAY ==
[2024-11-16 22:39] VITALS: BP 145/73; PULSE 98; RESP 17; TEMP 36.3; O2SAT 100
--- OUTSIDE RECORDS SUMMARY | 2024-11-16 22:39 | XMS_ITS | Encounter Summary ---
Author Organization [facility] Address [address] [place] [address] Phone Care Team Providers Care Hot Metal Car Operator Name Role Phone Morales Meza MD Primary Care Provider [phone] Valeria Ulloa COMMISSARY OFFICER, METAL MODEL MAKER Unavailable [phone] Reason for Visit * Reason Comments Medication Refill Encounter Details Date Type Department Care Team (Late st Contact Info) Description 09/19/2023 Refill [facility] - [facility] [address] [place] [address] Morales Meza MD [address] [address] Medication Refill Social History Tobacco Use Types Packs/Day Years Used Date Smoking Tobacco: Former Cigarettes 2011 Smokeless Tobacco: Never Alcohol Use Standard Drinks/Week Comments Yes 0 (1 standard drink = 0.6 oz pur e alcohol) Very Rare [facility] Utilities Answer Date Recorded In the past 12 months has [employer], gas, oil, or water company threatened to shut off services in your home? No 08/14/2023 Social Connection and Isolation Panel Answer Date Recorded In a typical week, how many times do you talk on the phone with family, friends, or neighbors? Patient declined 08/14/2023 How often do you get togethe r with friends or relatives? Patient declined 08/14/2023 How often do you attend sikhism or holiness serv ices? Patient declined 08/14/2023 Do you belong to any clubs o r organizations such as sikhism groups, unions, fraternal or athletic groups, or [...] Total Score - Questions 1-9 11 04/2019 [facility] - Occupational [...] Sex Assigned at Female 03/19/2024 12:44 AM CAD DRAFTER Legal Sex Female 3:50 AM CDT Gender Identity Female 03/19/2024 12:44 AM CAD DRAFTER Sexual Orientation Not on file documented as [...] Provider Dept 10/07/23 Appointment Morales Meza MD [facility] Arash Showing future appointments within next 90 days and meeting all other requirements Failed - No matching NSAID med order in past 45 days Matching medication order placed on 08/21/2023 9:22 AM Order [id number]: meloxicam (MOBIC) 15 MG Tablet (For orders [...] Care Team (Late st Contact Info) Description 11/17/2024 2:00 PM CDT Clinical Support [facility] [address] [place] [address] Alycia Patel September, PAC [address] [place] [address] Discharge Disposition: Discharged to home or Selfcare 11/22/2024 2:00 PM CDT Clinical Support [facility] [address] [place] [address] Alycia Patel September, PAC [address] [place] [address] Discharge Disposition: Discharged to home or Selfcare 11/24/2024 2:00 PM CDT Clinical Support [facility] [address] [place] [address] Alycia Patel September, PAC [address] [place] [address] Discharge Disposition: Discharged to home or Selfcare 12/13/2024 3:00 PM CDT [facility] [place] [address] Valeria Ulloa APRN, METAL MODEL MAKER [address] [place] [address] 01/10/2025 2:20 PM CDT Lab [facility] [address] [place] [address] PatelAlycia ramirez Joanne, PAC [address] [place] [address] Discharge Disposition: Discharged to home or Selfcare 01/17/2025 2:00 PM CDT [facility] [address] [place] [address] PatelAlycia Joanne, PAC [address] [place] [address] Discharge Disposition: Discharged to home or Selfcare documented as of this encounter Visit Diagnoses Not on filedocumented in this encounter Additional Health Concerns Assessment Noted Time PHQ-9 Depression Total Score: 11 020 8:36 AM CDT documented as of this encounter Care Teams Hot Metal Car Operator Relationship Specialty Start Date End Date Morales Meza MD [address] [address] PCP - General Family Medicine 01/05/20 Valeria Ulloa COMMISSARY OFFICER, METAL MODEL MAKER [address] [place] [address] Nurse Practitioner Advanced Practice Nurse 02/26/22 documented as of this encounter
--- OUTSIDE RECORDS SUMMARY | 2024-11-16 22:39 | XMS_ITS | Encounter Summary ---
Author Organization [facility] Address [address] [place] [address] Phone Care Team Providers Care Prosthetic Technician Name Role Phone Morales Meza MD Primary Care Provider [phone] Valeria Ulloa COLLECTION OFFICER, GALVANIZER ZINC Unavailable [phone] Encounter Details Date Type Department Care Team (Late st Contact Info) Description 10/06/2024 Results Follow-Up [facility] [address] [place] [id number] Alycia Patel Joanne, PAC [address] [place] [address] FOLIC ACID (FOLATE), FERRITIN, CMP (COMPREHENSIVE METABOLIC PANEL), Additional followed-up results: 7 Social History Tobacco Use Types Packs/Day Years Used Date Smoking Tobacco: Never Cigarettes 2011 Passive Smoke Exposure: Yes Smokeless Tobacco: Never Alcohol Use Standard Drinks/Week Comments Yes 1 (1 standard drink = 0.6 oz pure alcohol) Drink a wine cooler maybe once a month [facility] Utilities Answer Date Recorded In the past 12 months has [employer], gas, oil, or water [employer] threatened to shut off services in your home? Yes 07/03/2024 Social Connection and Isolation Panel Answer Date Recorded In a typical week, how many times do you talk on the phone with family, friends, or neighbors? Twice a week 07/03/2024 How often do you get together with friends or re latives? Once a week 07/03/2024 How often do you attend rastafarian or religion serv ices? Never 07/03/2024 Do you belong [...] 1-9 11 10/0 04/2019 [facility] of Occupat ional Health [...] any time in the past 12 [address] [place], were you homeless or living in a [facility] (including now)? No 07/03/2024 Education Answer Date Recorded What is the highest level of school you have completed or the highest degree you have received? Associate degree: academic program 05/06/2021 Sexually Active Control Partners Comments Yes Other Male Comments No Sex and Gender Information Value Date Recorded Sex Assigned at Female 03/19/2024 12:44 AM QUALITY CONTROL TECHNICIAN Legal Sex Female 3:50 AM CDT Gender Identity Female 03/19/2024 12:44 AM QUALITY CONTROL TECHNICIAN Sexual Orientation Not on file documented as of this encounter Plan of Treatment Upcoming Encounters Date Type Department Care Team (Late st Contact Info) Description 11/17/2024 2:00 PM CDT Clinical Support [facility] [address] [place] [address] Alycia Patel Joanne, PAC [address] [place] [address] Discharge Disposition: Discharged to home or Selfcare 11/22/2024 2:00 PM CDT Clinical Support [facility] [address] [place] [address] September, PAC [address] [place] [address] Discharge Disposition: Discharged to home or Selfcare 11/24/2024 2:00 PM CDT [facility] [address] [place] [address] PatelRobynseptember, PAC [address] [place] [address] Discharge Disposition: Discharged to home or Selfcare 12/13/2024 3:00 PM CDT Office Visit [facility] Neu[facility] [address] [place] [address] Valeria Ulloa APRN, GALVANIZER ZINC [address] [place] [address] 01/10/2025 2:20 PM CDT Lab [facility] [address] [place] [address] Patel Alycia June, PAC [address] [place] [address] Discharge Disposition: Discharged to home or Selfcare 01/17/2025 2:00 PM CDT Office Visit [facility] [address] [place] [address] Patel Alycia June, PAC [address] [place] [address] Discharge Disposition: Discharged to home or Selfcare documented as of this encounter Visit Diagnoses Not on filedocumented in this encounter Additional Health Concerns Assessment Noted Time PHQ-9 Depression Total Score: 11 020 8:36 AM CDT documented as of this encounter Care Teams Prosthetic Technician Relationship Specialty Start Date End Date Morales Meza MD #[address] [address] PCP - General Family Medicine 01/05/20 Valeria Ulloa APRN, GALVANIZER ZINC [address] [place] [address] Nurse Practitioner Advanced Practice Nurse 02/26/22 documented as of this encounter
--- OUTSIDE RECORDS SUMMARY | 2024-11-16 22:39 | XMS_ITS | Encounter Summary ---
Author Organization [facility] Address [address] [place] [address] Phone Care Team Providers Care Hydroelectric Plant Maintainer Name Role Phone Morales Meza MD Primary Care Provider [phone] Valeria Ulloa PUMP ROOM OPERATOR, CERTIFIED INDOOR ENVIRONMENTALIST Unavailable [phone] Reason for Visit * Reason Comments Medication Refill Encounter Details Date Type Department Care Team (Late st Contact Info) Description 06/21/2023 Refill [facility] - [facility] [address] [place] [address] Morales Meza MD #[address] [address] Medication Refill Social History Tobacco Use Types [...] Assigned at Female 03/19/2024 12:44 AM MEDICAL TERMINOLOGIST Legal Sex Female 3:50 AM CDT Gender Identity Female 03/19/2024 12:44 AM MEDICAL TERMINOLOGIST Sexual Orientation Not on file documented as [...] Description 11/17/2024 2:00 PM CDT Clinical Support [facility] Oncology Services [address] [place] [address] Alycia Patel September, PAC [address] [place] [address] Discharge Disposition: Discharged to home or Selfcare 11/22/2024 2:00 PM CDT Clinical Support [facility] Oncology Services [address] [place] [address] Alycia Patel September, PAC [address] [place] [address] Discharge Disposition: Discharged to home or Selfcare 11/24/2024 2:00 PM CDT Clinical Support [facility] Oncology Services [address] [place] [address] Alycia Patel September, PAC [address] [place] [address] Discharge Disposition: Discharged to home or Selfcare 12/13/2024 3:00 PM CDT Office Visit [facility] Medical [facility] - Neurology [facility] [address] [place] [address] Valeria Ulloa APRN, CERTIFIED INDOOR ENVIRONMENTALIST #2 [place] [address] 01/10/2025 2:20 PM CDT Lab [facility] Oncology Services [address] [place] [address] Alycia Patel September, PAC [address] [place] [address] Discharge Disposition: Discharged to home or Selfcare 01/17/2025 2:00 PM CDT Office Visit [facility] Oncology Services [address] [place] [address] Alycia Patel Joanne, PAC [address] [place] [address] Discharge Disposition: Discharged to home or Selfcare documented as of this encounter Visit Diagnoses Not on filedocumented in this encounter Additional Health Concerns Infection Onset Date Last Indicated Resolved Time COVID - 19 08/13/2023 08/13/2023 08/14/2023 12:0 4 AM CDT Assessment Noted Time PHQ-9 Depression Total Score: 11 020 8:36 AM CDT documented as of this encounter Care Teams Hydroelectric Plant Maintainer Relationship Specialty Start Date End Date Morales Meza MD #[address] [address] PCP - General Family Medicine 01/05/20 Valeria Ulloa, PUMP ROOM OPERATOR, CERTIFIED INDOOR ENVIRONMENTALIST [address] [place] [address] Nurse Practitioner Advanced Practice Nurse 02/26/22 documented as of this encounter
--- OUTSIDE RECORDS SUMMARY | 2024-11-16 22:39 | XMS_ITS | Encounter Summary ---
Author Organization [facility] Address [address] [place] [address] Phone Care Team Providers Care Projection Welding Machine Operator Name Role Phone Morales Meza MD Primary Care Provider [phone] Valeria Ulloa COLLECTION ADMINISTRATOR, SURGERY SPECIALIST Unavailable [phone] Reason for Visit * Reason Onset Date Comments Medication Management 11/16/2024 Encounter Details Date Type Department Care Team (Late st Contact Info) Description 11/16/2024 Telephone [facility] [address] [place] [address] Morales Meza MD #[address] [address] Medication Management Social History Tobacco Use Types Packs/Day Years Used Date Smoking Tobacco: Never Cigarettes 2011 Passive Smoke Exposure: Yes Smokeless Tobacco: Never Alcohol Use Standard Drinks/Week Comments Yes 1 (1 standard drink = 0.6 oz pure alcohol) Drink a wine cooler maybe once a month [facility] Utilities Answer Date Recorded In the past 12 months has [employer], gas, oil, or water [employer] threatened to shut off services in your home? Yes 07/03/2024 Social Connection and Isolation Panel Answer Date Recorded In a typical week, how many times do you talk on the phone with family, friends, or neighbors? Twice a week 07/03/2024 How often do you get together with friends or re latives? Once a week 07/03/2024 How often do you attend gnosticism or jain serv ices? Never 07/03/2024 Do you belong to any clubs o r organizations such as gnosticism groups, unions, fraternal or athletic groups, or [...] Total Score - Questions 1-9 11 04/2019 [facility] of Occupat ional Health - [...] medical appointments or from getting medications? No 03/3 In the past 12 months, has l [...] Sex Assigned at Female 03/19/2024 12:44 AM MOSAIC WORKER Legal Sex Female 3:50 AM CDT Gender Identity Female 03/19/2024 12:44 AM MOSAIC WORKER Sexual Orientation Not on file documented as of this encounter Miscellaneous Notes * Telephone Encounter - Marti Martinez RN - 11/16/2024 7:36 AM CDT Situation: Medication Management Background: Patient contacting Neurology Assessment: Patient is out of medication Refill on Keppra 500 mg oral one tab twice daily [facility] pharmacy [place] She was prescribed this medication at the hospital Appointment with neurology 12/13/2024 Recommendation: Please advise Encounter routed to provider to notify. Discussed utilizing [employer] to: discuss if they would prefer a [employer] message or phone call response. Response is preferred via [employer]. documented in this encounter Plan of Treatment Upcoming Encounters Date Type Department Care Team (Late st Contact Info) Description 11/17/2024 2:00 PM CDT Clinical Support [facility] Oncology Services [address] [place] [address] Alycia Patel September, PAC [address] [place] [address] Discharge Disposition: Discharged to home or Selfcare 11/22/2024 2:00 PM CDT Clinical Support [facility] Oncology Services [address] [place] [address] Alycia Patel September, PAC [address] [place] [address] Discharge Disposition: Discharged to home or Selfcare 11/24/2024 2:00 PM CDT Clinical Support [facility] Oncology Services [address] [place] [address] Alycia Patel September, PAC [address] [place] [address] Discharge Disposition: Discharged to home or Selfcare 12/13/2024 3:00 PM CDT Office Visit [facility] - Neurology - [place] [address] [place] [address] Valeria Ulloa APRN, SURGERY SPECIALIST [address] [place] [address] 01/10/2025 2:20 PM CDT Lab [facility] Oncology Services [address] [facility] [place] [address] Alycia Patel September, PAC [address] [place] [address] Discharge Disposition: Discharged to home or Selfcare 01/17/2025 2:00 PM CDT Office Visit [facility] [place] [facility] Oncology Services [address] [place] [address] Patel Alycia Joanne, PAC [address] [place] [address] Discharge Disposition: Discharged to home or Selfcare documented as of this encounter Visit Diagnoses Not on filedocumented in this encounter Additional Health Concerns Assessment Noted Time PHQ-9 Depression Total Score: 11 020 8:36 AM CDT documented as of this encounter Care Teams Projection Welding Machine Operator Relationship Specialty Start Date End Date Morales Meza MD #[address] [address] PCP - General Family Medicine 01/05/20 Valeria Ulloa, COLLECTION ADMINISTRATOR, SURGERY SPECIALIST [address] [place] [address] Nurse Practitioner Advanced Practice Nurse 02/26/22 documented as of this encounter
--- OUTSIDE RECORDS SUMMARY | 2024-11-16 22:39 | XMS_ITS | Encounter Summary ---
Author Organization [employer] Address [address] [place] [address] Care Team Providers Care Sports Coordinator Name Role Phone Unavailable Primary Care Provider Unavailabl e Encounter Details Date Type Department Care Team (Late st Contact Info) Description 12/06/2002 Outpatient [facility] [address] [place] [address]. [place], [place] [id number] Sea Don MD Social History Tobacco Use Types Packs/Day Years Used Date Smoking Tobacco: Never Assessed Comments Unknown Sex and Gender Information Value Date Recorded Sex Assigned at Not on file Legal Sex Female 3:03 AM ANCHOR TACK PULLER Gender Identity Not on file Sexual Orientation Not on file documented as of this encounter Plan of Treatment Not on file documented as of this encounter Visit Diagnoses Not on filedocumented in this encounter
--- OUTSIDE RECORDS SUMMARY | 2024-11-16 22:39 | XMS_ITS | Encounter Summary ---
Author Organization [employer] Care Team Providers Care Supervisor Fish Hatchery Name Role Phone Morales Meza MD Primary Care Provider Valeria Ulloa APRN, [employer] PUMP OPERATOR Unavailable [phone] Encounter Details Date Type Department Care Team (Latest Contact Info) Description 11/15/2024 Travel Social History Tobacco Use Types Packs/Day Years Used Date Smoking Tobacco: Never Cigarettes 2011 Passive Smoke Exposure: Yes Smokeless Tobacco: Never Alcohol Use Standard Drinks/Week Comments Yes 1 (1 standard drink = 0.6 oz pure alcohol) Drink a wine cooler maybe once a month [facility] Utilities Answer Date Recorded In the past 12 months has [facility], gas, oil, or water [employer] threatened to shut off services in your home? Yes 07/03/2024 Social Connection and Isolation Panel Answer Date Recorded In a typical week, how many times do you talk on the phone with family, friends, or neighbors? Twice a week 07/03/2024 How often do you get together with friends or re latives? Once a week 07/03/2024 How often do you attend denominational or amish serv ices? Never 07/03/2024 Do you belong to any clubs o r organizations such as denominational groups, unions, fraternal or athletic groups, or [...] place to sleep or slept in a long term (including now)? No 08/14/2023 Housing Stability Vital [...] were you homeless or living in a long term (including now)? No 07/03/2024 Education Answer Date Recorded What is the highest level of school you have completed or the highest degree you have received? Associate degree: academic program 05/06/2021 Sexually Active Control Partners Comments Yes Other Male Comments No Sex and Gender Information Value Date Recorded Sex Assigned at Female 03/19/2024 12:44 AM EMPLOYEE RELATIONS CONSULTANT Legal Sex Female 3:50 AM CDT Gender Identity Female 03/19/2024 12:44 AM EMPLOYEE RELATIONS CONSULTANT Sexual Orientation Not on file documented as of this encounter Plan of Treatment Upcoming Encounters Date Type Department Care Team (Late st Contact Info) Description 11/17/2024 2:00 PM CDT [facility] [address] [place] [address] Alycia Patel September, PAC [address] [place] [address] Discharge Disposition: Discharged to home or Selfcare 11/22/2024 2:00 PM CDT [facility] [address] [facility] [place] [address] Alycia Patel Joanne, PAC [address] [facility] [address] Discharge Disposition: Discharged to home or Selfcare 11/24/2024 2:00 PM CDT Clinical Support [facility] Oncology Services [address] [facility] [place] [address] Alycia Patel Joanne, PAC [address] [place] [address] Discharge Disposition: Discharged to home or Selfcare 12/13/2024 3:00 PM CDT Office Visit [facility] [address] [place] [address] Valeria Ulloa APRN, [employer] PUMP OPERATOR [address] [place] [address] 01/10/2025 2:20 PM CDT Lab [facility] Oncology Services [address] [place] [address] PatelAlycia ramirez Joanne, PAC [address] [place] [address] Discharge Disposition: Discharged to home or Selfcare 01/17/2025 2:00 PM CDT Office Visit [facility] Oncology Services [address] [place] [address] PatelAlycia Joanne, PAC [address] [place] [address] Discharge Disposition: Discharged to home or Selfcare documented as of this encounter Visit Diagnoses Not on filedocumented in this encounter Additional Health Concerns Assessment Noted Time PHQ-9 Depression Total Score: 11 020 8:36 AM CDT documented as of this encounter Care Teams Supervisor Fish Hatchery Relationship Specialty Start Date End Date Morales Meza MD #[address] [address] PCP - General Family Medicine 01/05/20 Valeria Ulloa APRN, [employer] PUMP OPERATOR [address] [place] [address] Nurse Practitioner Advanced Practice Nurse 02/26/22 documented as of this encounter
--- OUTSIDE RECORDS SUMMARY | 2024-11-16 22:39 | XMS_ITS | Encounter Summary ---
Author Organization [facility] Address [address] [place] [address] Care Team Providers Care Data Control Assistant Name Role Phone Unavailable Primary Care Provider Unavailabl e Encounter Details Date Type Department Care Team (Late st Contact Info) Description 04/17/2000 Outpatient Historical [facility] Internal Medicine [place] [address] [place] [address] Raf Pfeiffer MD [address] [place] [phone] Social History Tobacco Use Types Packs/Day Years Used Date Smoking Tobacco: Never Assessed Comments Unknown Sex and Gender Information Value Date Recorded Sex Assigned at Not on file Legal Sex Female 3:03 AM PHOTO CHECKER Gender Identity Not on file Sexual Orientation Not on file documented as of this encounter Plan of Treatment Not on file documented as of this encounter Visit Diagnoses Not on filedocumented in this encounter
--- OUTSIDE RECORDS SUMMARY | 2024-11-16 22:39 | XMS_ITS | Encounter Summary ---
Author Organization [facility] Address [address] [place] [address] Phone Care Team Providers Care Assistant Football Coach Name Role Phone Morales Meza MD Primary Care Provider [phone] Valeria Ulloa APRN, PHARMACY GRAD INTERN Unavailable [phone] Reason for Visit * Episode Based Medications (Routine) - Authorized Specialty Diagnoses / Procedures Referred By Contac t Referred To Contact Diagnoses Iron 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 dietary iron intake PatelAlycia ramirez September, [address] [place] [address] Phone: tel: fax: lenseptember, PAC [address] [place] [address] Phone: tel: fax: Referral ID Status Reason Start Date Expiration Date V isits Requested Visits Authorized [id number] Authorized 10/14/2024 30 Encounter Details Date Type Department Care Team (Latest Contact Info) Description 11/15/2024 10:30 AM CDT Clinical Support [facility] Oncology Services [address] [place] [address] Alycia Patel September, PAC [address] [place] [address] 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) Discharge Disposition: Discharged to home or Selfcare Social History Tobacco Use Types Packs/Day Years Used Date Smoking Tobacco: Never Cigarettes 2011 Passive Smoke Exposure: Yes Smokeless Tobacco: Never Alcohol Use Standard Drinks/Week Comments Yes 1 (1 standard drink = 0.6 oz pure alcohol) Drink a wine cooler maybe once a month [facility] Utilities Answer Date Recorded In the past 12 months has [employer], gas, oil, or water company threatened [...] week 07/03/2024 How often do you attend muslim or catholic serv ices? Never 07/03/2024 Do you belong [...] Total Score - Questions 1-9 11 04/2019 [facility] [place] of Occupat ional Health - Occupational Stress [...] place to sleep or slept in a half-way (including now)? No 08/14/2023 Housing Stability Vital Sign Answer Ted e Recorded In the last 12 months, was t here a time when you were not able to pay the mortgage or rent on time? Yes 07/03/2024 In the past 12 months, how m any times have you moved where you were living? 0 07/03/2024 At any time in the past 12 m [facility], were you homeless or living in a half-way (including now)? No 07/03/2024 Education Answer Date Recorded What is the highest level of school you have completed or the highest degree you have received? Associate degree: academic program 05/06/2021 Sexually Active Control Partners Comments Yes Other Male Comments No Sex and Gender Information Value Date Recorded Sex Assigned at Female 03/19/2024 12:44 AM NONPROFIT DIRECTOR Legal Sex Female 3:50 AM CDT Gender Identity Female 03/19/2024 12:44 AM NONPROFIT DIRECTOR Sexual Orientation Not on file documented as of this encounter Last Filed Vital Signs Vital Sign Reading Time Taken Comments Blood Pressure 117/76 11/15/2024 10:25 AM CDT Pulse 81 11/15/2024 10:25 AM CDT Temperature 36.5 C (97.7 F) 11/15/2024 10:25 AM CDT Respiratory Rate 16 11/15/2024 10:25 AM CDT Oxygen Saturation 100% 11/15/2024 10:25 AM CDT Inhaled Oxygen Concentration - - Weight - - Height - - Body Mass Index - - documented in this encounter Miscellaneous Notes * Interdisciplinary - Sister Abimbola Kiser RN - 11/15/2024 10:30 AM CDT Patient arrived and VS obtained. IV inserted per protocol x1 attempt. Flushed easily with good blood return. Medication given as ordered. Patient tolerated well. IV flushed with NS and removed. Site covered with gauze and coban. Patient left treatment area in stable condition. documented in this encounter Plan of Treatment Upcoming Encounters Date Type Department Care Team (Late st Contact Info) Description 11/17/2024 2:00 PM CDT Clinical Support [facility] Oncology Services [address] [place] [address] Alycia Patel Joanne, PAC [address] [place] [address] Discharge Disposition: Discharged to home or Selfcare 11/22/2024 2:00 PM CDT Clinical Support [facility] Oncology Services [address] [place] [address] Alycia Patel Joanne, PAC [address] [place] [address] Discharge Disposition: Discharged to home or Selfcare 11/24/2024 2:00 PM CDT Clinical Support [facility] Oncology Services [address] [place] [address] PatelTerryAlycia September, PAC [address] [place] [address] Discharge Disposition: Discharged to home or Selfcare 12/13/2024 3:00 PM CDT Office Visit [facility] Medical [facility] - Neurology - [place] [address] [place] [address] Valeria Ulloa, RELAY ASSOCIATE, PHARMACY GRAD INTERN [address] [place] [address] 01/10/2025 2:20 PM CDT Lab [facility] Oncology Services [address] [place] [address] Patel Alycia September, PAC [address] [place] [address] Discharge Disposition: Discharged to home or Selfcare 01/17/2025 2:00 PM CDT Office Visit [facility] Oncology Services [address] [place] [address] PatelTerryAlycia September, PAC [address] [place] [address] Discharge Disposition: Discharged to home or Selfcare documented as of this encounter Visit Diagnoses Diagnosis Iron 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 dietary iron intake- Primary documented in this encounter Administered Medications Inactive Administered Medications - up to 3 most recent administrations Medication Order MAR Action Action Date Dose Rate Site iron sucrose (VENOFER) injection 200 mg 200 mg, Intravenous, ONCE, 1 dose, On Thu11/15/24 at 1030, Administer over 5 MinutesIndications:Iron 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 dietary iron intake Given 11/15/2024 10:27 AM CDT 200 mg documented in this encounter Additional Health Concerns Assessment Noted Time PHQ-9 Depression Total Score: 11 020 8:36 AM CDT documented as of this encounter Care Teams Assistant Football Coach Relationship Specialty Start Date End Date Morales Meza MD #2 [facility] [address] [address] PCP - General Family Medicine 01/05/20 Valeria Ulloa APRN, PHARMACY GRAD INTERN [address] [place] [address] Nurse Practitioner Advanced Practice Nurse 02/26/22 documented as of this encounter
--- OUTSIDE RECORDS SUMMARY | 2024-11-16 22:39 | XMS_ITS | Encounter Summary ---
Author Organization [facility] Address [address] [place] [address] Phone Care Team Providers Care Blow Down Helper Name Role Phone Morales Meza MD Primary Care Provider [phone] Valeria Ulloa CARPENTRY SUPERVISOR, TRAFFIC CONTROL SUPERVISOR Unavailable [phone] Reason for Visit * Reason Comments Medication Refill Encounter Details Date Type Department Care Team (Late st Contact Info) Description 04/22/2023 Refill [facility] [address] [place] [id number] Jayson Mishra MD [address] [place] [address] Medication Refill Social History Tobacco Use Types [...] Sex Assigned at Female 03/19/2024 12:44 AM EMT P Legal Sex Female 3:50 AM CDT Gender Identity Female 03/19/2024 12:44 AM EMT P Sexual Orientation Not on file documented as of this encounter Miscellaneous Notes * Telephone Encounter - Dilma VanricARJUN albarran - 04/22/2023 3:18 PM EMT P Pt states she does not need medication and declined scheduling P * Telephone Encounter - Lizz Miller RN - 04/22/2023 8:32 AM CST Needs OV with PCP P * Telephone Encounter - Lizz Miller RN [...] Dept 06/24/22 Office Visit Sol Matthews APRN, RAHDA Antoine Showing recent visits within past 365 [...] Range Status 06/12/2022 13 <=41 U/L Final P documented in this encounter Plan of Treatment Upcoming Encounters Date Type Department Care Team (Late st Contact Info) Description 11/17/2024 2:00 PM CDT Clinical Support [facility] Oncology Services [address] [place] [address] Alycia Patel September, PAC [address] [place] [address] Discharge Disposition: Discharged to home or Selfcare 11/22/2024 2:00 PM CDT Clinical Support [facility] Oncology Services [address] [place] [address] Alycia Patel September, PAC [address] [place] [address] Discharge Disposition: Discharged to home or Selfcare 11/24/2024 2:00 PM CDT Clinical Support [facility] Oncology Services [address] [place] [address] PatelAlycia September, PAC [address] [place] [address] Discharge Disposition: Discharged to home or Selfcare 12/13/2024 3:00 PM CDT Office Visit [facility] - Neurology [facility] [address] [place] [address] Valeria Ulloa APRN, TRAFFIC CONTROL SUPERVISOR [address] [place] [address] 01/10/2025 2:20 PM CDT [facility] [address] [place] [address] Alycia Patel September, PAC [address] [place] [address] Discharge Disposition: Discharged to home or Selfcare 01/17/2025 2:00 PM CDT Office Visit [facility] Oncology Services [address] [place] [address] PatelAlycia September, PAC [address] [place] [address] Discharge Disposition: Discharged to home or Selfcare documented as of this encounter Visit Diagnoses Not on filedocumented in this encounter Additional Health Concerns Infection Onset Date Last Indicated Resolved Time COVID - 19 08/13/2023 08/13/2023 08/14/2023 12:0 4 AM CDT Assessment Noted Time PHQ-9 Depression Total Score: 11 020 8:36 AM CDT documented as of this encounter Care Teams Blow Down Helper Relationship Specialty Start Date End Date Morales Meza MD #[address] [address] PCP - General Family Medicine 01/05/20 Valeria Ulloa APRN, TRAFFIC CONTROL SUPERVISOR [address] [place] [address] Nurse Practitioner Advanced Practice Nurse 02/26/22 documented as of this encounter
--- OUTSIDE RECORDS SUMMARY | 2024-11-16 22:39 | XMS_ITS | Clinical Summary ---
Author Organization [facility] Address [address] [place] [address] Care Team Providers Care Internet Marketing Strategist Name Role Phone Jazmin Saab MD Unavailable [phone] Morales Meza MD Primary Care Provider [phone] Allergies Active Allergy Reactions Criticality Noted Date Comments Codeine Other (See comments),Syncope,Hiv es,Itching High 08/31/2018 Makes pt pass out Fainting Miconazole Itching,Swelling Medium 12/18/2019 Miconazole Wzbjtnc-Tcsjjt-Zhan Itching,Swelling Medium 12/18/2019 Morphine Other (See comments),Syncope,Hiv [...] (08/08/2019): Added automatically from request for surgery [id number] Hx of preeclampsia, prior pr egnancy, currently [...] Full MFM Care; Referring Provider: Linda Milan [phone] [x] Dating Criteria:LMP 11/10/18 DIANA 08/17/19. [x] [...] [] MOC: [] Method of feeding: [] Physician Specialist: [] PP Depression Discussed: Immunizations Immunization Administration [...] staff should administer the PHQ-9) 0 09/20/2019 [place] Depression Scale Answer Date Recorded [place] Depression Scale Total 0 09/20/2019 The thought [...] Last Done Comments Cervical Cancer Screening 1980 Varicella Vaccines (1 of 2 - 13+ 2-dose series) 1993 Hepatitis B Screening 1998 Regular Well Visit/Exam 18-64 1998 HPV Vaccines (1 - 3-dose SCDM series) 2007 Depression Screening 09/19/2020 09/20/2019, 08/08/2019, 07/22/2019 Breast Cancer Screening-Mammogram 09/24/2023 09/23/2022, 09/23/2022 Influenza Vaccine (#1) 2024 , 01/05/2020, 03/07/2014, Additional history exists DTaP/Tdap/Td Vaccine [...] Most Recently Relevant to Health Maintenance Insurance [employer] PPO IDMO [employer] MED[employer] PPO [address] IDPA [employer] CHOICE MEDICARE PPO IDPA [facility] MEDICARE AD[facility] Address: [address] [address] [place] [address] Advance Directives For more information, please contact: [phone] * Full Code (Latest Code Status on [...] in case of cardiopulmonary arrest Care Teams Internet Marketing Strategist Relationship Specialty Start Date End Date Morales Meza MD [address] [address] PCP - General Family Medicine 06/17/21 Jazmin Saab MD [address] [place] [address] Referring Physician Obstetrics and Gynecology 01/10/19
--- OUTSIDE RECORDS SUMMARY | 2024-11-16 22:39 | XMS_ITS | Encounter Summary ---
Author Organization [facility] Address [address] [place] [address] Care Team Providers Care Analysis Consultant Name Role Phone Unavailable Primary Care Provider Unavailabl e Encounter Details Date Type Department Care Team (Late st Contact Info) Description 01/07/2000 Outpatient Historical [facility]3] Internal Medicine [place] [address] [place] [address] Raf Pfeiffer MD [address] [place] [phone] Social History Tobacco Use Types Packs/Day Years Used Date Smoking Tobacco: Never Assessed Comments Unknown Sex and Gender Information Value Date Recorded Sex Assigned at Not on file Legal Sex Female 3:03 AM CROSSWORD PUZZLE MAKER Gender Identity Not on file Sexual Orientation Not on file documented as of this encounter Plan of Treatment Not on file documented as of this encounter Visit Diagnoses Not on filedocumented in this encounter
--- OUTSIDE RECORDS SUMMARY | 2024-11-16 22:39 | XMS_ITS | Encounter Summary ---
Author Organization [facility] Address [address] [place] [address] Phone Care Team Providers Care Motion Picture Equipment Supervisor Name Role Phone Morales Meza MD Primary Care Provider [phone] Valeria Ulloa MINI LAB OPERATOR, SCHOOL BUS DRIVER/MECHANIC Unavailable [phone] Reason for Visit * Reason Comments Medication Refill Encounter Details Date Type Department Care Team (Late st Contact Info) Description 04/22/2023 Refill [facility] [address] [place] [id number] Morales Meza MD #[address] [address] Medication Refill Social History Tobacco Use Types [...] Sex Assigned at Female 03/19/2024 12:44 AM SAMPLE CLERK Legal Sex Female 3:50 AM CDT Gender Identity Female 03/19/2024 12:44 AM SAMPLE CLERK Sexual Orientation Not on file documented [...] Ref Range Status 06/12/2022 >60 >=60 Final LE CLERK documented in this encounter Plan of Treatment Upcoming Encounters Date Type Department Care Team (Late st Contact Info) Description 11/17/2024 2:00 PM CDT Clinical Support [facility] Oncology Services [address] [place] [address] Alycia Patel Joanne, PAC [address] [place] [address] Discharge Disposition: Discharged to home or Selfcare 11/22/2024 2:00 PM CDT Clinical Support [facility] Oncology Services [address] [place] [address] Alycia Patel Joanne, PAC [address] [place] [address] Discharge Disposition: Discharged to home or Selfcare 11/24/2024 2:00 PM CDT Clinical Support [facility] Oncology Services [address] [place] [address] PatelTerryAlycia September, PAC [address] [place] [address] Discharge Disposition: Discharged to home or Selfcare 12/13/2024 3:00 PM CDT Office Visit [facility]rology - [place] [address] [place] [address] Valeria Ulloa APRN, SCHOOL BUS DRIVER/MECHANIC [address] [place] [address] 01/10/2025 2:20 PM CD[facility] [address] [place] [address] PatelAlycia September, PAC [address] [place] [address] Discharge Disposition: Discharged to home or Selfcare 01/17/2025 2:00 PM CDT Office Visit [facility] Oncology Services [address] [place] [address] PatelTerryAlycia September, PAC [address] [place] [address] Discharge Disposition: Discharged to home or Selfcare documented as of this encounter Visit Diagnoses Not on filedocumented in this encounter Additional Health Concerns Infection Onset Date Last Indicated Resolved Time COVID - 19 08/13/2023 08/13/2023 08/14/2023 12:0 4 AM CDT Assessment Noted Time PHQ-9 Depression Total Score: 11 020 8:36 AM CDT documented as of this encounter Care Teams Motion Picture Equipment Supervisor Relationship Specialty Start Date End Date Morales Meza MD #[address] [address] PCP - General Family Medicine 01/05/20 Valeria Ulloa APRN, SCHOOL BUS DRIVER/MECHANIC [address] [place] [address] Nurse Practitioner Advanced Practice Nurse 02/26/22 documented as of this encounter
--- OUTSIDE RECORDS SUMMARY | 2024-11-16 22:39 | XMS_ITS | Encounter Summary ---
Author Organization [facility] Address [address] [place] [address] Phone Care Team Providers Care School Operations Manager Name Role Phone Morales Meza MD Primary Care Provider Valeria Ulloa APRN, REVIEW ANALYST Unavailable [phone] Reason for Visit * Reason Comments Medication Refill Encounter Details Date Type Department Care Team (Late st Contact Info) Description 02/16/2024 Refill [facility] - Neurology - [place] [address] [place] [phone] Valeria Ulloa, INTEGRATION TECHNICIAN, REVIEW ANALYST [address] [place] [address] Medication Refill Social History Tobacco Use Types Packs/Day Years Used Date Smoking Tobacco: Former Cigarettes 2011 Smokeless Tobacco: Never Alcohol Use Standard Drinks/Week Comments Yes 0 (1 standard drink = 0.6 oz pur e alcohol) Very Rare [facility] Utilities Answer Date Recorded In the past 12 months has [employer], gas, oil, or water company threatened to shut off services in your home? No 08/14/2023 Social Connection and Isolation Panel Answer Date Recorded In a typical week, how many times do you talk on the phone with family, friends, or neighbors? Patient declined 08/14/2023 How often do you get togethe r with friends or relatives? Patient declined 08/14/2023 How often do you attend pentecostalism or latter-day serv ices? Patient declined 08/14/2023 Do you belong to any clubs o r organizations such as pentecostalism groups, unions, fraternal or athletic groups, or [...] Sex Assigned at Female 03/19/2024 12:44 AM BASE BRANDER Legal Sex Female 3:50 AM CDT Gender Identity Female 03/19/2024 12:44 AM BASE BRANDER Sexual Orientation Not on file documented as of this encounter Plan of Treatment Upcoming Encounters Date Type Department Care Team (Late st Contact Info) Description 11/17/2024 2:00 PM CDT Clinical Support [facility] Oncology Services [address] [place] [address] Alycia Patel September, PAC [address] [place] [address] Discharge Disposition: Discharged to home or Selfcare 11/22/2024 2:00 PM CDT Clinical Support [facility] Oncology Services [address] [place] [address] Alycia Patel September, PAC [address] [place] [address] Discharge Disposition: Discharged to home or Selfcare 11/24/2024 2:00 PM CDT Clinical Support [facility] Oncology Services [address] [place] [address] Robyn Patelseptember, PAC [address] [place] [address] Discharge Disposition: Discharged to home or Selfcare 12/13/2024 3:00 PM CDT Office Visit [facility] - Neurology [facility] [address] [place] [address] Valeria Ulloa APRN, REVIEW ANALYST [address] [place] [address] 01/10/2025 2:20 PM CDT Lab [facility] Oncology Services [address] [place] [address] [facility] September, PAC [address] [place] [address] Discharge Disposition: Discharged to home or Selfcare 01/17/2025 2:00 PM CDT Office Visit [facility] Oncology Services [address] [place] [address] [facility] September, PAC [address] [place] [address] Discharge Disposition: Discharged to home or Selfcare documented as of this encounter Visit Diagnoses Diagnosis TIA (transient ischemic attack) Unspecified transient cerebral ischemia documented in this encounter Additional Health Concerns Assessment Noted Time PHQ-9 Depression Total Score: 11 020 8:36 AM CDT documented as of this encounter Care Teams School Operations Manager Relationship Specialty Start Date End Date Morales Meza MD #[address] [address] PCP - General Family Medicine 01/05/20 Valeria Ulloa APRN, REVIEW ANALYST [address] [place] [address] Nurse Practitioner Advanced Practice Nurse 02/26/22 documented as of this encounter
--- OUTSIDE RECORDS SUMMARY | 2024-11-16 22:39 | XMS_ITS | Encounter Summary ---
Author Organization [facility] Address [address] [place] [address] Phone Care Team Providers Care Pony Trimmer Name Role Phone Morales Meza MD Primary Care Provider [phone] Valeria Ulloa IRS AGENT, CAR CHASER Unavailable [phone] Reason for Visit * Reason Onset Date Comments Fatigue 06/12/2022 Rapid Heart Rate 06/12/2022 Chest Pain 06/12/2022 Dizziness 06/12/2022 Encounter Details Date Type Department Care Team (Late st Contact Info) Description 06/12/2022 Nurse Triage [facility] [address] [place] [address] Morales Meza MD #[address] [address] Fatigue; Rapid Heart Rate; Chest [...] Sex Assigned at Female 03/19/2024 12:44 AM ORDER ENTRY CLERK Legal Sex Female 3:50 AM CDT Gender Identity Female 03/19/2024 12:44 AM ORDER ENTRY CLERK Sexual Orientation Not on file COVID-19 Exposure Response Date Recorded In the last 10 days, have yo u been in contact with someone who was confirmed or suspected to have Coronavirus/COVID-19? No / Unsure 06/12/2022 3:13 PM ORDER ENTRY CLERK documented as of this encounter Miscellaneous Notes * Telephone Encounter - Tali Mendoza RN - 06/12/2022 2:23 PM CST EMS dispatched as of 1422. R ENTRY CLERK * Telephone Encounter - Gail Burris RN [...] dispatched at 1423. EMS arrived at 1429. R ENTRY CLERK documented in this encounter Plan of Treatment Upcoming Encounters Date Type Department Care Team (Late st Contact Info) Description 11/17/2024 2:00 PM CDT Clinical Support [facility] Oncology Services [address] [place] [address] Alycia Patel September, PAC [address] [place] [address] Discharge Disposition: Discharged to home or Selfcare 11/22/2024 2:00 PM CDT Clinical Support [facility] Oncology Services [address] [place] [address] PatelAlycia September, PAC [address] [place] [address] Discharge Disposition: Discharged to home or Selfcare 11/24/2024 2:00 PM CDT Clinical Support [facility] Oncology Services [address] [place] [address] PatelAlycia September, PAC [address] [place] [address] Discharge Disposition: Discharged to home or Selfcare 12/13/2024 3:00 PM CDT Office Visit [facility] - Neurology - [place] [address] [place] [address] Valeria Ulloa APRN, CAR CHASER [address] [place] [address] 01/10/2025 2:20 PM CDT [facility] [address] [place] [address] Alycia Patel September, PAC [address] [place] [address] Discharge Disposition: Discharged to home or Selfcare 01/17/2025 2:00 PM CDT [facility] [address] [place] [address] Alycia Patel September, PAC [address] [place] [address] Discharge Disposition: Discharged to home or Selfcare documented as of this encounter Visit Diagnoses Not on filedocumented in this encounter Additional Health Concerns Infection Onset Date Last Indicated Resolved Time COVID - 19 01/09/2023 01/09/2023 01/19/2023 12:1 6 AM CDT COVID - 19 02/10/2023 02/10/2023 02/20/2023 12:1 6 AM ORDER ENTRY CLERK COVID - 19 08/13/2023 08/13/2023 08/14/2023 12:0 4 AM CDT Assessment Noted Time PHQ-9 Depression Total Score: 11 020 8:36 AM CDT documented as of this encounter Care Teams Pony Trimmer Relationship Specialty Start Date End Date Morales Meza MD #[address] [address] PCP - General Family Medicine 01/05/20 Valeria Ulloa APRN, CAR CHASER [address] [facility] [place] [address] Nurse Practitioner Advanced Practice Nurse 02/26/22 documented as of this encounter
--- OUTSIDE RECORDS SUMMARY | 2024-11-16 22:39 | XMS_ITS | Encounter Summary ---
Author Organization [facility] Address [address] [place] [address] Care Team Providers Care Upholstery Technician Name Role Phone Unavailable Primary Care Provider Unavailabl e Encounter Details Date Type Department Care Team (Late st Contact Info) Description 05/28/2000 Outpatient Historical [facility] Internal Medicine [place] [address] [place] [address] Raf Pfeiffer MD [address] [place] [phone] Social History Tobacco Use Types Packs/Day Years Used Date Smoking Tobacco: Never Assessed Comments Unknown Sex and Gender Information Value Date Recorded Sex Assigned at Not on file Legal Sex Female 3:[address] JUDGE Gender Identity Not on file Sexual Orientation Not on file documented as of this encounter Plan of Treatment Not on file documented as of this encounter Visit Diagnoses Not on filedocumented in this encounter
--- OUTSIDE RECORDS SUMMARY | 2024-11-16 22:39 | XMS_ITS | Encounter Summary ---
Author Organization [facility] Address [address] [place] [address] Phone Care Team Providers Care Veterinary Technician Name Role Phone Morales Meza MD Primary Care Provider [phone] Valeria Ulloa MOBILE UI DEVELOPER, OPERATING ROOM REGISTERED NURSE Unavailable [phone] Reason for Visit * Reason Comments Medication Refill Encounter Details Date Type Department Care Team (Late st Contact Info) Description 07/21/2023 Refill [facility] [address] [place] [address] Morales Meza MD #[address] [address] Medication Refill Social History Tobacco Use Types [...] Sex Assigned at Female 03/19/2024 12:44 AM CAN CONVEYOR FEEDER Legal Sex Female 3:50 AM CDT Gender Identity Female 03/19/2024 12:44 AM CAN CONVEYOR FEEDER Sexual Orientation Not on file documented as of this encounter Miscellaneous Notes * Telephone Encounter - Rsoemary Van RMA - 07/23/2023 1:06 PM CDT [...] Description 11/17/2024 2:00 PM CDT Clinical Support [facility] Oncology Services [address] [place] [address] Alycia Patel Joanne, PAC [address] [place] [address] Discharge Disposition: Discharged to home or Selfcare 11/22/2024 2:00 PM CDT Clinical Support [facility] Oncology Services [address] [place] [address] Alycia Patel Joanne, PAC [address] [place] [address] Discharge Disposition: Discharged to home or Selfcare 11/24/2024 2:00 PM CDT Clinical Support [facility] Oncology Services [address] [place] [address] Alycia Patel Joanne, PAC [address] [place] [address] Discharge Disposition: Discharged to home or Selfcare 12/13/2024 3:00 PM CDT Office Visit [facility] - Neurology [facility] [address] [place] [address] Valeria Ulloa APRN, OPERATING ROOM REGISTERED NURSE [address] [place] [address] 01/10/2025 2:20 PM CDT [facility] [address] [place] [address] Alycia Patel September, PAC [address] [place] [address] Discharge Disposition: Discharged to home or Selfcare 01/17/2025 2:00 PM CDT Office Visit [facility] Oncology Services [address] [place] [address] Alycia Patel September, PAC [address] [place] [address] Discharge Disposition: Discharged to home or Selfcare documented as of this encounter Visit Diagnoses Not on filedocumented in this encounter Additional Health Concerns Infection Onset Date Last Indicated Resolved Time COVID - 19 08/13/2023 08/13/2023 08/14/2023 12:0 4 AM CDT Assessment Noted Time PHQ-9 Depression Total Score: 11 020 8:36 AM CDT documented as of this encounter Care Teams Veterinary Technician Relationship Specialty Start Date End Date Morales Meza MD #[address] [address] PCP - General Family Medicine 01/05/20 Valeria Ulloa APRN, OPERATING ROOM REGISTERED NURSE [address] [place] [address] Nurse Practitioner Advanced Practice Nurse 02/26/22 documented as of this encounter
--- OUTSIDE RECORDS SUMMARY | 2024-11-16 22:39 | XMS_ITS | Clinical Summary ---
Author Organization [facility] Address [address] [place] [address] Care Team Providers Care Special Ed Assistant Name Role Phone Unavailable Primary Care [...] file Legal Sex Female 3:03 AM TAX COMPLIANCE OFFICER Gender Identity Not on file Sexual Orientation [...] (2 - Td or Tdap) 06/14/2029 Insurance [facility] CHOICE [id number]
--- OUTSIDE RECORDS SUMMARY | 2024-11-16 22:39 | XMS_ITS | Encounter Summary ---
Author Organization [facility] Address [address] [place] [address] Phone Care Team Providers Care Sugar House Supervisor Name Role Phone Morales Meza MD Primary Care Provider [phone] Valeria Ulloa TAKE UP SUPERVISOR, SLEEPING ROOM CLEANER Unavailable [phone] Reason for Visit * Reason Comments Medication Refill Encounter Details Date Type Department Care Team (Late st Contact Info) Description 05/22/2023 Refill [facility] - Family Medicine [facility] #[address] [place] [address] Morales Meza MD #[address] [address] Medication Refill Social History Tobacco Use Types [...] Sex Assigned at Female 03/19/2024 12:44 AM INFORMATION SECURITY ASSOCIATE Legal Sex Female 3:50 AM CDT Gender Identity Female 03/19/2024 12:44 AM INFORMATION SECURITY ASSOCIATE Sexual Orientation Not on file documented as of this encounter Miscellaneous Notes * Telephone Encounter - Rosemary Van RMA - 05/28/2023 3:33 PM INFORMATION SECURITY ASSOCIATE LVM to schedule RMATION SECURITY ASSOCIATE * Telephone Encounter - Lizz Miller RN - 05/22/2023 2:30 PM CST Needs OV with PCP RMATION SECURITY ASSOCIATE * Telephone Encounter - Lizz Miller RN [...] Ref Range Status 06/12/2022 >60 >=60 Final RMATION SECURITY ASSOCIATE documented in this encounter Plan of Treatment Upcoming Encounters Date Type Department Care Team (Late st Contact Info) Description 11/17/2024 2:00 PM CDT Clinical Support [facility] Oncology Services [address] [place] [address] Alycia Patel Joanne, PAC [address] [place] [address] Discharge Disposition: Discharged to home or Selfcare 11/22/2024 2:00 PM CDT Clinical Support [facility] Oncology Services [address] [place] [address] Jorge Alycia June, PAC [address] [place] [address] Discharge Disposition: Discharged to home or Selfcare 11/24/2024 2:00 PM CDT Clinical Support [facility] Oncology Services [address] [place] [address] PatelRobynseptember, PAC [address] [place] [address] Discharge Disposition: Discharged to home or Selfcare 12/13/2024 3:00 PM CDT Office Visit [facility] - Neurology [facility] #[address] [place] [address] Valeria Ulloa, TAKE UP SUPERVISOR, SLEEPING ROOM CLEANER [address] [place] [address] 01/10/2025 2:20 PM CDT Lab [facility] Oncology Services [address] [place] [address] Patel Alycia June, PAC [address] [place] [address] Discharge Disposition: Discharged to home or Selfcare 01/17/2025 2:00 PM CDT Office Visit [facility] Oncology Services [address] [place] [address] Robyn Patelseptember, PAC [address] [place] [address] Discharge Disposition: Discharged to home or Selfcare documented as of this encounter Visit Diagnoses Not on filedocumented in this encounter Additional Health Concerns Infection Onset Date Last Indicated Resolved Time COVID - 19 08/13/2023 08/13/2023 08/14/2023 12:0 4 AM CDT Assessment Noted Time PHQ-9 Depression Total Score: 11 020 8:36 AM CDT documented as of this encounter Care Teams Sugar House Supervisor Relationship Specialty Start Date End Date Morales Meza MD #[address] [address] PCP - General Family Medicine 01/05/20 Valeria Ulloa APRN, SLEEPING ROOM CLEANER [address] [place] [address] Nurse Practitioner Advanced Practice Nurse 02/26/22 documented as of this encounter
--- OUTSIDE RECORDS SUMMARY | 2024-11-16 22:39 | XMS_ITS | Encounter Summary ---
Author Organization [facility] Address [address] [place] [address] Care Team Providers Care Pit Inspector Name Role Phone Unavailable Primary Care Provider Unavailabl e Encounter Details Date Type Department Care Team (Late st Contact Info) Description 12/20/2002 Outpatient [facility] [address] [place] [address]. [place] [address] Social History Tobacco Use Types Packs/Day Years Used Date Smoking Tobacco: Never Assessed Comments Unknown Sex and Gender Information Value Date Recorded Sex Assigned at Not on file Legal Sex Female 3:03 AM COLOR CONTROL SUPERVISOR Gender Identity Not on file Sexual Orientation Not on file documented as of this encounter Plan of Treatment Not on file documented as of this encounter Visit Diagnoses Not on filedocumented in this encounter
--- OUTSIDE RECORDS SUMMARY | 2024-11-16 22:39 | XMS_ITS | Encounter Summary ---
Author Organization [facility] Address [address] [place] [address] Care Team Providers Care Hand Sole Sewer Name Role Phone Unavailable Primary Care Provider [...] on file Legal Sex Female 3:03 AM PHYSICAL THER Gender Identity Not on file Sexual Orientation Not on file documented as of this encounter Plan of Treatment Not on file documented as of this encounter Visit Diagnoses Diagnosis Unspecified sinusitis (chronic)- Primary documented in this encounter
--- OUTSIDE RECORDS SUMMARY | 2024-11-16 22:39 | XMS_ITS | Encounter Summary ---
Author Organization [facility] Address [address] [place] [address] Phone Care Team Providers Care Telecom Specialist Name Role Phone Morales Meza MD Primary Care Provider [phone] Valeria Ulloa BOLT HEADER, SUPERVISOR [employer] METAL[employer]ING Unavailable [phone] Reason for Visit * Reason Comments Medication Refill Encounter Details Date Type Department Care Team (Late st Contact Info) Description 01/17/2024 Refill [facility] [address] [place] [address] Morales Meza MD #[address] [address] Medication Refill Social History Tobacco Use Types Packs/Day Years Used Date Smoking Tobacco: Former Cigarettes 2011 Smokeless Tobacco: Never Alcohol Use Standard Drinks/Week Comments Yes 0 (1 standard drink = 0.6 oz pur e alcohol) Very Rare [facility] Utilities Answer Date Recorded In the past 12 months has [email or web address], gas, oil, or water company threatened to shut off services in your home? No 08/14/2023 Social Connection and Isolation Panel Answer Date Recorded In a typical week, how many times do you talk on the phone with family, friends, or neighbors? Patient declined 08/14/2023 How often do you get togethe r with friends or relatives? Patient declined 08/14/2023 How often do you attend jewish or judaism serv ices? Patient declined 08/14/2023 Do you [...] Total Score - Questions 1-9 11 04/2019 [facility] Occupat ional Health - [...] Sex Assigned at Female 03/19/2024 12:44 AM COMMUNITY DIETITIAN Legal Sex Female 3:50 AM CDT Gender Identity Female 03/19/2024 12:44 AM COMMUNITY DIETITIAN Sexual Orientation Not on file documented as [...] Description 11/17/2024 2:00 PM CDT Clinical Support [facility] [address] [place] [address] Alycia Patel Joanne, PAC [address] [place] [address] Discharge Disposition: Discharged to home or Selfcare 11/22/2024 2:00 PM CDT Clinical Support [facility] [address] [place] [address] Patelseptember, PAC [address] [place] [address] Discharge Disposition: Discharged to home or Selfcare 11/24/2024 2:00 PM CDT Clinical Support [facility] [address] [place] [address] PatelRobynseptember, PAC [address] [place] [address] Discharge Disposition: Discharged to home or Selfcare 12/13/2024 3:00 PM CDT Office Visit [facility] Neurology [facility] [address] [place] [address] Valeria Ulloa APRN, SUPERVISOR [employer] [address] [place] [address] 01/10/2025 2:20 PM CDT Lab [facility] [address] [place] [address] PatelRobynseptember, PAC [address] [place] [address] Discharge Disposition: Discharged to home or Selfcare 01/17/2025 2:00 PM CDT Office Visit [facility] [address] [place] [address] PatelRobyne September, PAC [address] [place] [address] Discharge Disposition: Discharged to home or Selfcare documented as of this encounter Visit Diagnoses Not on filedocumented in this encounter Additional Health Concerns Assessment Noted Time PHQ-9 Depression Total Score: 11 020 8:36 AM CDT documented as of this encounter Care Teams Telecom Specialist Relationship Specialty Start Date End Date Morales Meza MD [address] [address] [address] PCP - General Family Medicine 01/05/20 Valeria Ulloa APRN, SUPERVISOR [employer] [address] [place] [address] Nurse Practitioner Advanced Practice Nurse 02/26/22 documented as of this encounter
--- OUTSIDE RECORDS SUMMARY | 2024-11-16 22:39 | XMS_ITS | Clinical Summary ---
Author Organization [facility] Address [address] [place] [address] Phone Care Team Providers Care International Student Advisor Name Role Phone Morales Meza MD Primary Care Provider [phone] Valeria Ulloa APRN, SPECTROGRAPHER Unavailable [phone] Allergies Active Allergy Reactions Criticality Noted Date [...] acid deficiency 10/13/2024 Iron deficiency anemia ivana enoch to inadequate dietary iron intake 07/15/2024 [...] Encounters Date Type Department Care Team Description 11/16/2024 Telephone [facility] [address] [place] [address] Morales Meza MD Medication Management 11/15/2024 10:30 AM CDT Clinical Support 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) Discharge Disposition: Discharged to home or Selfcare 11/15/2024 Travel 10/21/2024 Telephone [facility] Neurology [facility] [address] [place] [address] Valeria Ulloa APRN, SPECTROGRAPHER 10/19/2024 Telephone [facility] [address] [place] [address] Valeria Ulloa APRN, SPECTROGRAPHER 10/18/2024 1:30 PM CDT Clinical Support [facility] Oncology Services [address] [place] [address] Alycia Patel Joanne, PAC 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) Discharge Disposition: Discharged to home or Selfcare 10/18/2024 Travel 10/13/2024 2:00 PM CDT Office Visit [facility] [address] [place] [phone] Alycia Patel Joanne, PAC 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); B12 deficiency; History of Swetha-en-Y gastric bypass; Folic acid deficiency Discharge Disposition: Discharged to home or Selfcare 10/13/2024 Travel 10/06/2024 Results Follow-Up [facility] [address] [place] [phone] Alycia Ptael Joanne, PAC FOLIC ACID (FOLATE), FERRITIN, CMP (COMPREHENSIVE METABOLIC PANEL), Additional followed-up results: 7 10/05/2024 2:30 PM CDT Lab [facility] [address] [place] [phone] Song Craft MD Norris, Arlene Joanne, PAC Iron 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 dietary iron intake; B12 deficiency Discharge Disposition: Discharged to home or Selfcare 10/05/2024 Travel 09/14/2024 Telephone [facility] [place] [address] [place] [address] Valeria Ulloa APRN, SPECTROGRAPHER from Last 3 Months Immunizations Immunization Administration Dates Next Due Influenza Vaccine, Quadrivalent, PF 01/24/2021,1 TDAP Vaccine 06/15/2019 Family History Medical History Relation Name Comments No Known Problems Brother Heart Attack Father Alec Heart Disease Father Alec Heart Surgery Father Alec Cancer Maternal Grandfather Stephen Chronic Obstructive Pulmonary Disease Maternal Grandmo doug Rheumatoid Arthritis Mother Jazz Congestive Heart Failure [...] a wine cooler maybe once a month [facility] Utilities Answer Date Recorded In the past 12 months has [employer], gas, oil, or water [employer] threatened to shut off services in your home? Yes 07/03/2024 Social Connection and Isolation Panel Answer Date Recorded In a typical week, how many times do you talk on the phone with family, friends, or neighbors? Twice a week 07/03/2024 How often do you get together with friends or re latives? Once a week 07/03/2024 How often do you attend latter day or presybeterian serv ices? Never 07/03/2024 Do you belong [...] Score - Questions 1-9 11 10/0 04/2019 [facility] of Occupat ional Health - Occupational Stress [...] a skilled nursing (including now)? No 08/14/2023 Housing Stability Vital [...] were you homeless or living in a skilled nursing (including now)? No 07/03/2024 Education Answer Date Recorded What is the highest level of school you have completed or the highest degree you have received? Associate degree: academic program 05/06/2021 Sexually Active Control Partners Comments Yes Other Male Comments No Sex and Gender Information Value Date Recorded Sex Assigned at Female 03/19/2024 12:44 AM PROPOSAL SPECIALIST Legal Sex Female 3:50 AM CDT Gender Identity Female 03/19/2024 12:44 AM PROPOSAL SPECIALIST Sexual Orientation Not on file Last Filed [...] Description 11/17/2024 2:00 PM CDT Clinical Support [facility] [address] [place] [address] Alycia Patel Joanne, PAC [address] [place] [address] Discharge Disposition: Discharged to home or Selfcare 11/22/2024 2:00 PM CDT Clinical Support [facility] [address] [place] [address] PatelAlycia Joanne, PAC [address] [place] [address] Discharge Disposition: Discharged to home or Selfcare 11/24/2024 2:00 PM CDT Clinical Support [facility] Services [address] [place] [address] PatelAlycia September, PAC [address] [place] [address] Discharge Disposition: Discharged to home or Selfcare 12/13/2024 3:00 PM CDT [facility] [place] [facility] [place] [address] Valeria Ulloa, PROCESS ASSISTANT, SPECTROGRAPHER [address] [place] [address] 01/10/2025 2:20 PM CDT Lab [facility] [place] [facility] [address] [place] [address] [facility] September, PAC [address] [place] [address] Discharge Disposition: Discharged to home or Selfcare 01/17/2025 2:00 PM CDT Office [facility] [address] [place] [address] [facility] September, PAC [address] [place] [address] Discharge Disposition: Discharged to home or Selfcare [...] 2023 02/11/2021, 07/26/2020, 07/03/2020 Influenza Immunization (#1) 2024 10/04/2020, 01/05/2020 Td Immunization Every 10 Yea rs [...] Procedure Name Priority Date/Time Associated Diagnosis Comments CT - HEAD/NECK 11/12/2024 12:00 AM CDT CBC WITH AUTO DIFFERENTIAL Routine 10/05/2024 2:22 [...] Recently Relevant to Health Maintenance Results * CT - HEAD/NECK (11/12/2024 12:00 AM CDT) 11/12/2024 us Provider Scan IMG CT ORDERABLES Final Result SCAN * (ABNORMAL) IRON,TRANSFERN,CALC.TIBC,%SAT (10/05/2024 2:22 PM CDT) IRON 20(L) 25 - 156 mcg/dL 10/05/2024 3:03 PM CDT [facility] TRANSFERRIN 315 180 - 382 mg/dL 10/05/2024 3:03 PM CDT [facility] TIBC, CALCULATED 394 265 - 497 mcg/dL 10/05/2024 3:03 PM CDT [facility] % SATURATION * 5(L) 15 - 62 % 10/05/2024 3:03 PM CDT [facility] Blood Venipuncture / Unknown 10/05/2024 2:22 PM CDT 10/05/2024 2:22 PM CDT Alycia Patel PAC CHEMISTRY ORDERABLES Anais l Result Performing Organization Address City/[facility]/ZIP Co de Phone Number [facility] [address] [place] [address] * (ABNORMAL) CBC WITH AUTO DIFFERENTIAL (10/05/2024 2:22 PM CDT) [facility] WBC 7.73 4.00 - 12.00 10(3)/[facility] 10/05/2024 3:55 PM CDT [facility] RBC 4.65 3.80 - 5.30 10(6)/[facility] 10/05/2024 3:55 PM CDT [facility] HEMOGLOBIN (HGB) 11.2(L) 12.0 - 15.8 g/dL 10/05/2024 3:55 PM CDT [facility] HEMATOCRIT (HCT) 36.9 36.0 - 47.0 % 10/05/2024 3:55 PM CDT [facility] MCV 79.4(L) 82.0 - 96.0 fL 10/05/2024 3:55 PM CDT [facility] MCH 24.1(L) 26.0 - 34.0 pg 10/05/2024 3:55 PM CDT [facility] MCHC 30.4(L) 31.0 - 36.0 g/dL 10/05/2024 3:55 PM CDT [facility] PLATELET COUNT 273 140 - 440 10(3)/[facility] 10/05/2024 3:55 PM CDT [facility] RDW 21.4(H) 11.8 - 15.5 % 10/05/2024 3:55 PM CDT [facility] MPV 11.8 9.7 - 12.4 fL 10/05/2024 3:55 PM CDT [facility] NEUTROPHILS 59.0 47.0 - 73.0 % 10/05/2024 3:55 PM CDT [facility] LYMPHOCYTES 30.0 18.0 - 42.0 % 10/05/2024 3:55 PM CDT [facility] MONOCYTES 5.8 4.0 - 12.0 % 10/05/2024 3:55 PM CDT [facility] EOSINOPHILS 4.0 0.0 - 5.0 % 10/05/2024 3:55 PM CDT [facility] BASOPHILS 0.9 0.0 - 1.0 % 10/05/2024 3:55 PM CDT [facility] IMMATURE GRANULOCYTE 0.3 0.0 - 0.4 % 10/05/2024 3:55 PM CDT [facility] Comment:Immature Granulocyte s includes Metamyelocytes, Myelocytes, and Promyelocytes. ABSOLUTE NEUTROPHILS 4.56 1.60 - 7.70 10(3)/[facility] 10/05/2024 3:55 PM CDT [facility] ABSOLUTE LYMPHOCYTES 2.32 1.30 - 3.20 10(3)/[facility] 10/05/2024 3:55 PM CDT [facility] ABSOLUTE MONOCYTES 0.45 0.20 - 1.00 10(3)/[facility] 10/05/2024 3:55 PM CDT [facility] ABSOLUTE EOSINOPHIL 0.31 0.00 - 0.40 10(3)/[facility] 10/05/2024 3:55 PM CDT [facility] ABSOLUTE BASOPHILS 0.07 0.00 - 0.10 10(3)/[facility] 10/05/2024 3:55 PM CDT [facility] ABSOLUTE IMMATURE GRANULOCYTE 0.02 0.00 - 0.03 10 (3) mcL. 10/05/2024 3:55 PM CDT [facility] NRBC PER 100 WBC 0 10/06/19 3:55 PM CDT [facility] RESULTS ARE CONSISTENT WITH PERIPHERAL SMEAR REVIEW Yes 10/05/2024 3:55 PM CDT [facility] RBC MORPHOLOGY CONSISTENT WITH INDICES Yes 10/05/2024 3:55 PM CDT [facility] POIKILOCYTOSIS 1+ 10/05/2024 3:55 PM CDT [facility] OVALOCYTES Present 10/05/2024 3:55 PM CDT [facility] LARGE PLATELETS 1+ 3:55 PM CDT [facility] Blood Venipuncture / Unknown 10/05/2024 2:22 PM CDT 10/05/2024 2:22 PM CDT Narrative [facility] - 10/05/2024 3:55 PM CDT Anisocytosis Microcytosis Hypochromia [facility] HEMATOLOGY ORDERABLES Fin al Result [facility] [address] [place] [address] * (ABNORMAL) FREE KAPPA & LAMBDA LIGHT CHAINS SERUM (10/05/2024 2:22 PM CDT) Free Mccrory Lt Chn 25.19(H) 3.30 - 19.40 mg/L 10/06/2024 10:05 AM CDT [facility] Free Lambda Lt Chn 15.52 5.71 - 26.30 mg/L 10/06/2024 10:05 AM CDT [facility] free wai tomas ratio 1.62 0.26 - 1.65 10/06/2024 10:05 AM CDT [facility] Blood Venipuncture / Unknown 10/05/2024 2:22 PM CDT 10/05/2024 2:[address] [facility] CHEMISTRY ORDERABLES Anais l Result [facility] [address] [place] [address], * VITAMIN B12 (10/05/2024 2:22 PM CDT) VITAMIN B12 235 213 - 816 pg/mL 10/05/2024 3:33 PM CDT [facility] Blood Venipuncture / Unknown 10/05/2024 2:22 PM CDT 10/05/2024 2:22 PM CDT [facility] PAC CHEMISTRY ORDERABLES Anais l Result Performing Organization Address [facility]/ZIP Co de Phone Number [facility] [address] [place] [address] * RETICULOCYTE COUNT (RETIC) (10/05/2024 2:22 PM CDT) RETICULOCYTES 0.9 0.5 - 2.0 % 10/05/2024 2:43 PM CDT [facility] Blood Venipuncture / Unknown 10/05/2024 2:22 PM CDT 10/05/2024 2:[address] [facility] HEMATOLOGY ORDERABLES Fin al Result Performing Organization Address [facility] Co de Phone Number [facility] [address] [place] [address] * LACTATE DEHYDROGENASE (LD) (10/05/2024 2:22 PM CDT) Pathologist [facility] LDH 175 125 - 220 U/L 10/05/2024 3:03 PM CDT [facility] Blood Venipuncture / Unknown 10/05/2024 2:22 PM CDT 10/05/2024 2:22 PM CDT [facility] PAC CHEMISTRY ORDERABLES Anais l Result Performing Organization Address [facility] Co de Phone Number [facility] [address] [place] [address] * (ABNORMAL) IMMUNOFIXATION W/ ELECTROPHORESIS SERUM (10/05/2024 2:22 PM CDT) TOTAL PROTEIN 6.5 6.0 - 8.0 g/dL 10/10/2024 1:05 PM CDT [facility] % ALBUMIN 56.0 55.8 - 66.7 % 10/10/2024 1:05 PM [facility] ALBUMIN SERUM 3.6 2.5 - 5.4 g/dL 10/10/2024 1:05 PM [facility] % ALPHA 1 GLOBULIN 3.4 2.9 - 4.9 % 10/10/2024 1:05 PM [facility] ALPHA 1 0.2 0.2 - 0.4 g/dL 10/10/2024 1:05 PM [facility] % ALPHA 2 GLOBULIN 13.0(H) 7.1 - 11.8 % 10/10/2024 1:05 [facility] ALPHA 2 0.8 0.5 - 1.0 g/dL 10/10/2024 1:05 PM [facility] % BETA 15.2(H) 8.4 - 13.1 % 10/10/2024 1:05 PM [facility] BETA-GLOBULIN 1.0 0.5 - 1.1 g/dL 10/10/2024 1:05 PM [facility] % GAMMA GLOBULIN 12.4 11.1 - 18.8 % 10/10/2024 1:05 [facility] GAMMA 0.8 0.7 - 1.5 g/dL 10/10/2024 1:05 PM [facility] IMMUNOGLOBULIN G 761 552 - 1,631 mg/dL 10/10/2024 1:05 PM [facility] IMMUNOGLOBULIN A 185 65 - 421 mg/dL 10/10/2024 1:05 PM [facility] IMMUNOGLOBULIN M 64 33 - 293 mg/dL 10/10/2024 1:05 PM [facility] INTERPRETATION SERUM No abnormal protein band is detected by serum protein electrophoresis. Serum immunofixation electrophoresis is negative for monoclonal immunoglobulins. Reviewed by Chintan Leon, Ph.D. 10/10/2024 1:05 PM [facility] A/G RATIO, SERUM 1.3 10/11/19 25 1:05 [facility] Blood Venipuncture / Unknown 10/05/2024 2:22 PM CDT 10/05/2024 2:22 PM CDT Narrative [facility] - 10/10/2024 1:05 PM CDT Reviewed by Alfa Milan M.D. [facility] PAC CHEMISTRY ORDERABLES Anais l Result [facility] [address] [place] [address], * (ABNORMAL) FOLIC ACID (FOLATE) (10/05/2024 2:22 PM CDT) FOLATE 6.9(L) 7.0 - 31.4 ng/mL 10/05/2024 3:33 PM CDT [facility] IS THE PATIENT REQUIRED TO BE FASTING? No 10/05/2024 3:33 PM CDT [facility] Blood Venipuncture / Unknown 10/05/2024 2:22 PM CDT 10/05/2024 2:22 PM CDT [facility] PAC CHEMISTRY ORDERABLES Anais l Result Performing Organization Address [facility]/ZIP Co de Phone Number [facility] [address] [place] [address] * FERRITIN (10/05/2024 2:22 PM CDT) FERRITIN 9 5 - 204 ng/mL 10/05/2024 3:20 PM CDT [facility] Blood Venipuncture / Unknown 10/05/2024 2:22 PM CDT 10/05/2024 2:22 PM CDT [facility] PAC CHEMISTRY ORDERABLES Anais l Result [facility] [address] [place] [address] * (ABNORMAL) CMP (COMPREHENSIVE METABOLIC PANEL) (10/05/2024 2:22 PM CDT) SODIUM 139 136 - 145 mmol/L 10/05/2024 3:03 PM CDT [facility] POTASSIUM 3.7 3.5 - 5.1 mmol/L 10/05/2024 3:03 PM CDT [facility] CHLORIDE 108(H) 98 - 107 mmol/L 10/05/2024 3:03 PM CDT [facility] CO2, VENOUS 24 22 - 30 mmol/L 10/05/2024 3:03 PM CDT [facility] ANION GAP 10.7 <18.0 mmol/L 10/05/2024 3:03 PM CDT [facility] GLUCOSE 94 70 - 99 mg/dL 10/05/2024 3:03 PM CDT [facility] BUN 11 5 - 18 mg/dL 10/05/2024 3:03 PM CDT [facility] CREATININE, BLOOD 0.84 0.60 - 1.00 mg/dL 10/05/2024 3:03 PM CDT [facility] BUN/CREATININE RATIO 13 12 - 20 ratio 10/05/2024 3:03 PM CDT [facility] TOTAL PROTEIN 6.8 6.0 - 8.0 g/dL 10/05/2024 3:03 PM CDT [facility] ALBUMIN 4.1 3.5 - 5.0 g/dL 10/05/2024 3:03 PM CDT [facility] A/G RATIO 1.5 1.0 - 2.2 10/05/2024 3:03 PM CDT [facility] CALCIUM 8.9 8.7 - 10.5 mg/dL 10/05/2024 3:03 PM CDT [facility] T BILI 0.2 0.2 - 1.2 mg/dL 10/05/2024 3:03 PM CDT [facility] SGOT (AST) 19 <43 U/L 10/05/2024 3:03 PM CDT [facility] SGPT (ALT) 11 <56 U/L 10/05/2024 3:03 PM CDT [facility] ALKALINE PHOSPHATASE 69 40 - 150 U/L 10/05/2024 3:03 PM CDT [facility] IS THE PATIENT REQUIRED TO BE FASTING? No 10/05/2024 3:03 PM CDT [facility] GFR, ESTIMATED >60 >=60 10/05/2024 3:03 PM CDT [facility] Comment: Creatinine Clearance is the preferred criteria for selecting drug dose adjustments in renally impaired patients. The GFR is provided as additional pertinent clinical information. GFR is reported in mL/min/1.73 sq m. Calculation based on the Chronic Kidney Disease Epidemiology Collaboration (CKD- EPI) equation refit without adjustment for race. GFR, EST. >60 >=60 025 3:03 PM CDT [facility] GFR, EST. NONAFRICAN >60 >=60 10/05/2024 3:03 PM CDT [facility] Blood Venipuncture / Unknown 10/05/2024 2:22 PM CDT 10/05/2024 2:22 PM CDT Alycia Patel PAC CHEMISTRY ORDERABLES Anais l Result [facility] [address] [place] [address] * SUSHIL SCREENING BILATERAL DIGITAL W CAD [...] next screening exam. Electronically signed by: Shy kerns:09/23/2022 23:06:31 Automation And Controls Manager(s): RT Jessica(R)(M), [facility] letter sent: Normal Exam Reading location: [facility] BI-RADS: 1 Negative Procedure Note Shy Smalls [...] exam. Electronically signed by: Shy bah/dayan:09/23/2022 23:06:31 Automation And Controls Manager(s): RT Jessica(R)(M), [facility] letter sent: Normal Exam Reading location: [place] BI-RADS: 1 Negative Sol Cassie GONZALEZN, BEHAVIORAL HEALTH ASSISTANT IMG MAMMO ORDERABLES Final Result from Last 3 Months or Most Recently Relevant to Health Maintenance Insurance MEDICARE C [employer] Advance Directives * Full Code (Latest Code Status on File) Date Activated Date Inactivated Comments 08/14/2023 1:39 AM 08/14/2023 7:22 AM CPR-Full Ty atment: FULL ARREST: Attempt Resuscitation/CPR wit intubation and mechanical ventilation. PRE-ARREST: Use entire range of life support measures to stabilize the patient. Care Teams International Student Advisor Relationship Specialty Start Date End Date Morales Meza MD #[address] [address] PCP - General Family Medicine 01/05/20 Valeria Ulloa APRN, SPECTROGRAPHER [address] [place] [address] Nurse Practitioner Advanced Practice Nurse 02/26/22
--- OUTSIDE RECORDS SUMMARY | 2024-11-16 22:39 | XMS_ITS | Encounter Summary ---
Author Organization [facility] Address [address] [place] [address] Phone Care Team Providers Care Post Anesthesia Room Nurse Name Role Phone Morales Meza MD Primary Care Provider [phone] Valeria Ulloa TRANSITIONAL KINDERGARTEN TEACHER, BALANCER Unavailable [phone] Reason for Visit * Reason Comments Medication Refill Encounter Details Date Type Department Care Team (Late st Contact Info) Description 08/20/2023 Refill [facility] #2 [place] [address] Morales Meza MD #[address] [address] Medication Refill Social History Tobacco Use Types Packs/Day Years Used Date Smoking Tobacco: Former Cigarettes 2011 Smokeless Tobacco: Never Alcohol Use Standard Drinks/Week Comments Yes 0 (1 standard drink = 0.6 oz pur e alcohol) Very Rare [facility] Utilities Answer Date Recorded In the past 12 months has [employer], gas, oil, or water company threatened to [...] How often do you attend samaritan or islam serv ices? Patient declined 08/14/2023 Do you [...] Total Score - Questions 1-9 11 04/2019 [facility] of Occupat ional Health - Occupational Stress [...] place to sleep or slept in a nursing home (including now)? No 08/14/2023 Education Answer Date Recorded What is the highest level of school you have completed or the highest degree you have received? Associate degree: academic program 05/06/2021 Sexually Active Control Partners Comments Yes Comments No Sex and Gender Information Value Date Recorded Sex Assigned at Female 03/19/2024 12:44 AM AD COMPOSITOR Legal Sex Female 3:50 AM CDT Gender Identity Female 03/19/2024 12:44 AM AD COMPOSITOR Sexual Orientation Not on file documented as [...] order placed on 07/30/2023 10:14 AM Order [id number]: ketorolac (TORADOL) injection 30 mg (For orders [...] Description 11/17/2024 2:00 PM CDT Clinical Support [facility] Oncology Services [address] [place] [address] Alycia Patel PAC [address] [place] [address] Discharge Disposition: Discharged to home or Selfcare 11/22/2024 2:00 PM CDT Clinical Support [facility] [address] [place] [address] PateleTrryAlycia June, PAC [address] [place] [address] Discharge Disposition: Discharged to home or Selfcare 11/24/2024 2:00 PM CDT Clinical Support [facility] [address] [place] [address] PatelTerryAlycia June, PAC [address] [place] [address] Discharge Disposition: Discharged to home or Selfcare 12/13/2024 3:00 PM CDT Office Visit [facility] Neu[facility] #2 [place] [address] Valeria Ulloa APRN, BALANCER [address] [place] [address] 01/10/2025 2:20 PM CDT Lab [facility] [address] [place] [address] Terry Patellenseptember, PAC [address] [place] [address] Discharge Disposition: Discharged to home or Selfcare 01/17/2025 2:00 PM CDT Office Visit [facility] [address] [place] [address] PatelTerryAlycia June, PAC [address] [place] [address] Discharge Disposition: Discharged to home or Selfcare documented as of this encounter Visit Diagnoses Not on filedocumented in this encounter Additional Health Concerns Assessment Noted Time PHQ-9 Depression Total Score: 11 020 8:36 AM CDT documented as of this encounter Care Teams Post Anesthesia Room Nurse Relationship Specialty Start Date End Date Morales Meza MD [facility] [address] [address] PCP - General Family Medicine 01/05/20 Valeria Ulloa APRN, BALANCER [address] [place] [address] Nurse Practitioner Advanced Practice Nurse 02/26/22 documented as of this encounter
--- OUTSIDE RECORDS SUMMARY | 2024-11-16 22:39 | XMS_ITS | Encounter Summary ---
Author Organization [facility] Address [address] [place] [address] Phone Care Team Providers Care Suspension Cord Tier Name Role Phone Morales Meza MD Primary Care Provider [phone] Valeria Ulloa MINE EQUIPMENT DESIGN ENGINEER, POWER SAW OPERATOR Unavailable [phone] Reason for Visit * Reason Comments Medication Refill Encounter Details Date Type Department Care Team (Late st Contact Info) Description 03/23/2023 Refill [facility] #2 [place] [address] Morales Meza MD #[address] [address] Medication Refill Social History Tobacco Use Types [...] Sex Assigned at Female 03/19/2024 12:44 AM CARPET INSTALLATION SPECIALIST Legal Sex Female 3:50 AM CDT Gender Identity Female 03/19/2024 12:44 AM CARPET INSTALLATION SPECIALIST Sexual Orientation Not on file documented as of this encounter Miscellaneous Notes * Telephone Encounter - Rosemary Van RMA - 03/23/2023 3:25 PM CARPET INSTALLATION SPECIALIST LVM to schedule ET INSTALLATION SPECIALIST * Telephone Encounter - Lizz Miller RN - 03/23/2023 10:20 AM CST Needs OV with PCP ET INSTALLATION SPECIALIST * Telephone Encounter - Lizz Miller [...] Ref Range Status 06/12/2022 >60 >=60 Final ET INSTALLATION SPECIALIST documented in this encounter Plan of Treatment Upcoming Encounters Date Type Department Care Team (Late st Contact Info) Description 11/17/2024 2:00 PM CDT Clinical Support [facility] Oncology Services [address] [place] [address] Alycia Patel Joanne, PAC [address] [place] [address] Discharge Disposition: Discharged to home or Selfcare 11/22/2024 2:00 PM CDT Clinical Support [facility] [address] [place] [address] Jorge Alycia June, PAC [address] [place] [address] Discharge Disposition: Discharged to home or Selfcare 11/24/2024 2:00 PM CDT Clinical Support [facility] [address] [place] [address] PatelRobynseptember, PAC [address] [place] [address] Discharge Disposition: Discharged to home or Selfcare 12/13/2024 3:00 PM CDT Office Visit [facility] - Neurology [facility] #2 [place] [address] Valeria Ulloa, MINE EQUIPMENT DESIGN ENGINEER, POWER SAW OPERATOR [address] [place] [address] 01/10/2025 2:20 PM CDT Lab [facility] [address] [place] [address] Patel Alycia June, PAC [address] [place] [address] Discharge Disposition: Discharged to home or Selfcare 01/17/2025 2:00 PM CDT Office Visit [facility] [address] [place] [address] Robyn Patelseptember, PAC [address] [place] [address] Discharge Disposition: Discharged to home or Selfcare documented as of this encounter Visit Diagnoses Not on filedocumented in this encounter Additional Health Concerns Infection Onset Date Last Indicated Resolved Time COVID - 19 08/13/2023 08/13/2023 08/14/2023 12:0 4 AM CDT Assessment Noted Time PHQ-9 Depression Total Score: 11 020 8:36 AM CDT documented as of this encounter Care Teams Suspension Cord Tier Relationship Specialty Start Date End Date Morales Meza MD #[address] [address] PCP - General Family Medicine 01/05/20 Valeria Ulloa APRN, POWER SAW OPERATOR [address] [place] [address] Nurse Practitioner Advanced Practice Nurse 02/26/22 documented as of this encounter
--- OUTSIDE RECORDS SUMMARY | 2024-11-16 22:39 | XMS_ITS | Encounter Summary ---
Author Organization [facility] Address [address] [place] [address] Care Team Providers Care Pull Worker Name Role Phone Unavailable Primary Care Provider Unavailabl e Encounter Details Date Type Department Care Team (Late st Contact Info) Description 04/30/2000 Outpatient Historical [facility] Internal Medicine [place] [address] [place] [address] Raf Pfeiffer MD [address] [place] [id number] Social History Tobacco Use Types Packs/Day Years Used Date Smoking Tobacco: Never Assessed Comments Unknown Sex and Gender Information Value Date Recorded Sex Assigned at Not on file Legal Sex Female 3:[address] SQL DEVELOPER Gender Identity Not on file Sexual Orientation Not on file documented as of this encounter Plan of Treatment Not on file documented as of this encounter Visit Diagnoses Not on filedocumented in this encounter
--- OUTSIDE RECORDS SUMMARY | 2024-11-16 22:40 | XMS_ITS | Encounter Summary ---
Author Organization [facility] Address [address] [place] [address] Care Team Providers Care Salvage Inspector Wood Parts Name Role Phone No, Physician Primary Care Provider [phone] Jazmin Saab MD Unavailable [phone] Og Sumner MD Primary Care Provider + Morales Meza MD Primary Care Provider [phone] Encounter Details Date Type Department Care Team (Late st Contact Info) Description 09/15/2019 Telephone [facility] [address] [place] [address] Valeria Ortiz, RT Social History Tobacco Use [...] documented as of this encounter Care Teams Salvage Inspector Wood Parts Relationship Specialty Start Date End Date No, Physician PCP - General 08/31/18 05/08/20 Og Sumner MD [address] [place] [address] PCP - General 02/21/21 06/16/21 Morales Meza MD [address] [address] PCP - General Family Medicine 06/17/21 Jazmin Saab MD [address] [place] [address] Referring Physician Obstetrics and Gynecology 01/10/19 documented as of this encounter
[2024-11-16 23:21] VITALS: BP 133/60; PULSE 89; RESP 23; O2SAT 100
[2024-11-16 23:22] VITALS: PULSE 91
--- NOTE | 2024-11-16 23:30 | ECG_ITS ---
Test Date: 2024-11-16 23:50:48 Measurements Intervals Rison Rate: 89 P: 3 MD: 174 QRS: 5 QRSD: 94 T: 51 QT: 356 QTc: 433 Interpretive Statements SINUS RHYTHM INCOMPLETE RIGHT BUNDLE BRANCH BLOCK BASELINE ARTIFACT- I, II, AVR, AVL, AVF, V1, V6 NORMAL ECG Compared to ECG 11/12/2024 04:19:01 NO SIGNIFICANT CHANGE Electronically Signed On 11-17-2024 06:07:23 CDT by Rodrigo Blanchard D.O.
[2024-11-16 23:42] VITALS: O2SAT 100
[2024-11-16 23:43] VITALS: O2SAT 100
[2024-11-16 23:55] LABS: Hematocrit 34.4 % (37.0-47.0); Hemoglobin 10.5 g/dL (12.0-15.0); Immature Granulocyte Percent A 0.6 % (0-0.5); Lymphocytes Absolute Auto 2.35 K/mm3 (0.9-3.2); Mean Corpuscular HGB Conc 30.5 g/dl (32-36); Mean Corpuscular Hemoglobin 24.5 pg (26-34); Mean Corpuscular Volume 80.2 fl (80-100); Nucleated Red Blood Cells Absolute Auto 0.000 K/mm3 (0.0-0.012); Nucleated Red Blood Cells Perc 0.0 % (0.0-0.2); Platelet Count Result 214 k/mm3 (150-375); Red Blood Count 4.29 M/mm3 (4.2-5.4); White Blood Count 8.5 K/mm3 (4.5-10.0)
[2024-11-17 00:01] LABS: BEDSIDEPREGUCG Negative (Negative)
[2024-11-17 00:03] LABS: INR 1.0; Prothrombin Time 13.6 Seconds (11.1-14.7)
[2024-11-17 00:04] LABS: Partial Thromboplastin Time 28.3 Seconds (22.3-36.8)
[2024-11-17 00:11] LABS: Alanine Aminotransferase 14 U/L (6-35); Albumin Level 3.7 g/dL (3.5-5.1); Alkaline Phosphatase 70 U/L (38-126); Anion Gap 5 mmol/L (4-12); Aspartate Amino Transferase 30 U/L (14-36); Bilirubin,Total 0.2 mg/dL (0.2-1.3); Blood Urea Nitrogen 13 mg/dL (7-17); Calcium 9.3 mg/dL (8.4-10.2); Carbon Dioxide 23 mmol/L (22-30); Chloride 107 mmol/L (98-107); Estimated CRCL calculation 93 ml/min; Estimated Glomerular Filt Rate > 60; Glucose 94 mg/dL (65-110); Potassium 3.8 mmol/L (3.4-5.0); Sodium 135 mmol/L (137-145); Total Protein 6.4 g/dL (6.3-8.2)
[2024-11-17 00:17] LABS: Add Urine Microscopic? NO; Appearance Urine Clear (Clear); Glucose Urine UA Negative (Negative); Leukocyte Esterase Ur Negative LEU/UL (Negative); Nitrate Urine Negative (Negative); Specific Grav Ur 1.014 (1.001-1.035)
[2024-11-17 00:23] VITALS: BP 128/64; PULSE 76; RESP 19; O2SAT 99
--- OUTSIDE RECORDS SUMMARY | 2024-11-17 00:40 | XMS_ITS | Encounter Summary ---
Author Organization [facility] Address [address] [place] [address] Phone Care Team Providers Care Character Actor Name Role Phone Morales Meza MD Primary Care Provider [phone] Valeria Ulloa COMMERCIAL LOAN ADMINISTRATOR, CRUISE COORDINATOR Unavailable [phone] Reason for Visit * Reason Comments Medication Refill Encounter Details Date Type Department Care Team (Late st Contact Info) Description 07/21/2023 Refill [facility] #[address] [place] [address] Morales Meza MD #[address] [address] Medication Refill Social History Tobacco Use Types [...] Sex Assigned at Female 03/19/2024 12:44 AM CAREGIVER SERVICES HOME Legal Sex Female 3:50 AM CDT Gender Identity Female 03/19/2024 12:44 AM CAREGIVER SERVICES HOME Sexual Orientation Not on file documented as [...] Description 11/17/2024 2:00 PM CDT Clinical Support [facility] Oncology Services [address] [place] [address] Alycia Patel Joanne, PAC [address] [place] [address] Discharge Disposition: Discharged to home or Selfcare 11/22/2024 2:00 PM CDT Clinical Support [facility] Oncology Services [address] [place] [address] Alycia Patel Joanne, PAC [address] [place] [address] Discharge Disposition: Discharged to home or Selfcare 11/24/2024 2:00 PM CDT Clinical Support [facility] Oncology Services [address] [place] [address] Alycia Patel Joanne, PAC [address] [place] [address] Discharge Disposition: Discharged to home or Selfcare 12/13/2024 3:00 PM CDT Office Visit [facility] - Neurology [facility] #[address] [place] [address] Valeria Ulloa APRN, CRUISE COORDINATOR [address] [place] [address] 01/10/2025 2:20 PM CDT Lab [facility] [address] [place] [address] Alycia Patel September, PAC [address] [place] [address] Discharge Disposition: Discharged to home or Selfcare 01/17/2025 2:00 PM CDT Office Visit [facility] Oncology Services [address] [place] [address] Alycia Patel September, PAC [address] [place] [address] Discharge Disposition: Discharged to home or Selfcare documented as of this encounter Visit Diagnoses Not on filedocumented in this encounter Additional Health Concerns Infection Onset Date Last Indicated Resolved Time COVID - 19 08/13/2023 08/13/2023 08/14/2023 12:0 4 AM CDT Assessment Noted Time PHQ-9 Depression Total Score: 11 020 8:36 AM CDT documented as of this encounter Care Teams Character Actor Relationship Specialty Start Date End Date Morales Meza MD #[address] [address] PCP - General Family Medicine 01/05/20 Valeria Ulloa APRN, CRUISE COORDINATOR [address] [place] [address] Nurse Practitioner Advanced Practice Nurse 02/26/22 documented as of this encounter
--- OUTSIDE RECORDS SUMMARY | 2024-11-17 00:40 | XMS_ITS | Encounter Summary ---
Author Organization [facility] Address [address] [place] [address] Phone Care Team Providers Care Product Development Specialist Name Role Phone Morales Meza MD Primary Care Provider [phone] Valeria Ulloa EMPLOYMENT PROGRAM REPRESENTATIVE, STALLION MANAGER Unavailable [phone] Reason for Visit * Reason Comments Medication Refill Encounter Details Date Type Department Care Team (Late st Contact Info) Description 09/19/2023 Refill [facility] #2 [place] [address] Morales Meza MD #[address] [address] Medication Refill Social History Tobacco Use Types Packs/Day Years Used Date Smoking Tobacco: Former Cigarettes 2011 Smokeless Tobacco: Never Alcohol Use Standard Drinks/Week Comments Yes 0 (1 standard drink = 0.6 oz pur e alcohol) Very Rare [facility] Utilities Answer Date Recorded In the past 12 months has [employer], gas, oil, or water company threatened to shut off services in your home? No 08/14/2023 Social Connection and Isolation Panel Answer Date Recorded In a typical week, how many times do you talk on the phone with family, friends, or neighbors? Patient declined 08/14/2023 How often do you get togethe r with friends or relatives? Patient declined 08/14/2023 How often do you attend mu-ism or advent serv ices? Patient declined 08/14/2023 Do you belong to any clubs o r organizations such as mu-ism groups, unions, fraternal or athletic groups, or [...] Total Score - Questions 1-9 11 04/2019 [facility] of Occupat ional Health - Occupational Stress [...] place to sleep or slept in a fci (including now)? No 08/14/2023 Education Answer Date Recorded What is the highest level of school you have completed or the highest degree you have received? Associate degree: academic program 05/06/2021 Sexually Active Control Partners Comments Yes Comments No Sex and Gender Information Value Date Recorded Sex Assigned at Female 03/19/2024 12:44 AM SHOE DYER Legal Sex Female 3:50 AM CDT Gender Identity Female 03/19/2024 12:44 AM SHOE DYER Sexual Orientation Not on file documented as [...] Provider Dept 10/07/23 Appointment Morales Meza MD [facility] Arash Showing future appointments within next 90 days and meeting all other requirements Failed - No matching NSAID med order in past 45 days Matching medication order placed on 08/21/2023 9:22 AM Order [id number]: meloxicam (MOBIC) 15 MG Tablet (For orders [...] Description 11/17/2024 2:00 PM CDT Clinical Support [facility] Oncology Services [address] [place] [address] Alycia Patel September, PAC [address] [place] [address] Discharge Disposition: Discharged to home or Selfcare 11/22/2024 2:00 PM CDT Clinical Support [facility] Oncology Services [address] [place] [address] Alycia Patel September, PAC [address] [place] [address] Discharge Disposition: Discharged to home or Selfcare 11/24/2024 2:00 PM CDT Clinical Support [facility] Oncology Services [address] [place] [address] Alycia Patel September, PAC [address] [place] [address] Discharge Disposition: Discharged to home or Selfcare 12/13/2024 3:00 PM CDT [facility]2 [place] [address] Valeria Ulloa APRN, STALLION MANAGER [address] [place] [address] 01/10/2025 2:20 PM CDT Lab [facility] Oncology Services [address] [place] [address] PatelAlycia ramirez Joanne, PAC [address] [place] [address] Discharge Disposition: Discharged to home or Selfcare 01/17/2025 2:00 PM CDT [facility] [address] [place] [address] PatelAlycia Joanne, PAC [address] [place] [address] Discharge Disposition: Discharged to home or Selfcare documented as of this encounter Visit Diagnoses Not on filedocumented in this encounter Additional Health Concerns Assessment Noted Time PHQ-9 Depression Total Score: 11 020 8:36 AM CDT documented as of this encounter Care Teams Product Development Specialist Relationship Specialty Start Date End Date Morales Meza MD #[address] [address] PCP - General Family Medicine 01/05/20 Valeria Ulloa EMPLOYMENT PROGRAM REPRESENTATIVE, STALLION MANAGER [address] [place] [address] Nurse Practitioner Advanced Practice Nurse 02/26/22 documented as of this encounter
--- OUTSIDE RECORDS SUMMARY | 2024-11-17 00:40 | XMS_ITS | Encounter Summary ---
Author Organization [facility] Address [address] [place] [address] Phone Care Team Providers Care Acetone Button Paster Name Role Phone Morales Meza MD Primary Care Provider [phone] Valeria Ulloa LENS MOLDING EQUIPMENT OPERATOR, SPEED WINDER Unavailable [phone] Reason for Visit * Reason Comments Medication Refill Encounter Details Date Type Department Care Team (Late st Contact Info) Description 04/22/2023 Refill [facility] #2 [place] [id number] Jayson Mishra MD [address] [place] [address] Medication Refill Social History Tobacco Use Types [...] Sex Assigned at Female 03/19/2024 12:44 AM UTILIZATION REVIEW RN Legal Sex Female 3:50 AM CDT Gender Identity Female 03/19/2024 12:44 AM UTILIZATION REVIEW RN Sexual Orientation Not on file documented as of this encounter Miscellaneous Notes * Telephone Encounter - Dilma VanricARJUN albarran - 04/22/2023 3:18 PM UTILIZATION REVIEW RN Pt states she does not need medication and declined scheduling IZATION REVIEW RN * Telephone Encounter - Lizz Miller RN - 04/22/2023 8:32 AM CST Needs OV with PCP IZATION REVIEW RN * Telephone Encounter - Lizz Miller RN [...] Range Status 06/12/2022 13 <=41 U/L Final IZATION REVIEW RN documented in this encounter Plan of Treatment Upcoming Encounters Date Type Department Care Team (Late st Contact Info) Description 11/17/2024 2:00 PM CDT Clinical Support [facility] Oncology Services [address] [place] [address] Alycia Patel September, PAC [address] [place] [address] Discharge Disposition: Discharged to home or Selfcare 11/22/2024 2:00 PM CDT Clinical Support [facility] Oncology Services [address] [place] [address] Alycia Patel September, PAC [address] [place] [address] Discharge Disposition: Discharged to home or Selfcare 11/24/2024 2:00 PM CDT Clinical Support [facility] Oncology Services [address] [place] [address] PatelAlycia September, PAC [address] [place] [address] Discharge Disposition: Discharged to home or Selfcare 12/13/2024 3:00 PM CDT Office Visit [facility] - Neurology [facility] #[address] [place] [address] Valeria Ulloa APRN, SPEED WINDER [address] [place] [address] 01/10/2025 2:20 PM CDT [facility] [address] [place] [address] Alycia Patel September, PAC [address] [place] [address] Discharge Disposition: Discharged to home or Selfcare 01/17/2025 2:00 PM CDT Office Visit [facility] Oncology Services [address] [place] [address] PatelAlycia September, PAC [address] [place] [address] Discharge Disposition: Discharged to home or Selfcare documented as of this encounter Visit Diagnoses Not on filedocumented in this encounter Additional Health Concerns Infection Onset Date Last Indicated Resolved Time COVID - 19 08/13/2023 08/13/2023 08/14/2023 12:0 4 AM CDT Assessment Noted Time PHQ-9 Depression Total Score: 11 020 8:36 AM CDT documented as of this encounter Care Teams Acetone Button Paster Relationship Specialty Start Date End Date Morales Meza MD #[address] [address] PCP - General Family Medicine 01/05/20 Valeria Ulloa APRN, SPEED WINDER [address] [place] [address] Nurse Practitioner Advanced Practice Nurse 02/26/22 documented as of this encounter
--- OUTSIDE RECORDS SUMMARY | 2024-11-17 00:40 | XMS_ITS | Encounter Summary ---
Author Organization [facility] Address [address] [place] [address] Phone Care Team Providers Care Machine Welder Name Role Phone Morales Meza MD Primary Care Provider [phone] Valeria Ulloa FELT HANGER, FLESHING MACHINE OPERATOR Unavailable [phone] Encounter Details Date Type Department Care Team (Late st Contact Info) Description 10/06/2024 Results Follow-Up [facility] Oncology Services [address] [place] [phone] Alycia Patel Joanne, PAC [address] [place] [address] FOLIC ACID (FOLATE), FERRITIN, CMP (COMPREHENSIVE METABOLIC PANEL), Additional followed-up results: 7 Social History Tobacco Use Types Packs/Day Years Used Date Smoking Tobacco: Never Cigarettes 2011 Passive Smoke Exposure: Yes Smokeless Tobacco: Never Alcohol Use Standard Drinks/Week Comments Yes 1 (1 standard drink = 0.6 oz pure alcohol) Drink a wine cooler maybe once a month [facility] Utilities Answer Date Recorded In the past 12 months has [employer], gas, oil, or water [employer] threatened to shut off services in your home? Yes 07/03/2024 Social Connection and Isolation Panel Answer Date Recorded In a typical week, how many times do you talk on the phone with family, friends, or neighbors? Twice a week 07/03/2024 How often do you get together with friends or re latives? Once a week 07/03/2024 How often do you attend buddhism or anabaptism serv ices? Never 07/03/2024 Do you belong to any clubs o r organizations such as buddhism groups, unions, fraternal or athletic groups, or [...] Score - Questions 1-9 11 10/0 04/2019 [facility] [...] in a custodial (including now)? No 08/14/2023 Housing Stability Vital Sign Answer Ted e Recorded In the last 12 months, was t here a time when you were not able to pay the mortgage or rent on time? Yes 07/03/2024 In the past 12 months, how m any times have you moved where you were living? 0 07/03/2024 At any time in the past [address] [facility], were you homeless or living in a custodial (including now)? No 07/03/2024 Education Answer Date Recorded What is the highest level of school you have completed or the highest degree you have received? Associate degree: academic program 05/06/2021 Sexually Active Control Partners Comments Yes Other Male Comments No Sex and Gender Information Value Date Recorded Sex Assigned at Female 03/19/2024 12:44 AM PROFESSOR OF MUSICOLOGY Legal Sex Female 3:50 AM CDT Gender Identity Female 03/19/2024 12:44 AM PROFESSOR OF MUSICOLOGY Sexual Orientation Not on file documented as of this encounter Plan of Treatment Upcoming Encounters Date Type Department Care Team (Late st Contact Info) Description 11/17/2024 2:00 PM CDT Clinical Support [facility] Oncology Services [address] [place] [address] Alycia Patel Joanne, PAC [address] [place] [address] Discharge Disposition: Discharged to home or Selfcare 11/22/2024 2:00 PM CDT Clinical Support [facility] Oncology Services [address] [place] [address] September, PAC [address] [place] [address] Discharge Disposition: Discharged to home or Selfcare 11/24/2024 2:00 PM CDT [facility] [address] [place] [address] PatelRobynseptember, PAC [address] [place] [address] Discharge Disposition: Discharged to home or Selfcare 12/13/2024 3:00 PM CDT Office Visit [facility] Neurology [facility] [address] [place] [address] Valeria Ulloa APRN, FLESHING MACHINE OPERATOR [address] [place] [address] 01/10/2025 2:20 PM CDT Lab [facility] Oncology Services [address] [place] [address] Patel Alycia June, PAC [address] [place] [address] Discharge Disposition: Discharged to home or Selfcare 01/17/2025 2:00 PM CDT Office Visit [facility] Oncology Services [address] [place] [address] Patel Alycia June, PAC [address] [place] [address] Discharge Disposition: Discharged to home or Selfcare documented as of this encounter Visit Diagnoses Not on filedocumented in this encounter Additional Health Concerns Assessment Noted Time PHQ-9 Depression Total Score: 11 020 8:36 AM CDT documented as of this encounter Care Teams Machine Welder Relationship Specialty Start Date End Date Morales Meza MD [address] [address] PCP - General Family Medicine 01/05/20 Valeria Ulloa APRN, FLESHING MACHINE OPERATOR [address] [place] [address] Nurse Practitioner Advanced Practice Nurse 02/26/22 documented as of this encounter
--- OUTSIDE RECORDS SUMMARY | 2024-11-17 00:40 | XMS_ITS | Clinical Summary ---
Author Organization [facility] Address [address] [place] [address] Care Team Providers Care Band Sewer Name Role Phone Jazmin Saab MD Unavailable [phone] Morales Meza MD Primary Care Provider [phone] Allergies Active Allergy Reactions Criticality Noted Date Comments Codeine Other (See comments),Syncope,Hiv es,Itching High 08/31/2018 Makes pt pass out Fainting Miconazole Itching,Swelling Medium 12/18/2019 Miconazole Etwqfvf-Acuwee-Dpqg Itching,Swelling Medium 12/18/2019 Morphine Other (See comments),Syncope,Hiv [...] (08/08/2019): Added automatically from request for surgery [id number] Hx of preeclampsia, prior pr egnancy, currently [...] Full MFM Care; Referring Provider: Linda Milan [phone] [x] Dating Criteria:LMP 11/10/18 DIANA 08/17/19. [x] [...] [] MOC: [] Method of feeding: [] Gathering Machine Setter: [] PP Depression Discussed: Immunizations Immunization Administration [...] staff should administer the PHQ-9) 0 09/20/2019 [place] Depression Scale Answer Date Recorded [place] Depression Scale Total 0 09/20/2019 The thought [...] Most Recently Relevant to Health Maintenance Insurance [employer] P[employer] [place] PPO [address] [employer] MEDICARE PPO IDPA [id number] MEDICARE ADVANTAGE Advance Directives For more information, please contact: [phone] * Full Code (Latest Code Status on [...] in case of cardiopulmonary arrest Care Teams Band Sewer Relationship Specialty Start Date End Date Morales Meza MD [address] [address] PCP - General Family Medicine 06/17/21 Jazmin Saab MD [address] [place] [address] Referring Physician Obstetrics and Gynecology 01/10/19
--- OUTSIDE RECORDS SUMMARY | 2024-11-17 00:40 | XMS_ITS | Encounter Summary ---
Author Organization [facility] Address [address] [place] [address] Care Team Providers Care Radiation Protection Engineer Name Role Phone Unavailable Primary Care Provider Unavailabl e Encounter Details Date Type Department Care Team (Late st Contact Info) Description 01/07/2000 Outpatient Historical [facility] Internal Medicine [place] [address] [place] [address] Raf Pfeiffer MD [address] [place] [phone] Social History Tobacco Use Types Packs/Day Years Used Date Smoking Tobacco: Never Assessed Comments Unknown Sex and Gender Information Value Date Recorded Sex Assigned at Not on file Legal Sex Female 3:03 AM A OPERATOR Gender Identity Not on file Sexual Orientation Not on file documented as of this encounter Plan of Treatment Not on file documented as of this encounter Visit Diagnoses Not on filedocumented in this encounter
--- OUTSIDE RECORDS SUMMARY | 2024-11-17 00:40 | XMS_ITS | Encounter Summary ---
Author Organization [facility] Address [address] [place] [address] Phone Care Team Providers Care Occupational Rehabilitation Aide Name Role Phone Morales Meza MD Primary Care Provider Valeria Ulloa DIRECTOR PLANS, FINANCIAL AID COORDINATOR Unavailable [phone] Reason for Visit * Reason Comments Medication Refill Encounter Details Date Type Department Care Team (Late st Contact Info) Description 04/22/2023 Refill [facility] - Family Medicine [facility] [address] [place] [id number] Morales Meza MD [address] [address] Medication Refill Social History Tobacco Use Types [...] Sex Assigned at Female 03/19/2024 12:44 AM AUTOMOBILE LIGHTS ASSEMBLER Legal Sex Female 3:50 AM CDT Gender Identity Female 03/19/2024 12:44 AM AUTOMOBILE LIGHTS ASSEMBLER Sexual Orientation Not on file documented [...] Ref Range Status 06/12/2022 >60 >=60 Final MOBILE LIGHTS ASSEMBLER documented in this encounter Plan of Treatment Upcoming Encounters Date Type Department Care Team (Late st Contact Info) Description 11/17/2024 2:00 PM CDT Clinical Support [facility] Oncology Services [address] [place] [address] Alycia Patel Joanne, PAC [address] [place] [address] Discharge Disposition: Discharged to home or Selfcare 11/22/2024 2:00 PM CDT Clinical Support [facility] Oncology Services [address] [place] [address] Alycia Patel Joanne, PAC [address] [place] [address] Discharge Disposition: Discharged to home or Selfcare 11/24/2024 2:00 PM CDT Clinical Support [facility] Oncology Services [address] [place] [address] PatelTerryAlycia September, PAC [address] [place] [address] Discharge Disposition: Discharged to home or Selfcare 12/13/2024 3:00 PM CDT [facility] [place] [address] [place] [address] Valeria Ulloa APRN, FINANCIAL AID COORDINATOR [address] [place] [address] 01/10/2025 2:20 PM CDT [facility] [address] [place] [address] PatelAlycia September, PAC [address] [place] [address] Discharge Disposition: Discharged to home or Selfcare 01/17/2025 2:00 PM CDT Office Visit [facility] Oncology Services [address] [place] [address] PatelTerryAlycia September, PAC [address] [place] [address] Discharge Disposition: Discharged to home or Selfcare documented as of this encounter Visit Diagnoses Not on filedocumented in this encounter Additional Health Concerns Infection Onset Date Last Indicated Resolved Time COVID - 19 08/13/2023 08/13/2023 08/14/2023 12:0 4 AM CDT Assessment Noted Time PHQ-9 Depression Total Score: 11 020 8:36 AM CDT documented as of this encounter Care Teams Occupational Rehabilitation Aide Relationship Specialty Start Date End Date Morales Meza MD #[address] [address] PCP - General Family Medicine 01/05/20 Valeria Ulloa APRN, FINANCIAL AID COORDINATOR [address] [place] [address] Nurse Practitioner Advanced Practice Nurse 02/26/22 documented as of this encounter
--- OUTSIDE RECORDS SUMMARY | 2024-11-17 00:40 | XMS_ITS | Encounter Summary ---
Author Organization [facility] Address [address] [place] [address] Phone Care Team Providers Care Clinical Pharmacy Technician Name Role Phone Morales Meza MD Primary Care Provider [phone] Valeria Ulloa FINISHER HAND, WEBSPHERE MESSAGE BROKER DEVELOPER Unavailable [phone] Reason for Visit * Reason Comments Medication Refill Encounter Details Date Type Department Care Team (Late st Contact Info) Description 06/21/2023 Refill [facility] - Family Medicine [facility] [address] [place] [address] Morales Meza MD [address] [address] Medication Refill Social History Tobacco Use Types [...] Sex Assigned at Female 03/19/2024 12:44 AM 3RD MATE Legal Sex Female 3:50 AM CDT Gender Identity Female 03/19/2024 12:44 AM 3RD MATE Sexual Orientation Not on file documented as [...] Description 11/17/2024 2:00 PM CDT Clinical Support [facility] Oncology Services [address] [place] [address] Alycia Patel September, PAC [address] [place] [address] Discharge Disposition: Discharged to home or Selfcare 11/22/2024 2:00 PM CDT Clinical Support [facility] Oncology Services [address] [place] [address] Alycia Patel September, PAC [address] [place] [address] Discharge Disposition: Discharged to home or Selfcare 11/24/2024 2:00 PM CDT Clinical Support [facility] Oncology Services [address] [place] [address] Alycia Patel September, PAC [address] [place] [address] Discharge Disposition: Discharged to home or Selfcare 12/13/2024 3:00 PM CDT Office Visit [facility] - Neurology [facility] [address] [place] [address] Valeria Ulloa APRN, WEBSPHERE MESSAGE BROKER DEVELOPER [address] [place] [address] 01/10/2025 2:20 PM CDT Lab [facility] Oncology Services [address] [place] [address] Alycia Patel September, PAC [address] [place] [address] Discharge Disposition: Discharged to home or Selfcare 01/17/2025 2:00 PM CDT Office Visit [facility] Oncology Services [address] [place] [address] Alycia Patel Joanne, PAC [address] [place] [address] Discharge Disposition: Discharged to home or Selfcare documented as of this encounter Visit Diagnoses Not on filedocumented in this encounter Additional Health Concerns Infection Onset Date Last Indicated Resolved Time COVID - 19 08/13/2023 08/13/2023 08/14/2023 12:0 4 AM CDT Assessment Noted Time PHQ-9 Depression Total Score: 11 020 8:36 AM CDT documented as of this encounter Care Teams Clinical Pharmacy Technician Relationship Specialty Start Date End Date Morales Meza MD [address] [address] PCP - General Family Medicine 01/05/20 Valeria Ulloa, FINISHER HAND, WEBSPHERE MESSAGE BROKER DEVELOPER [address] [place] [address] Nurse Practitioner Advanced Practice Nurse 02/26/22 documented as of this encounter
--- OUTSIDE RECORDS SUMMARY | 2024-11-17 00:40 | XMS_ITS | Clinical Summary ---
Author Organization [facility] Address [address] [place] [address] Phone Care Team Providers Care Covered Button Maker Name Role Phone Morales Meza MD Primary Care Provider [phone] Valeria Ulloa APRN, FIELD SEISMOLOGIST Unavailable [phone] Allergies Active Allergy Reactions Criticality Noted Date [...] Type Department Care Team Description 11/16/2024 Telephone [facility] Center [address] [place] [address] Morales Meza MD Medication Management 11/15/2024 10:30 AM CDT Clinical Support [facility] Oncology Services [address] [place] [phone] Alycia Patel September, 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) Discharge Disposition: Discharged to home or Selfcare 11/15/2024 Travel 10/21/2024 Telephone [facility] Neurology [facility] [address] [place] [address] Valeria Ulloa APRN, FIELD SEISMOLOGIST 10/19/2024 Telephone [facility] [address] [place] [address] Valeria Ulloa APRN, FIELD SEISMOLOGIST 10/18/2024 1:30 PM CDT Clinical Support [facility] Oncology Services [address] [place] [phone] Alycia Patel Joanne, PAC 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) Discharge Disposition: Discharged to home or Selfcare 10/18/2024 Travel 10/13/2024 2:00 PM CDT Office Visit [facility] Oncology Services [address] [place] [phone] Alycia Patel Joanne, PAC 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); B12 deficiency; History of Swetha-en-Y gastric bypass; Folic acid deficiency Discharge Disposition: Discharged to home or Selfcare 10/13/2024 Travel 10/06/2024 Results Follow-Up [facility] Oncology Services [address] [place] [phone] Alycia Patel Joanne, PAC FOLIC ACID (FOLATE), FERRITIN, CMP (COMPREHENSIVE METABOLIC PANEL), Additional followed-up results: 7 10/05/2024 2:30 PM CDT Lab [facility] Oncology Services [address] [place] [phone] Song Craft MD Norris, Arlene Joanne, PAC Iron 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 dietary iron intake; B12 deficiency Discharge Disposition: Discharged to home or Selfcare 10/05/2024 Travel 09/14/2024 Telephone [facility] - Neurology - Echo [address] [place] [address] Valeria Ulloa APRN, FIELD SEISMOLOGIST from Last 3 Months Immunizations Immunization Administration [...] a wine cooler maybe once a month [facility] Utilities Answer Date Recorded In the past 12 months has [employer], gas, oil, or water [employer] threatened to shut off services in your home? Yes 07/03/2024 Social Connection and Isolation Panel Answer Date Recorded In a typical week, how many times do you talk on the phone with family, friends, or neighbors? Twice a week 07/03/2024 How often do you get together with friends or re latives? Once a week 07/03/2024 How often do you attend sabianist or protestant serv ices? Never 07/03/2024 Do you belong to any clubs o r organizations such as sabianist groups, unions, fraternal or athletic groups, or [...] Score - Questions 1-9 11 10/0 04/2019 [facility] Martha of Occupat ional Health - Occupational Stress [...] place to sleep or slept in a intermediate (including now)? No 08/14/2023 Housing Stability Vital [...] were you homeless or living in a intermediate (including now)? No 07/03/2024 Education Answer Date Recorded What is the highest level of school you have completed or the highest degree you have received? Associate degree: academic program 05/06/2021 Sexually Active Control Partners Comments Yes Other Male Comments No Sex and Gender Information Value Date Recorded Sex Assigned at Female 03/19/2024 12:44 AM GENERAL SERVICE OFFICER Legal Sex Female 3:50 AM CDT Gender Identity Female 03/19/2024 12:44 AM GENERAL SERVICE OFFICER Sexual Orientation Not on file Last Filed [...] Description 11/17/2024 2:00 PM CDT Clinical Support [facility] Oncology Services [address] [place] [address] Alycia Patel Joanne, PAC [address] [place] [address] Discharge Disposition: Discharged to home or Selfcare 11/22/2024 2:00 PM CDT Clinical Support [facility] Oncology Services [address] [place] [address] PatelAlycia Joanne, PAC [address] [place] [address] Discharge Disposition: Discharged to home or Selfcare 11/24/2024 2:00 PM CDT Clinical Support [facility] Oncology Services [address] [place] [address] PatelAlycia September, PAC [address] [place] [address] Discharge Disposition: Discharged to home or Selfcare 12/13/2024 3:00 PM CDT [facility] Echo [address] [place] [address] Valeria Ulloa, ENGINEERING OPERATIONS LEADER, FIELD SEISMOLOGIST [address] [place] [address] 01/10/2025 2:20 PM CDT [facility] [address] [place] [address] [facility] September, PAC [address] [place] [address] Discharge Disposition: Discharged to home or Selfcare 01/17/2025 2:00 PM CDT [facility] [address] [place] [address] [facility] September, PAC [address] [place] [address] Discharge Disposition: Discharged to home or Selfcare [...] 156 mcg/dL 10/05/2024 3:03 PM CDT [facility] TRANSFERRIN 315 180 - 382 mg/dL 10/05/2024 3:03 PM CDT [facility] TIBC, CALCULATED 394 265 - 497 mcg/dL 10/05/2024 3:03 PM CDT [facility] % SATURATION * 5(L) 15 - 62 % 10/05/2024 3:03 PM CDT [facility] Blood Venipuncture / Unknown 10/05/2024 2:22 PM CDT 10/05/2024 2:22 PM CDT Alycia Patel PAC CHEMISTRY ORDERABLES Anais l Result Performing Organization Address City/[facility]/ZIP Co de Phone Number [facility] [address] [place] [address] * (ABNORMAL) CBC WITH AUTO DIFFERENTIAL (10/05/2024 2:22 PM CDT) [facility] WBC 7.73 4.00 - 12.00 10(3)/[facility] 10/05/2024 3:55 PM CDT [facility] RBC 4.65 3.80 - 5.30 10(6)/[facility] 10/05/2024 3:55 PM CDT [facility] HEMOGLOBIN (HGB) 11.2(L) 12.0 - 15.8 g/dL 10/05/2024 3:55 PM CDT [facility] HEMATOCRIT (HCT) 36.9 36.0 - 47.0 % 10/05/2024 3:55 PM CDT [facility] MCV 79.4(L) 82.0 - 96.0 fL 10/05/2024 3:55 PM CDT [facility] MCH 24.1(L) 26.0 - 34.0 pg 10/05/2024 3:55 PM CDT [facility] MCHC 30.4(L) 31.0 - 36.0 g/dL 10/05/2024 3:55 PM CDT [facility] PLATELET COUNT 273 140 - 440 10(3)/[facility] 10/05/2024 3:55 PM CDT [facility] RDW 21.4(H) 11.8 - 15.5 % 10/05/2024 3:55 PM CDT [facility] MPV 11.8 9.7 - 12.4 fL 10/05/2024 3:55 PM CDT [facility] NEUTROPHILS 59.0 47.0 - 73.0 % 10/05/2024 3:55 PM CDT [facility] LYMPHOCYTES 30.0 18.0 - 42.0 % 10/05/2024 3:55 PM CDT [facility] MONOCYTES 5.8 4.0 - 12.0 % 10/05/2024 3:55 PM CDT [facility] EOSINOPHILS 4.0 0.0 - 5.0 % 10/05/2024 3:55 PM CDT [facility] BASOPHILS 0.9 0.0 - 1.0 % 10/05/2024 3:55 PM CDT [facility] IMMATURE GRANULOCYTE 0.3 0.0 - 0.4 % 10/05/2024 3:55 PM CDT [facility] Comment:Immature Granulocyte s includes Metamyelocytes, Myelocytes, and Promyelocytes. ABSOLUTE NEUTROPHILS 4.56 1.60 - 7.70 10(3)/[facility] 10/05/2024 3:55 PM CDT [facility] ABSOLUTE LYMPHOCYTES 2.32 1.30 - 3.20 10(3)/[facility] 10/05/2024 3:55 PM CDT [facility] ABSOLUTE MONOCYTES 0.45 0.20 - 1.00 10(3)/[facility] 10/05/2024 3:55 PM CDT [facility] ABSOLUTE EOSINOPHIL 0.31 0.00 - 0.40 10(3)/[facility] 10/05/2024 3:55 PM CDT [facility] ABSOLUTE BASOPHILS 0.07 0.00 - 0.10 10(3)/[facility] 10/05/2024 3:55 PM CDT [facility] ABSOLUTE IMMATURE GRANULOCYTE 0.02 0.00 - 0.03 10 (3) mcL. 10/05/2024 3:55 PM CDT [facility] NRBC PER 100 WBC 0 10/06/19 3:55 PM CDT [facility] RESULTS ARE CONSISTENT WITH PERIPHERAL SMEAR REVIEW Yes 10/05/2024 3:55 PM CDT [facility] RBC MORPHOLOGY CONSISTENT WITH INDICES Yes 10/05/2024 3:55 PM CDT [facility] POIKILOCYTOSIS 1+ 10/05/2024 3:55 PM CDT [facility] OVALOCYTES Present 10/05/2024 3:55 PM CDT [facility] LARGE PLATELETS 1+ 3:55 PM CDT [facility] Blood Venipuncture / Unknown 10/05/2024 2:22 PM CDT 10/05/2024 2:22 PM CDT Narrative [facility] - 10/05/2024 3:55 PM CDT Anisocytosis Microcytosis Hypochromia [facility] HEMATOLOGY ORDERABLES Fin al Result [facility] [address] [place] [address] * (ABNORMAL) FREE KAPPA & LAMBDA LIGHT CHAINS SERUM (10/05/2024 2:22 PM CDT) Free Epworth Lt Chn 25.19(H) 3.30 - 19.40 mg/L 10/06/2024 10:05 AM CDT [facility] Free Lambda Lt Chn 15.52 5.71 - 26.30 mg/L 10/06/2024 10:05 AM CDT [facility] free wai tomas ratio 1.62 0.26 - 1.65 10/06/2024 10:05 AM CDT [facility] Blood Venipuncture / Unknown 10/05/2024 2:22 PM CDT 10/05/2024 2:[address] [facility] CHEMISTRY ORDERABLES Anais l Result [facility] [address] [place] [address], * VITAMIN B12 (10/05/2024 2:22 PM CDT) VITAMIN B12 235 213 - 816 pg/mL 10/05/2024 3:33 PM CDT [facility] Blood Venipuncture / Unknown 10/05/2024 2:22 PM CDT 10/05/2024 2:22 PM CDT [facility] PAC CHEMISTRY ORDERABLES Anais l Result Performing Organization Address City/[facility]/ZIP Co de Phone Number [facility] [address] [place] [address] * RETICULOCYTE COUNT (RETIC) (10/05/2024 2:22 PM CDT) RETICULOCYTES 0.9 0.5 - 2.0 % 10/05/2024 2:43 PM CDT [facility] Blood Venipuncture / Unknown 10/05/2024 2:22 PM CDT 10/05/2024 2:[address] [facility] HEMATOLOGY ORDERABLES Fin al Result Performing Organization Address [facility] Co de Phone Number [facility] [address] [place] [address] * LACTATE DEHYDROGENASE (LD) (10/05/2024 2:22 PM CDT) Pathologist [facility] LDH 175 125 - 220 U/L 10/05/2024 3:03 PM CDT [facility] Blood Venipuncture / Unknown 10/05/2024 2:22 PM CDT 10/05/2024 2:22 PM CDT [facility] PAC CHEMISTRY ORDERABLES Anais l Result Performing Organization Address City/[facility] Co de Phone Number [facility] [address] [place] [address] * (ABNORMAL) IMMUNOFIXATION W/ ELECTROPHORESIS SERUM (10/05/2024 2:22 PM CDT) TOTAL PROTEIN 6.5 6.0 - 8.0 g/dL 10/10/2024 1:05 PM CDT [facility] % ALBUMIN 56.0 55.8 - 66.7 % 10/10/2024 1:05 PM [facility] ALBUMIN SERUM 3.6 2.5 - 5.4 g/dL 10/10/2024 1:05 PM [facility] % ALPHA 1 GLOBULIN 3.4 2.9 - 4.9 % 10/10/2024 1:05 PM [facility] ALPHA 1 0.2 0.2 - 0.4 g/dL 10/10/2024 1:05 PM [facility] % ALPHA 2 GLOBULIN 13.0(H) 7.1 - 11.8 % 10/10/2024 1:05 [facility] ALPHA 2 0.8 0.5 - 1.0 g/dL 10/10/2024 1:05 PM [facility] % BETA 15.2(H) 8.4 - 13.1 % 10/10/2024 1:05 PM [facility] BETA-GLOBULIN 1.0 0.5 - 1.1 g/dL 10/10/2024 1:05 PM [facility] % GAMMA GLOBULIN 12.4 11.1 - 18.8 % 10/10/2024 1:05 [facility] GAMMA 0.8 0.7 - 1.5 g/dL 10/10/2024 1:05 PM [facility] IMMUNOGLOBULIN G 761 552 - 1,631 mg/dL 10/10/2024 1:05 PM [facility] IMMUNOGLOBULIN A 185 65 - 421 mg/dL 10/10/2024 1:05 PM [facility] IMMUNOGLOBULIN M 64 33 - 293 mg/dL 10/10/2024 1:05 PM [facility] INTERPRETATION SERUM No abnormal protein band is detected by serum protein electrophoresis. Serum immunofixation electrophoresis is negative for monoclonal immunoglobulins. Reviewed by Chintan Leon, Ph.D. 10/10/2024 1:05 PM [facility] A/G RATIO, SERUM 1.3 10/11/19 25 1:05 [facility] Blood Venipuncture / Unknown 10/05/2024 2:22 PM CDT 10/05/2024 2:22 PM CDT Narrative [facility] - 10/10/2024 1:05 PM CDT Reviewed by Alfa Milan M.D. [facility] PAC CHEMISTRY ORDERABLES Aanis l Result [facility] [address] [place] [address], * (ABNORMAL) FOLIC ACID (FOLATE) (10/05/2024 2:22 PM CDT) FOLATE 6.9(L) 7.0 - 31.4 ng/mL 10/05/2024 3:33 PM CDT [facility] IS THE PATIENT REQUIRED TO BE FASTING? No 10/05/2024 3:33 PM CDT [facility] Blood Venipuncture / Unknown 10/05/2024 2:22 PM CDT 10/05/2024 2:22 PM CDT [facility] PAC CHEMISTRY ORDERABLES Anais l Result Performing Organization Address City/[facility]/ZIP Co de Phone Number [facility] [address] [place] [address] * FERRITIN (10/05/2024 2:22 PM CDT) FERRITIN 9 5 - 204 ng/mL 10/05/2024 3:20 PM CDT [facility] Blood Venipuncture / Unknown 10/05/2024 2:22 PM CDT 10/05/2024 2:22 PM CDT [facility] PAC CHEMISTRY ORDERABLES Anais l Result [facility] [address] [place] [address] * (ABNORMAL) CMP (COMPREHENSIVE METABOLIC PANEL) (10/05/2024 2:22 PM CDT) SODIUM 139 136 - 145 mmol/L 10/05/2024 3:03 PM CDT [facility] POTASSIUM 3.7 3.5 - 5.1 mmol/L 10/05/2024 3:03 PM CDT [facility] CHLORIDE 108(H) 98 - 107 mmol/L 10/05/2024 3:03 PM CDT [facility] CO2, VENOUS 24 22 - 30 mmol/L 10/05/2024 3:03 PM CDT [facility] ANION GAP 10.7 <18.0 mmol/L 10/05/2024 3:03 PM CDT [facility] GLUCOSE 94 70 - 99 mg/dL 10/05/2024 3:03 PM CDT [facility] BUN 11 5 - 18 mg/dL 10/05/2024 3:03 PM CDT [facility] CREATININE, BLOOD 0.84 0.60 - 1.00 mg/dL 10/05/2024 3:03 PM CDT [facility] BUN/CREATININE RATIO 13 12 - 20 ratio 10/05/2024 3:03 PM CDT [facility] TOTAL PROTEIN 6.8 6.0 - 8.0 g/dL 10/05/2024 3:03 PM CDT [facility] ALBUMIN 4.1 3.5 - 5.0 g/dL 10/05/2024 3:03 PM CDT [facility] A/G RATIO 1.5 1.0 - 2.2 10/05/2024 3:03 PM CDT [facility] CALCIUM 8.9 8.7 - 10.5 mg/dL 10/05/2024 3:03 PM CDT [facility] T BILI 0.2 0.2 - 1.2 mg/dL 10/05/2024 3:03 PM CDT [facility] SGOT (AST) 19 <43 U/L 10/05/2024 3:03 PM CDT [facility] SGPT (ALT) 11 <56 U/L 10/05/2024 3:03 PM CDT [facility] ALKALINE PHOSPHATASE 69 40 - 150 U/L 10/05/2024 3:03 PM CDT [facility] IS THE PATIENT REQUIRED TO BE FASTING? No 10/05/2024 3:03 PM CDT [facility] GFR, ESTIMATED >60 >=60 10/05/2024 3:03 PM CDT [facility] Comment: Creatinine Clearance is the preferred criteria for selecting drug dose adjustments in renally impaired patients. The GFR is provided as additional pertinent clinical information. GFR is reported in mL/min/1.73 sq m. Calculation based on the Chronic Kidney Disease Epidemiology Collaboration (CKD- EPI) equation refit without adjustment for race. GFR, EST. >60 >=60 025 3:03 PM CDT [facility] GFR, EST. NONAFRICAN >60 >=60 10/05/2024 3:03 PM CDT [facility] Blood Venipuncture / Unknown 10/05/2024 2:22 PM CDT 10/05/2024 2:22 PM CDT Alycia Patel PAC CHEMISTRY ORDERABLES Anais l Result [facility] [address] [place] [address] * SUSHIL SCREENING BILATERAL DIGITAL W CAD [...] exam. Electronically signed by: Shy kerns:09/23/2022 23:06:31 Developing Machine Tender(s): RT Jessica(R)(M), [facility] letter sent: Normal Exam Reading location: [facility] BI-RADS: 1 Negative Procedure Note Shy Smalls [...] exam. Electronically signed by: Shy bah/dayan:09/23/2022 23:06:31 Developing Machine Tender(s): RT Jessica(R)(M), [facility] letter sent: Normal Exam Reading location: [facility] BI-RADS: 1 Negative Sol Cassie GONZALEZN, BINDER SORTER IMG MAMMO ORDERABLES Final Result from Last 3 Months or Most Recently Relevant to Health Maintenance Insurance MEDICARE C [employer] Advance Directives * Full Code (Latest Code Status on File) Date Activated Date Inactivated Comments 08/14/2023 1:39 AM 08/14/2023 7:22 AM CPR-Full Ty atment: FULL ARREST: Attempt Resuscitation/CPR wit intubation and mechanical ventilation. PRE-ARREST: Use entire range of life support measures to stabilize the patient. Care Teams Covered Button Maker Relationship Specialty Start Date End Date Morales Meza MD [address] [address] PCP - General Family Medicine 01/05/20 Valeria Ulloa APRN, FIELD SEISMOLOGIST [address] [place] [address] Nurse Practitioner Advanced Practice Nurse 02/26/22
--- OUTSIDE RECORDS SUMMARY | 2024-11-17 00:40 | XMS_ITS | Encounter Summary ---
Author Organization [facility] Address [address] [place] [address] Phone Care Team Providers Care Housekeeper Home Name Role Phone Morales Meza MD Primary Care Provider [phone] Valeria Ulloa JAMMER OPERATOR, NEUROSURGERY RESEARCH DIRECTOR Unavailable [phone] Reason for Visit * Reason Comments Medication Refill Encounter Details Date Type Department Care Team (Late st Contact Info) Description 05/22/2023 [facility]ill [facility] [address] [place] [address] Morales Meza MD [address] [address] Medication Refill Social History Tobacco Use Types [...] Sex Assigned at Female 03/19/2024 12:44 AM DENTAL HYGIENE INSTRUCTOR Legal Sex Female 3:50 AM CDT Gender Identity Female 03/19/2024 12:44 AM DENTAL HYGIENE INSTRUCTOR Sexual Orientation Not on file documented as of this encounter Miscellaneous Notes * Telephone Encounter - Rosemary Van RMA - 05/28/2023 3:33 PM DENTAL HYGIENE INSTRUCTOR LVM to schedule AL HYGIENE INSTRUCTOR * Telephone Encounter - Lizz Miller RN - 05/22/2023 2:30 PM CST Needs OV with PCP AL HYGIENE INSTRUCTOR * Telephone Encounter - Lizz Miller RN [...] Ref Range Status 06/12/2022 >60 >=60 Final AL HYGIENE INSTRUCTOR documented in this encounter Plan of Treatment Upcoming Encounters Date Type Department Care Team (Late st Contact Info) Description 11/17/2024 2:00 PM CDT Clinical Support [facility] Oncology Services [address] [place] [address] Alycia Patel Joanne, PAC [address] [place] [address] Discharge Disposition: Discharged to home or Selfcare 11/22/2024 2:00 PM CDT Clinical Support [facility] Oncology Services [address] [place] [address] Jorge Alycia June, PAC [address] [place] [address] Discharge Disposition: Discharged to home or Selfcare 11/24/2024 2:00 PM CDT Clinical Support [facility] Oncology Services [address] [place] [address] PatelRobynseptember, PAC [address] [place] [address] Discharge Disposition: Discharged to home or Selfcare 12/13/2024 3:00 PM CDT Office Visit [facility] [address] [place] [address] Valeria Ulloa, JAMMER OPERATOR, NEUROSURGERY RESEARCH DIRECTOR [address] [place] [address] 01/10/2025 2:20 PM CDT Lab [facility] Oncology Services [address] [place] [address] Patel Alycia June, PAC [address] [place] [address] Discharge Disposition: Discharged to home or Selfcare 01/17/2025 2:00 PM CDT Office Visit [facility] Oncology Services [address] [place] [address] Robyn Patelseptember, PAC [address] [place] [address] Discharge Disposition: Discharged to home or Selfcare documented as of this encounter Visit Diagnoses Not on filedocumented in this encounter Additional Health Concerns Infection Onset Date Last Indicated Resolved Time COVID - 19 08/13/2023 08/13/2023 08/14/2023 12:0 4 AM CDT Assessment Noted Time PHQ-9 Depression Total Score: 11 020 8:36 AM CDT documented as of this encounter Care Teams Housekeeper Home Relationship Specialty Start Date End Date Morales Meza MD [address] [address] PCP - General Family Medicine 01/05/20 Valeria Ulloa APRN, NEUROSURGERY RESEARCH DIRECTOR [address] [place] [address] Nurse Practitioner Advanced Practice Nurse 02/26/22 documented as of this encounter
--- OUTSIDE RECORDS SUMMARY | 2024-11-17 00:40 | XMS_ITS | Encounter Summary ---
Author Organization [facility] Address [address] [place] [address] Care Team Providers Care Private Branch Exchange Installer Name Role Phone Unavailable Primary Care Provider Unavailabl e Encounter Details Date Type Department Care Team (Late st Contact Info) Description 04/17/2000 Outpatient Historical [facility] Internal Medicine [place] [address] [place] [address] Raf Pfeiffer MD [address] [place] [phone] Social History Tobacco Use Types Packs/Day Years Used Date Smoking Tobacco: Never Assessed Comments Unknown Sex and Gender Information Value Date Recorded Sex Assigned at Not on file Legal Sex Female 3:03 AM MONTESSORI TEACHER Gender Identity Not on file Sexual Orientation Not on file documented as of this encounter Plan of Treatment Not on file documented as of this encounter Visit Diagnoses Not on filedocumented in this encounter
--- OUTSIDE RECORDS SUMMARY | 2024-11-17 00:40 | XMS_ITS | Encounter Summary ---
Author Organization [facility] Address [address] [place] [address] Phone Care Team Providers Care Animal Pathology Teacher Name Role Phone Morales Meza MD Primary Care Provider [phone] Valeria Ulloa TARGET NETWORK ANALYST, HISTOPATHOLOGIST Unavailable [phone] Reason for Visit * Reason Comments Medication Refill Encounter Details Date Type Department Care Team (Late st Contact Info) Description 01/17/2024 Refill [facility] #2 [place] [address] Morales Meza MD #[address] [address] Medication Refill Social History Tobacco Use Types Packs/Day Years Used Date Smoking Tobacco: Former Cigarettes 2011 Smokeless Tobacco: Never Alcohol Use Standard Drinks/Week Comments Yes 0 (1 standard drink = 0.6 oz pur e alcohol) Very Rare [facility] Utilities Answer Date Recorded In the past 12 months has [employer], gas, oil, or water company threatened to [...] often do you attend latter day or judaism serv ices? Patient declined 08/14/2023 [...] Total Score - Questions 1-9 11 04/2019 [facility] - Occupational [...] in a correction (including now)? No 08/14/2023 Education Answer Date Recorded What is the highest level of school you have completed or the highest degree you have received? Associate degree: academic program 05/06/2021 Sexually Active Control Partners Comments Yes Comments No Sex and Gender Information Value Date Recorded Sex Assigned at Female 03/19/2024 12:44 AM BRIQUETTING MACHINE OPERATOR Legal Sex Female 3:50 AM CDT Gender Identity Female 03/19/2024 12:44 AM BRIQUETTING MACHINE OPERATOR Sexual Orientation Not on file [...] Description 11/17/2024 2:00 PM CDT Clinical Support [facility] Oncology Services [address] [place] [address] Alycia Patel Joanne, PAC [address] [place] [address] Discharge Disposition: Discharged to home or Selfcare 11/22/2024 2:00 PM CDT Clinical Support [facility] Oncology Services [address] [place] [address] Patelseptember, PAC [address] [place] [address] Discharge Disposition: Discharged to home or Selfcare 11/24/2024 2:00 PM CDT Clinical Support [facility] Oncology Services [address] [place] [address] PatelRobynseptember, PAC [address] [place] [address] Discharge Disposition: Discharged to home or Selfcare 12/13/2024 3:00 PM CDT Office Visit [facility] Neurology [facility] #2 [place] [address] Valeria Ulloa APRN, HISTOPATHOLOGIST #2 [place] [address] 01/10/2025 2:20 PM CDT Lab [facility] Oncology Services [address] [place] [address] PatelRobynseptember, PAC [address] [place] [address] Discharge Disposition: Discharged to home or Selfcare 01/17/2025 2:00 PM CDT Office Visit [facility] Oncology Services [address] [place] [address] PatelRobyne September, PAC [address] [place] [address] Discharge Disposition: Discharged to home or Selfcare documented as of this encounter Visit Diagnoses Not on filedocumented in this encounter Additional Health Concerns Assessment Noted Time PHQ-9 Depression Total Score: 11 020 8:36 AM CDT documented as of this encounter Care Teams Animal Pathology Teacher Relationship Specialty Start Date End Date Morales Meza MD [address] [address] PCP - General Family Medicine 01/05/20 Valeria Ulloa APRN, HISTOPATHOLOGIST [address] [place] [address] Nurse Practitioner Advanced Practice Nurse 02/26/22 documented as of this encounter
--- OUTSIDE RECORDS SUMMARY | 2024-11-17 00:40 | XMS_ITS | Encounter Summary ---
Author Organization [facility] Address [address] [place] [address] Phone Care Team Providers Care Control Valve Technician Name Role Phone Morales Meza MD Primary Care Provider [phone] Valeria Ulloa SCRAP STRIPPER HAND, FRUIT BUYING GRADER Unavailable [phone] Reason for Visit * Reason Onset Date Comments Medication Management 11/16/2024 Encounter Details Date Type Department Care Team (Late st Contact Info) Description 11/16/2024 Telephone [facility] [address] [place] [address] Morales Meza MD #[address] [address] Medication Management Social History Tobacco Use Types Packs/Day Years Used Date Smoking Tobacco: Never Cigarettes 2011 Passive Smoke Exposure: Yes Smokeless Tobacco: Never Alcohol Use Standard Drinks/Week Comments Yes 1 (1 standard drink = 0.6 oz pure alcohol) Drink a wine cooler maybe once a month [facility] Utilities Answer Date Recorded In the past 12 months has [employer], gas, oil, or water [employer] threatened to shut off services in your home? Yes 07/03/2024 Social Connection and Isolation Panel Answer Date Recorded In a typical week, how many times do you talk on the phone with family, friends, or neighbors? Twice a week 07/03/2024 How often do you get together with friends or re latives? Once a week 07/03/2024 How often do you attend druze or yarsanism serv ices? Never 07/03/2024 Do you belong to any clubs o r organizations such as druze groups, unions, fraternal or athletic groups, or [...] Total Score - Questions 1-9 11 04/2019 [facility] Occupat ional Health - [...] place to sleep or slept in a longterm (including now)? No 08/14/2023 Housing Stability Vital [...] were you homeless or living in a longterm (including now)? No 07/03/2024 Education Answer Date Recorded What is the highest level of school you have completed or the highest degree you have received? Associate degree: academic program 05/06/2021 Sexually Active Control Partners Comments Yes Other Male Comments No Sex and Gender Information Value Date Recorded Sex Assigned at Female 03/19/2024 12:44 AM GAS LEAK INSPECTOR Legal Sex Female 3:50 AM CDT Gender Identity Female 03/19/2024 12:44 AM GAS LEAK INSPECTOR Sexual Orientation Not on file documented as of this encounter Miscellaneous Notes * Telephone Encounter - Marti Martinez RN - 11/16/2024 7:36 AM CDT Situation: Medication Management Background: Patient contacting Neurology Assessment: Patient is out of medication Refill on Keppra 500 mg oral one tab twice daily [facility] [place] She was prescribed this medication at the hospital Appointment with neurology 12/13/2024 Recommendation: Please advise Encounter routed to provider to notify. Discussed utilizing [employer] to: discuss if they would prefer a [employer] message or phone call response. Response is preferred via [employer]. documented in this encounter Plan of Treatment Upcoming Encounters Date Type Department Care Team (Late st Contact Info) Description 11/17/2024 2:00 PM CDT Clinical Support [facility] Oncology Services [address] [place] [address] Alycia Patel September, PAC [address] [place] [address] Discharge Disposition: Discharged to home or Selfcare 11/22/2024 2:00 PM CDT Clinical Support [facility] Oncology Services [address] [place] [address] Alycia Patel September, PAC [address] [place] [address] Discharge Disposition: Discharged to home or Selfcare 11/24/2024 2:00 PM CDT Clinical Support [facility] Oncology Services [address] [place] [address] Alycia Patel September, PAC [address] [place] [address] Discharge Disposition: Discharged to home or Selfcare 12/13/2024 3:00 PM CDT Office Visit [facility] - [facility]rology - [place] [address] [place] [address] Valeria Ulloa APRN, FRUIT BUYING GRADER [address] [place] [address] 01/10/2025 2:20 PM CDT Lab [facility] Oncology Services [address] [place] [address] Alycia Patel September, PAC [address] [place] [address] Discharge Disposition: Discharged to home or Selfcare 01/17/2025 2:00 PM CDT Office Visit [facility] Oncology Services [address] [place] [address] Patel Alycia Joanne, PAC [address] [place] [address] Discharge Disposition: Discharged to home or Selfcare documented as of this encounter Visit Diagnoses Not on filedocumented in this encounter Additional Health Concerns Assessment Noted Time PHQ-9 Depression Total Score: 11 020 8:36 AM CDT documented as of this encounter Care Teams Control Valve Technician Relationship Specialty Start Date End Date Morales Meza MD #[address] [address] PCP - General Family Medicine 01/05/20 Valeria Ulloa, SCRAP STRIPPER HAND, FRUIT BUYING GRADER [address] [place] [address] Nurse Practitioner Advanced Practice Nurse 02/26/22 documented as of this encounter
--- OUTSIDE RECORDS SUMMARY | 2024-11-17 00:40 | XMS_ITS | Encounter Summary ---
Author Organization [facility] Address [address] [place] [address] Phone Care Team Providers Care Irradiated Fuel Handler Name Role Phone Morales Meza MD Primary Care Provider [phone] Valeria Ulloa APRN, STEREO EQUIPMENT INSTALLER Unavailable [phone] Reason for Visit * Reason Comments Medication Refill Encounter Details Date Type Department Care Team (Late st Contact Info) Description 02/16/[address] [facility] - Neurology - [place] [address] [place] [address] Valeria Ulloa, ULTIMATE HOOPS TRAINER, STEREO EQUIPMENT INSTALLER [address] [place] [address] Medication Refill Social History Tobacco Use Types Packs/Day Years Used Date Smoking Tobacco: Former Cigarettes 2011 Smokeless Tobacco: Never Alcohol Use Standard Drinks/Week Comments Yes 0 (1 standard drink = 0.6 oz pur e alcohol) Very Rare [facility] Utilities Answer Date Recorded In the past 12 months has [employer], gas, oil, or water company threatened [...] declined 08/14/2023 How often do you attend shinto or evangelical serv ices? Patient declined 08/14/2023 Do you belong to any clubs o r organizations such as shinto groups, unions, fraternal or athletic groups, or [...] Total Score - Questions 1-9 11 04/2019 [facility] Occupat ional Health - [...] Sex Assigned at Female 03/19/2024 12:44 AM OUT PATIENT THERAPIST Legal Sex Female 3:50 AM CDT Gender Identity Female 03/19/2024 12:44 AM OUT PATIENT THERAPIST Sexual Orientation Not on file documented as of this encounter Plan of Treatment Upcoming Encounters Date Type Department Care Team (Late st Contact Info) Description 11/17/2024 2:00 PM CDT Clinical Support [facility] Oncology Services [address] [place] [address] Alycia Patel September, PAC [address] [place] [address] Discharge Disposition: Discharged to home or Selfcare 11/22/2024 2:00 PM CDT Clinical Support [facility] Oncology Services [address] [place] [address] Alycia Patel September, PAC [address] [place] [address] Discharge Disposition: Discharged to home or Selfcare 11/24/2024 2:00 PM CDT Clinical Support [facility] Oncology Services [address] [place] [address] Robyn Patelseptember, PAC [address] [place] [address] Discharge Disposition: Discharged to home or Selfcare 12/13/2024 3:00 PM CDT Office Visit [facility] - Neurology [facility] #2 [place] [address] Valeria Ulloa APRN, STEREO EQUIPMENT INSTALLER #[address] [place] [address] 01/10/2025 2:20 PM CDT Lab [facility] Oncology Services [address] [place] [address] [facility] September, PAC [address] [place] [address] Discharge Disposition: Discharged to home or Selfcare 01/17/2025 2:00 PM CDT Office Visit [facility] Oncology Services [address] [place] [address] [facility] September, PAC [address] [place] [address] Discharge Disposition: Discharged to home or Selfcare documented as of this encounter Visit Diagnoses Diagnosis TIA (transient ischemic attack) Unspecified transient cerebral ischemia documented in this encounter Additional Health Concerns Assessment Noted Time PHQ-9 Depression Total Score: 11 020 8:36 AM CDT documented as of this encounter Care Teams Irradiated Fuel Handler Relationship Specialty Start Date End Date Morales Meza MD #[address] [address] PCP - General Family Medicine 01/05/20 Valeria Ulloa APRN, STEREO EQUIPMENT INSTALLER #[address] [place] [address] Nurse Practitioner Advanced Practice Nurse 02/26/22 documented as of this encounter
--- OUTSIDE RECORDS SUMMARY | 2024-11-17 00:40 | XMS_ITS | Encounter Summary ---
Author Organization [facility] Address [address] [place] [address] Phone Care Team Providers Care Measurement Department Chief Clerk Name Role Phone Morales Meza MD Primary Care Provider [phone] Valeria Ulloa FRYER OPERATOR, BRAND RECORDER Unavailable [phone] Reason for Visit * Reason Comments Medication Refill Encounter Details Date Type Department Care Team (Late st Contact Info) Description 08/20/2023 Refill [facility] Family [facility] #2 [place] [address] Morales Meza MD #[address] [address] Medication Refill Social History Tobacco Use Types Packs/Day Years Used Date Smoking Tobacco: Former Cigarettes 2011 Smokeless Tobacco: Never Alcohol Use Standard Drinks/Week Comments Yes 0 (1 standard drink = 0.6 oz pur e alcohol) Very Rare [facility] Utilities Answer Date Recorded In the past 12 months has [employer], gas, oil, or water company threatened to shut off services in your home? No 08/14/2023 Social Connection and Isolation Panel Answer Date Recorded In a typical week, how many times do you talk on the phone with family, friends, or neighbors? Patient declined 08/14/2023 How often do you get togethe r with friends or relatives? Patient declined 08/14/2023 How often do you attend jain or faith serv ices? Patient declined 08/14/2023 Do you belong to any clubs o r organizations such as jain groups, unions, fraternal or athletic groups, or [...] Total Score - Questions 1-9 11 04/2019 [facility] Occupat ional Health - Occupational [...] a long term (including now)? No 08/14/2023 Education Answer Date Recorded What is the highest level of school you have completed or the highest degree you have received? Associate degree: academic program 05/06/2021 Sexually Active Control Partners Comments Yes Comments No Sex and Gender Information Value Date Recorded Sex Assigned at Female 03/19/2024 12:44 AM DOUBLER HELPER Legal Sex Female 3:50 AM CDT Gender Identity Female 03/19/2024 12:44 AM DOUBLER HELPER Sexual Orientation Not on file documented [...] order placed on 07/30/2023 10:14 AM Order [id number]: ketorolac (TORADOL) injection 30 mg (For orders [...] Support [facility] Oncology Services [address] [place] [address] Alycia Patel PAC [address] [place] [address] Discharge Disposition: Discharged to home or Selfcare 11/22/2024 2:00 PM CDT Clinical Support [facility] Oncology Services [address] [place] [address] PatelTerryAlycia June, PAC [address] [place] [address] Discharge Disposition: Discharged to home or Selfcare 11/24/2024 2:00 PM CDT Clinical Support [facility] Oncology Services [address] [place] [address] PatelTerryAlycia June, PAC [address] [place] [address] Discharge Disposition: Discharged to home or Selfcare 12/13/2024 3:00 PM CDT Office Visit [facility] Neurology [facility] #2 [place] [address] Valeria Ulloa APRN, BRAND RECORDER [address] [place] [address] 01/10/2025 2:20 PM CDT Lab [facility] Oncology Services [address] [place] [address] Terry Patellenseptember, PAC [address] [place] [address] Discharge Disposition: Discharged to home or Selfcare 01/17/2025 2:00 PM CDT Office Visit [facility] Oncology Services [address] [place] [address] PatelTerryAlycia June, PAC [address] [place] [address] Discharge Disposition: Discharged to home or Selfcare documented as of this encounter Visit Diagnoses Not on filedocumented in this encounter Additional Health Concerns Assessment Noted Time PHQ-9 Depression Total Score: 11 020 8:36 AM CDT documented as of this encounter Care Teams Measurement Department Chief Clerk Relationship Specialty Start Date End Date Morales Meza MD [facility] [address] [address] PCP - General Family Medicine 01/05/20 Valeria Ulloa APRN, BRAND RECORDER [address] [place] [address] Nurse Practitioner Advanced Practice Nurse 02/26/22 documented as of this encounter
--- OUTSIDE RECORDS SUMMARY | 2024-11-17 00:41 | XMS_ITS | Encounter Summary ---
Author Organization [employer] Address [address] [place] [address] Care Team Providers Care Neon Molder Name Role Phone Unavailable Primary Care Provider Unavailabl e Encounter Details Date Type Department Care Team (Late st Contact Info) Description 12/06/2002 Outpatient [facility] [address] [place] [address]. [place], [place] [id number] Sea Don MD Social History Tobacco Use Types Packs/Day Years Used Date Smoking Tobacco: Never Assessed Comments Unknown Sex and Gender Information Value Date Recorded Sex Assigned at Not on file Legal Sex Female 3:03 AM THRESHER BROOMCORN Gender Identity Not on file Sexual Orientation Not on file documented as of this encounter Plan of Treatment Not on file documented as of this encounter Visit Diagnoses Not on filedocumented in this encounter
--- OUTSIDE RECORDS SUMMARY | 2024-11-17 00:41 | XMS_ITS | Encounter Summary ---
Author Organization [facility] Address [address] [place] [address] Care Team Providers Care Human Resources Partner Name Role Phone Unavailable Primary Care Provider Unavailabl e Encounter Details Date Type Department Care Team (Late st Contact Info) Description 04/30/2000 Outpatient Historical [facility] Internal Medicine [place] [address] [place] [address] Raf Pfeiffer MD [address] [place] [phone] Social History Tobacco Use Types Packs/Day Years Used Date Smoking Tobacco: Never Assessed Comments Unknown Sex and Gender Information Value Date Recorded Sex Assigned at Not on file Legal Sex Female 3:03 AM PROGRAM TRAINER Gender Identity Not on file Sexual Orientation Not on file documented as of this encounter Plan of Treatment Not on file documented as of this encounter Visit Diagnoses Not on filedocumented in this encounter
--- OUTSIDE RECORDS SUMMARY | 2024-11-17 00:41 | XMS_ITS | Encounter Summary ---
Author Organization Address [address] [place] [address] Care Team Providers Care Floor Associate Name Role Phone Unavailable Primary Care Provider Unavailabl e Encounter Details Date Type Department Care Team (Late st Contact Info) Description 05/28/2000 Outpatient Historical [facility] Internal Medicine [place] [address] [place] [address] Raf Pfeiffer MD [address] [place] [phone] Social History Tobacco Use Types Packs/Day Years Used Date Smoking Tobacco: Never Assessed Comments Unknown Sex and Gender Information Value Date Recorded Sex Assigned at Not on file Legal Sex Female 3:03 AM SUBWAY REPAIR SUPERVISOR Gender Identity Not on file Sexual Orientation Not on file documented as of this encounter Plan of Treatment Not on file documented as of this encounter Visit Diagnoses Not on filedocumented in this encounter
--- OUTSIDE RECORDS SUMMARY | 2024-11-17 00:41 | XMS_ITS | Encounter Summary ---
Author Organization [employer] Address [address] [place] [address] Care Team Providers Care Boiler Or Engine Operator Name Role Phone Unavailable Primary Care Provider Unavailabl e Encounter Details Date Type Department Care Team (Late st Contact Info) Description 12/20/2002 Outpatient [facility] [address] [place] [address]. [place] [address] Social History Tobacco Use Types Packs/Day Years Used Date Smoking Tobacco: Never Assessed Comments Unknown Sex and Gender Information Value Date Recorded Sex Assigned at Not on file Legal Sex Female 3:03 AM ACTIVITY AID Gender Identity Not on file Sexual Orientation Not on file documented as of this encounter Plan of Treatment Not on file documented as of this encounter Visit Diagnoses Not on filedocumented in this encounter
--- OUTSIDE RECORDS SUMMARY | 2024-11-17 00:41 | XMS_ITS | Clinical Summary ---
Author Organization [facility] Address [address] [place] [address] Care Team Providers Care Writing Tutor Name Role Phone Unavailable Primary Care Provider [...] on file Legal Sex Female 3:03 AM PRODUCTION ASSOCIATE Gender Identity Not on file Sexual Orientation [...] (2 - Td or Tdap) 06/14/2029 Insurance [facility] [id number]
--- OUTSIDE RECORDS SUMMARY | 2024-11-17 00:41 | XMS_ITS | Encounter Summary ---
Author Organization [facility] Address [address] [place] [address] Care Team Providers Care Laborer Sawmill Name Role Phone No, Physician Primary Care Provider [phone] Jazmin Saab MD Unavailable [phone] Og Sumner MD Primary Care Provider + Morales Meza MD Primary Care Provider [phone] Encounter Details Date Type Department Care Team (Late st Contact Info) Description 09/15/2019 Telephone [facility] [address] [place] [address] Valeria Ortiz, RT Social History Tobacco Use [...] documented as of this encounter Care Teams Laborer Sawmill Relationship Specialty Start Date End Date No, Physician PCP - General 08/31/18 05/08/20 Og Sumner MD [address] [place] [address] PCP - General 02/21/21 06/16/21 Morales Meza MD [address] [address] PCP - General Family Medicine 06/17/21 Jazmin Saab MD [address] [place] [address] Referring Physician Obstetrics and Gynecology 01/10/19 documented as of this encounter
--- OUTSIDE RECORDS SUMMARY | 2024-11-17 00:41 | XMS_ITS | Encounter Summary ---
Author Organization [facility] Address [address] [place] [place] [address] Phone Care Team Providers Care Tour Driver Name Role Phone Morales Meza MD Primary Care Provider [phone] Valeria Ulloa LIFE CARE PLANNER, RAIL TRACK MAINTAINER Unavailable [phone] Reason for Visit * Reason Onset Date Comments Fatigue 06/12/2022 Rapid Heart Rate 06/12/2022 Chest Pain 06/12/2022 Dizziness 06/12/2022 Encounter Details Date Type Department Care Team (Late st Contact Info) Description 06/12/2022 Nurse Triage [facility] [address] [place] [address] Morales Meza MD [address] [address] Fatigue; Rapid Heart Rate; Chest Pain; Dizziness Social History Tobacco Use Types Packs/Day Years Used Date Smoking Tobacco: Former Cigarettes 1 10 2 - 2011 Smokeless Tobacco: Never Alcohol Use Standard Drinks/Week Comments Yes 0 (1 standard drink = 0.6 oz pur e alcohol) Very Rare PHQ-2 Answer Date Recorded Total Score - Questions 1-9 11 10/04/2019 Education Answer Date Recorded What is the highest level of school you have completed or the highest degree you have received? Associate degree: academic program 05/06/2021 Comments No Sex and Gender Information Value Date Recorded Sex Assigned at Female 03/19/2024 12:44 AM KITCHEN HELP HANDYMAN Legal Sex Female 3:50 AM CDT Gender Identity Female 03/19/2024 12:44 AM KITCHEN HELP HANDYMAN Sexual Orientation Not on file COVID-19 Exposure Response Date Recorded In the last 10 days, have yo u been in contact with someone who was confirmed or suspected to have Coronavirus/COVID-19? No / Unsure 06/12/2022 3:13 PM KITCHEN HELP HANDYMAN documented as of this encounter Miscellaneous Notes * Telephone Encounter - Tali Mendoza RN - 06/12/2022 2:23 PM CST EMS dispatched as of 1422. HEN HELP HANDYMAN * Telephone Encounter - Gail Burris RN [...] dispatched at 1423. EMS arrived at 1429. HEN HELP HANDYMAN documented in this encounter Plan of Treatment Upcoming Encounters Date Type Department Care Team (Late st Contact Info) Description 11/17/2024 2:00 PM CDT Clinical Support [facility] [address] [place] [address] Alycia Patel September, PAC [address] [place] [address] Discharge Disposition: Discharged to home or Selfcare 11/22/2024 2:00 PM CDT Clinical Support [facility] [address] [place] [address] PatelAlycia September, PAC [address] [place] [address] Discharge Disposition: Discharged to home or Selfcare 11/24/2024 2:00 PM CDT Clinical Support [facility] [address] [place] [address] PatelAlycia September, PAC [address] [place] [address] Discharge Disposition: Discharged to home or Selfcare 12/13/2024 3:00 PM CDT Office Visit [facility] - Neurology - [place] [address] [place] [address] Valeria Ulloa APRN, RAIL TRACK MAINTAINER [address] [place] [address] 01/10/2025 2:20 PM CDT Lab [facility] [address] [place] [address] Alycia Patel September, PAC [address] [place] [address] Discharge Disposition: Discharged to home or Selfcare 01/17/2025 2:00 PM CDT [facility] [address] [place] [address] Alycia Patel September, PAC [address] [place] [address] Discharge Disposition: Discharged to home or Selfcare documented as of this encounter Visit Diagnoses Not on filedocumented in this encounter Additional Health Concerns Infection Onset Date Last Indicated Resolved Time COVID - 19 01/09/2023 01/09/2023 01/19/2023 12:1 6 AM CDT COVID - 19 02/10/2023 02/10/2023 02/20/2023 12:1 6 AM KITCHEN HELP HANDYMAN COVID - 19 08/13/2023 08/13/2023 08/14/2023 12:0 4 AM CDT Assessment Noted Time PHQ-9 Depression Total Score: 11 020 8:36 AM CDT documented as of this encounter Care Teams Tour Driver Relationship Specialty Start Date End Date Morales Meza MD #[address] [address] PCP - General Family Medicine 01/05/20 Valeria Ulloa APRN, RAIL TRACK MAINTAINER #[facility] [place] [address] Nurse Practitioner Advanced Practice Nurse 02/26/22 documented as of this encounter
--- OUTSIDE RECORDS SUMMARY | 2024-11-17 00:41 | XMS_ITS | Encounter Summary ---
Author Organization [facility] Address [address] [place] [address] Phone Care Team Providers Care Typewriter Assembler Name Role Phone Morales Meza MD Primary Care Provider [phone] Valeria Ulloa MOTOR COACH OPERATOR, MUD ANALYSIS WELL LOGGING CAPTAIN Unavailable [phone] Reason for Visit * Reason Comments Medication Refill Encounter Details Date Type Department Care Team (Late st Contact Info) Description 03/23/2023 Refill [facility] - Family Medicine [facility] [address] [place] [address] Morales Meza MD #[address] [address] Medication Refill Social History Tobacco Use Types [...] Sex Assigned at Female 03/19/2024 12:44 AM PBX TEACHER Legal Sex Female 3:50 AM CDT Gender Identity Female 03/19/2024 12:44 AM PBX TEACHER Sexual Orientation Not on file documented as of this encounter Miscellaneous Notes * Telephone Encounter - Rosemary Van RMA - 03/23/2023 3:25 PM PBX TEACHER LVM to schedule TEACHER * Telephone Encounter - Lizz Miller RN - 03/23/2023 10:20 AM CST Needs OV with PCP TEACHER * Telephone Encounter - Lizz Miller RN [...] Ref Range Status 06/12/2022 >60 >=60 Final TEACHER documented in this encounter Plan of Treatment Upcoming Encounters Date Type Department Care Team (Late st Contact Info) Description 11/17/2024 2:00 PM CDT Clinical Support [facility] Services [address] [place] [address] Aylcia Patel Joanne, PAC [address] [place] [address] Discharge Disposition: Discharged to home or Selfcare 11/22/2024 2:00 PM CDT Clinical Support [facility] Oncology Services [address] [place] [address] Jorge Alycia June, PAC [address] [place] [address] Discharge Disposition: Discharged to home or Selfcare 11/24/2024 2:00 PM CDT Clinical Support [facility]cology [facility] [address] [place] [address] PatelRobynseptember, PAC [address] [place] [address] Discharge Disposition: Discharged to home or Selfcare 12/13/2024 3:00 PM CDT Office Visit [facility] - Neurology [facility] [address] [place] [address] Valeria Ulloa, MOTOR COACH OPERATOR, MUD ANALYSIS WELL LOGGING CAPTAIN [address] [place] [address] 01/10/2025 2:20 PM CDT Lab [facility] [address] [place] [address] Patel Alycia June, PAC [address] [place] [address] Discharge Disposition: Discharged to home or Selfcare 01/17/2025 2:00 PM CDT Office Visit [facility] [address] [place] [address] Robyn Patelseptember, PAC [address] [place] [address] Discharge Disposition: Discharged to home or Selfcare documented as of this encounter Visit Diagnoses Not on filedocumented in this encounter Additional Health Concerns Infection Onset Date Last Indicated Resolved Time COVID - 19 08/13/2023 08/13/2023 08/14/2023 12:0 4 AM CDT Assessment Noted Time PHQ-9 Depression Total Score: 11 020 8:36 AM CDT documented as of this encounter Care Teams Typewriter Assembler Relationship Specialty Start Date End Date Morales Meza MD #[address] [address] PCP - General Family Medicine 01/05/20 Valeria Ulloa APRN, MUD ANALYSIS WELL LOGGING CAPTAIN [address] [place] [address] Nurse Practitioner Advanced Practice Nurse 02/26/22 documented as of this encounter
--- OUTSIDE RECORDS SUMMARY | 2024-11-17 00:41 | XMS_ITS | Encounter Summary ---
Author Organization [email or web address] Address [address] [place] [address] Care Team Providers Care Printing Specialist Name Role Phone Unavailable Primary Care Provider [...] on file Legal Sex Female 3:03 AM FISHER LINE Gender Identity Not on file Sexual Orientation Not on file documented as of this encounter Plan of Treatment Not on file documented as of this encounter Visit Diagnoses Diagnosis Unspecified sinusitis (chronic)- Primary documented in this encounter
--- NOTE | 2024-11-17 01:31 | ED_ITS ---
HPI - Seizure General Chief Complaint: Seizure Stated Complaint: seizure Time Seen by Provider: 11/16/24 23:56 History of Present Illness HPI Narrative: 44-year-old female with history of recent seizure activity currently being established with an outpatient neurologist. She has been well controlled on Keppra 500 mg b.i.d. but has ran out of this 2 days ago. She has yet to see her neurologist and has an appointment on December 13. She is requesting a refill of her Keppra medication. She has no symptoms at this time denies any headache, vision change, nausea, vomiting abdominal pain, back pain, fever, chills. Had a witnessed potential seizure here in the waiting room but there was no associated trauma or head injury and she did not have a postictal phase. Currently answering all questions appropriately and not in any acute distress. This event was witnessed by nursing staff but did not appear to have any tonic-clonic activity or loss of consciousness. Related Data Home Medications ?Medication ?Instructions ?Recorded ?Confirmed ?Last Taken ?Type alprazolam 1 mg tablet 1 mg PO DAILY 10/29/20 02/20/24 02/20/24 History aripiprazole 30 mg tablet (Abilify) 30 mg PO DAILY 10/29/20 02/20/24 02/20/24 History ferrous sulfate 325 mg (65 mg 325 mg PO DAILY 10/29/20 02/20/24 02/20/24 History iron) tablet (Iron (ferrous sulfate)) venlafaxine 150 mg 150 mg PO DAILY 10/29/20 02/20/24 02/20/24 History capsule,extended release 24 hr (Effexor XR) divalproex 250 mg tablet,delayed 250 mg PO DAILY 03/16/22 02/20/24 02/20/24 History release (Depakote) alprazolam 1 mg tablet See Rx Instructions .Route 05/29/22 05/29/22 Unknown History .COMPLEX PRN Anxiety aripiprazole 30 mg tablet 30 mg PO DAILY 05/29/22 05/29/22 Unknown History atomoxetine 80 mg capsule 80 mg PO DAILY 05/29/22 05/29/22 Unknown History atorvastatin 10 mg tablet 10 mg PO DAILY 05/29/22 05/29/22 Unknown History divalproex 125 mg tablet,delayed See Rx Instructions .Route 05/29/22 05/29/22 Unknown History release .COMPLEX PRN Headache meloxicam 15 mg tablet 15 mg PO DAILY 05/29/22 05/29/22 Unknown History prazosin 2 mg capsule 4 mg PO DAILY 05/29/22 05/29/22 Unknown History propranolol 10 mg tablet 10 mg PO TID 05/29/22 05/29/22 Unknown History trazodone 150 mg tablet See Rx Instructions .Route .COMPLEX 05/29/22 05/29/22 Unknown History ubrogepant 50 mg tablet (Ubrelvy) See Rx Instructions .Route 05/29/22 05/29/22 Unknown History .COMPLEX PRN Headache venlafaxine 150 mg 300 mg PO DAILY 05/29/22 05/29/22 Unknown History capsule,extended release 24 hr atorvastatin 10 mg tablet 10 mg PO DAILY 11/08/23 02/20/24 02/20/24 History Aspir-81 81 mg PO DAILY 02/20/24 02/20/24 02/20/24 History Quviviq 25 mg PO DAILY 02/20/24 02/20/24 02/19/24 History Allergies Allergy/AdvReac Type Severity Reaction Status Date / Time miconazole (From Monistat 3) AdvReac Severe Swelling Verified 11/16/24 22:43 morphine AdvReac Severe Other Verified 11/16/24 22:43 skin cleanser combination AdvReac Severe Swelling Verified 11/16/24 22:43 no.17 (From Monistat 3) codeine AdvReac Intermediate Other Verified 11/16/24 22:43 Review of Systems 2 Review of Systems: As reviewed above in [facility] Past Medical History Medical History Recurrent headache History of blood transfusion Insomnia Anxiety and depression Anemia Celiac disease Surgical History Surgical History Previous section Hx of cholecystectomy Status post bilateral breast reduction History of abdominoplasty H/O gastric bypass Family History Family History Other No significant family history Social History Social History Smoking packs per day: 0.25 Smoking cigarettes per day: 5.0 Years smoked: 5 Smoking pack-years: 1.25 Smoking status: Current every day smoker Tobacco type: cigarettes Second hand tobacco smoke exposure: No Additional smoking assessment comments: quit age 20 Alcohol intake: current Drinks per week: 1 Alcohol use details: rare social Substance use: never Substance use type: does not use Do You Feel Safe in your Home?: Yes Lack of Transportation: No Lack of Food: Never True Current Housing: I Have Housing Concerned About Future Housing: No Difficulty Paying Gas/Electric Bills: No Difficulty Paying for Meds: No Currently Unemployed: No Education: Associate Degree Difficulty w/ Childcare or Family Care: No Living arrangements: with family Additional living arrangements comments: and daughter Gender identity (if verbalized by the patient): Female Spiritual care concerns: No Exam 2 Narrative: GENERAL: [Well-appearing, well-nourished, and in no acute distress.] HEAD: [Normocephalic, atraumatic.] EYES: [PERRLA and EOMI.] ENT: Nares clear, no rhinorrhea or epistaxis. Mucous membranes moist. NECK: Supple. CHEST: [Clear to auscultation. No respiratory distress.] HEART: [Regular rate and rhythm]. No murmur heard. [Normal peripheral pulses.] ABDOMEN: [Soft, nondistended], [nontender], [No rigidity or guarding] EXTREMITIES: Normal range of motion. [No edema.] SKIN: Warm, dry, no rash. NEURO: [No focal deficits]. Alert and oriented [x3.] PSYCH: [Normal mood and affect.] Course Vital Signs Vital signs: Vital Signs Temperature 36.3 C L 11/16/24 22:39 Pulse Rate 98 11/16/24 22:39 Respiratory Rate 17 11/16/24 22:39 Blood Pressure 145/73 H 11/16/24 22:39 Pulse Oximetry 100 11/16/24 22:39 Oxygen Delivery Room Air 11/16/24 22:39 Temperature 36.3 C L 11/16/24 22:39 Pulse Rate 82 11/17/24 02:08 Respiratory Rate 22 H 11/17/24 02:08 Blood Pressure 136/74 11/17/24 02:08 Pulse Oximetry 100 11/17/24 02:08 Oxygen Delivery Room Air 11/16/24 23:43 MDM - Seizure MDM Narrative Medical decision making narrative: 44-year-old female with history of recent seizure activity currently being established with an outpatient neurologist. She has been well controlled on Keppra 500 mg b.i.d. but has ran out of this 2 days ago. She has yet to see her neurologist and has an appointment on December 13. She is requesting a refill of her Keppra medication. She has no symptoms at this time denies any headache, vision change, nausea, vomiting abdominal pain, back pain, fever, chills. Had a witnessed potential seizure here in the waiting room but there was no associated trauma or head injury and she did not have a postictal phase. Currently answering all questions appropriately and not in any acute distress. This event was witnessed by nursing staff but did not appear to have any tonic-clonic activity or loss of consciousness. Patient's vital signs reassuring without any significant derangements such as tachycardia, fever, hypoxemia, hypotension or significant hypertension. She has an unremarkable neurological assessment during my encounter and is awake alert oriented, no signs of postictal phase, no signs of any neurological deficit. She is placed on pulse oximetry and cardiac catheterization technologist. Patient is able tolerate oral intake at this time but I did discuss IV load of her home Keppra dose she prefers to take it by mouth. Given 1500 mg p.o. and laboratory studies and a CT head obtained. Patient will be observed for any recurrence of activity here in the emergency department. Patient was given her oral Keppra dose and CT was refused by the patient. She wants to leave without getting the scan as she has to take her daughter to school in the morning. I discussed that this would be against medical advice as review not have a clear etiology for her seizure activity or any potential injuries or intracranial pathology that could be found on the scan. Patient understood the risks and benefits and alternatives of leaving and signed paperwork. I did prescribe her refills for Keppra to at least bridge her until she can see her neurologist and she was given return precautions. Left AMA at this time. Medical Records Attestation: I reviewed the patient's medical records. Lab Data Attestation: I reviewed the patient's lab results. 11/16/24 23:46 11/16/24 23:46 Labs: Lab Results 11/16/24 11/16/24 11/16/24 Range/Units 23:46 23:56 23:58 WBC 8.5 (4.5-10.0) K/mm3 RBC 4.29 (4.2-5.4) M/mm3 Hgb 10.5 L (12.0-15.0) g/dL Hct 34.4 L (37.0-47.0) % MCV 80.2 (80-100) fl MCH 24.5 L (26-34) pg MCHC 30.5 L (32-36) g/dl RDW 17.6 H (11.5-14.5) % Plt Count 214 (150-375) k/mm3 MPV 12.0 H (7.4-10.4) fl Immature Gran % (Auto) 0.6 H (0-0.5) % Neut % (Auto) 59.8 (45.5-73.1) % Lymph % (Auto) 27.8 (18.3-44.2) % Scott % (Auto) 6.9 (2.6-8.5) % Eos % (Auto) 4.1 (0-4.4) % Baso % (Auto) 0.8 (0.2-1.2) % Lymph # (Auto) 2.35 (0.9-3.2) K/mm3 Scott # (Auto) 0.6 (0.1-0.6) K/mm3 Eos # (Auto) 0.4 H (0-0.3) K/mm3 Baso # (Auto) 0.1 (0.0-0.1) K/mm3 Abs Immat Gran (auto) 0.05 H (0.00-0.031) K/mm3 Absolute Neuts (auto) 5.1 (1.3-6.7) K/mm3 Absolute Nucleated RBC 0.000 (0.0-0.012) K/mm3 Nucleated RBC % 0.0 (0.0-0.2) % PT 13.6 (11.1-14.7) Seconds INR 1.0 APTT 28.3 (22.3-36.8) Seconds Sodium 135 L (137-145) mmol/L Potassium 3.8 (3.4-5.0) mmol/L Chloride 107 (98-107) mmol/L Carbon Dioxide 23 (22-30) mmol/L Anion Gap 5 (4-12) mmol/L BUN 13 (7-17) mg/dL Creatinine 0.84 (0.7-1.0) mg/dL Estim Creat Clear Calc 93 ml/min Estimated GFR > 60 (59 - ) Glucose 94 (65-110) mg/dL Calcium 9.3 (8.4-10.2) mg/dL Total Bilirubin 0.2 (0.2-1.3) mg/dL AST 30 (14-36) U/L ALT 14 (6-35) U/L Alkaline Phosphatase 70 (38-126) U/L Total Protein 6.4 (6.3-8.2) g/dL Albumin 3.7 (3.5-5.1) g/dL Urine Color Yellow (Yellow) Urine Appearance Clear (Clear) Urine pH 6.5 (5.0-9.0) Ur Specific [place] 1.014 (1.001-1.035) Urine Protein Negative (Negative) mg/dL Urine Glucose (UA) Negative (Negative) mg/dL Urine Ketones Negative (Negative) mg/dL Ur Blood (Man) Negative (Negative) Urine Nitrate Negative (Negative) Urine Bilirubin Negative (Negative) Urine Urobilinogen 0.2 (<2.0) mg/dL Leukocyte Esterase Rfl Negative (Negative) NIURKA/UL POC Urine HCG, Qual Negative (Negative) Discharge Plan Discharge Clinical Impression: Seizure-like activity Patient Disposition: Left Against Medical Advice Condition: Stable Patient Language: Samoan Prescriptions: New levetiracetam [Keppra] 500 mg tablet 500 mg PO BID Qty: 60 0RF No Action atorvastatin 10 mg tablet 10 mg PO DAILY alprazolam 1 mg tablet See Rx Instructions .ROUTE .COMPLEX PRN (Reason: Anxiety) Rx Instructions: as prescribed meloxicam 15 mg tablet 15 mg PO DAILY venlafaxine 150 mg capsule,extended release 24hr 300 mg PO DAILY propranolol 10 mg tablet 10 mg PO TID trazodone 150 mg tablet See Rx Instructions .ROUTE .COMPLEX Rx Instructions: as prescribed at bedtime divalproex 125 mg tablet,delayed release (DR/EC) See Rx Instructions .ROUTE .COMPLEX PRN (Reason: Headache) Rx Instructions: as prescribed prazosin 2 mg capsule 4 mg PO DAILY aripiprazole 30 mg tablet 30 mg PO DAILY atomoxetine 80 mg capsule 80 mg PO DAILY Ubrelvy 50 mg tablet See Rx Instructions .ROUTE .COMPLEX PRN (Reason: Headache) Rx Instructions: as prescribed hydroxyzine HCl 25 mg tablet 25 mg PO QID PRN (Reason: itching) Qty: 20 0RF atorvastatin 10 mg tablet 10 mg PO DAILY alprazolam 1 mg Tablet 1 mg PO DAILY venlafaxine [Effexor XR] 150 mg Capsule,Extended Release 24hr 150 mg PO DAILY ferrous sulfate [Iron (ferrous sulfate)] 325 mg (65 mg iron) Tablet 325 mg PO DAILY aripiprazole [Abilify] 30 mg Tablet 30 mg PO DAILY divalproex [Depakote] 250 mg Tablet,Delayed Release (Dr/Ec) 250 mg PO DAILY albuterol sulfate 90 mcg/actuation HFA aerosol inhaler 2 puff inhalation QID PRN (Reason: shortness of breath or wheezing) Qty: 6.7 0RF Rx Instructions: what ever is covered by insurance Quviviq 25 mg PO DAILY Aspir-81 81 mg PO DAILY levetiracetam [Keppra] 500 mg tablet 500 mg PO BID Qty: 60 0RF cephalexin 500 mg capsule 500 mg PO Q12H 5 Days Qty: 10 0RF Follow-up/Referrals: Derrick,Morales Cantu MD [Primary Care Provider] -
[2024-11-17 02:07] VITALS: BP 136/74; PULSE 82; RESP 22; O2SAT 100
[2024-11-17 02:08] VITALS: BP 136/74; PULSE 82; RESP 22; O2SAT 100
== END 2024-11-17 02:00 | disposition left against medical advice (07) ==
PROVIDERS: Emergency Provider Student in an Organized Health Care Education/Training Program; PCP Internal Medicine
DX: R56.9 Unspecified convulsions (principal); K90.0 Celiac disease; F41.8 Other specified anxiety disorders; Z98.84 Bariatric surgery status
CPT/HCPCS: 36415; 80053; 81003; 81025; 85025; 85610; 85730; 93005; 99284; A9270